=== PATIENT | female | born 1965 ===

== ENCOUNTER 2017-01-07 10:43 | Day surgery (SDC) | payer OTHER ==
[2017-01-04 08:28] VITALS: BMI 26.7
[2017-01-07 11:38] VITALS: RESP 20; TEMP 98.3; O2SAT 97
--- NOTE | 2017-01-07 12:25 | CP.SDSHP ---
Same Day Surgery H & P - History Proposed Procedure: US guided core biopsy of right neck node Pre-Op Diagnosis: Lymphadenopathy - Allergies Allergies: Allergies No Known Allergies Allergy (Verified 01/04/16 17:16) - Physical Exam Vital Signs: Vital Signs 01/07/17 11:02 Temperature 98.3 F Pulse Rate 68 Respiratory 20 Rate Blood Pressure 98/65 L O2 Sat by Pulse 97 Oximetry Mental Status: Alert & Oriented x3 Neuro: WNL Heart: WNL - Impression Impression: Multiple large submanidublar nodes. Plan US guided core biopsy. Pt. Evaluated Today:Candidate for Anesthesia & Procedure: No - Date & Time Date: 01/07/17 Time: 12:00 Short Stay Discharge - Short Stay Discharge Admitting Diagnosis/Reason for Visit: NECK MASS Disposition: HOME/ ROUTINE
--- NOTE | 2017-01-07 12:27 | PCM.SURG1 ---
Surgeon's Initial Post Op Note - Surgeon's Notes Surgeon: Ryan Ramos MD [employer] Developer: NONE Type of Anesthesia: Local Pre-Operative Diagnosis: Lymphadenopathy Operative Findings: Large submandibular nodes that are complex and measures up to 5 cm. Post-Operative Diagnosis: Lymphadenopathy Operation Performed: US guided core biopsy Specimen/Specimens Removed: 18 g core x 6 passes Estimated Blood Loss: EBL {In ML}: 2 Blood Products Given: N/A Drains Used: No Drains Post-Op Condition: Good Date of Surgery/Procedure: 01/07/17 Time of Surgery/Procedure: 12:20
--- NOTE | 2017-01-07 12:38 | US ---
PROCEDURE: Date of procedure: 01/07/2017 Procedure: Ultrasound-guided biopsy of RIGHT neck lymph node, CPT 67968 Ultrasound guidance for biopsy, [id number] HISTORY: Enlarged cervical lymph node. TECHNIQUE: Following informed consent and procedure time-out, limited ultrasound patient's Right neck demonstrates a large right lymph node in the submandibular region. The lymph node measures 5x 2.8 centimeter and is complex. After the patient neck was prepped and draped in the usual sterile fashion and the skin anesthetized with lidocaine, ultrasound guided core biopsy was performed. An 18 gauge core needle was advanced under ultrasound guidance into the mass. Upon confirmation of needle position, six 18 gauge specimens were obtained and sent for routine histology and flow cytometry. A post biopsy ultrasound showed no hematoma IMPRESSION: Ultrasound-guided core biopsy of enlarged right cervical lymph node.
[2017-01-07 13:02] VITALS: BP 105/63; PULSE 69
== END 2017-01-07 12:55 | disposition home or self-care (01) ==
LOC: C.SPRAD 10:43
PROVIDERS: ATTEND Radiology Vascular & Interventional Radiology
DX: C83.31 Diffuse large B-cell lymphoma, lymph nodes of head, face, and neck (principal)

== ENCOUNTER 2017-08-27 09:25 | Inpatient (IN) | payer OTHER ==
[2017-08-27 09:25] VITALS: BMI 25.3
[2017-08-27] MEDS ORDERED: Sodium Chloride 0.9% 1,000 ML IV ONE ×3 (10:32→14:14)
--- NOTE | 2017-08-27 11:04 | RAD ---
HISTORY: Sepsis Patient COMPARISON: 02/24/2017 TECHNIQUE: Chest PA and lateral FINDINGS: LUNGS: Ovoid opacity right lower lobe, possibly pneumonia. Rule out neoplasm. This represents interval change compared to CT examination of 07/16/2017. No other abnormal pulmonary opacity elsewhere. PLEURA: No significant pleural effusion identified. No pneumothorax apparent. CARDIOVASCULAR: Normal heart size. No congestive change. Right central venous Port-A-Cath. OSSEOUS STRUCTURES: No significant abnormalities. VISUALIZED UPPER ABDOMEN: Normal. OTHER FINDINGS: None. IMPRESSION: Right lower lobe opacity possible pneumonia. Followup to clearing to exclude underlying neoplasm. Right central venous infusion port. No additional abnormality.
--- NOTE | 2017-08-27 11:04 | C.PDOC ---
History Of Present Illness 52 year old female, with PMHx of lymphoma, presents to ED for evaluation of cold symptoms including body aches, fever, productive cough with yellow sputum for the past week. Pt reports being seen by PMD 5 days ago, was given Zithromax without improvement. As per family, pt had an episode of vomiting yesterday. Denies chest pain, SOB, high fever, drooling, neck pain, headache, dizziness, diarrhea, abdominal pain, or back pain. At present time, pt appears sick and pale. Time Seen by Provider: 08/27/17 10:02 Chief Complaint (Nursing): Flu-like Symptoms History Per: Patient History/Exam Limitations: no limitations Onset/Duration Of Symptoms: Days Current Symptoms Are (Timing): Still Present Location Of Pain: Diffuse Myalgias Sick Contacts (Context): None Associated Symptoms: Fever, Cough, Sputum, Myalgias Ear Symptoms: Bilateral: None Recent travel outside of the [place]: No Additional History Per: Patient Past Medical History Reviewed: Historical Data, Nursing Documentation, Vital Signs Vital Signs: Last Vital Signs Temp 97.9 F 08/27/17 14:25 Pulse 69 08/27/17 15:57 Resp 18 08/27/17 15:57 BP 83/50 L 08/27/17 17:29 Pulse Ox 100 08/27/17 15:57 - Medical History PMH: Anxiety, Arthritis, Malignancy Denies: Chronic Kidney Disease Surgical History: Tonsillectomy, - [facility] Procedures DRAINAGE OF SPINAL CANAL, PERCUTANEOUS APPROACH, DIAGNOSTIC (01/04/16) EXCISION OF R UP ARM SUBCU/FASCIA, OPEN APPROACH (01/04/16) EXCISION OF RIGHT AXILLARY LYMPHATIC, OPEN APPROACH, DIAGN (01/04/16) Family History: States: Unknown Family Hx - Social History Hx Alcohol Use: No Hx Substance Use: No - Immunization History Hx Tetanus Toxoid Vaccination: (unk) Hx Influenza Vaccination: No Hx Pneumococcal Vaccination: (unk) Review Of Systems Except As Marked, All Systems Reviewed And Found Negative. Constitutional: Positive for: Fever, Other (body aches) Cardiovascular: Negative for: Chest Pain, Palpitations Respiratory: Positive for: Cough, Sputum. Negative for: Shortness of Breath, Hemoptysis Gastrointestinal: Positive for: Vomiting. Negative for: Abdominal Pain, Diarrhea Genitourinary: Negative for: Dysuria, Frequency, Hematuria Musculoskeletal: Negative for: Neck Pain, Back Pain Neurological: Negative for: Headache, Dizziness Physical Exam - Physical Exam Appears: Non-toxic, Chronically Ill Skin: Warm, Dry, Pale Head: Normacephalic Eye(s): bilateral: PERRL Nose: No Flaring Oral Mucosa: Moist, No Drooling Tongue: Normal Appearing Throat: Normal, No Erythema, No Exudate Neck: Supple Chest: Symmetrical Cardiovascular: Rhythm Regular, No Murmur Respiratory: No Accessory Muscle Use, No Rales, No Rhonchi, No Wheezing Gastrointestinal/Abdominal: Soft, No Tenderness Extremity: Normal ROM, No Pedal Edema, No Deformity Neurological/Psych: Oriented x3, Normal Speech ED Course And Treatment - Laboratory Results Result Diagrams: 08/27/17 11:03 08/27/17 11:03 Lab Interpretation: Abnormal ECG: Interpreted By Me, Viewed By Me ECG Rhythm: Sinus Rhythm ECG Interpretation: Normal Interpretation Of ECG: SR@88/min,NAD, no acute T wave or ST-T changes. O2 Sat by Pulse Oximetry: 100 (RA) Pulse Ox Interpretation: Normal - Other Rad CXR X-Ray: Read By Radiologist Interpretation: IMPRESSION: Right lower lobe opacity possible pneumonia. Followup to clearing to exclude underlying neoplasm. Right central venous infusion port. No additional abnormality. Progress Note: Blood work, UA, influenza AB, CXR, EKG ordered and reviewed. Pt was given Toradol, Zofran, Tylenol, and IV fluids. On re-eval, pt remained unchanged. Blood work review, CXR review, pt has clinical findings c/w fever, PNA r/o sepsis. case discussed with hospitalist and admission arranged. Disposition - Disposition Disposition: HOSPITALIZED Disposition Time: 12:02 Condition: STABLE - Clinical Impression Clinical Impression: Pneumonia, Lymphoma of lymph nodes of neck - PA / KEYBOARD SPECIALIST / Resident Statement MD/DO has reviewed & agrees with the documentation as recorded. - Scribe Statement The provider has reviewed the documentation as recorded by the Nichole Diaz All medical record entries made by the Stephaniaibrandi were at my direction and personally dictated by me. I have reviewed the chart and agree that the record accurately reflects my personal performance of the history, physical exam, medical decision making, and the department course for this patient. I have also personally directed, reviewed, and agree with the discharge instructions and disposition.
[2017-08-27 11:09] LABS: BASO % 0.4 % (0.0-2.0); HEMOGLOBIN 11.6 g/dL (11.0-16.0); MEAN CORPUSCULAR HEMOGLOBIN 28.8 pg (27.0-31.0); MEAN CORPUSCULAR HGB CONC 35.1 g/dL (33.0-37.0); MEAN PLATELET VOLUME 8.6 fL (7.2-11.7); MONO # 0.8 K/uL (0.0-0.8); MONO % 6.4 % (0.0-10.0); NEUT # 10.7 K/uL (1.8-7.0); NEUT % 85.2 % (50.0-75.0); PLATELET COUNT 183 K/uL (130-400); RBC 4.03 Mil/uL (3.80-5.20); RED CELL DISTRIBUTION WIDTH 17.4 % (11.5-14.5)
[2017-08-27 11:14] LABS: SQUAMOUS EPITHIAL 1 /hpf (0-5); URINE BILIRUBIN NEGATIVE (NEGATIVE); URINE BLOOD NEGATIVE (NEGATIVE); URINE CLARITY Clear (Clear); URINE COLOR Yellow (YELLOW); URINE GLUCOSE (UA) NORMAL (Normal); URINE LEUKOCYTE ESTERASE NEG Leu/uL (Negative); URINE NITRATE NEGATIVE (NEGATIVE); URINE PROTEIN 1+ mg/dL (NEGATIVE)
[2017-08-27 11:15] LABS: ABG ALLEN TEST POS; ARTERIAL BLOOD GAS HCO3 24.2 mmol/L (21-28); ARTERIAL BLOOD GAS PCO2 28 mm/Hg (35-45); ARTERIAL BLOOD GAS PH 7.49 (7.35-7.45); ARTERIAL BLOOD GAS PO2 69 mm/Hg (80-100); ARTERIAL BLOOD GAS TCO2 22.2 mmol/L (22-28)
[2017-08-27 11:17] LABS: MEAN CELL VOLUME 82.2 fL (81.0-99.0); WHITE BLOOD COUNT 12.5 K/uL (4.8-10.8)
[2017-08-27 11:19] LABS: INR 1.4; PROTHROMBIN TIME 15.4 SECONDS (9.7-12.2)
[2017-08-27 11:26] LABS: ALB/GLOB RATIO 1.1 (1.0-2.1); ALBUMIN 3.7 g/dL (3.5-5.0); ALT/SGPT 21 U/L (9-52); AST/SGOT 16 U/L (14-36); BLOOD UREA NITROGEN 9 mg/dL (7-17); CALCIUM 8.7 mg/dl (8.6-10.4); GFR AFRICAN-AMERICAN > 60; GFR NON-AFRICAN AMERICAN > 60
[2017-08-27] MEDS ORDERED: Piperacillin/Tazobact 3.375 gm 100 ML IV STA (12:00)
[2017-08-27 12:24] LABS: BANDS 7 % (0-2); LYMPHOCYTE 7 % (20-40); MONOCYTE 7 % (0-10); NEUTROPHIL 78 % (50-75); PLATELET ESTIMATE NORMAL (NORMAL); REACTIVE LYMPHOCYTES 1 % (0-0); TOTAL CELLS COUNTED 100
[2017-08-27 12:25] LABS: ANISOCYTOSIS MODERATE; LARGE PLATELETS PRESENT; MICROCYTOSIS SLIGHT; OVALOCYTES SLIGHT; POIKILOCYTOSIS SLIGHT
[2017-08-27 12:26] LABS: GIANT PLATELETS PRESENT
[2017-08-27] MEDS ORDERED: Albuterol 0.083% Inhal Sol (2.5 mg/3 mL) UD IH STA (12:32)
[2017-08-27] MEDS ORDERED: Albuterol-Ipratrop 3 mg / 0.5 (3 ml) UD ONE (12:37)
[2017-08-27] MEDS ORDERED: Piperacill/Tazo 3.375gm in Dex 3.375 GM/50 ML BAG IVPB ONE (13:00)
[2017-08-27 14:27] LABS: VENOUS BLOOD GAS BASE EXCESS -2.7 mmol/L (0.0-2.0); VENOUS BLOOD GAS PCO2 40 mmHg (40-60); VENOUS BLOOD GAS PO2 44 mm/Hg (30-55); VENOUS BLOOD PH 7.36 (7.32-7.43)
[2017-08-27] MEDS: Sodium Chloride 0.9% 1,000 ML IV SCH ×3 (14:27→21:16)
[2017-08-27] MEDS: Vancomycin 1 GM in Sodium Chloride 0.9% 200 ML IVPB SCH (16:30)
--- NOTE | 2017-08-27 17:36 | CP.PCM.HP ---
<Maryann Booth - Last Filed: 08/27/17 17:23> History of Present Illness - History of Present Illness History of Present Illness: 52 year old female with past medical history stage IV diffuse large B-cell lymphoma diagnosed in 2009 s/p chemotherapy in [facility], with [employer] recurrence in 2011 with positive CSF and concominant herpes zoster infection, s/ p treatment, with repeat recurrence in 12/2016 currently on chemotherapy presented to hospital with 8 days of maylgias, fevers, chills. Patient states that she went to her PMD, Dr. Cifuentes 1 week ago and was prescribed Abx. Pt started taking Abx a few days later. Pt decided to come in today due to high fever at home of 103-104 degress. Patient is complaining of chills, fevers, headache, and nausea. Patient took tylenol before coming to hospital. Denies having any sick contacts. Last chemotherapy was 1 month ago. PMHx: stated above PSH: ; Biopsy from back; Chemotherapy Port (right supraclavicular) FH: Denies SH: Denies smoking, alcohol use, and illicit drug use. Previously worked in a [employer] and was laid off 6 months ago. Single and living with her son-in- law and daughter in an apartment. Allergies: NKDA Medications: Chemotherapy, Prednisone Onc: Rosie PMD: Esau Present on Admission - Present on Admission Any Indicators Present on Admission: No Review of Systems - Constitutional Constitutional: Chills, Fever - EENT Eyes: absent: Change in Vision Nose/Mouth/Throat: absent: Nasal Congestion, Sore Throat - Cardiovascular Cardiovascular: absent: Chest Pain, Dyspnea, Pedal Edema - Respiratory Respiratory: absent: Cough, Dyspnea, Wheezing - Gastrointestinal Gastrointestinal: Nausea. absent: Abdominal Pain, Constipation, Diarrhea, Vomiting - Genitourinary Genitourinary: absent: Change in Urinary Stream, Dysuria - Musculoskeletal Musculoskeletal: absent: Numbness, Tingling - Integumentary Integumentary: absent: Lesions, Rash, Skin Ulcer - Neurological Neurological: Headaches. absent: Confusion, Numbness, Weakness - Psychiatric Psychiatric: absent: Anxiety, Depression Past Patient History - Infectious Disease Hx of Infectious Diseases: None - Past Medical History & Family History Past Medical History?: Yes - Past Social History Smoking Status: Never Smoked Chewing Tobacco Use: No Cigar Use: No Alcohol: None Drugs: Denies - CARDIAC Hx Cardiac Disorders: Yes Hx Angina: Yes - PULMONARY Hx Respiratory Disorders: No - NEUROLOGICAL Hx Neurological Disorder: Yes Other/Comment: headaches - HEENT Hx HEENT Problems: Yes Other/Comment: HX: HYPERTROPIC TONSILS. HX: SORE THROATS "FOR MONTHS" - RENAL Hx Chronic Kidney Disease: No - ENDOCRINE/METABOLIC Hx Endocrine Disorders: No - HEMATOLOGICAL/ONCOLOGICAL Hx Blood Disorders: Yes - INTEGUMENTARY Hx Dermatological Problems: Yes Other/Comment: HX: RIGHT AXILLARY MASS - MUSCULOSKELETAL/RHEUMATOLOGICAL Hx Arthritis: Yes - GASTROINTESTINAL Hx Gastrointestinal Disorders: Yes HX Swallowing Problems: Yes - GENITOURINARY/GYNECOLOGICAL Hx Genitourinary Disorders: No - PSYCHIATRIC Hx Anxiety: Yes Hx Substance Use: No - SURGICAL HISTORY Hx Tonsillectomy: Yes - ANESTHESIA Hx Anesthesia: Yes Hx Anesthesia Reactions: Yes (02/15/17 dizziness) Hx Malignant Hyperthermia: No Meds Allergies/Adverse Reactions: Allergies Allergy/AdvReac Type Severity Reaction Status Date / Time No Known Allergies Allergy Verified 08/27/17 09:53 Physical Exam - Constitutional Appears: In Acute Distress - Head Exam Head Exam: ATRAUMATIC, NORMAL INSPECTION - ENT Exam ENT Exam: Mucous Membranes Moist - Respiratory Exam Respiratory Exam: Rhonchi (B/L R>L). absent: Accessory Muscle Use, Rales, Wheezes, Respiratory Distress - Cardiovascular Exam Cardiovascular Exam: REGULAR RHYTHM, +S1, +S2. absent: Diastolic murmur, Gallop , Rubs, Systolic Murmur - GI/Abdominal Exam GI & Abdominal Exam: Normal Bowel Sounds, Soft. absent: Distended, Firm, Guarding, Rigid, Tenderness - Extremities Exam Extremities exam: Negative for: pedal edema, tenderness - Neurological Exam Neurological exam: Alert, Oriented x3 - Psychiatric Exam Psychiatric exam: Normal Affect, Normal Mood - Skin Skin Exam: Dry, Intact, Pallor, Warm Results - Vital Signs Recent Vital Signs: Last Vital Signs Temp 97.9 F 08/27/17 14:25 Pulse 69 08/27/17 15:57 Resp 18 08/27/17 15:57 BP 77/35 L 08/27/17 15:57 Pulse Ox 100 08/27/17 15:57 - Labs Result Diagrams: 08/27/17 11:03 08/27/17 11:03 Labs: Laboratory Results - last 24 hr 08/27/17 08/27/17 08/27/17 10:32 11:03 11:03 WBC 12.5 H D RBC 4.03 Hgb 11.6 Hct 33.1 L MCV 82.2 D MCH 28.8 MCHC 35.1 RDW 17.4 H Plt Count 183 MPV 8.6 Neut % (Auto) 85.2 H Lymph % (Auto) 8.0 L Hayes % (Auto) 6.4 Eos % (Auto) 0.0 Baso % (Auto) 0.4 Neut # 10.7 H Lymph # 1.0 Hayes # 0.8 Eos # 0.0 Baso # 0.0 Neutrophils % (Manual) 78 H Band Neutrophils % 7 H Lymphocytes % (Manual) 7 L Reactive Lymphs % 1 H Monocytes % (Manual) 7 Platelet Estimate Normal Large Platelets Present Giant Platelets Present Poikilocytosis (manual Slight Anisocytosis (manual) Moderate Microcytosis (manual) Slight Ovalocytes Slight PT 15.4 H INR 1.4 APTT 30 Puncture Site pCO2 pO2 HCO3 ABG pH ABG Total CO2 ABG O2 Saturation ABG Base Excess Jose L Test ABG Potassium VBG pH VBG pCO2 VBG HCO3 VBG Total CO2 VBG O2 Sat (Calc) VBG Base Excess VBG Potassium A-a O2 Difference Respiratory Index Glucose Lactate FiO2 Sodium Potassium Chloride Carbon Dioxide Anion Gap BUN Creatinine Est GFR ( Amer) Est GFR (Non-Af Amer) POC Glucose (mg/dL) Random Glucose Calcium Total Bilirubin AST ALT Alkaline Phosphatase Total Protein Albumin Globulin Albumin/Globulin Ratio Arterial Blood Potassium Venous Blood Potassium Urine Color Urine Clarity Urine pH Ur Specific [place] Urine Protein Urine Glucose (UA) Urine Ketones Urine Blood Urine Nitrate Urine Bilirubin Urine Urobilinogen Ur Leukocyte Esterase Urine WBC (Auto) Urine RBC (Auto) Ur Squamous Epith Cells Urine HCG, Qual Influenza Typ A,B (EIA) Negative for flu a/b 08/27/17 08/27/17 08/27/17 11:03 11:03 11:12 WBC RBC Hgb Hct MCV MCH MCHC RDW Plt Count MPV Neut % (Auto) Lymph % (Auto) Hayes % (Auto) Eos % (Auto) Baso % (Auto) Neut # Lymph # Hayes # Eos # Baso # Neutrophils % (Manual) Band Neutrophils % Lymphocytes % (Manual) Reactive Lymphs % Monocytes % (Manual) Platelet Estimate Large Platelets Giant Platelets Poikilocytosis (manual Anisocytosis (manual) Microcytosis (manual) Ovalocytes PT INR APTT Puncture Site Rr pCO2 28 L pO2 69 L HCO3 24.2 ABG pH 7.49 H ABG Total CO2 22.2 ABG O2 Saturation 98.0 ABG Base Excess -0.9 Jose L Test Pos ABG Potassium 3.7 VBG pH VBG pCO2 VBG HCO3 VBG Total CO2 VBG O2 Sat (Calc) VBG Base Excess VBG Potassium A-a O2 Difference 46.0 Respiratory Index 0.7 Glucose 194 H Lactate 0.7 FiO2 21.0 Sodium 126 L 130.0 L Potassium 4.2 Chloride 92 L 102.0 Carbon Dioxide 26 Anion Gap 12 BUN 9 Creatinine 0.6 L Est GFR ( Amer) > 60 Est GFR (Non-Af Amer) > 60 POC Glucose (mg/dL) Random Glucose 217 H Calcium 8.7 Total Bilirubin 0.8 AST 16 ALT 21 Alkaline Phosphatase 89 Total Protein 7.1 Albumin 3.7 Globulin 3.4 Albumin/Globulin Ratio 1.1 Arterial Blood Potassium 3.7 Venous Blood Potassium Urine Color Yellow Urine Clarity Clear Urine pH 6.0 Ur Specific [place] 1.018 Urine Protein 1+ H Urine Glucose (UA) Normal Urine Ketones Trace Urine Blood Negative Urine Nitrate Negative Urine Bilirubin Negative Urine Urobilinogen 2.0 H Ur Leukocyte Esterase Neg Urine WBC (Auto) 1 Urine RBC (Auto) 4 H Ur Squamous Epith Cells 1 Urine HCG, Qual Influenza Typ A,B (EIA) 08/27/17 08/27/17 08/27/17 14:24 14:31 16:27 WBC RBC Hgb Hct MCV MCH MCHC RDW Plt Count MPV Neut % (Auto) Lymph % (Auto) Hayes % (Auto) Eos % (Auto) Baso % (Auto) Neut # Lymph # Hayes # Eos # Baso # Neutrophils % (Manual) Band Neutrophils % Lymphocytes % (Manual) Reactive Lymphs % Monocytes % (Manual) Platelet Estimate Large Platelets Giant Platelets Poikilocytosis (manual Anisocytosis (manual) Microcytosis (manual) Ovalocytes PT INR APTT Puncture Site pCO2 pO2 44 HCO3 ABG pH ABG Total CO2 ABG O2 Saturation ABG Base Excess Jose L Test ABG Potassium VBG pH 7.36 VBG pCO2 40 VBG HCO3 22.3 VBG Total CO2 23.8 VBG O2 Sat (Calc) 84.8 H VBG Base Excess -2.7 L VBG Potassium 3.5 L A-a O2 Difference Respiratory Index Glucose 263 H Lactate 1.1 FiO2 Sodium 131.0 L Potassium Chloride 100.0 Carbon Dioxide Anion Gap BUN Creatinine Est GFR ( Amer) Est GFR (Non-Af Amer) POC Glucose (mg/dL) 270 H Random Glucose Calcium Total Bilirubin AST ALT Alkaline Phosphatase Total Protein Albumin Globulin Albumin/Globulin Ratio Arterial Blood Potassium Venous Blood Potassium 3.5 L Urine Color Urine Clarity Urine pH Ur Specific [place] Urine Protein Urine Glucose (UA) Urine Ketones Urine Blood Urine Nitrate Urine Bilirubin Urine Urobilinogen Ur Leukocyte Esterase Urine WBC (Auto) Urine RBC (Auto) Ur Squamous Epith Cells Urine HCG, Qual Negative Influenza Typ A,B (EIA) Assessment & Plan - Assessment and Plan (Free Text) Assessment: 52 year old female with past medical history of B cell lymphoma currently receiving chemotherapy is admitted for influenza and possible pneumonia. Pt was febrile on admission with temp of 102.9. She also had leukocytosis at 12.5 with left shift. CXR on admission showed right lower lung opacity. Pt was also hypotensive in ED and was given 3L of NS in ED. Sepsis - Admitted to tele - Pt presented with leukocytosis and a temp of 102.9. She was also hypotensive in ED - Lactic acid on admission was 0.7. Repeat a few hours later was 1.1. will repeat VBG at 9 pm - Pt received 3 L bolus of NS in ED. Will continue NS at 100 cc - Pt received tylenol 975 mg po in ED. Continue tylenol prn for fever - Blood, urine cultures ordered - Pt received Zosyn in ED. Will start pt on Vanco and cefepime and tamiflu - Will check vitals q2h Influenza - Rapid flu test was negative - Patient will be started on Tamiflu 75 mg PO BID for 5 days Pneumonia - CXR on admission showed right lower lung opacity. - Will check CT of chest/abd/pelvis - Pt started on Abx: vancomycin and cefepime - Will check sputum culture, mycoplasma IgM, Strep pneumonia, legionella AG urine - Toradol prn for pain B cell pneumonia - Currently pt is not neutropenic. Neutrophil % 85, manual 78. - Will continue to monitor cell count Nausea - Zofran prn Prophylaxis - Pepcid - Lovenox - SCDs Case discussed with attending, Dr. Green. - Date & Time Date: 08/27/17 Time: 17:40 <Devin Green H - Last Filed: 08/27/17 18:02> Results - Vital Signs Recent Vital Signs: Last Vital Signs Temp 97.9 F 08/27/17 14:25 Pulse 69 08/27/17 15:57 Resp 18 08/27/17 15:57 BP 83/50 L 08/27/17 17:29 Pulse Ox 100 08/27/17 15:57 - Labs Result Diagrams: 08/27/17 11:03 08/27/17 11:03 Labs: Laboratory Results - last 24 hr 08/27/17 08/27/17 08/27/17 10:32 11:03 11:03 WBC 12.5 H D RBC 4.03 Hgb 11.6 Hct 33.1 L MCV 82.2 D MCH 28.8 MCHC 35.1 RDW 17.4 H Plt Count 183 MPV 8.6 Neut % (Auto) 85.2 H Lymph % (Auto) 8.0 L Hayes % (Auto) 6.4 Eos % (Auto) 0.0 Baso % (Auto) 0.4 Neut # 10.7 H Lymph # 1.0 Hayes # 0.8 Eos # 0.0 Baso # 0.0 Neutrophils % (Manual) 78 H Band Neutrophils % 7 H Lymphocytes % (Manual) 7 L Reactive Lymphs % 1 H Monocytes % (Manual) 7 Platelet Estimate Normal Large Platelets Present Giant Platelets Present Poikilocytosis (manual Slight Anisocytosis (manual) Moderate Microcytosis (manual) Slight Ovalocytes Slight PT 15.4 H INR 1.4 APTT 30 Puncture Site pCO2 pO2 HCO3 ABG pH ABG Total CO2 ABG O2 Saturation ABG Base Excess Jose L Test ABG Potassium VBG pH VBG pCO2 VBG HCO3 VBG Total CO2 VBG O2 Sat (Calc) VBG Base Excess VBG Potassium A-a O2 Difference Respiratory Index Glucose Lactate FiO2 Sodium Potassium Chloride Carbon Dioxide Anion Gap BUN Creatinine Est GFR ( Amer) Est GFR (Non-Af Amer) POC Glucose (mg/dL) Random Glucose Calcium Total Bilirubin AST ALT Alkaline Phosphatase Total Protein Albumin Globulin Albumin/Globulin Ratio Arterial Blood Potassium Venous Blood Potassium Urine Color Urine Clarity Urine pH Ur Specific [place] Urine Protein Urine Glucose (UA) Urine Ketones Urine Blood Urine Nitrate Urine Bilirubin Urine Urobilinogen Ur Leukocyte Esterase Urine WBC (Auto) Urine RBC (Auto) Ur Squamous Epith Cells Urine HCG, Qual Influenza Typ A,B (EIA) Negative for flu a/b 08/27/17 08/27/17 08/27/17 11:03 11:03 11:12 WBC RBC Hgb Hct MCV MCH MCHC RDW Plt Count MPV Neut % (Auto) Lymph % (Auto) Hayes % (Auto) Eos % (Auto) Baso % (Auto) Neut # Lymph # Hayes # Eos # Baso # Neutrophils % (Manual) Band Neutrophils % Lymphocytes % (Manual) Reactive Lymphs % Monocytes % (Manual) Platelet Estimate Large Platelets Giant Platelets Poikilocytosis (manual Anisocytosis (manual) Microcytosis (manual) Ovalocytes PT INR APTT Puncture Site Rr pCO2 28 L pO2 69 L HCO3 24.2 ABG pH 7.49 H ABG Total CO2 22.2 ABG O2 Saturation 98.0 ABG Base Excess -0.9 Jose L Test Pos ABG Potassium 3.7 VBG pH VBG pCO2 VBG HCO3 VBG Total CO2 VBG O2 Sat (Calc) VBG Base Excess VBG Potassium A-a O2 Difference 46.0 Respiratory Index 0.7 Glucose 194 H Lactate 0.7 FiO2 21.0 Sodium 126 L 130.0 L Potassium 4.2 Chloride 92 L 102.0 Carbon Dioxide 26 Anion Gap 12 BUN 9 Creatinine 0.6 L Est GFR ( Amer) > 60 Est GFR (Non-Af Amer) > 60 POC Glucose (mg/dL) Random Glucose 217 H Calcium 8.7 Total Bilirubin 0.8 AST 16 ALT 21 Alkaline Phosphatase 89 Total Protein 7.1 Albumin 3.7 Globulin 3.4 Albumin/Globulin Ratio 1.1 Arterial Blood Potassium 3.7 Venous Blood Potassium Urine Color Yellow Urine Clarity Clear Urine pH 6.0 Ur Specific [place] 1.018 Urine Protein 1+ H Urine Glucose (UA) Normal Urine Ketones Trace Urine Blood Negative Urine Nitrate Negative Urine Bilirubin Negative Urine Urobilinogen 2.0 H Ur Leukocyte Esterase Neg Urine WBC (Auto) 1 Urine RBC (Auto) 4 H Ur Squamous Epith Cells 1 Urine HCG, Qual Influenza Typ A,B (EIA) 08/27/17 08/27/17 08/27/17 14:24 14:31 16:27 WBC RBC Hgb Hct MCV MCH MCHC RDW Plt Count MPV Neut % (Auto) Lymph % (Auto) [place] % (Auto) Eos % (Auto) Baso % (Auto) Neut # Lymph # [place] # Eos # Baso # Neutrophils % (Manual) Band Neutrophils % Lymphocytes % (Manual) Reactive Lymphs % Monocytes % (Manual) Platelet Estimate Large Platelets Giant Platelets Poikilocytosis (manual Anisocytosis (manual) Microcytosis (manual) Ovalocytes PT INR APTT Puncture Site pCO2 pO2 44 HCO3 ABG pH ABG Total CO2 ABG O2 Saturation ABG Base Excess Jose L Test ABG Potassium VBG pH 7.36 VBG pCO2 40 VBG HCO3 22.3 VBG Total CO2 23.8 VBG O2 Sat (Calc) 84.8 H VBG Base Excess -2.7 L VBG Potassium 3.5 L A-a O2 Difference Respiratory Index Glucose 263 H Lactate 1.1 FiO2 Sodium 131.0 L Potassium Chloride 100.0 Carbon Dioxide Anion Gap BUN Creatinine Est GFR ( Amer) Est GFR (Non-Af Amer) POC Glucose (mg/dL) 270 H Random Glucose Calcium Total Bilirubin AST ALT Alkaline Phosphatase Total Protein Albumin Globulin Albumin/Globulin Ratio Arterial Blood Potassium Venous Blood Potassium 3.5 L Urine Color Urine Clarity Urine pH Ur Specific [place] Urine Protein Urine Glucose (UA) Urine Ketones Urine Blood Urine Nitrate Urine Bilirubin Urine Urobilinogen Ur Leukocyte Esterase Urine WBC (Auto) Urine RBC (Auto) Ur Squamous Epith Cells Urine HCG, Qual Negative Influenza Typ A,B (EIA) Attending/Attestation - Attestation I have personally seen and examined this patient.: Yes I have fully participated in the care of the patient.: Yes I have reviewed all pertinent clinical information: Yes Notes (Text): 08/27/17 17:58 Medical attending: Patient was seen and examined by me, seen with the medical illustrator. Reviewed above note by the resident and agree The patient appeared to be diaphroteic when we saw her. She has been having night sweats as well as coughing. A CXRAY done in the ER is suggesting apossible lower lobe infiltrate. The patient does have a fever, WBC 12. We will need to get blood cultures, procalcitonin. Blood pressure was a little low so she will need IVF, also we checked a VBG and the lactic acids have been ok. Repeat VBG for later tonight. Furthermore will need IV abx as well as tamiflu. The influenza tested in the ER was negative however given her story we are concerned for possible influenza + pneumonia. thank you Devin Green 08/27/17 18:02
--- NOTE | 2017-08-27 18:50 | CT ---
EXAM: CT Chest Without Intravenous Contrast CLINICAL HISTORY: 52 years old, female; Condition or disease; Cancer; Other: Lymphoma; Other: Right pleural opacity; Additional info: Right pleural opacity, HX of b cell lymphoma TECHNIQUE: Axial computed tomography images of the chest without intravenous contrast. All CT scans at this facility use one or more dose reduction techniques, viz.: automated exposure control; ma/kV adjustment per patient size (including targeted exams where dose is matched to indication; i.e. head); or iterative reconstruction technique. Coronal and sagittal reformatted images were created and reviewed. COMPARISON: Prior images are not available for review. FINDINGS: Lungs and pleural spaces: Trachea and main bronchi are patent. There is dependent atelectasis in upper lobes. There is airspace disease in both lower lobes right greater than left. There is atelectasis and scarring in the middle lobe and lingula. There is a very small right effusion. There is trace left effusion Heart and vasculature: Heart size is at the upper limits of normal.There is fluid in pericardial recesses.Aorta and main pulmonary artery are normal in caliber. Mediastinum: Esophagus is unremarkable. There is a small hiatal hernia. There are shotty mediastinal nodes.there are no pathologically enlarged mediastinal nodes. Dianelys are not optimally evaluated without contrast material. Thyroid: Thyroid is not optimally demonstrated. Bones/joints: There are no acute osseous abnormalities. Soft tissues: There is a port in the soft tissues of the right chest wall. Catheter tip is in the superior vena cava. Lymph nodes: There is bilateral axillary adenopathy. There is a 3.7 x 2.3 cm right axillary node, image 39 series 601. There is a 2.8 x 2.2 cm left axillary node, image 43 series 601 Upper abdomen: Refer to following report for abdominal findings. IMPRESSION: Axillary adenopathy; bibasilar airspace disease right greater than left with very small effusions; Port-A-Cath EXAM: CT Abdomen and Pelvis Without Intravenous Contrast EXAM DATE/TIME: 08/27/2017 3:28 PM CLINICAL HISTORY: 52 years old, female; Condition or disease; Cancer; Other: Lymphoma; Other: Right pleural opacity; Additional info: Right pleural opacity, HX of b cell lymphoma TECHNIQUE: Axial computed tomography images of the abdomen and pelvis without intravenous contrast. All CT scans at this facility use one or more dose reduction techniques, viz.: automated exposure control; ma/kV adjustment per patient size (including targeted exams where dose is matched to indication; i.e. head); or iterative reconstruction technique. Coronal and sagittal reformatted images were created and reviewed. COMPARISON: Prior images are not available for review. FINDINGS: Limitations: Lack of intravenous contrast limits evaluation of the abdomen. Lower thorax: Refer to prior report for chest findings. ABDOMEN: Liver: unremarkable Gallbladder and bile ducts: unremarkable Pancreas: unremarkable Spleen: unremarkable Adrenals: unremarkable Kidneys and ureters: unremarkable Stomach and bowel: There is a small hiatal hernia. Stomach is incompletely distended which accentuates the gastric wall. Rotation is normal. Small bowel is mildly distended with fluid and air. There is no obstruction. Ileocecal region is unremarkable. Appendix and terminal ileum are unremarkable.Streak limits evaluation of the colon. There is moderate stool and air throughout the colon. Appendix: See stomach and bowel PELVIS: Bladder: unremarkable Reproductive: Uterus and adnexal structures are unremarkable. ABDOMEN and PELVIS: Intraperitoneal space: There is no free air or free fluid. Bones/joints: There are no acute osseous abnormalities. Soft tissues: There is a very small umbilical hernia. Vasculature: Vascular structures are unremarkable. Lymph nodes: There is shotty para-aortic adenopathy. IMPRESSION: Slightly limited evaluation of the abdomen due to lack of intravenous contrast, no acute solid visceral abnormality; gastric wall thickening, underdistention versus true thickening; shotty para-aortic adenopathy
[2017-08-27 22:41] LABS: VENOUS BLOOD GAS BASE EXCESS -1.6 mmol/L (0.0-2.0); VENOUS BLOOD GAS PCO2 31 mmHg (40-60); VENOUS BLOOD GAS PO2 53 mm/Hg (30-55); VENOUS BLOOD PH 7.45 (7.32-7.43)
[2017-08-28] MEDS: Sodium Chloride 0.9% 1,000 ML IV SCH ×2 (00:19→03:07)
--- NOTE | 2017-08-28 09:41 | CP.PCM.PN ---
<Ben Sky - Last Filed: 08/28/17 13:30> Subjective - Date & Time of Evaluation Date of Evaluation: 08/28/17 Time of Evaluation: 09:33 - Subjective Subjective: PGY-[address] Green's service: Nursing reports no acute events overnight. Nursing reports mildly elevated temperature overnight but is refusing AM labs. Patient reports continued cough with productive clear phlegm. She denies body aches, nausea, or vomiting. Further Denies chest pain, palpitations, abdominal pain, or subjective fever. Objective - Vital Signs/Intake and Output Vital Signs (last 24 hours): Temp Pulse Resp BP Pulse Ox 97.8 F 80 20 93/56 L 96 08/28/17 08:07 08/28/17 08:07 08/28/17 08:07 08/28/17 08:07 08/28/17 08:07 - Medications Medications: Current Medications Acetaminophen (Tylenol 325mg Tab) 650 mg PO Q6 PRN PRN Reason: Fever >100.4 F Enoxaparin Sodium (Lovenox) 40 mg SC DAILY [facility] Famotidine (Pepcid) 20 mg PO DAILY [facility] Sodium Chloride (Sodium Chloride 0.9%) 1,000 mls @ 150 mls/hr IV .Q6H40M [facility] Last Admin: 08/28/17 00:19 Dose: 150 mls/hr Cefepime HCl 1 gm/ Dextrose 50 mls @ 100 mls/hr IVPB Q8H [facility] Last Admin: 08/28/17 06:34 Dose: 100 mls/hr Vancomycin HCl 1 gm/ Sodium (Chloride) 200 mls @ 133.333 mls/hr IVPB Q24H [facility] Last Admin: 08/27/17 16:30 Dose: 133.333 mls/hr Sodium Chloride (Sodium Chloride 0.9%) 1,000 mls @ 100 mls/hr IV .Q10H [facility] Last Admin: 08/28/17 03:07 Dose: 100 mls/hr Ketorolac Tromethamine (Toradol) 15 mg IVP Q6 PRN PRN Reason: Pain, moderate (4-7) Ondansetron HCl (Zofran Inj) 4 mg IVP Q6 PRN PRN Reason: Nausea/Vomiting Oseltamivir Phosphate (Tamiflu Cap) 75 mg PO BID [facility] Stop: 09/01/17 15:28 Last Admin: 08/27/17 20:41 Dose: 75 mg - Labs Labs: 08/27/17 11:03 08/27/17 11:03 PT 15.4 SECONDS (9.7-12.2) H 08/27/17 11:03 INR 1.4 08/27/17 11:03 APTT 30 SECONDS (21-34) 08/27/17 11:03 - Constitutional Appears: Non-toxic, No Acute Distress - Head Exam Head Exam: ATRAUMATIC, NORMAL INSPECTION - Eye Exam Eye Exam: EOMI, Normal appearance. absent: Scleral icterus Pupil Exam: PERRL - ENT Exam ENT Exam: Mucous Membranes Moist - Respiratory Exam Respiratory Exam: Rhonchi (worse on right middle lobe) - Cardiovascular Exam Cardiovascular Exam: REGULAR RHYTHM, +S1, +S2 - GI/Abdominal Exam GI & Abdominal Exam: Soft, Normal Bowel Sounds. absent: Tenderness - Extremities Exam Extremities Exam: Normal Inspection. absent: Pedal Edema, Tenderness - Back Exam Back Exam: absent: CVA tenderness (L), CVA tenderness (R) - Neurological Exam Neurological Exam: Alert, Awake, Oriented x3 - Psychiatric Exam Psychiatric exam: Normal Affect, Normal Mood - Skin Skin Exam: Normal Color, Warm Assessment and Plan - Assessment and Plan (Free Text) Plan: Sepsis - Admitted to tele - Pt presented with leukocytosis and a temp of 102.9. She was also hypotensive in ED - Lactic acid on admission was 0.7. Repeat a few hours later was 1.1 - Pt received 3 L bolus of NS in ED. Will continue NS at 100 cc - Pt received tylenol 975 mg po in ED. Continue tylenol prn for fever - F/u blood culture - Urine culture contaminated, will repeat - Pt received Zosyn in ED. Will start pt on Vanco and cefepime and tamiflu Influenza - Rapid flu test was negative - Patient will be started on Tamiflu 75 mg PO BID for 5 days Pneumonia - CXR on admission showed right lower lung opacity. - CT of chest/abd/pelvis (08/27/17): Chest: Axillary adenopathy; bibasilar airspace disease (right greater than left with very small effusions), Port-a-cath Abdomen/Pelvis: Gastric wall thickening, underdistention vs true thickening, shotty para-aortic adenopathy - Pt started on Abx: vancomycin and cefepime - Will check sputum culture, Strep pneumonia, legionella AG urine - negative mycoplasma IgM - Toradol prn for pain Hemoglobin Drop Hgb 9.6 from 11.1 No obvious source of bleeding; no symptomatic f/u fecal occult x 3 Will monitor B cell Lymphoma - Currently pt is not neutropenic. Neutrophil % 85, manual 78. - Will continue to monitor cell count Hyponatremia Improving, Na 131 on AM labs Monitor Nausea - Zofran prn Prophylaxis - Pepcid - Lovenox - SCDs Case discussed with attending, Dr. Green. <Devin Green - Last Filed: 08/28/17 14:49> Objective - Vital Signs/Intake and Output Vital Signs (last 24 hours): Temp Pulse Resp BP Pulse Ox 97.8 F 80 20 93/56 L 96 08/28/17 08:07 08/28/17 08:07 08/28/17 08:07 08/28/17 08:07 08/28/17 08:07 - Medications Medications: Current Medications Acetaminophen (Tylenol 325mg Tab) 650 mg PO Q6 PRN PRN Reason: Fever >100.4 F Enoxaparin Sodium (Lovenox) 40 mg SC DAILY [facility] Last Admin: 08/28/17 10:24 Dose: 40 mg Famotidine (Pepcid) 20 mg PO DAILY [facility] Last Admin: 08/28/17 10:24 Dose: 20 mg Sodium Chloride (Sodium Chloride 0.9%) 1,000 mls @ 150 mls/hr IV .Q6H40M [facility] Last Admin: 08/28/17 00:19 Dose: 150 mls/hr Cefepime HCl 1 gm/ Dextrose 50 mls @ 100 mls/hr IVPB Q8H [facility] Last Admin: 08/28/17 06:34 Dose: 100 mls/hr Vancomycin HCl 1 gm/ Sodium (Chloride) 200 mls @ 133.333 mls/hr IVPB Q24H [facility] Last Admin: 08/27/17 16:30 Dose: 133.333 mls/hr Sodium Chloride (Sodium Chloride 0.9%) 1,000 mls @ 100 mls/hr IV .Q10H [facility] Last Admin: 08/28/17 03:07 Dose: 100 mls/hr Insulin Human Regular (Novolin R) 0 unit SC ACHS [facility] PRN Reason: Protocol Ketorolac Tromethamine (Toradol) 15 mg IVP Q6 PRN PRN Reason: Pain, moderate (4-7) Ondansetron HCl (Zofran Inj) 4 mg IVP Q6 PRN PRN Reason: Nausea/Vomiting Oseltamivir Phosphate (Tamiflu Cap) 75 mg PO BID [facility] Stop: 09/01/17 15:28 Last Admin: 08/28/17 10:24 Dose: 75 mg - Labs Labs: 08/28/17 12:13 08/28/17 12:13 PT 15.4 SECONDS (9.7-12.2) H 08/27/17 11:03 INR 1.4 08/27/17 11:03 APTT 30 SECONDS (21-34) 08/27/17 11:03 Attending/Attestation - Attestation I have personally seen and examined this patient.: Yes I have fully participated in the care of the patient.: Yes I have reviewed all pertinent clinical information, including history, physical exam and plan: Yes Notes (Text): 08/28/17 14:49 Medical attending: Patient was seen and examined by the medical equipment technician and myself. Agree with the above note by the medical equipment technician. Medical attending: Patient was seen and examined by me, agrees the above note by medical equipment technician. The patient does seem to better today. She is not is diaphoretic. She has not had any large fevers. We are waiting on a procalcitonin, blood cultures at this time. The CXR is showing a RLL finding, possible pneumonia. Given her history of malignancy continue on IV abx, and also tamiflu PO BID thank you Devin Green
[2017-08-28] MEDS: Enoxaparin 40 mg Syringe SC SCH (10:24)
[2017-08-28 12:20] LABS: BASO % 0.5 % (0.0-2.0); EOS # 0.1 K/uL (0.0-0.7); EOS % 2.3 % (0.0-4.0); LYMPH # 0.7 K/uL (1.0-4.3); LYMPH % 15.3 % (20.0-40.0); MEAN CELL VOLUME 83.4 fL (81.0-99.0); MEAN CORPUSCULAR HEMOGLOBIN 28.3 pg (27.0-31.0); MEAN PLATELET VOLUME 8.8 fL (7.2-11.7); MONO # 0.6 K/uL (0.0-0.8); MONO % 11.4 % (0.0-10.0); NEUT # 3.4 K/uL (1.8-7.0); NEUT % 70.5 % (50.0-75.0); RBC 3.39 Mil/uL (3.80-5.20); RED CELL DISTRIBUTION WIDTH 17.2 % (11.5-14.5)
[2017-08-28 12:25] LABS: WHITE BLOOD COUNT 4.9 K/uL (4.8-10.8)
[2017-08-28 12:31] LABS: HEMOGLOBIN 9.6 g/dL (11.0-16.0)
[2017-08-28 12:44] LABS: ALB/GLOB RATIO 1.1 (1.0-2.1); ALBUMIN 3.1 g/dL (3.5-5.0); ALT/SGPT 25 U/L (9-52); AST/SGOT 20 U/L (14-36); BLOOD UREA NITROGEN 6 mg/dL (7-17); CALCIUM 8.3 mg/dl (8.6-10.4); GFR AFRICAN-AMERICAN > 60; GFR NON-AFRICAN AMERICAN > 60
[2017-08-28] MEDS: (Novolin R) Insulin Human Regular 100 units/ml vial SC SCH ×3 (16:48→22:11)
[2017-08-28] MEDS: Vancomycin 1 GM in Sodium Chloride 0.9% 200 ML IVPB SCH (17:56)
[2017-08-29 07:14] LABS: BASO % 0.5 % (0.0-2.0); EOS # 0.1 K/uL (0.0-0.7); EOS % 4.3 % (0.0-4.0); HEMOGLOBIN 9.3 g/dL (11.0-16.0); LYMPH # 0.6 K/uL (1.0-4.3); LYMPH % 21.4 % (20.0-40.0); MEAN CELL VOLUME 84.2 fL (81.0-99.0); MEAN CORPUSCULAR HEMOGLOBIN 28.1 pg (27.0-31.0); MEAN CORPUSCULAR HGB CONC 33.4 g/dL (33.0-37.0); MEAN PLATELET VOLUME 9.4 fL (7.2-11.7); MONO # 0.4 K/uL (0.0-0.8); MONO % 12.8 % (0.0-10.0); NEUT # 1.7 K/uL (1.8-7.0); RBC 3.3 Mil/uL (3.80-5.20); RED CELL DISTRIBUTION WIDTH 17.4 % (11.5-14.5); WHITE BLOOD COUNT 2.9 K/uL (4.8-10.8)
[2017-08-29 07:45] LABS: ALBUMIN 2.7 g/dL (3.5-5.0); ALT/SGPT 29 U/L (9-52); AST/SGOT 19 U/L (14-36); BLOOD UREA NITROGEN 4 mg/dL (7-17); CALCIUM 8.1 mg/dl (8.6-10.4); GFR AFRICAN-AMERICAN > 60; GFR NON-AFRICAN AMERICAN > 60
--- NOTE | 2017-08-29 07:55 | CP.PCM.PN ---
<Ben Sky - Last Filed: 08/29/17 11:02> Subjective - Date & Time of Evaluation Date of Evaluation: 08/29/17 Time of Evaluation: 07:54 - Subjective Subjective: PGY-[address] Green's service: Pt seen and examined at bedside. Nursing reports pt afebrile overnight. Patient found eating breakfast comfortably. She denies current complaints, saying she feels well. Had long discussion via telephone with patient's daughter. Daughter was concerned Dr. Velez, pt's hem/onc, was not seeing pt in hospital. She was reassured Dr. Velez was aware and will see her as outpatient. She denies subjective fever, chills, mylagias, abdominal pain, headache, N/V. Objective - Vital Signs/Intake and Output Vital Signs (last 24 hours): Temp Pulse Resp BP Pulse Ox 97.9 F 79 18 96/57 L 99 08/28/17 23:49 08/28/17 23:49 08/28/17 23:49 08/28/17 23:49 08/28/17 23:49 Intake and Output: 08/29/17 08/29/17 06:59 18:59 Intake Total 2300 Balance 2300 - Medications Medications: Current Medications Acetaminophen (Tylenol 325mg Tab) 650 mg PO Q6 PRN PRN Reason: Fever >100.4 F Enoxaparin Sodium (Lovenox) 40 mg SC DAILY [facility] Last Admin: 08/28/17 10:24 Dose: 40 mg Famotidine (Pepcid) 20 mg PO DAILY [facility] Last Admin: 08/28/17 10:24 Dose: 20 mg Sodium Chloride (Sodium Chloride 0.9%) 1,000 mls @ 150 mls/hr IV .Q6H40M [facility] Last Admin: 08/28/17 00:19 Dose: 150 mls/hr Cefepime HCl 1 gm/ Dextrose 50 mls @ 100 mls/hr IVPB Q8H [facility] Last Admin: 08/29/17 06:45 Dose: 100 mls/hr Vancomycin HCl 1 gm/ Sodium (Chloride) 200 mls @ 133.333 mls/hr IVPB Q24H [facility] Last Admin: 08/28/17 17:56 Dose: 133.333 mls/hr Insulin Human Regular (Novolin R) 0 unit SC ACHS [facility] PRN Reason: Protocol Last Admin: 08/28/17 22:11 Dose: Not Given Ketorolac Tromethamine (Toradol) 15 mg IVP Q6 PRN PRN Reason: Pain, moderate (4-7) Ondansetron HCl (Zofran Inj) 4 mg IVP Q6 PRN PRN Reason: Nausea/Vomiting Oseltamivir Phosphate (Tamiflu Cap) 75 mg PO BID [facility] Stop: 09/01/17 15:28 Last Admin: 08/28/17 18:20 Dose: 75 mg Pneumococcal Polyvalent Vaccine (Pneumovax 23 Vaccine) 0.5 ml IM .ONCE ONE Stop: 08/31/17 14:01 - Labs Labs: 08/29/17 07:02 08/29/17 07:02 PT 15.4 SECONDS (9.7-12.2) H 08/27/17 11:03 INR 1.4 08/27/17 11:03 APTT 30 SECONDS (21-34) 08/27/17 11:03 - Additional Findings Additional findings: - Constitutional Appears: Non-toxic, No Acute Distress - Head Exam Head Exam: ATRAUMATIC, NORMAL INSPECTION - Eye Exam Eye Exam: EOMI, Normal appearance. absent: Scleral icterus Pupil Exam: PERRL - ENT Exam ENT Exam: Mucous Membranes Moist, NO JVD - Respiratory Exam Respiratory Exam: Rhonchi (mild right middle lobe) No Rales appreciated - Cardiovascular Exam Cardiovascular Exam: REGULAR RHYTHM, +S1, +S2 - Port-a-cath Right upper chest, no signs of infection - GI/Abdominal Exam GI & Abdominal Exam: Soft, Normal Bowel Sounds. absent: Tenderness - Extremities Exam Extremities Exam: Normal Inspection. absent: Pedal Edema, Tenderness - Back Exam Back Exam: absent: CVA tenderness (L), CVA tenderness (R) - Neurological Exam Neurological Exam: Alert, Awake, Oriented x3 - Psychiatric Exam Psychiatric exam: Normal Affect, Normal Mood - Skin Skin Exam: Normal Color, Warm Assessment and Plan - Assessment and Plan (Free Text) Plan: Sepsis - Admitted to tele - Pt presented with leukocytosis and a temp of 102.9. She was also hypotensive in ED - Lactic acid on admission was 0.7. Repeat a few hours later was 1.1 - Pt received 3 L bolus of NS in ED. Will continue NS at 100 cc - Pt received tylenol 975 mg po in ED. Continue tylenol prn for fever - Blood culture (08/28/17): No growth x 24 hours - Urine culture contaminated - f/u repeat culture - Pt received Zosyn in ED. Vanco 1gm q24H (start 08/27, day 3) - f/u Vanc trough cefepime 1 gm Q8H (start 08/27/17, day 3) tamiflu 75mg PO BID (course ends 09/01/17) Influenza - Rapid flu test was negative - Patient will be started on Tamiflu 75 mg PO BID for 5 days (course ends ) Pneumonia - CXR on admission showed right lower lung opacity - f/u repeat CXR - CT of chest/abd/pelvis (08/27/17): Chest: Axillary adenopathy; bibasilar airspace disease (right greater than left with very small effusions), Port-a-cath Abdomen/Pelvis: Gastric wall thickening, underdistention vs true thickening, shotty para-aortic adenopathy - Pt started on Abx: vancomycin and cefepime - Will check sputum culture, Strep pneumonia, legionella AG urine - negative mycoplasma IgM - Toradol prn for pain Hemoglobin Drop Hgb 9.3 from 11.1 on admission No obvious source of bleeding; not symptomatic Etiology: most likely dilutional effect negative x 1; f/u fecal occult x 2 Will monitor Steroid induced Hyperglycemia Pt treated in clinic in past for elevated BG due to post-chemo prednisone She had previously been treated with Metformin 500mg PO BID but states she was told A1C had improved BG elevated over course Restart Metformin 500mg PO BID Hypoglycemia protocol ISS f/u A1C B cell Lymphoma Dr. Velez aware (pts hem/onc) will follow as outpatient - Currently pt is not neutropenic. - Will continue to monitor cell count Hyponatremia Resolved Monitor Nausea - Zofran prn Prophylaxis - Pepcid - Lovenox - SCDs Case discussed with attending, Dr. Green. <Devin Green - Last Filed: 08/29/17 13:15> Objective - Vital Signs/Intake and Output Vital Signs (last 24 hours): Temp Pulse Resp BP Pulse Ox 98.0 F 72 20 94/59 L 95 08/29/17 08:42 08/29/17 08:42 08/29/17 08:42 08/29/17 08:42 08/29/17 08:42 Intake and Output: 08/29/17 08/29/17 06:59 18:59 Intake Total 2300 Balance 2300 - Medications Medications: Current Medications Acetaminophen (Tylenol 325mg Tab) 650 mg PO Q6 PRN PRN Reason: Fever >100.4 F Dextrose (Dextrose 50% Inj) 0 ml IV STAT PRN; Protocol PRN Reason: Hypoglycemia Protocol Dextrose (Glutose 15) 0 gm PO ONCE PRN; Protocol PRN Reason: Hypoglycemia Protocol Enoxaparin Sodium (Lovenox) 40 mg SC DAILY [facility] Last Admin: 08/29/17 09:27 Dose: 40 mg Famotidine (Pepcid) 20 mg PO DAILY [facility] Last Admin: 08/29/17 09:27 Dose: 20 mg Glucagon (Glucagen Diagnostic Kit) 0 mg IM STAT PRN; Protocol PRN Reason: Hypoglycemia Protocol Sodium Chloride (Sodium Chloride 0.9%) 1,000 mls @ 150 mls/hr IV .Q6H40M [facility] Last Admin: 08/28/17 00:19 Dose: 150 mls/hr Cefepime HCl 1 gm/ Dextrose 50 mls @ 100 mls/hr IVPB Q8H [facility] Last Admin: 08/29/17 06:45 Dose: 100 mls/hr Vancomycin HCl 1 gm/ Sodium (Chloride) 200 mls @ 133.333 mls/hr IVPB Q24H [facility] Last Admin: 08/28/17 17:56 Dose: 133.333 mls/hr Dextrose (Dextrose 5% In Water 1000 Ml) 1,000 mls @ 0 mls/hr IV .Q0M PRN; Protocol; Per Protocol PRN Reason: Hypoglycemia Protocol Insulin Human Regular (Novolin R) 0 unit SC ACHS [facility] PRN Reason: Protocol Last Admin: 08/29/17 12:27 Dose: 1 unit Ketorolac Tromethamine (Toradol) 15 mg IVP Q6 PRN PRN Reason: Pain, moderate (4-7) Metformin HCl (Glucophage) 500 mg PO BID [facility] Last Admin: 08/29/17 12:27 Dose: 500 mg Ondansetron HCl (Zofran Inj) 4 mg IVP Q6 PRN PRN Reason: Nausea/Vomiting Oseltamivir Phosphate (Tamiflu Cap) 75 mg PO BID [facility] Stop: 09/01/17 15:28 Last Admin: 08/29/17 09:27 Dose: 75 mg - Labs Labs: 08/29/17 07:02 08/29/17 07:02 PT 15.4 SECONDS (9.7-12.2) H 08/27/17 11:03 INR 1.4 08/27/17 11:03 APTT 30 SECONDS (21-34) 08/27/17 11:03 Attending/Attestation - Attestation I have personally seen and examined this patient.: Yes I have fully participated in the care of the patient.: Yes I have reviewed all pertinent clinical information, including history, physical exam and plan: Yes Notes (Text): 08/29/17 13:13 Medical attending: Patient was seen and examined by me, agrees the above note by medical billing clerk. The patient reported that she is feeling well. She reported that her breathing was also stable as well Her blood pressure systolic is in the mid 90s. This is a much better improvment compared to admission She had a blood culture that was done, this was negative so far. Pro-calcitonin was negative as well. Because of the findings on the right chest we nevertheless have her on IV antibiotics. She did have a slightly elevated white blood cell count, and in this is come down since then. Furthermore we also continue to have her on the Tamiflu twice a day. So at this time will probably discharge the patient tomorrow depending on how the patient is doing clinically and if her lab work remains the same as previously before. Devin Green 08/29/17 13:14
[2017-08-29 08:43] VITALS: RESP 20
[2017-08-29] MEDS: (Novolin R) Insulin Human Regular 100 units/ml vial SC SCH ×4 (08:48→21:34)
[2017-08-29] MEDS: Enoxaparin 40 mg Syringe SC SCH (09:27)
[2017-08-29] MEDS ORDERED: Dextrose 50% SYRINGE Inj (50 ml) IV PRN (11:08)
[2017-08-29] MEDS ORDERED: Glucagon Recombinant 1 mg Inj IM PRN (11:08)
--- NOTE | 2017-08-29 12:47 | RAD ---
Chest x-ray single frontal view History: Fluid overload. Comparison: 08/27/2017 Findings: Mild venous congestion. Persistent confluent airspace opacity at the right lung base which may represent prominent focal infiltrate. Post treatment interval followup would be helpful to ensure resolution and exclude underlying lesion. Right hilar prominence. Right chest wall port with tip extending to the cavoatrial junction. Cardiomegaly. Impression: Mild venous congestion. Persistent confluent airspace opacity at the right lung base which may represent prominent focal infiltrate. Post treatment interval followup would be helpful to ensure resolution and exclude underlying lesion. Right hilar prominence. Right chest wall port with tip extending to the cavoatrial junction. Cardiomegaly.
[2017-08-29] MEDS: Vancomycin 1 GM in Sodium Chloride 0.9% 200 ML IVPB SCH (16:58)
[2017-08-29] MEDS: Sodium Chloride 0.9% 1,000 ML IV SCH (19:20)
[2017-08-30] MEDS: (Novolin R) Insulin Human Regular 100 units/ml vial SC SCH ×3 (07:33→16:50)
[2017-08-30 08:02] LABS: BASO % 0.5 % (0.0-2.0); EOS # 0.1 K/uL (0.0-0.7); EOS % 4.6 % (0.0-4.0); HEMOGLOBIN 9.1 g/dL (11.0-16.0); LYMPH # 0.6 K/uL (1.0-4.3); LYMPH % 26.1 % (20.0-40.0); MEAN CELL VOLUME 83.6 fL (81.0-99.0); MEAN CORPUSCULAR HEMOGLOBIN 27.6 pg (27.0-31.0); MEAN CORPUSCULAR HGB CONC 33.1 g/dL (33.0-37.0); MEAN PLATELET VOLUME 9.3 fL (7.2-11.7); MONO # 0.3 K/uL (0.0-0.8); MONO % 14.8 % (0.0-10.0); NEUT # 1.2 K/uL (1.8-7.0); NRBC % 0.4 % (0.0-2.0); RBC 3.3 Mil/uL (3.80-5.20); RED CELL DISTRIBUTION WIDTH 16.9 % (11.5-14.5); WHITE BLOOD COUNT 2.3 K/uL (4.8-10.8)
[2017-08-30 08:49] LABS: ALB/GLOB RATIO 1.2 (1.0-2.1); ALBUMIN 2.8 g/dL (3.5-5.0); ALT/SGPT 29 U/L (9-52); AST/SGOT 13 U/L (14-36); BLOOD UREA NITROGEN 6 mg/dL (7-17); CALCIUM 8.2 mg/dl (8.6-10.4); GFR AFRICAN-AMERICAN > 60; GFR NON-AFRICAN AMERICAN > 60; MAGNESIUM 1.7 mg/dL (1.6-2.3)
[2017-08-30] MEDS: Enoxaparin 40 mg Syringe SC SCH (09:22)
[2017-08-30] MEDS: Sodium Chloride 0.9% 1,000 ML IV SCH ×3 (09:23→16:48)
--- NOTE | 2017-08-30 15:05 | CP.PCM.DIS ---
Provider - Provider Date of Admission: 08/27/17 12:05 Attending physician: Devin Green DO Primary care physician: JANICE at - Dr. Cifuentes Time Spent in preparation of Discharge (in minutes): 45 Hospital Course - Lab Results Lab Results: Micro Results 08/27/17 19:56 Sputum Gram Stain - Final 08/27/17 19:56 Sputum Sputum Culture - Final NORMAL ORAL JUAN 08/27/17 10:30 Blood Blood Culture - Preliminary NO GROWTH AFTER 48 HOURS 08/27/17 11:00 Blood Blood Culture - Preliminary NO GROWTH AFTER 48 HOURS 08/28/17 15:29 Urine,Clean Catch Urine Culture - Final No Growth (<1,000 CFU/ML) 08/27/17 10:41 Urine,Clean Catch Urine Culture - Final 10-50,000 CFU/ML. MULTIPLE SPECIES. PROBABLE CONTAMINATION. Most Recent Lab Values WBC 2.3 K/uL (4.8-10.8) L 08/30/17 07:34 RBC 3.30 Mil/uL (3.80-5.20) L 08/30/17 07:34 Hgb 9.1 g/dL (11.0-16.0) L 08/30/17 07:34 Hct 27.6 % (34.0-47.0) L 08/30/17 07:34 MCV 83.6 fL (81.0-99.0) 08/30/17 07:34 MCH 27.6 pg (27.0-31.0) 08/30/17 07:34 MCHC 33.1 g/dL (33.0-37.0) 08/30/17 07:34 RDW 16.9 % (11.5-14.5) H 08/30/17 07:34 Plt Count 209 K/uL (130-400) 08/30/17 07:34 MPV 9.3 fL (7.2-11.7) 08/30/17 07:34 Neut % (Auto) 54.0 % (50.0-75.0) 08/30/17 07:34 Lymph % (Auto) 26.1 % (20.0-40.0) 08/30/17 07:34 Swift % (Auto) 14.8 % (0.0-10.0) H 08/30/17 07:34 Eos % (Auto) 4.6 % (0.0-4.0) H 08/30/17 07:34 Baso % (Auto) 0.5 % (0.0-2.0) 08/30/17 07:34 Neut # 1.2 K/uL (1.8-7.0) L 08/30/17 07:34 Lymph # 0.6 K/uL (1.0-4.3) L 08/30/17 07:34 Swift # 0.3 K/uL (0.0-0.8) 08/30/17 07:34 Eos # 0.1 K/uL (0.0-0.7) 08/30/17 07:34 Baso # 0.0 K/uL (0.0-0.2) 08/30/17 07:34 Neutrophils % (Manual) 78 % (50-75) H 08/27/17 11:03 Band Neutrophils % 7 % (0-2) H 08/27/17 11:03 Lymphocytes % (Manual) 7 % (20-40) L 08/27/17 11:03 Reactive Lymphs % 1 % (0-0) H 08/27/17 11:03 Monocytes % (Manual) 7 % (0-10) 08/27/17 11:03 Platelet Estimate Normal (NORMAL) 08/27/17 11:03 Large Platelets Present 08/27/17 11:03 Giant Platelets Present 08/27/17 11:03 Poikilocytosis (manual Slight 08/27/17 11:03 Anisocytosis (manual) Moderate 08/27/17 11:03 Microcytosis (manual) Slight 08/27/17 11:03 Ovalocytes Slight 08/27/17 11:03 PT 15.4 SECONDS (9.7-12.2) H 08/27/17 11:03 INR 1.4 08/27/17 11:03 APTT 30 SECONDS (21-34) 08/27/17 11:03 Puncture Site Venous 08/27/17 22:38 pCO2 28 mm/Hg (35-45) L 08/27/17 11:12 pO2 53 mm/Hg (30-55) 08/27/17 22:38 HCO3 24.2 mmol/L (21-28) 08/27/17 11:12 ABG pH 7.49 (7.35-7.45) H 08/27/17 11:12 ABG Total CO2 22.2 mmol/L (22-28) 08/27/17 11:12 ABG O2 Saturation 98.0 % (95-98) 08/27/17 11:12 ABG Base Excess -0.9 mmol/L (-2.0-3.0) 08/27/17 11:12 Jose L Test Na 08/27/17 22:38 ABG Potassium 3.7 mmol/L (3.6-5.2) 08/27/17 11:12 VBG pH 7.45 (7.32-7.43) H 08/27/17 22:38 VBG pCO2 31 mmHg (40-60) L 08/27/17 22:38 VBG HCO3 23.4 mmol/L 08/27/17 22:38 VBG Total CO2 23.8 mmol/L (22-28) 08/27/17 14:24 VBG O2 Sat (Calc) 94.4 % (40-65) H 08/27/17 22:38 VBG Base Excess -1.6 mmol/L (0.0-2.0) L 08/27/17 22:38 VBG Potassium 3.5 mmol/L (3.6-5.2) L 08/27/17 14:24 A-a O2 Difference 46.0 mm/Hg 08/27/17 11:12 Respiratory Index 0.7 08/27/17 11:12 Sodium 131.0 mmol/l (132-148) L 08/27/17 14:24 Chloride 100.0 mmol/L (98-107) 08/27/17 14:24 Glucose 263 mg/dl (65-105) H 08/27/17 14:24 Lactate 1.1 mmol/L (0.7-2.1) 08/27/17 14:24 FiO2 21.0 % 08/27/17 11:12 Sodium 136 mmol/L (132-148) 08/30/17 07:34 Potassium 3.6 mmol/L (3.6-5.2) 08/30/17 07:34 Chloride 105 mmol/L (98-107) 08/30/17 07:34 Carbon Dioxide 22 mmol/L (22-30) 08/30/17 07:34 Anion Gap 13 (10-20) 08/30/17 07:34 BUN 6 mg/dL (7-17) L 08/30/17 07:34 Creatinine 0.4 mg/dL (0.7-1.2) L 08/30/17 07:34 Est GFR ( Amer) > 60 08/30/17 07:34 Est GFR (Non-Af Amer) > 60 08/30/17 07:34 POC Glucose (mg/dL) 138 mg/dL (65-110) H 08/30/17 11:24 Random Glucose 138 mg/dL (65-105) H 08/30/17 07:34 Hemoglobin A1c 8.9 % (4.2-6.5) H D 08/30/17 07:34 Calcium 8.2 mg/dl (8.6-10.4) L 08/30/17 07:34 Phosphorus 4.4 mg/dL (2.5-4.5) 08/30/17 07:34 Magnesium 1.7 mg/dL (1.6-2.3) 08/30/17 07:34 Total Bilirubin 0.2 mg/dL (0.2-1.3) 08/30/17 07:34 AST 13 U/L (14-36) L D 08/30/17 07:34 ALT 29 U/L (9-52) 08/30/17 07:34 Alkaline Phosphatase 79 U/L (38-126) 08/30/17 07:34 Total Protein 5.1 g/dL (6.3-8.3) L 08/30/17 07:34 Albumin 2.8 g/dL (3.5-5.0) L 08/30/17 07:34 Globulin 2.4 gm/dL (2.2-3.9) 08/30/17 07:34 Albumin/Globulin Ratio 1.2 (1.0-2.1) 08/30/17 07:34 Procalcitonin 0.31 NG/ML (0.19-0.49) 08/27/17 22:43 Arterial Blood Potassium 3.7 mmol/L (3.6-5.2) 08/27/17 11:12 Venous Blood Potassium 3.5 mmol/L (3.6-5.2) L 08/27/17 14:24 Urine Color Yellow (YELLOW) 08/27/17 11:03 Urine Clarity Clear (Clear) 08/27/17 11:03 Urine pH 6.0 (5.0-8.0) 08/27/17 11:03 Ur Specific Caldwell 1.018 (1.003-1.030) 08/27/17 11:03 Urine Protein 1+ mg/dL (NEGATIVE) H 08/27/17 11:03 Urine Glucose (UA) Normal mg/dL (Normal) 08/27/17 11:03 Urine Ketones Trace mg/dL (NEGATIVE) 08/27/17 11:03 Urine Blood Negative (NEGATIVE) 08/27/17 11:03 Urine Nitrate Negative (NEGATIVE) 08/27/17 11:03 Urine Bilirubin Negative (NEGATIVE) 08/27/17 11:03 Urine Urobilinogen 2.0 mg/dL (0.2-1.0) H 08/27/17 11:03 Ur Leukocyte Esterase Neg Amari/uL (Negative) 08/27/17 11:03 Urine WBC (Auto) 1 /hpf (0-5) 08/27/17 11:03 Urine RBC (Auto) 4 /hpf (0-3) H 08/27/17 11:03 Ur Squamous Epith Cells 1 /hpf (0-5) 08/27/17 11:03 Urine HCG, Qual Negative (NEGATIVE) 08/27/17 16:27 Stool Occult Blood Negative (NEGATIVE) 08/29/17 15:54 Vancomycin Trough < 5.0 ug/mL (5.0-10.0) L 08/29/17 15:54 Influenza Typ A,B (EIA) Negative for flu a/b (NEGATIVE) 08/27/17 10:32 Mycoplasma pneumon IgM Negative (NEGATIVE) 08/27/17 15:28 - Hospital Course Hospital Course: HPI: 52 year old female with past medical history stage IV diffuse large B-cell lymphoma diagnosed in 2009 s/p chemotherapy in , with [employer] recurrence in 2011 with positive CSF and concominant herpes zoster infection, s/ p treatment, with repeat recurrence in 12/2016 currently on chemotherapy presented to hospital with 8 days of maylgias, fevers, chills. Patient states that she went to her PMD, Dr. Cifuentes 1 week ago and was prescribed Abx. Pt started taking Abx a few days later. Pt decided to come in today due to high fever at home of 103-104 degress. Patient is complaining of chills, fevers, headache, and nausea. Patient took tylenol before coming to hospital. Denies having any sick contacts. Last chemotherapy was 1 month ago. PMHx: stated above PSH: ; Biopsy from back; Chemotherapy Port (right supraclavicular) FH: Denies SH: Denies smoking, alcohol use, and illicit drug use. 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 Single and living with her son-in- law and daughter in an apartment. Allergies: NKDA Medications: Chemotherapy, Prednisone Onc: Rosie PMD: [facility] Course: This patient was admitted on 08/27/17 for suspected pneumonia, influenza. In the ED, labs were drawn, imaging done, and patient was started on IV fluids, toradol, tylenol, and zofran. Patient was febrile, labs showed leukocytosis with left shift, and patient was hypotensive. Lactate was drawn and wihtin normal range. Blood and urine cultures showed no growth. Urine culture showed growth, likely contamination. Repeat urine culture was negative for growth. Sputum culture was also negative. Chest X-ray showed a focal opacity in the right lower lung, indicating possible pneumonia. Patient was treated with vancomycin and cefepime. CT of chest/abd/pelvis (08/27/17) showed axillary adenopathy; bibasilar airspace disease (right greater than left with very small effusions), Port-a-cath; Gastric wall thickening, underdistention vs true thickening, shotty para-aortic adenopathy. Rapid flu was negative, however , patient was treated with Tamiflu empirically. Patient's hemoglobin decreased from 11.1 to 9.3, which was likely due to dilution post IV fluids. Patient has a history of steroid induced hyperglycemia. Patient was restarted on metformin 500mg PO BID, and A1c was ordered which was 8.9. Today, patient was comfortable in bed and had no complaints and said she felt well. Patient has a past medical history of B-cell Lymphoma and follows Dr. Velez as an outpatient. Dr. Velez was consulted and will see the patient as outpatient for continued care. Patient must continue taking metformin 500mg PO BID and follow up with their PMD for continued management. This is a summary of the hospital course. Please see the medical records for a more detailed summary. Discharge Exam - Head Exam Head Exam: ATRAUMATIC, NORMAL INSPECTION - Eye Exam Eye Exam: EOMI, Normal appearance - ENT Exam ENT Exam: Mucous Membranes Moist - Respiratory Exam Respiratory Exam: Clear to PA & Lateral, NORMAL BREATHING PATTERN, UNREMARKABLE. absent: Rales, Rhonchi, Wheezes, Respiratory Distress - Cardiovascular Exam Cardiovascular Exam: REGULAR RHYTHM, +S1, +S2 - GI/Abdominal Exam GI & Abdominal Exam: Normal Bowel Sounds, Soft, Unremarkable. absent: Distended , Tenderness - Extremities Exam Extremities exam: normal inspection - Neurological Exam Neurological exam: Alert, Oriented x3 - Psychiatric Exam Psychiatric exam: Normal Affect, Normal Mood - Skin Skin Exam: Dry, Intact, Normal Color, Warm Discharge Plan - Discharge Medications Prescriptions: Cefuroxime Axetil [Cefuroxime] 500 mg PO BID 14 Days #28 tablet metFORMIN [glucOPHAGE] 500 mg PO BID #60 tab Oseltamivir [Tamiflu Cap] 75 mg PO BID 2 Days #4 cap - Follow Up Plan Condition: STABLE Disposition: HOME/ ROUTINE Instructions: Cefuroxime (By mouth), Metformin (By mouth), Oseltamivir (By mouth), Pneumonia (DC) Additional Instructions: Patient is stable for discharge home. Patient must continue the following medications: 1. Cefuroxime 500mg PO BID for 14 days- take 1 tablet twice a day for 14 days. 2. Metformin 500mg PO BID- take 1 tablet twice a day 3. Tamiflu 75mg PO BID- take 1 tablet twice a day for two days (last dose on ) Patient must follow up with PMD in [facility] at within 1 week of discharge- try to schedule appointment for this Wednesday. Patient must follow up with oncologist, Dr. Velez, within 1-2 weeks of discharge. If symptoms reoccur or worsen, patient should return to the ED. Referrals: Odell Velez MD [Staff Provider] -
[2017-08-30 15:55] VITALS: BP 98/60; PULSE 76; TEMP 98; O2SAT 99
[2017-08-30] MEDS: Vancomycin 1 GM in Sodium Chloride 0.9% 200 ML IVPB SCH (16:48)
[2017-08-31] MEDS ORDERED: Pneumococcal 23-Valent Vaccine IM ONE (14:00)
[2017-08-31] MEDS ORDERED: Influenza Vaccine 60 mcg/0.5 mL SYR (4YR UP) IM ONE (14:00)
--- NOTE | 2017-09-01 15:58 | CARD ---
APPROVED REPORT EKG Measurement Heart [id number] <Conclusion> Normal sinus rhythm Normal ECG
== END 2017-08-30 18:52 | disposition home or self-care (01) | DRG 584 ==
LOC: C.ER 09:25 → C.9E 12:05 → C.5S 17:20
PROVIDERS: ADMIT Internal Medicine; ATTEND Internal Medicine
DX: A41.9 Sepsis, unspecified organism (principal); J18.9 Pneumonia, unspecified organism; C83.30 Diffuse large B-cell lymphoma, unspecified site; E87.1 Hypo-osmolality and hyponatremia; J00 Acute nasopharyngitis [common cold]; D64.9 Anemia, unspecified; M19.90 Unspecified osteoarthritis, unspecified site; Z92.21 Personal history of antineoplastic chemotherapy; Z79.84 Long term (current) use of oral hypoglycemic drugs

== ENCOUNTER 2018-01-05 10:09 | Emergency (ER) | payer OTHER ==
[2018-01-05 10:09] VITALS: BMI 21.0
[2018-01-05 10:17] VITALS: RESP 18
[2018-01-05] MEDS ORDERED: Sodium Chloride 0.9% 1,000 ML IV ONE (10:35)
[2018-01-05] MEDS ORDERED: Sodium Chloride 0.9% 1,000 ML ONE (10:53)
--- NOTE | 2018-01-05 11:02 | C.PDOC ---
History Of Present Illness 52 y/o female with PMHx of lymphoma presents to the ED for evaluation of fevers , chills, cough, and sore throat for 3 days. Of note, patient had labs done at the infusion center today and was referred to the ED for concern regarding fever. Patient is scheduled for chemotherapy tomorrow. Otherwise she denies any SOB, chest tightness, vomiting, or diarrhea. Time Seen by Provider: 01/05/18 10:22 Chief Complaint (Nursing): Flu-like Symptoms History Per: Patient History/Exam Limitations: no limitations Onset/Duration Of Symptoms: Days (x3) Current Symptoms Are (Timing): Still Present Location Of Pain: Throat Associated Symptoms: Fever Severity: Mild Additional History Per: Patient Past Medical History Reviewed: Historical Data, Nursing Documentation, Vital Signs Vital Signs: Last Vital Signs Temp 98.9 F 01/05/18 12:34 Pulse 81 01/05/18 12:34 Resp 18 01/05/18 12:34 BP 102/68 01/05/18 12:34 Pulse Ox 100 01/05/18 12:37 - Medical History PMH: Anxiety, Arthritis, Malignancy (Lymphoma) Denies: Chronic Kidney Disease Surgical History: Tonsillectomy, - [facility] Procedures DRAINAGE OF SPINAL CANAL, PERCUTANEOUS APPROACH, DIAGNOSTIC (01/04/16) EXCISION OF R UP ARM SUBCU/FASCIA, OPEN APPROACH (01/04/16) EXCISION OF RIGHT AXILLARY LYMPHATIC, OPEN APPROACH, DIAGN (01/04/16) Family History: States: Unknown Family Hx - Social History Hx Alcohol Use: No Hx Substance Use: No - Immunization History Hx Tetanus Toxoid Vaccination: (unk) Hx Influenza Vaccination: No Hx Pneumococcal Vaccination: (unk) Review Of Systems Except As Marked, All Systems Reviewed And Found Negative. Constitutional: Positive for: Fever ENT: Positive for: Throat Pain, Other (enlarged lymph noded right side neck) Cardiovascular: Negative for: Chest Pain Respiratory: Positive for: Cough. Negative for: Shortness of Breath Gastrointestinal: Negative for: Vomiting, Abdominal Pain, Diarrhea Neurological: Negative for: Weakness Physical Exam - Physical Exam Appears: Non-toxic, No Acute Distress Skin: Normal Color, Warm, Dry Head: Atraumatic, Normacephalic Eye(s): bilateral: Normal Inspection, PERRL, EOMI Nose: Normal Oral Mucosa: Moist Throat: Normal, No Erythema, No Exudate, No Other (tonsillar swelling) Lymphatic: Adenopathy (Enlarged lymph node to right cervical region and bilateral axilla), Axilla Node Tenderness (enlarged nodes bilaterally) Chest: Other (Port to right upper chest) Cardiovascular: Rhythm Regular, No Murmur Respiratory: Normal Breath Sounds, No Accessory Muscle Use, No Rales, No Rhonchi , No Wheezing Gastrointestinal/Abdominal: Soft, No Tenderness, No Distention Extremity: Bilateral: Atraumatic, Normal Color And Temperature, Normal ROM Neurological/Psych: Oriented x3, Normal Speech, Other (No focal deficits) Gait: Steady ED Course And Treatment O2 Sat by Pulse Oximetry: 100 (RA) Pulse Ox Interpretation: Normal - Other Rad CXR X-Ray: Read By Radiologist Interpretation: FINDINGS: LUNGS: No active pulmonary disease. PLEURA: No significant pleural effusion identified. No pneumothorax apparent. CARDIOVASCULAR: Normal. OSSEOUS STRUCTURES: Unchanged. VISUALIZED UPPER ABDOMEN: Normal. OTHER FINDINGS: Right subclavian access chest port, unchanged. IMPRESSION: No active disease. Progress Note: Treated with IVF NSS. strep test (-). Flu test (-). On re evaluation lungs clear in no distress Reassessment Condition: Improved - Physician Consult Information Physician Contacted: Odell Velez Outcome Of Conversation: follow up with clinic Medical Decision Making Medical Decision Making: Initial Plan: Septic work-up --Blood culture --Urine culture --UA --Rapid strep --Flu swab --Lactic acid --CXR --IV fluids Labs reviewed, blood work and urine is wnl. CXR shows no acute disease. 12:[address] Velez, who agrees with plan to discharge patient home. Disposition Discussed With : Odell Velez Doctor Will See Patient In The: Office Counseled Patient/Family Regarding: Studies Performed, Diagnosis, Need For Followup - Disposition Referrals: [facility] [Outside] Odell Velez MD [Staff Provider] - Disposition: HOME/ ROUTINE Disposition Time: 12:45 Condition: STABLE Additional Instructions: Follow up with clinic for further evaluation Follow up next week for chemo Instructions: Adenovirus Infections Forms: [facility] (Somali) Print Language: THAI - POA Present On Arrival: None - Clinical Impression Clinical Impression: Influenza-like illness, H/O lymphoma - PA / POLITICAL GEOGRAPHER / Resident Statement MD/DO has reviewed & agrees with the documentation as recorded. - Scribe Statement The provider has reviewed the documentation as recorded by the Scribe (Valeria Sagastume) All medical record entries made by the Scribe were at my direction and personally dictated by me. I have reviewed the chart and agree that the record accurately reflects my personal performance of the history, physical exam, medical decision making, and the department course for this patient. I have also personally directed, reviewed, and agree with the discharge instructions and disposition.
[2018-01-05 11:30] LABS: SQUAMOUS EPITHIAL < 1 /hpf (0-5); URINE BILIRUBIN NEGATIVE (NEGATIVE); URINE BLOOD NEGATIVE (NEGATIVE); URINE CLARITY Clear (Clear); URINE COLOR Yellow (YELLOW); URINE GLUCOSE (UA) 1+ mg/dL (Normal); URINE LEUKOCYTE ESTERASE NEG Leu/uL (Negative); URINE PROTEIN 1+ mg/dL (NEGATIVE); URINE UROBILINOGEN NORMAL mg/dL (0.2-1.0)
--- NOTE | 2018-01-05 11:31 | RAD ---
HISTORY: SOB COMPARISON: Chest radiograph dated 08/29/2017 TECHNIQUE: Chest PA and lateral FINDINGS: LUNGS: No active pulmonary disease. PLEURA: No significant pleural effusion identified. No pneumothorax apparent. CARDIOVASCULAR: Normal. OSSEOUS STRUCTURES: Unchanged. VISUALIZED UPPER ABDOMEN: Normal. OTHER FINDINGS: Right subclavian access chest port, unchanged. IMPRESSION: No active disease.
[2018-01-05 12:35] VITALS: BP 102/68; PULSE 81; TEMP 98.9
[2018-01-05 12:37] VITALS: O2SAT 100
== END 2018-01-05 13:16 | disposition home or self-care (01) ==
LOC: C.ER 10:09
DX: J11.1 Influenza due to unidentified influenza virus with other respiratory manifestations (principal); Z85.72 Personal history of non-Hodgkin lymphomas
CPT/HCPCS: 71046; 81001; 83605; 87040; 87070; 87086; 87430; 87804; 96360; 99284; J7030

== ENCOUNTER 2018-02-24 09:16 | Emergency (ER) | payer OTHER ==
[2018-02-24 09:17] VITALS: BMI 21.5
[2018-02-24 10:16] LABS: BASO % 0.3 % (0.0-2.0); EOS # 0.1 K/uL (0.0-0.7); EOS % 5.6 % (0.0-4.0); HEMOGLOBIN 7.9 g/dL (11.0-16.0); LYMPH # 0.2 K/uL (1.0-4.3); LYMPH % 10.7 % (20.0-40.0); MEAN CELL VOLUME 79.6 fL (81.0-99.0); MEAN CORPUSCULAR HEMOGLOBIN 26.8 pg (27.0-31.0); MEAN CORPUSCULAR HGB CONC 33.7 g/dL (33.0-37.0); MEAN PLATELET VOLUME 8.5 fL (7.2-11.7); MONO # 0.3 K/uL (0.0-0.8); MONO % 18.2 % (0.0-10.0); NEUT % 65.2 % (50.0-75.0); NRBC % 0.2 % (0.0-2.0); RBC 2.93 Mil/uL (3.80-5.20)
[2018-02-24] MEDS ORDERED: Sodium Chloride 0.9% 1,000 ML IV ONE (10:18)
[2018-02-24 10:23] LABS: WHITE BLOOD COUNT 1.5 K/uL (4.8-10.8)
[2018-02-24 10:35] LABS: ALB/GLOB RATIO 1.2 (1.0-2.1); ALBUMIN 3.6 g/dL (3.5-5.0); ALT/SGPT 40 U/L (9-52); AST/SGOT 35 U/L (14-36); BLOOD UREA NITROGEN 10 mg/dL (7-17); CALCIUM 9.6 mg/dl (8.6-10.4); GFR AFRICAN-AMERICAN > 60; GFR NON-AFRICAN AMERICAN > 60; LIPASE 52 U/L (23-300)
[2018-02-24] MEDS ORDERED: Morphine 4 MG/ML VIAL ONE (10:48)
--- NOTE | 2018-02-24 12:08 | C.PDOC ---
History Of Present Illness 52 y/o female with history of B-cell lymphoma presents to ED with c/o diffuse burning and sharp abdoominal pain associated with nausea and vomiting. Patient states she is currently on chemotherapy with Dr. Kaykay Rocha; reports new chemotherapy regiment started on Wednesday (x 2 vitis so far). Patient denies chest pain, SOB, fever, cough, dysuria/hematuria, diarrhea, or any other complaints at this time. She states she has been taking Tylenol only for pain. Time Seen by Provider: 02/24/18 09:37 Chief Complaint (Nursing): Abdominal Pain History Per: Patient History/Exam Limitations: no limitations Onset/Duration Of Symptoms: Days Current Symptoms Are (Timing): Still Present Severity: Moderate Location Of Pain/Discomfort: Diffuse Quality Of Discomfort: Sharp, Burning, "Pain" Associated Symptoms: Nausea, Vomiting Abnormal Vaginal Bleeding: No Past Medical History Reviewed: Historical Data, Nursing Documentation, Vital Signs Vital Signs: Last Vital Signs Temp 98 F 02/24/18 12:32 Pulse 76 02/24/18 12:32 Resp 18 02/24/18 12:32 BP 100/63 02/24/18 12:32 Pulse Ox 98 02/24/18 12:32 - Medical History PMH: Anxiety, Arthritis, Malignancy (Lymphoma) Surgical History: Tonsillectomy, - [facility] Procedures DRAINAGE OF SPINAL CANAL, PERCUTANEOUS APPROACH, DIAGNOSTIC (01/04/16) EXCISION OF R UP ARM SUBCU/FASCIA, OPEN APPROACH (01/04/16) EXCISION OF RIGHT AXILLARY LYMPHATIC, OPEN APPROACH, DIAGN (01/04/16) Family History: States: No Known Family Hx - Social History Hx Alcohol Use: No Hx Substance Use: No - Immunization History Hx Tetanus Toxoid Vaccination: (unk) Hx Influenza Vaccination: No Hx Pneumococcal Vaccination: (unk) Review Of Systems Constitutional: Negative for: Fever, Chills Cardiovascular: Negative for: Chest Pain Respiratory: Negative for: Cough, Shortness of Breath Gastrointestinal: Positive for: Nausea, Vomiting, Abdominal Pain. Negative for : Diarrhea Genitourinary: Negative for: Dysuria, Hematuria Skin: Negative for: Rash Physical Exam - Physical Exam Appears: Well, Non-toxic, Chronically Ill, Other (In moderate pain, Tearful) Skin: Warm, Dry, No Rash Head: Normacephalic Eye(s): bilateral: Normal Inspection Oral Mucosa: Moist Neck: Supple Lymphatic: Adenopathy (B/L axillary lymphadenopathy) Cardiovascular: Rhythm Regular Respiratory: Normal Breath Sounds, No Rales, No Rhonchi, No Wheezing Gastrointestinal/Abdominal: Bowel Sounds, Soft, Tenderness (diffuse TTP greatest at eepigastric area), No Guarding, No Rebound, Other ((-) Mcburney's, ( -) Sapp's ) Back: Normal Inspection, No CVA Tenderness Neurological/Psych: Oriented x3 ED Course And Treatment - Laboratory Results Result Diagrams: 02/24/18 10:13 02/24/18 10:13 O2 Sat by Pulse Oximetry: 99 (RA) Pulse Ox Interpretation: Normal Progress Note: Blood work ordered and reviewed. Patient given IV NS bolus, IV zofran, IV morphine. Anemia/leukopenia noted on blood test, likely due to chemotherapy. Reevaluation Time: 12:25 Reassessment Condition: Improved (On reassessment, patient is resting comfortably and states she feels much better. On exam, abdomen is soft and nontender. Symptoms possibly side effect of new chemo regimen. Patient given Rx for Percocet, and instructed to follow up with Dr. Teodoro Rocha wednesday. She understands she should return to ED if symptoms worsen/return in the interim.) - Physician Consult Information Physician Contacted: Odell Rocha Outcome Of Conversation: Discussed patient with her oncologist Dr. Rocha, he is ok with patient being dscharged home today. She was due for chemotherapy today, but since she missed it, she can be seen by them Wednesday, have repeat blood work done then and if needed transfused by them. Disposition Counseled Patient/Family Regarding: Studies Performed, Diagnosis, Need For Followup, Rx Given - Disposition Referrals: Odell Rcoha MD [Staff Provider] - Disposition: HOME/ ROUTINE Disposition Time: 12:25 Condition: STABLE Additional Instructions: FOLLOW UP WITH DR ROCHA ON WEDNESDAY USE PAIN MEDICATION NEEDED RETURN TO ER IF SYMPTOMS WORSEN SEGUIMIENTO CON DR ROCHA EL USE MEDICAMENTO PARA DOLOR SEGN SEA NECESARIO VOLVER A ER SI LOS SNTOMAS EMPEORAN Prescriptions: oxyCODONE/Acetaminophen [Percocet 5/325 mg Tab] 1 tab PO QID PRN #15 tab PRN Reason: Pain Instructions: Acute Abdomen (Belly Pain), Adult (DC) Forms: [facility] (Kiswahili) - Clinical Impression Clinical Impression: B-cell lymphoma, Leukopenia, Anemia, Abdominal pain, Nausea, Vomiting - Scribe Statement The provider has reviewed the documentation as recorded by the Stephaniaibrandi Moran All medical record entries made by the Stephaniaibrandi were at my direction and personally dictated by me. I have reviewed the chart and agree that the record accurately reflects my personal performance of the history, physical exam, medical decision making, and the department course for this patient. I have also personally directed, reviewed, and agree with the discharge instructions and disposition.
[2018-02-24 12:33] VITALS: BP 100/63; PULSE 76; RESP 18; TEMP 98
[2018-02-28 12:48] VITALS: O2SAT 99
== END 2018-02-24 12:33 | disposition home or self-care (01) ==
LOC: C.ER 09:16
DX: R10.13 Epigastric pain (principal); R11.2 Nausea with vomiting, unspecified; D72.819 Decreased white blood cell count, unspecified; D64.9 Anemia, unspecified; C85.10 Unspecified B-cell lymphoma, unspecified site
CPT/HCPCS: 80053; 83690; 85025; 96374; 96375; 99284; C9113; J2405; J7030

== ENCOUNTER 2018-02-28 15:13 | Observation (INO) | payer MEDICAID, OTHER ==
[2018-02-28 15:14] VITALS: BMI 21.5
[2018-02-28 15:54] LABS: BASO % 0.6 % (0.0-2.0); EOS # 0.1 K/uL (0.0-0.7); EOS % 2.7 % (0.0-4.0); LYMPH # 0.5 K/uL (1.0-4.3); LYMPH % 16.7 % (20.0-40.0); MEAN CORPUSCULAR HGB CONC 33.5 g/dL (33.0-37.0); MEAN PLATELET VOLUME 9.3 fL (7.2-11.7); MONO # 0.3 K/uL (0.0-0.8); MONO % 8.8 % (0.0-10.0); NEUT # 2.1 K/uL (1.8-7.0); NEUT % 71.2 % (50.0-75.0); NRBC % 0.1 % (0.0-2.0); RBC 4.08 Mil/uL (3.80-5.20); RED CELL DISTRIBUTION WIDTH 16.6 % (11.5-14.5)
[2018-02-28 15:58] LABS: HEMOGLOBIN 11.4 g/dL (11.0-16.0); WHITE BLOOD COUNT 2.9 K/uL (4.8-10.8)
[2018-02-28 16:00] LABS: MEAN CELL VOLUME 83.7 fL (81.0-99.0)
[2018-02-28 16:01] LABS: SQUAMOUS EPITHIAL < 1 /hpf (0-5); URINE BILIRUBIN NEGATIVE (NEGATIVE); URINE BLOOD NEGATIVE (NEGATIVE); URINE CLARITY Clear (Clear); URINE COLOR Yellow (YELLOW); URINE GLUCOSE (UA) 1+ mg/dL (Normal); URINE LEUKOCYTE ESTERASE NEG Leu/uL (Negative); URINE PROTEIN NEGATIVE (NEGATIVE); URINE UROBILINOGEN NORMAL mg/dL (0.2-1.0)
[2018-02-28 16:03] LABS: INR 1.1; PROTHROMBIN TIME 12.1 SECONDS (9.7-12.2)
[2018-02-28 16:12] LABS: ALB/GLOB RATIO 1.2 (1.0-2.1); ALBUMIN 3.9 g/dL (3.5-5.0)
[2018-02-28 16:19] LABS: B-TYPE NATRIURETIC PEPTIDE 205 pg/mL (0-900)
[2018-02-28 16:27] LABS: ALT/SGPT 31 U/L (9-52); AST/SGOT 62 U/L (14-36); BLOOD UREA NITROGEN 7 mg/dL (7-17); CALCIUM 9.3 mg/dl (8.6-10.4); GFR AFRICAN-AMERICAN > 60; GFR NON-AFRICAN AMERICAN > 60
--- NOTE | 2018-02-28 16:30 | RAD ---
Date of service: 02/28/2018 PROCEDURE: CHEST RADIOGRAPH, 1 VIEW HISTORY: fever COMPARISON: Chest radiograph dated 01/05/2018. FINDINGS: LUNGS: Clear. PLEURA: No pneumothorax or pleural fluid seen. CARDIOVASCULAR: Normal. OSSEOUS STRUCTURES: Unchanged. VISUALIZED UPPER ABDOMEN: Normal. OTHER FINDINGS: Right subclavian access chest port, unchanged. IMPRESSION: No active disease.
[2018-02-28] MEDS ORDERED: Piperacillin/Tazobact 3.375 gm 100 ML IV STA (17:43)
--- NOTE | 2018-02-28 17:44 | C.PDOC ---
History Of Present Illness 52 y/o female brought in from transfusion center for evaluation of fever after receiving 2 units of packed red cells. Patient has IV access in the right upper chest. She is receiving treatments for B cell lymphoma with Dr. Odell Velez. Pre -transfusion hemoglobin was 7.6. Otherwise patient offers no other complaints. Time Seen by Provider: 02/28/18 15:30 Chief Complaint (Nursing): Fever History Per: Patient History/Exam Limitations: no limitations Onset/Duration Of Symptoms: Hrs Current Symptoms Are (Timing): Still Present Past Medical History Reviewed: Historical Data, Nursing Documentation, Vital Signs Vital Signs: Last Vital Signs Temp 103.2 F H 02/28/18 17:00 Pulse 102 H 02/28/18 15:19 Resp 18 02/28/18 15:19 BP 133/78 02/28/18 15:19 Pulse Ox 99 02/28/18 18:40 - Medical History PMH: Anxiety, Arthritis, Malignancy (Lymphoma) Denies: Chronic Kidney Disease Surgical History: Tonsillectomy, - [facility] Procedures DRAINAGE OF SPINAL CANAL, PERCUTANEOUS APPROACH, DIAGNOSTIC (01/04/16) EXCISION OF R UP ARM SUBCU/FASCIA, OPEN APPROACH (01/04/16) EXCISION OF RIGHT AXILLARY LYMPHATIC, OPEN APPROACH, DIAGN (01/04/16) Family History: States: Unknown Family Hx - Social History Hx Alcohol Use: No Hx Substance Use: No - Immunization History Hx Tetanus Toxoid Vaccination: (unk) Hx Influenza Vaccination: No Hx Pneumococcal Vaccination: (unk) Review Of Systems Except As Marked, All Systems Reviewed And Found Negative. Constitutional: Positive for: Fever Cardiovascular: Negative for: Chest Pain Respiratory: Negative for: Shortness of Breath Gastrointestinal: Negative for: Vomiting, Abdominal Pain, Diarrhea Neurological: Negative for: Weakness, Dizziness Physical Exam - Physical Exam Appears: Non-toxic, No Acute Distress Skin: Warm, Dry, No Rash Head: Atraumatic, Normacephalic Eye(s): bilateral: Normal Inspection Oral Mucosa: Moist Neck: Normal ROM Chest: Symmetrical, Other (Port-a-cath right upper chest) Cardiovascular: Rhythm Regular, No Murmur Respiratory: Normal Breath Sounds, No Rales, No Rhonchi, No Wheezing Gastrointestinal/Abdominal: Soft, No Tenderness, No Distention Extremity: Bilateral: Atraumatic, Normal Color And Temperature, Normal ROM Neurological/Psych: Oriented x3, Normal Speech ED Course And Treatment - Laboratory Results Result Diagrams: 02/28/18 15:49 02/28/18 15:48 Lab Interpretation: Normal (HGB improved after 2 U PRBC's from 7.6 prior to transfusion, UA neg.) ECG: Interpreted By Me ECG Rhythm: Sinus Rhythm O2 Sat by Pulse Oximetry: 99 Pulse Ox Interpretation: Normal - Radiology CXR: Interpreted by Me CXR Interpretation: Yes: No Acute Disease Progress Note: tylenol PO, vanco, zosyn Reevaluation Time: 17:55 Reassessment Condition: Improved - Physician Consult Information Outcome Of Conversation: 1600: d/w Blood Bank, Transfusion Reaction workup ( after adverse rxn with blood tx) is NEGATIVE. [id number]: pending call-back from Dr. Odell Velez- pt's Heme Onc. 1800: dw Dr. Forbes- Hospitalist covering [facility] pt's- ok to admit. 1830: Received call back from Rosie, informed about case Medical Decision Making Medical Decision Making: adverse transfusion reaction with fever but no other s/s. transfusion reaction eval is NEG no leukopenia to suspect neutropenic fevers Cover broadly with abx and Obs. Disposition Doctor Will See Patient In The: Hospital Counseled Patient/Family Regarding: Studies Performed, Diagnosis - Disposition Disposition: HOSPITALIZED Disposition Time: 17:58 Condition: GOOD Forms: [facility] (Spanish) - Clinical Impression Clinical Impression: Transfusion reaction - Scribe Statement The provider has reviewed the documentation as recorded by the Scribe (Valeria Sagastume) Provider Attestation: All medical record entries made by the Scribe were at my direction and personally dictated by me. I have reviewed the chart and agree that the record accurately reflects my personal performance of the history, physical exam, medical decision making, and the department course for this patient. I have also personally directed, reviewed, and agree with the discharge instructions and disposition.
[2018-02-28] MEDS ORDERED: Vancomycin 1 GM 1 GM/250 ML BAG IV SCH (17:45)
[2018-02-28] MEDS ORDERED: Piperacillin/Tazobact 3.375 gm 100 ML IVPB ONE (18:16)
[2018-02-28] MEDS ORDERED: Sodium Chloride 0.9% 500 ML IV ONE ×3 (19:08→21:20)
[2018-02-28] MEDS ORDERED: Vancomycin 1 gm/NS 200 ml 1 GM/200 ML BAG IVPB ONE (19:15)
--- NOTE | 2018-02-28 19:52 | CP.PCM.HP ---
<Kati Chapman - Last Filed: 02/28/18 19:44> History of Present Illness - History of Present Illness History of Present Illness: CC: "Fever/chills during transfusion" HPI: 52 year old female with past medical history stage IV diffuse large B-cell lymphoma diagnosed in 2009 s/p chemotherapy in [facility] was brought in from transfusion center for evaluation of fever after receiving 2 units of packed red cells. Patient has IV access in the right upper chest. She states that she developed fever/chills 30 minutes before the second unit of PRBCS she received today. She stated that earlier today she was feeling "her normal self" and did not have fever/chills earlier. She is receiving treatments for B cell lymphoma with Dr. Odell Velez and has been on a new chemo regime for the last month. Last chemo dose was on Wednesday. She admits to a crampy abdominal pain which she states she has had since starting this new chemo. She came to the ED a few days ago for this pain which has not resolved. She denies dizziness, headaches, changes in vision, N/V, chest pain, shortness or breath, urinary complaints, diarrhea. No other complaints at this time. PMHx: stage IV diffuse large B-cell lymphoma PSH: ; Biopsy from back; Chemotherapy Port (right supraclavicular) Allergies: NKDA Medications: Chemotherapy, Tylenol prn pain FH: Denies SH: Denies smoking, alcohol use, and illicit drug use. Previously worked in a [employer] and was laid off 6 months ago. Single and living with her son-in- law and daughter in an apartment. Onc: Rosie PMD: Distant Present on Admission - Present on Admission Any Indicators Present on Admission: No Review of Systems - Constitutional Constitutional: Chills, Fever - EENT Eyes: absent: Blurred Vision, Change in Vision - Cardiovascular Cardiovascular: absent: Chest Pain, Chest Pain at Rest, Edema, Pedal Edema, Syncope - Respiratory Respiratory: absent: Cough, Dyspnea, Dyspnea on Exertion - Gastrointestinal Gastrointestinal: Abdominal Pain, Bloating. absent: Constipation, Diarrhea, Nausea, Vomiting - Genitourinary Genitourinary: absent: Change in Urinary Stream, Difficulty Urinating - Neurological Neurological: absent: Abnormal Gait, Tingling, Weakness Past Patient History - Infectious Disease Hx of Infectious Diseases: None - Past Medical History & Family History Past Medical History?: Yes - Past Social History Smoking Status: Never Smoked - CARDIAC Hx Cardiac Disorders: Yes Hx Angina: Yes - PULMONARY Hx Respiratory Disorders: No - NEUROLOGICAL Hx Neurological Disorder: Yes Other/Comment: headaches - HEENT Hx HEENT Problems: Yes Other/Comment: HX: HYPERTROPIC TONSILS. HX: SORE THROATS "FOR MONTHS" - RENAL Hx Chronic Kidney Disease: No - ENDOCRINE/METABOLIC Hx Endocrine Disorders: No - HEMATOLOGICAL/ONCOLOGICAL Hx Blood Disorders: Yes Hx Cancer: Yes (LYMPHOMA) Hx Chemotherapy: Yes - INTEGUMENTARY Hx Dermatological Problems: Yes Other/Comment: HX: RIGHT AXILLARY MASS - MUSCULOSKELETAL/RHEUMATOLOGICAL Hx Arthritis: Yes - GASTROINTESTINAL Hx Gastrointestinal Disorders: Yes HX Swallowing Problems: Yes - GENITOURINARY/GYNECOLOGICAL Hx Genitourinary Disorders: No - PSYCHIATRIC Hx Anxiety: Yes Hx Substance Use: No - SURGICAL HISTORY Hx Tonsillectomy: Yes - ANESTHESIA Hx Anesthesia: Yes Hx Anesthesia Reactions: Yes (02/15/17 dizziness) Hx Malignant Hyperthermia: No Meds Allergies/Adverse Reactions: Allergies Allergy/AdvReac Type Severity Reaction Status Date / Time No Known Allergies Allergy Verified 02/28/18 15:22 Physical Exam - Constitutional Appears: Non-toxic, No Acute Distress - Head Exam Head Exam: ATRAUMATIC, NORMAL INSPECTION - Eye Exam Eye Exam: EOMI - ENT Exam ENT Exam: Mucous Membranes Moist - Respiratory Exam Respiratory Exam: Clear to Auscultation Bilateral, NORMAL BREATHING PATTERN. absent: Respiratory Distress - Cardiovascular Exam Cardiovascular Exam: Tachycardia, +S1, +S2 - GI/Abdominal Exam GI & Abdominal Exam: Normal Bowel Sounds, Soft, Tenderness. absent: Distended, Firm, Guarding Additional comments: mild tenderness, epigastric region - Extremities Exam Extremities exam: Positive for: normal inspection. Negative for: calf tenderness, pedal edema - Back Exam Back exam: NORMAL INSPECTION. absent: CVA tenderness (L), CVA tenderness (R), paraspinal tenderness - Neurological Exam Neurological exam: Alert, CN II-XII Intact, Oriented x3 - Psychiatric Exam Psychiatric exam: Normal Affect, Normal Mood - Skin Skin Exam: Diaphoretic, Intact, Normal Color Results - Vital Signs Recent Vital Signs: Last Vital Signs Temp 103.2 F H 02/28/18 17:00 Pulse 81 02/28/18 19:10 Resp 18 02/28/18 19:10 BP 87/44 L 02/28/18 19:10 Pulse Ox 98 02/28/18 19:10 - Labs Result Diagrams: 02/28/18 15:49 02/28/18 15:48 Labs: Laboratory Results - last 24 hr 02/28/18 02/28/18 02/28/18 15:34 15:48 15:49 WBC 2.9 L D RBC 4.08 Hgb 11.4 D Hct 34.1 MCV 83.7 D MCH 28.0 MCHC 33.5 RDW 16.6 H Plt Count 117 L MPV 9.3 Neut % (Auto) 71.2 Lymph % (Auto) 16.7 L [place] % (Auto) 8.8 Eos % (Auto) 2.7 Baso % (Auto) 0.6 Neut # (Auto) 2.1 Lymph # (Auto) 0.5 L [place] # (Auto) 0.3 Eos # (Auto) 0.1 Baso # (Auto) 0.0 PT INR APTT Sodium 145 Potassium 3.8 Chloride 103 Carbon Dioxide 29 Anion Gap 17 BUN 7 Creatinine 0.5 L Est GFR ( Amer) > 60 Est GFR (Non-Af Amer) > 60 Random Glucose 145 H Calcium 9.3 Total Bilirubin 2.4 H AST 62 H D ALT 31 Alkaline Phosphatase 111 Troponin I < 0.0120 NT-Pro-B Natriuret Pep 205 Total Protein 7.0 Albumin 3.9 Globulin 3.1 Albumin/Globulin Ratio 1.2 Urine Color Yellow Urine Clarity Clear Urine pH 6.0 Ur Specific [place] 1.017 Urine Protein Negative Urine Glucose (UA) 1+ Urine Ketones Negative Urine Blood Negative Urine Nitrate Negative Urine Bilirubin Negative Urine Urobilinogen Normal Ur Leukocyte Esterase Neg Urine WBC (Auto) 2 Urine RBC (Auto) 1 Ur Squamous Epith Cells < 1 02/28/18 15:53 WBC RBC Hgb Hct MCV MCH MCHC RDW Plt Count MPV Neut % (Auto) Lymph % (Auto) [place] % (Auto) Eos % (Auto) Baso % (Auto) Neut # (Auto) Lymph # (Auto) [place] # (Auto) Eos # (Auto) Baso # (Auto) PT 12.1 INR 1.1 APTT 29 Sodium Potassium Chloride Carbon Dioxide Anion Gap BUN Creatinine Est GFR ( Amer) Est GFR (Non-Af Amer) Random Glucose Calcium Total Bilirubin AST ALT Alkaline Phosphatase Troponin I NT-Pro-B Natriuret Pep Total Protein Albumin Globulin Albumin/Globulin Ratio Urine Color Urine Clarity Urine pH Ur Specific [place] Urine Protein Urine Glucose (UA) Urine Ketones Urine Blood Urine Nitrate Urine Bilirubin Urine Urobilinogen Ur Leukocyte Esterase Urine WBC (Auto) Urine RBC (Auto) Ur Squamous Epith Cells Assessment & Plan - Assessment and Plan (Free Text) Assessment: Fever Tmax 103.2 post transfusion WBC 2.9 f/u lactic acid f/u blood and urine cultures UA negative Vanc 1 gram IVPB daily (started 02/28 PM) Zodyn 3.377 gram IVPB Q 6 hours (started 02/28) Hypotension BP 87/44 NS Bolus 500 cc then NS 100cc/hour Stage [address] Velez consulted help appreciated -> need for CT? Percocet prn pain Abdominal pain Pepcid f/u ABD US Tbili 2.4 f/u direct and indirect T krystin Hyperglycemia f/u HBA1c in the am Prophylactic Measures Pepcid 20mg PO BID Lovenox 40mg SC daily Regular diet, NPO after midnight for abd US <Ileana Rodríguez - Last Filed: 03/01/18 20:03> Results - Vital Signs Recent Vital Signs: Last Vital Signs Temp 98.0 F 03/01/18 06:01 Pulse 63 03/01/18 06:01 Resp 20 03/01/18 06:01 BP 87/47 L 03/01/18 06:01 Pulse Ox 99 03/01/18 06:01 - Labs Result Diagrams: 03/01/18 11:00 03/01/18 11:00 Labs: Laboratory Results - last 24 hr 02/28/18 02/28/18 02/28/18 15:34 15:48 15:49 WBC 2.9 L D RBC 4.08 Hgb 11.4 D Hct 34.1 MCV 83.7 D MCH 28.0 MCHC 33.5 RDW 16.6 H Plt Count 117 L MPV 9.3 Neut % (Auto) 71.2 Lymph % (Auto) 16.7 L [place] % (Auto) 8.8 Eos % (Auto) 2.7 Baso % (Auto) 0.6 Neut # (Auto) 2.1 Lymph # (Auto) 0.5 L [place] # (Auto) 0.3 Eos # (Auto) 0.1 Baso # (Auto) 0.0 Neutrophils % (Manual) Band Neutrophils % Lymphocytes % (Manual) Monocytes % (Manual) Eosinophils % (Manual) Platelet Estimate Hypochromasia (manual) Poikilocytosis (manual Anisocytosis (manual) Target Cells Ovalocytes Abby Cells PT INR APTT Sodium 145 Potassium 3.8 Chloride 103 Carbon Dioxide 29 Anion Gap 17 BUN 7 Creatinine 0.5 L Est GFR ( Amer) > 60 Est GFR (Non-Af Amer) > 60 Random Glucose 145 H Lactic Acid Calcium 9.3 Magnesium Total Bilirubin 2.4 H AST 62 H D ALT 31 Alkaline Phosphatase 111 Troponin I < 0.0120 NT-Pro-B Natriuret Pep 205 Total Protein 7.0 Albumin 3.9 Globulin 3.1 Albumin/Globulin Ratio 1.2 Urine Color Yellow Urine Clarity Clear Urine pH 6.0 Ur Specific [place] 1.017 Urine Protein Negative Urine Glucose (UA) 1+ Urine Ketones Negative Urine Blood Negative Urine Nitrate Negative Urine Bilirubin Negative Urine Urobilinogen Normal Ur Leukocyte Esterase Neg Urine WBC (Auto) 2 Urine RBC (Auto) 1 Ur Squamous Epith Cells < 1 02/28/18 02/28/18 03/01/18 15:53 20:16 11:00 WBC RBC Hgb Hct MCV MCH MCHC RDW Plt Count MPV Neut % (Auto) Lymph % (Auto) [place] % (Auto) Eos % (Auto) Baso % (Auto) Neut # (Auto) Lymph # (Auto) [place] # (Auto) Eos # (Auto) Baso # (Auto) Neutrophils % (Manual) Band Neutrophils % Lymphocytes % (Manual) Monocytes % (Manual) Eosinophils % (Manual) Platelet Estimate Hypochromasia (manual) Poikilocytosis (manual Anisocytosis (manual) Target Cells Ovalocytes [employer] Cells PT 12.1 INR 1.1 APTT 29 Sodium 142 Potassium 2.9 L Chloride 110 H Carbon Dioxide 24 Anion Gap 11 BUN 4 L Creatinine 0.4 L Est GFR ( Amer) > 60 Est GFR (Non-Af Amer) > 60 Random Glucose 99 Lactic Acid 1.3 Calcium 8.3 L Magnesium 1.8 Total Bilirubin 0.7 AST 42 H D ALT 36 Alkaline Phosphatase 70 Troponin I NT-Pro-B Natriuret Pep Total Protein 5.0 L Albumin 2.6 L D Globulin 2.4 Albumin/Globulin Ratio 1.0 Urine Color Urine Clarity Urine pH Ur Specific [place] Urine Protein Urine Glucose (UA) Urine Ketones Urine Blood Urine Nitrate Urine Bilirubin Urine Urobilinogen Ur Leukocyte Esterase Urine WBC (Auto) Urine RBC (Auto) Ur Squamous Epith Cells 03/01/18 11:00 WBC 2.3 L RBC 3.18 L Hgb 8.8 L D Hct 26.1 L MCV 82.2 MCH 27.6 MCHC 33.6 RDW 16.9 H Plt Count 90 L D MPV 9.3 Neut % (Auto) 59.4 Lymph % (Auto) 12.5 L [place] % (Auto) 21.3 H Eos % (Auto) 6.0 H Baso % (Auto) 0.8 Neut # (Auto) 1.3 L Lymph # (Auto) 0.3 L [place] # (Auto) 0.5 Eos # (Auto) 0.1 Baso # (Auto) 0.0 Neutrophils % (Manual) 63 Band Neutrophils % 1 Lymphocytes % (Manual) 12 L Monocytes % (Manual) 18 H Eosinophils % (Manual) 6 H Platelet Estimate Decreased L Hypochromasia (manual) Slight Poikilocytosis (manual Slight Anisocytosis (manual) Slight Target Cells Slight Ovalocytes Slight [employer] Cells Slight PT INR APTT Sodium Potassium Chloride Carbon Dioxide Anion Gap BUN Creatinine Est GFR ( Amer) Est GFR (Non-Af Amer) Random Glucose Lactic Acid Calcium Magnesium Total Bilirubin AST ALT Alkaline Phosphatase Troponin I NT-Pro-B Natriuret Pep Total Protein Albumin Globulin Albumin/Globulin Ratio Urine Color Urine Clarity Urine pH Ur Specific [place] Urine Protein Urine Glucose (UA) Urine Ketones Urine Blood Urine Nitrate Urine Bilirubin Urine Urobilinogen Ur Leukocyte Esterase Urine WBC (Auto) Urine RBC (Auto) Ur Squamous Epith Cells Attending/Attestation - Attestation I have personally seen and examined this patient.: Yes I have fully participated in the care of the patient.: Yes I have reviewed all pertinent clinical information: Yes Notes (Text): Seen and examined by me.History taken from the patient . Discussed with DR Velez She is a patient is with history of stage4 large B cell lymphoma on chemotherapy came for fever when she was finishing her second unit of blood transfusion. At ER her chest x ray with out infiltrate,UA looks og. Has a port in place 1.Fever rule out sepsis on a immune compromised patient 2.Lymphoma on chemo 3.Anemia Continue Zosyn and vancomycin follow cultures Consider CT c/a/p tomorrow d/w resident in detail I agree with the documentation of the resident's assessment and the plan
[2018-02-28] MEDS ORDERED: Vancomycin 1 gm/NS 200 ml 1 GM/200 ML BAG IVPB SCH (20:00)
[2018-02-28] MEDS ORDERED: Sodium Chloride 0.9% 1,000 ML ONE ×3 (20:01→23:44)
[2018-02-28] MEDS: Sodium Chloride 0.9% 1,000 ML IV SCH ×2 (20:04→22:49)
[2018-02-28] MEDS ORDERED: Sodium Chloride 0.9% 1,000 ML IV ONE (23:51)
[2018-03-01] MEDS ORDERED: Piperacillin/Tazobact 3.375 gm 100 ML IVPB ONE ×2 (00:03)
[2018-03-01] MEDS: Piperacill/Tazo 3.375gm in Dex 3.375 GM/50 ML BAG IVPB SCH ×5 (00:14→23:01)
[2018-03-01] MEDS: Sodium Chloride 0.9% 1,000 ML IV SCH ×3 (09:21→16:03)
[2018-03-01] MEDS: Enoxaparin 40 mg Syringe SC SCH (09:22)
[2018-03-01 11:09] LABS: BASO % 0.8 % (0.0-2.0); EOS # 0.1 K/uL (0.0-0.7); LYMPH # 0.3 K/uL (1.0-4.3); LYMPH % 12.5 % (20.0-40.0); MEAN CELL VOLUME 82.2 fL (81.0-99.0); MEAN CORPUSCULAR HEMOGLOBIN 27.6 pg (27.0-31.0); MEAN CORPUSCULAR HGB CONC 33.6 g/dL (33.0-37.0); MEAN PLATELET VOLUME 9.3 fL (7.2-11.7); MONO # 0.5 K/uL (0.0-0.8); MONO % 21.3 % (0.0-10.0); NEUT # 1.3 K/uL (1.8-7.0); NEUT % 59.4 % (50.0-75.0); NRBC % 0.2 % (0.0-2.0); RBC 3.18 Mil/uL (3.80-5.20); RED CELL DISTRIBUTION WIDTH 16.9 % (11.5-14.5); WHITE BLOOD COUNT 2.3 K/uL (4.8-10.8)
[2018-03-01 11:22] LABS: PLATELET COUNT 90 K/uL (130-400)
[2018-03-01 11:23] LABS: HEMOGLOBIN 8.8 g/dL (11.0-16.0)
[2018-03-01 11:27] LABS: ALBUMIN 2.6 g/dL (3.5-5.0); ALT/SGPT 36 U/L (9-52); AST/SGOT 42 U/L (14-36); BLOOD UREA NITROGEN 4 mg/dL (7-17); CALCIUM 8.3 mg/dl (8.6-10.4); GFR AFRICAN-AMERICAN > 60; GFR NON-AFRICAN AMERICAN > 60
--- NOTE | 2018-03-01 11:47 | US ---
Date of service: 03/01/2018 HISTORY: abd pain, lymphoma COMPARISON: None. TECHNIQUE: Sonographic evaluation of the abdomen. FINDINGS: LIVER: Measures 15.7 cm. Normal echogenicity of the liver parenchyma. No mass. No intrahepatic bile duct dilatation. GALLBLADDER: Unremarkable. No gallstones. COMMON BILE DUCT: Measures 2 mm. No stones. No dilatation. PANCREAS: Unremarkable as visualized. No mass. No ductal dilatation. RIGHT KIDNEY: Measures 11.3cm. Normal echogenicity. No calculus, mass, or hydronephrosis. LEFT KIDNEY: Measures 10.3cm. Normal echogenicity. No calculus, mass, or hydronephrosis. SPLEEN: Normal in size and contour. No mass. AORTA: No aneurysmal dilatation. IVC: Unremarkable. OTHER FINDINGS: None. IMPRESSION: Unremarkable examination.
[2018-03-01 12:35] LABS: BANDS 1 % (0-2); EOSINOPHIL 6 % (0-4); LYMPHOCYTE 12 % (20-40); MONOCYTE 18 % (0-10); NEUTROPHIL 63 % (50-75); PLATELET ESTIMATE DECREASED (NORMAL); TOTAL CELLS COUNTED 100
[2018-03-01 12:36] LABS: ANISOCYTOSIS SLIGHT; BURR CELLS SLIGHT; HYPOCHROMIC SLIGHT; POIKILOCYTOSIS SLIGHT; TARGET CELLS SLIGHT
[2018-03-01 12:37] LABS: OVALOCYTES SLIGHT
[2018-03-01] MEDS: Potassium Chloride 20 mEq/15 ml LIQ UD PO SCH ×2 (13:45→17:31)
--- NOTE | 2018-03-01 14:16 | CARD ---
APPROVED REPORT Date of service: 02/28/2018 EKG Measurement Heart [id number] <Conclusion> Normal sinus rhythm Normal ECG
--- NOTE | 2018-03-01 17:21 | CP.PCM.PN ---
<Marli Martínez - Last Filed: 03/01/18 18:19> Subjective - Date & Time of Evaluation Date of Evaluation: 03/01/18 Time of Evaluation: 11:50 - Subjective Subjective: 52 yo F w/ PMHx of B-cell lymphoma(stage 4), admitted for suspected post transfusion reaction s/p 2U for symptomatic anemia 2/2 chemo Objective - Vital Signs/Intake and Output Vital Signs (last 24 hours): Temp Pulse Resp BP Pulse Ox 98.2 F 65 20 102/67 99 03/01/18 15:30 03/01/18 15:30 03/01/18 15:30 03/01/18 15:30 03/01/18 15:30 - Medications Medications: Current Medications Enoxaparin Sodium (Lovenox) 40 mg SC DAILY [facility] Last Admin: 03/01/18 09:22 Dose: 40 mg Famotidine (Pepcid) 20 mg PO BID [facility] Last Admin: 03/01/18 09:22 Dose: 20 mg Piperacillin Sod/Tazobactam Sod (Zosyn 3.375 Gm Iv Premix) 3.375 gm in 50 mls @ 100 mls/hr IVPB Q6H [facility] PRN Reason: Protocol Last Admin: 03/01/18 12:14 Dose: 100 mls/hr Vancomycin/Sodium Chloride (Vancomycin 1 Gm/Ns 200 Ml) 1 gm in 200 mls @ 133 mls/hr IVPB Q24H [facility] PRN Reason: Protocol Stop: 03/06/18 19:31 Sodium Chloride (Sodium Chloride 0.9%) 1,000 mls @ 60 mls/hr IV .[id number] [facility] Last Admin: 03/01/18 16:03 Dose: 60 mls/hr Oxycodone/Acetaminophen (Percocet 5/325 Mg Tab) 1 tab PO Q4 PRN PRN Reason: Pain, severe (8-10) Stop: 03/03/18 19:21 Potassium Chloride (Potassium Chloride Oral Soln) 20 meq PO BID [facility] Stop: 03/02/18 12:38 Last Admin: 03/01/18 13:45 Dose: 20 meq - Labs Labs: 03/01/18 11:00 03/01/18 11:00 PT 12.1 SECONDS (9.7-12.2) 02/28/18 15:53 INR 1.1 02/28/18 15:53 APTT 29 SECONDS (21-34) 02/28/18 15:53 - Constitutional Appears: Non-toxic, No Acute Distress - Head Exam Head Exam: ATRAUMATIC, NORMAL INSPECTION, NORMOCEPHALIC Additional comments: face-edematous, cheilitis - Eye Exam Eye Exam: EOMI - ENT Exam ENT Exam: Mucous Membranes Moist - Neck Exam Additional comments: cath right chest - Respiratory Exam Respiratory Exam: Clear to Ausculation Bilateral, NORMAL BREATHING PATTERN. absent: Rhonchi, Wheezes - Cardiovascular Exam Cardiovascular Exam: REGULAR RHYTHM. absent: Murmur - GI/Abdominal Exam GI & Abdominal Exam: Soft, Normal Bowel Sounds - Extremities Exam Extremities Exam: Normal Capillary Refill, Normal Inspection - Psychiatric Exam Psychiatric exam: Flat Affect - Skin Skin Exam: Dry Assessment and Plan - Assessment and Plan (Free Text) Assessment: 52 yo F w/ transfusion reaction s/p 2U for symptomatic anemia 2/2 chemo 1. sepsis vs transfusion reaction -afebrile overnight -vanco 1g -zosyn 3.375 q6 -NS @60 -f/u blood/urine cx -ID consult Dr. Bender 2. B-Cell Lymphoma -percocet 5/325 pain -f/u CT chest/abd/pelvis r/o lymphadenopathy -heme/onc consult Dr. Velez 3. Anemia -Hgb 8.8 -am CBC -transfuse as needed 4. Neutropenia -WBC 2.3 -am labs 5. Hypokalemia -K 2.9 -40mEq IV -morning labs -replete as needed Ppx -pepcid 20mg BID -lovenox 40mg Marli Martínez PGY1 <Ileana Rodríguez - Last Filed: 03/01/18 20:06> Objective - Vital Signs/Intake and Output Vital Signs (last 24 hours): Temp Pulse Resp BP Pulse Ox 98.2 F 65 20 102/67 99 03/01/18 15:30 03/01/18 15:30 03/01/18 15:30 03/01/18 15:30 03/01/18 15:30 - Medications Medications: Current Medications Enoxaparin Sodium (Lovenox) 40 mg SC DAILY [facility] Last Admin: 03/01/18 09:22 Dose: 40 mg Famotidine (Pepcid) 20 mg PO BID [facility] Last Admin: 03/01/18 17:31 Dose: 20 mg Piperacillin Sod/Tazobactam Sod (Zosyn 3.375 Gm Iv Premix) 3.375 gm in 50 mls @ 100 mls/hr IVPB Q6H [facility] PRN Reason: Protocol Last Admin: 03/01/18 19:02 Dose: 100 mls/hr Vancomycin/Sodium Chloride (Vancomycin 1 Gm/Ns 200 Ml) 1 gm in 200 mls @ 133 mls/hr IVPB Q24H [facility] PRN Reason: Protocol Stop: 03/06/18 19:31 Last Admin: 03/01/18 19:03 Dose: 133 mls/hr Sodium Chloride (Sodium Chloride 0.9%) 1,000 mls @ 60 mls/hr IV .[id number] [facility] Last Admin: 03/01/18 16:03 Dose: 60 mls/hr Oxycodone/Acetaminophen (Percocet 5/325 Mg Tab) 1 tab PO Q4 PRN PRN Reason: Pain, severe (8-10) Stop: 03/03/18 19:21 Potassium Chloride (Potassium Chloride Oral Soln) 20 meq PO BID [facility] Stop: 03/02/18 12:38 Last Admin: 03/01/18 17:31 Dose: 20 meq - Labs Labs: 03/01/18 11:00 03/01/18 11:00 PT 12.1 SECONDS (9.7-12.2) 02/28/18 15:53 INR 1.1 02/28/18 15:53 APTT 29 SECONDS (21-34) 02/28/18 15:53 Attending/Attestation - Attestation I have personally seen and examined this patient.: Yes I have fully participated in the care of the patient.: Yes I have reviewed all pertinent clinical information, including history, physical exam and plan: Yes Notes (Text): Patient is feeling weak. No fever this morning. 1.Fever rule out sepsis on a immune compromised patient 2.Lymphoma on chemo 3.Anemia Continue Zosyn and vancomycin.Dr Bender on board follow cultures CT c/a/p with IV contrast ordered d/w DR velez I agree with the documentation of the resident's assessment and the plan
[2018-03-01] MEDS ORDERED: Iodixanol 320 MG/ML 100 ML BOTTLE IV ONE (17:28)
--- NOTE | 2018-03-01 18:59 | CP.PCM.CON ---
History of Present Illness - History of Present Illness History of Present Illness: 52 year old female with a history of stage IV diffuse large B-cell lymphoma diagnosed in 2009 s/p chemotherapy in [facility], with LUM[facility] [employer] recurrence in 2011 with positive CSF and concominant herpes zoster infection, s/ p treatment, with repeat recurrence in 12/2016 on salvage chemotherapy admitted with fevers and chills post blood transfusion. She reports to increasing chills and fever of 103 at the infusion center after 2U PRBC transfusion. She denies back pain and dark urine. She is recent radiation and chemotherapy treatment. Past medical history: NHL Past surgical history: None Family history: None Social history: Denies tobacco, alcohol, and illicit drug use. Allergies: NKA Review of systems: All remaining review of systems including HEENT, cardiovascular, respiratory, gastrointestinal, genitourinary, musculoskeletal, dermatologic, neurologic, and psychiatric are negative unless mentioned in the HPI. Past Patient History - Infectious Disease Hx of Infectious Diseases: None - Past Medical History & Family History Past Medical History?: Yes - Past Social History Smoking Status: Never Smoked - CARDIAC Hx Cardiac Disorders: Yes Hx Angina: Yes - PULMONARY Hx Respiratory Disorders: No - NEUROLOGICAL Hx Neurological Disorder: Yes Other/Comment: headaches - HEENT Hx HEENT Problems: Yes Other/Comment: HX: HYPERTROPIC TONSILS. HX: SORE THROATS "FOR MONTHS" - RENAL Hx Chronic Kidney Disease: No - ENDOCRINE/METABOLIC Hx Endocrine Disorders: No - HEMATOLOGICAL/ONCOLOGICAL Hx Blood Disorders: Yes Hx Cancer: Yes ([place]) Hx Chemotherapy: Yes - INTEGUMENTARY Hx Dermatological Problems: Yes Other/Comment: HX: RIGHT AXILLARY MASS - MUSCULOSKELETAL/RHEUMATOLOGICAL Hx Arthritis: Yes - GASTROINTESTINAL Hx Gastrointestinal Disorders: Yes HX Swallowing Problems: Yes - GENITOURINARY/GYNECOLOGICAL Hx Genitourinary Disorders: No - PSYCHIATRIC Hx Anxiety: Yes Hx Substance Use: No - SURGICAL HISTORY Hx Tonsillectomy: Yes - ANESTHESIA Hx Anesthesia: Yes Hx Anesthesia Reactions: Yes (02/15/17 dizziness) Hx Malignant Hyperthermia: No Meds Allergies/Adverse Reactions: Allergies Allergy/AdvReac Type Severity Reaction Status Date / Time No Known Allergies Allergy Verified 02/28/18 15:22 - Medications Medications: Current Medications Enoxaparin Sodium (Lovenox) 40 mg SC DAILY [facility] Last Admin: 03/01/18 09:22 Dose: 40 mg Famotidine (Pepcid) 20 mg PO BID [facility] Last Admin: 03/01/18 17:31 Dose: 20 mg Piperacillin Sod/Tazobactam Sod (Zosyn 3.375 Gm Iv Premix) 3.375 gm in 50 mls @ 100 mls/hr IVPB Q6H [facility] PRN Reason: Protocol Last Admin: 03/01/18 12:14 Dose: 100 mls/hr Vancomycin/Sodium Chloride (Vancomycin 1 Gm/Ns 200 Ml) 1 gm in 200 mls @ 133 mls/hr IVPB Q24H [facility] PRN Reason: Protocol Stop: 03/06/18 19:31 Sodium Chloride (Sodium Chloride 0.9%) 1,000 mls @ 60 mls/hr IV .[id number] [facility] Last Admin: 03/01/18 16:03 Dose: 60 mls/hr Oxycodone/Acetaminophen (Percocet 5/325 Mg Tab) 1 tab PO Q4 PRN PRN Reason: Pain, severe (8-10) Stop: 03/03/18 19:21 Potassium Chloride (Potassium Chloride Oral Soln) 20 meq PO BID [facility] Stop: 03/02/18 12:38 Last Admin: 03/01/18 17:31 Dose: 20 meq Physical Exam - Head Exam Head Exam: ATRAUMATIC - Eye Exam Eye Exam: Normal appearance - ENT Exam ENT Exam: Mucous Membranes Dry - Respiratory Exam Respiratory Exam: NORMAL BREATHING PATTERN - Cardiovascular Exam Cardiovascular Exam: +S1, +S2 - GI/Abdominal Exam GI & Abdominal Exam: Normal Bowel Sounds - Extremities Exam Extremities exam: Positive for: normal inspection - Neurological Exam Neurological exam: Oriented x3 - Psychiatric Exam Psychiatric exam: Normal Affect, Normal Mood - Skin Skin Exam: Warm Results - Vital Signs Recent Vital Signs: Last Vital Signs Temp 98.2 F 03/01/18 15:30 Pulse 65 03/01/18 15:30 Resp 20 03/01/18 15:30 BP 102/67 03/01/18 15:30 Pulse Ox 99 03/01/18 15:30 - Labs Result Diagrams: 03/01/18 11:00 03/01/18 11:00 Labs: Laboratory Results - last 24 hr 02/28/18 03/01/18 03/01/18 20:16 11:00 11:00 WBC 2.3 L RBC 3.18 L Hgb 8.8 L D Hct 26.1 L MCV 82.2 MCH 27.6 MCHC 33.6 RDW 16.9 H Plt Count 90 L D MPV 9.3 Neut % (Auto) 59.4 Lymph % (Auto) 12.5 L [place] % (Auto) 21.3 H Eos % (Auto) 6.0 H Baso % (Auto) 0.8 Neut # (Auto) 1.3 L Lymph # (Auto) 0.3 L [place] # (Auto) 0.5 Eos # (Auto) 0.1 Baso # (Auto) 0.0 Neutrophils % (Manual) 63 Band Neutrophils % 1 Lymphocytes % (Manual) 12 L Monocytes % (Manual) 18 H Eosinophils % (Manual) 6 H Platelet Estimate Decreased L Hypochromasia (manual) Slight Poikilocytosis (manual Slight Anisocytosis (manual) Slight Target Cells Slight Ovalocytes Slight [place] Cells Slight Sodium 142 Potassium 2.9 L Chloride 110 H Carbon Dioxide 24 Anion Gap 11 BUN 4 L Creatinine 0.4 L Est GFR ( Amer) > 60 Est GFR (Non-Af Amer) > 60 Random Glucose 99 Lactic Acid 1.3 Calcium 8.3 L Magnesium 1.8 Total Bilirubin 0.7 AST 42 H D ALT 36 Alkaline Phosphatase 70 Total Protein 5.0 L Albumin 2.6 L D Globulin 2.4 Albumin/Globulin Ratio 1.0 Urine HCG, Qual 03/01/18 16:52 WBC RBC Hgb Hct MCV MCH MCHC RDW Plt Count MPV Neut % (Auto) Lymph % (Auto) [place] % (Auto) Eos % (Auto) Baso % (Auto) Neut # (Auto) Lymph # (Auto) [place] # (Auto) Eos # (Auto) Baso # (Auto) Neutrophils % (Manual) Band Neutrophils % Lymphocytes % (Manual) Monocytes % (Manual) Eosinophils % (Manual) Platelet Estimate Hypochromasia (manual) Poikilocytosis (manual Anisocytosis (manual) Target Cells Ovalocytes [place] Cells Sodium Potassium Chloride Carbon Dioxide Anion Gap BUN Creatinine Est GFR ( Amer) Est GFR (Non-Af Amer) Random Glucose Lactic Acid Calcium Magnesium Total Bilirubin AST ALT Alkaline Phosphatase Total Protein Albumin Globulin Albumin/Globulin Ratio Urine HCG, Qual Negative Assessment & Plan (1) Fever and chills Assessment and Plan: no evidence of transfusion reaction by blood work and blood bank evaluation infection w/u and empiric antibiotics Status: Acute (2) Pancytopenia Assessment and Plan: secondary to recent radiation and chemotherapy s/p PRBC transfusion Status: Acute (3) Diffuse large B cell lymphoma Assessment and Plan: stage IV on salvage outpatient therapy Thank you for this interesting consult. Status: Acute
[2018-03-01] MEDS: Vancomycin 1 gm/NS 200 ml 1 GM/200 ML BAG IVPB SCH (19:03)
--- NOTE | 2018-03-01 19:13 | CT ---
Date of service: 03/01/2018 PROCEDURE: CT Chest, Abdomen and Pelvis with intravenous contrast HISTORY: monitor lymphadenopathy, hx lymphoma COMPARISON: Comparison is made with 01/04/2018 TECHNIQUE: IV dose administered: 100 mL Omnipaque 350. Axial and reformatted coronal and sagittal CT images of the chest abdomen and pelvis were obtained after IV contrast administration. Radiation dose: Total exam DLP = 306.12 mGy-cm. This CT exam was performed using one or more of the following dose reduction techniques: Automated exposure control, adjustment of the mA and/or kV according to patient size, and/or use of iterative reconstruction technique. FINDINGS: CT CHEST WITH CONTRAST: LUNGS: Small linear opacity seen at the lung bases likely represent atelectasis. MEDIASTINUM: Unremarkable. Normal caliber aorta and pulmonary arterial trunk. No aortic dissection. Normal size heart. LYMPH NODES: Interval increase in the size of the conglomerate lymphadenopathy at the axillary region and anterior upper chest since the previous exam. There is 7.8 x 5.5 on a meter conglomerate lymphadenopathy at the left axillary region. There is 5 x 3.7 centimeter soft tissue mass lesion at the right axillary region consistent with large conglomerate lymphadenopathy. PLEURA: There are small bilateral pleural effusions BONES: Unremarkable. OTHER FINDINGS: None. CT ABDOMEN AND PELVIS: LIVER: Mild hepatomegaly. No gross lesion or ductal dilatation. GALLBLADDER AND BILE DUCTS: Mild gallbladder wall thickening is noted. PANCREAS: Unremarkable. No gross lesion or ductal dilatation. SPLEEN: Prominent size spleen. Again seen is low-attenuation lesion at the peripheral portion of the spleen measures 1 x 1.3 centimeter. ADRENALS: Unremarkable. No mass. KIDNEYS AND URETERS: Unremarkable. No hydronephrosis. No solid mass. VASCULATURE: Unremarkable. No aortic aneurysm. BOWEL: Unremarkable. No obstruction. No gross mural thickening. APPENDIX: No evidence of appendicitis. PERITONEUM: Unremarkable. No free fluid. No free air. LYMPH NODES: Interval increase in the size of the conglomerate lymphadenopathy at the upper abdomen since the previous exam. Interval increase in the size of the paralytic lymphadenopathy in the upper abdomen since the previous study. There is also interval increase in the size of the retroperitoneal and periaortic lymphadenopathy at the mid abdomen since the previous study. BLADDER: Unremarkable. REPRODUCTIVE: Unremarkable. BONES: No acute fracture. OTHER FINDINGS: None. IMPRESSION: Interval increase in the size of the bilateral axillary lymphadenopathy. Interval increase in the size of the upper abdomen, periaortic and retroperitoneal lymphadenopathy since the previous exam. Interval appearance of trace/small bilateral pleural effusions.
--- NOTE | 2018-03-01 22:47 | CP.PCM.CON ---
History of Present Illness - History of Present Illness History of Present Illness: dictated Past Patient History - Infectious Disease Hx of Infectious Diseases: None - Past Medical History & Family History Past Medical History?: Yes - Past Social History Smoking Status: Never Smoked - CARDIAC Hx Cardiac Disorders: Yes Hx Angina: Yes - PULMONARY Hx Respiratory Disorders: No - NEUROLOGICAL Hx Neurological Disorder: Yes Other/Comment: headaches - HEENT Hx HEENT Problems: Yes Other/Comment: HX: HYPERTROPIC TONSILS. HX: SORE THROATS "FOR MONTHS" - RENAL Hx Chronic Kidney Disease: No - ENDOCRINE/METABOLIC Hx Endocrine Disorders: No - HEMATOLOGICAL/ONCOLOGICAL Hx Blood Disorders: Yes Hx Cancer: Yes ([place]) Hx Chemotherapy: Yes - INTEGUMENTARY Hx Dermatological Problems: Yes Other/Comment: HX: RIGHT AXILLARY MASS - MUSCULOSKELETAL/RHEUMATOLOGICAL Hx Arthritis: Yes - GASTROINTESTINAL Hx Gastrointestinal Disorders: Yes HX Swallowing Problems: Yes - GENITOURINARY/GYNECOLOGICAL Hx Genitourinary Disorders: No - PSYCHIATRIC Hx Anxiety: Yes Hx Substance Use: No - SURGICAL HISTORY Hx Tonsillectomy: Yes - ANESTHESIA Hx Anesthesia: Yes Hx Anesthesia Reactions: Yes (02/15/17 dizziness) Hx Malignant Hyperthermia: No Meds Allergies/Adverse Reactions: Allergies Allergy/AdvReac Type Severity Reaction Status Date / Time No Known Allergies Allergy Verified 02/28/18 15:22 - Medications Medications: Current Medications Enoxaparin Sodium (Lovenox) 40 mg SC DAILY [facility] Last Admin: 03/01/18 09:22 Dose: 40 mg Famotidine (Pepcid) 20 mg PO BID [facility] Last Admin: 03/01/18 17:31 Dose: 20 mg Piperacillin Sod/Tazobactam Sod (Zosyn 3.375 Gm Iv Premix) 3.375 gm in 50 mls @ 100 mls/hr IVPB Q6H [facility] PRN Reason: Protocol Last Admin: 03/01/18 19:02 Dose: 100 mls/hr Vancomycin/Sodium Chloride (Vancomycin 1 Gm/Ns 200 Ml) 1 gm in 200 mls @ 133 mls/hr IVPB Q24H [facility] PRN Reason: Protocol Stop: 03/06/18 19:31 Last Admin: 03/01/18 19:03 Dose: 133 mls/hr Sodium Chloride (Sodium Chloride 0.9%) 1,000 mls @ 60 mls/hr IV .[id number] [facility] Last Admin: 03/01/18 16:03 Dose: 60 mls/hr Oxycodone/Acetaminophen (Percocet 5/325 Mg Tab) 1 tab PO Q4 PRN PRN Reason: Pain, severe (8-10) Stop: 03/03/18 19:21 Potassium Chloride (Potassium Chloride Oral Soln) 20 meq PO BID [facility] Stop: 03/02/18 12:38 Last Admin: 03/01/18 17:31 Dose: 20 meq Results - Vital Signs Recent Vital Signs: Last Vital Signs Temp 98.2 F 03/01/18 15:30 Pulse 65 03/01/18 15:30 Resp 20 03/01/18 15:30 BP 102/67 03/01/18 15:30 Pulse Ox 99 03/01/18 15:30 - Labs Result Diagrams: 03/01/18 11:00 03/01/18 11:00 Labs: Laboratory Results - last 24 hr 03/01/18 03/01/18 03/01/18 11:00 11:00 16:52 WBC 2.3 L RBC 3.18 L Hgb 8.8 L D Hct 26.1 L MCV 82.2 MCH 27.6 MCHC 33.6 RDW 16.9 H Plt Count 90 L D MPV 9.3 Neut % (Auto) 59.4 Lymph % (Auto) 12.5 L [place] % (Auto) 21.3 H Eos % (Auto) 6.0 H Baso % (Auto) 0.8 Neut # (Auto) 1.3 L Lymph # (Auto) 0.3 L [place] # (Auto) 0.5 Eos # (Auto) 0.1 Baso # (Auto) 0.0 Neutrophils % (Manual) 63 Band Neutrophils % 1 Lymphocytes % (Manual) 12 L Monocytes % (Manual) 18 H Eosinophils % (Manual) 6 H Platelet Estimate Decreased L Hypochromasia (manual) Slight Poikilocytosis (manual Slight Anisocytosis (manual) Slight Target Cells Slight Ovalocytes Slight [place] Cells Slight Sodium 142 Potassium 2.9 L Chloride 110 H Carbon Dioxide 24 Anion Gap 11 BUN 4 L Creatinine 0.4 L Est GFR ( Amer) > 60 Est GFR (Non-Af Amer) > 60 Random Glucose 99 Calcium 8.3 L Magnesium 1.8 Total Bilirubin 0.7 AST 42 H D ALT 36 Alkaline Phosphatase 70 Total Protein 5.0 L Albumin 2.6 L D Globulin 2.4 Albumin/Globulin Ratio 1.0 Urine HCG, Qual Negative Assessment & Plan (1) Pancytopenia Status: Acute (2) Transfusion reaction Status: Acute (3) Anemia Status: Acute (4) Diffuse large B cell lymphoma Status: Acute
[2018-03-02] MEDS: Piperacill/Tazo 3.375gm in Dex 3.375 GM/50 ML BAG IVPB SCH ×4 (04:32→22:57)
--- NOTE | 2018-03-02 07:16 | CP.PCM.PN ---
Subjective - Date & Time of Evaluation Date of Evaluation: 03/02/18 Time of Evaluation: 09:40 - Subjective Subjective: Pt seen and examined at bedside this morning. Pt states she feels much better today, has more energy, and is walking much better. Pt denies chest pain, SOB, nausea, vomiting. Objective - Vital Signs/Intake and Output Vital Signs (last 24 hours): Temp Pulse Resp BP Pulse Ox 98.3 F 76 20 105/65 98 03/02/18 04:10 03/02/18 04:10 03/02/18 04:10 03/02/18 04:10 03/02/18 04:10 Intake and Output: 03/02/18 03/02/18 06:59 18:59 Intake Total 880 Balance 880 - Medications Medications: Current Medications Enoxaparin Sodium (Lovenox) 40 mg SC DAILY [facility] Last Admin: 03/01/18 09:22 Dose: 40 mg Famotidine (Pepcid) 20 mg PO BID [facility] Last Admin: 03/01/18 17:31 Dose: 20 mg Piperacillin Sod/Tazobactam Sod (Zosyn 3.375 Gm Iv Premix) 3.375 gm in 50 mls @ 100 mls/hr IVPB Q6H [facility] PRN Reason: Protocol Last Admin: 03/02/18 04:32 Dose: 100 mls/hr Vancomycin/Sodium Chloride (Vancomycin 1 Gm/Ns 200 Ml) 1 gm in 200 mls @ 133 mls/hr IVPB Q24H [facility] PRN Reason: Protocol Stop: 03/06/18 19:31 Last Admin: 03/01/18 19:03 Dose: 133 mls/hr Sodium Chloride (Sodium Chloride 0.9%) 1,000 mls @ 60 mls/hr IV .[id number] [facility] Last Admin: 03/01/18 16:03 Dose: 60 mls/hr Oxycodone/Acetaminophen (Percocet 5/325 Mg Tab) 1 tab PO Q4 PRN PRN Reason: Pain, severe (8-10) Stop: 03/03/18 19:21 Potassium Chloride (Potassium Chloride Oral Soln) 20 meq PO BID [facility] Stop: 03/02/18 12:38 Last Admin: 03/01/18 17:31 Dose: 20 meq - Labs Labs: 03/01/18 11:00 03/01/18 11:00 PT 12.1 SECONDS (9.7-12.2) 02/28/18 15:53 INR 1.1 02/28/18 15:53 APTT 29 SECONDS (21-34) 02/28/18 15:53 - Constitutional Appears: Non-toxic, No Acute Distress - Eye Exam Eye Exam: EOMI - ENT Exam ENT Exam: Mucous Membranes Moist - Neck Exam Neck Exam: Lymphadenopathy (axillary LA B/L) - Respiratory Exam Respiratory Exam: Clear to Ausculation Bilateral, NORMAL BREATHING PATTERN - Cardiovascular Exam Cardiovascular Exam: REGULAR RHYTHM - GI/Abdominal Exam GI & Abdominal Exam: Soft, Normal Bowel Sounds - Extremities Exam Extremities Exam: Normal Capillary Refill, Normal Inspection. absent: Calf Tenderness, Pedal Edema - Neurological Exam Neurological Exam: Alert, Awake, Oriented x3 Assessment and Plan - Assessment and Plan (Free Text) Assessment: 52 yo F w/ transfusion reaction s/p 2U for symptomatic anemia 2/2 chemo for B- cell lymphoma 1. sepsis vs transfusion reaction -afebrile overnight -vanco 1g(02/28) -f/u vanco trough -zosyn 3.375 q6(02/28) -NS @60 -f/u blood cx(02/28) -f/u LDH, haptoglobin -ID consult Dr. Bender 2. B-Cell Lymphoma -percocet 5/325 pain -CT chest/abd/pelvis showed lymphadenopathy, B/L axillary, periaortic, abdominal and retroperitoneal, increased in size. -heme/onc consult Dr. Velez 3. Anemia -Hgb 8.8(03/01) -am CBC -transfuse as needed 4. Neutropenia -afebrile -WBC 2.3 -neutrophil count 54 -am labs 5. Hypokalemia -K 3.2 -40mEq IV -morning labs -replete as needed Ppx -pepcid 20mg BID -lovenox 40mg Dispo: -awaiting blood cultures. Expected d/c pending negative cultures Marli Martínez PGY1
[2018-03-02 07:27] LABS: ALB/GLOB RATIO 1.2 (1.0-2.1); ALBUMIN 2.8 g/dL (3.5-5.0); ALT/SGPT 34 U/L (9-52); AST/SGOT 34 U/L (14-36); BILIRUBIN,DIRECT 0.2 mg/dL (0.0-0.4); BLOOD UREA NITROGEN 2 mg/dL (7-17); CALCIUM 8.2 mg/dl (8.6-10.4); GFR AFRICAN-AMERICAN > 60; GFR NON-AFRICAN AMERICAN > 60
--- NOTE | 2018-03-02 10:16 | CON ---
Copied To: Rylie Bender MD Attending MD: Rylie Bender MD DATE: 03/01/2018 INFECTIOUS DISEASE CONSULT REQUESTING PHYSICIAN: Cliff Rodríguez MD HISTORY OF PRESENT ILLNESS: This patient is a 52-year-old female. She has a history of stage 4 large B-cell lymphoma and she has been getting chemotherapy. The daughter said that every three weeks she gets three days of therapy, that is what I understood, as they were speaking [place], and she had chemotherapy in 2009, and recurrence in 2011. She had CSF in concomitant. I am trying to get history from Dr. Velez's note, but this patient is on pelvic therapy came in and was admitted with fever and chills. She is anemic. She came for transfusion and after transfusion she started to have fevers and chills of 103 in the infusion center. After 2 units of packed RBC, she denied any dark urine. She denied any back pain. She had a recent radiation and chemotherapy recently. PAST MEDICAL HISTORY: Noncontributory, otherwise. FAMILY HISTORY: Noncontributory. SOCIAL HISTORY: She does not smoke, drink, or any drug abuse. ALLERGIES: SHE IS NOT ALLERGIC TO ANY MEDICINE. REVIEW OF SYSTEMS: She denied any headaches today. Denied any ear, nose, or throat problems. Denied any chest pain. No shortness of breath at this time. No skin rashes. No nausea. No vomiting. No diarrhea. No urinary complaints. No psych issues. The daughter says that she was fine except being anemic and she needed blood and that is why she came for, and that is all the doctors are saying that this was a blood transfusion reaction and all her past history is noted. MEDICATIONS: Include Lovenox, famotidine, piperacillin/tazobactam. She is also on vancomycin 1 g every 24 and on 3.3 every 6 and she is on IV fluids and on Percocet and potassium she is getting. PHYSICAL EXAMINATION: VITAL SIGNS: I find her temperature now is 98.2, pulse 65. She initially was hypotensive at 6 o'clock in the morning, 87/47. She was hypotensive before and her temperature 103.2. T-max is 98, pulse 58, blood pressure 85/49, respirations are 16, and blood pressure has since improved. HEENT: Head is atraumatic and normocephalic. Eyes: PERRLA present. No icterus present. Eye movements are unremarkable. NECK: Supple. JVP is flat. LUNGS: Clear. No crackles or rales present. HEART: S1 and S2 are regular. ABDOMEN: Soft and nontender. No guarding. No rigidity present. EXTREMITIES: Mild edema, but they have like a woody edema and she has some trouble ambulating, that is what the daughter says. LABORATORY DATA: Labs are noted. White count is 2.3, hemoglobin 8.8, hematocrit 26.1, platelet count is 90. I guess this was taken prior to giving her blood. Lymphocytes are 12, monocytes are 15, eosinophils are 6. Sodium is 142, potassium was 2.9, chloride is 110, CO2 is 24, potassium was low. AST is 42, albumin is 2.6, and I hope she is getting potassium supplements. She is on 20 p.o. b.i.d. She is also on IV fluids and she is on vancomycin. Her chest x-ray, abdominal, and CT pelvis was done, which shows there is interval increase in the area of conglomerate lymphadenopathy at the upper abdomen since the previous exam. Interval increase in the size of the paralytic lymphadenopathy of the upper abdomen since the previous study. There is also interval increase in the size of retroperitoneal and periaortic lymphadenopathy of the mid abdomen since the previous exam. Final report, which shows interval increase in the size of the bilateral axillary lymphadenopathy. Interval increase in the size of the upper abdomen, periaortic and retroperitoneal lymphadenopathy since the previous exam. Interval appearance of trace bilateral pleural effusions, which seems that her disease is worsening and fevers could be related to that. However, since that came after blood transfusion, we have to think of blood transfusion related reaction and thus we will follow advice of Dr. Velez, but at this time, I will leave her on antibiotics to make sure the cultures are negative and we will follow. Rylie Bender MD
[2018-03-02] MEDS: Enoxaparin 40 mg Syringe SC SCH (10:25)
[2018-03-02] MEDS: Potassium Chloride 20 mEq/15 ml LIQ UD PO SCH (10:26)
[2018-03-02] MEDS ORDERED: Potassium Chloride 20 mEq ER Tab PO ONE (10:30)
[2018-03-02] MEDS: Sodium Chloride 0.9% 1,000 ML IV SCH (10:45)
[2018-03-02] MEDS: Cefepime IV 2 gm in Dextrose 2 GM/100 ML BAG IVPB SCH ×2 (13:59→21:22)
[2018-03-02] MEDS: Potassium Chloride 20 mEq ER Tab PO SCH (14:01)
--- NOTE | 2018-03-02 18:39 | PN ---
DATE: 03/02/2018 SUBJECTIVE: The patient was seen today. She still remains weak and frail. She was trying to eat. She denied any pain today. She had no blood in the urine. No shortness of breath. No abdominal pain. PHYSICAL EXAMINATION: VITAL SIGNS: T-max is 98.6, pulse 71, blood pressure is 98/60, respirations are 20. HEENT: Head is atraumatic. NECK: Supple. She has a Port-A-Cath, I did not see yesterday was clinically ok . LUNGS: Clear. HEART: S1 and S2 are regular. ABDOMEN: Soft and nontender. EXTREMITIES: Have edema present. LABORATORY DATA: Labs are noted. Labs show white count is 2.3, hemoglobin is 8.8, hematocrit 26.1, platelet count is 90. She was on Zosyn and platelets are decreasing. I am not sure because of the chemo or Zosyn. for the patient's leukopenia and her hemoglobin dropped from 11.4 to 8.8. We will wait to see what Dr. Velez does as there were some problem with the blood transfusion, possible reaction yesterday. A septic workup was ordered. Blood cultures x2 are negative at this time and awaiting for the other culture reports. She had a chest x-ray, abdomen and pelvic CT, which showed diffuse lymphadenopathy and that needs to be seen what is the planning by the hematology/oncologist. We will continue antibiotics for now and we will follow. Rylie Bender MD MTDD
[2018-03-02] MEDS: Vancomycin 1 gm/NS 200 ml 1 GM/200 ML BAG IVPB SCH (19:21)
--- NOTE | 2018-03-02 20:01 | CP.PCM.PN ---
Subjective - Date & Time of Evaluation Date of Evaluation: 03/02/18 Time of Evaluation: 10:00 - Subjective Subjective: Feeling better Objective - Vital Signs/Intake and Output Vital Signs (last 24 hours): Temp Pulse Resp BP Pulse Ox 98.6 F 77 20 95/60 L 99 03/02/18 15:00 03/02/18 16:05 03/02/18 15:00 03/02/18 15:00 03/02/18 15:00 Intake and Output: 03/02/18 03/03/18 18:59 06:59 Intake Total 920 Balance 920 - Medications Medications: Current Medications Enoxaparin Sodium (Lovenox) 40 mg SC DAILY [facility] Last Admin: 03/02/18 10:25 Dose: 40 mg Famotidine (Pepcid) 20 mg PO BID [facility] Last Admin: 03/02/18 17:21 Dose: 20 mg Piperacillin Sod/Tazobactam Sod (Zosyn 3.375 Gm Iv Premix) 3.375 gm in 50 mls @ 100 mls/hr IVPB Q6H [facility] PRN Reason: Protocol Last Admin: 03/02/18 17:21 Dose: 100 mls/hr Vancomycin/Sodium Chloride (Vancomycin 1 Gm/Ns 200 Ml) 1 gm in 200 mls @ 133 mls/hr IVPB Q24H [facility] PRN Reason: Protocol Stop: 03/06/18 19:31 Last Admin: 03/02/18 19:21 Dose: 133 mls/hr Sodium Chloride (Sodium Chloride 0.9%) 1,000 mls @ 60 mls/hr IV .[id number] [facility] Last Admin: 03/02/18 10:45 Dose: Not Given Cefepime HCl (Maxipime Iv 2 Gm Premix) 2 gm in 100 mls @ 200 mls/hr IVPB Q8H [facility] PRN Reason: Protocol Stop: 03/07/18 13:01 Last Admin: 03/02/18 13:59 Dose: 200 mls/hr Oxycodone/Acetaminophen (Percocet 5/325 Mg Tab) 1 tab PO Q4 PRN PRN Reason: Pain, severe (8-10) Stop: 03/03/18 19:21 Potassium Chloride (K-Dur 20 Meq Er Tab) 40 meq PO DAILY [facility] Last Admin: 03/02/18 14:01 Dose: Not Given - Labs Labs: 03/01/18 11:00 03/02/18 06:47 PT 12.1 SECONDS (9.7-12.2) 02/28/18 15:53 INR 1.1 02/28/18 15:53 APTT 29 SECONDS (21-34) 02/28/18 15:53 - Head Exam Head Exam: ATRAUMATIC - Eye Exam Eye Exam: Normal appearance - ENT Exam ENT Exam: Mucous Membranes Dry - Respiratory Exam Respiratory Exam: NORMAL BREATHING PATTERN - Cardiovascular Exam Cardiovascular Exam: +S1, +S2 - GI/Abdominal Exam GI & Abdominal Exam: Normal Bowel Sounds Assessment and Plan (1) Fever and chills Assessment & Plan: resolved Status: Acute (2) Pancytopenia Assessment & Plan: improving secondary to chemotherapy and radiation Status: Acute (3) Diffuse large B cell lymphoma Assessment & Plan: stage IV outpatient treatment Status: Acute
[2018-03-02] MEDS: Oxycodone/Acetaminophen 5/325 mg Tab PO PRN (22:55)
[2018-03-03] MEDS: Sodium Chloride 0.9% 1,000 ML IV SCH ×2 (04:01→18:08)
[2018-03-03] MEDS: Cefepime IV 2 gm in Dextrose 2 GM/100 ML BAG IVPB SCH ×2 (04:02→12:23)
[2018-03-03] MEDS: Piperacill/Tazo 3.375gm in Dex 3.375 GM/50 ML BAG IVPB SCH ×2 (05:17→11:20)
[2018-03-03] MEDS: Oxycodone/Acetaminophen 5/325 mg Tab PO PRN ×2 (05:24→16:10)
--- NOTE | 2018-03-03 06:17 | CP.PCM.PN ---
Subjective - Date & Time of Evaluation Date of Evaluation: 03/03/18 Time of Evaluation: 07:00 - Subjective Subjective: Pt seen and examined at bedside this morning. Pt states she continues to feel better each day however complains of burning/stretching of skin in LUQ and left chest, axillary to sternum. Pt denies chest pain, SOB, nausea, vomiting. Objective - Vital Signs/Intake and Output Vital Signs (last 24 hours): Temp Pulse Resp BP Pulse Ox 98.7 F 76 20 109/73 99 03/03/18 04:10 03/03/18 05:28 03/03/18 04:10 03/03/18 05:28 03/03/18 04:10 Intake and Output: 03/02/18 03/03/18 18:59 06:59 Intake Total 920 Balance 920 - Medications Medications: Current Medications Enoxaparin Sodium (Lovenox) 40 mg SC DAILY [facility] Last Admin: 03/02/18 10:25 Dose: 40 mg Famotidine (Pepcid) 20 mg PO BID [facility] Last Admin: 03/02/18 17:21 Dose: 20 mg Piperacillin Sod/Tazobactam Sod (Zosyn 3.375 Gm Iv Premix) 3.375 gm in 50 mls @ 100 mls/hr IVPB Q6H [facility] PRN Reason: Protocol Last Admin: 03/03/18 05:17 Dose: 100 mls/hr Vancomycin/Sodium Chloride (Vancomycin 1 Gm/Ns 200 Ml) 1 gm in 200 mls @ 133 mls/hr IVPB Q24H [facility] PRN Reason: Protocol Stop: 03/06/18 19:31 Last Admin: 03/02/18 19:21 Dose: 133 mls/hr Sodium Chloride (Sodium Chloride 0.9%) 1,000 mls @ 60 mls/hr IV .[id number] [facility] Last Admin: 03/03/18 04:01 Dose: 60 mls/hr Cefepime HCl (Maxipime Iv 2 Gm Premix) 2 gm in 100 mls @ 200 mls/hr IVPB Q8H [facility] PRN Reason: Protocol Stop: 03/07/18 13:01 Last Admin: 03/03/18 04:02 Dose: 200 mls/hr Oxycodone/Acetaminophen (Percocet 5/325 Mg Tab) 1 tab PO Q4 PRN PRN Reason: Pain, severe (8-10) Stop: 03/03/18 19:21 Last Admin: 03/03/18 05:24 Dose: 1 tab Potassium Chloride (K-Dur 20 Meq Er Tab) 40 meq PO DAILY [facility] Last Admin: 03/02/18 14:01 Dose: Not Given - Labs Labs: 03/01/18 11:00 03/02/18 06:47 PT 12.1 SECONDS (9.7-12.2) 02/28/18 15:53 INR 1.1 02/28/18 15:53 APTT 29 SECONDS (21-34) 02/28/18 15:53 - Constitutional Appears: Well, No Acute Distress - Head Exam Head Exam: ATRAUMATIC, NORMAL INSPECTION, NORMOCEPHALIC - Eye Exam Eye Exam: EOMI - ENT Exam ENT Exam: Mucous Membranes Moist - Respiratory Exam Respiratory Exam: Clear to Ausculation Bilateral, NORMAL BREATHING PATTERN - Cardiovascular Exam Cardiovascular Exam: REGULAR RHYTHM. absent: Murmur - GI/Abdominal Exam GI & Abdominal Exam: Soft, Normal Bowel Sounds. absent: Distended - Extremities Exam Extremities Exam: Normal Capillary Refill, Normal Inspection. absent: Calf Tenderness, Pedal Edema - Neurological Exam Neurological Exam: Alert, Awake, Oriented x3 - Skin Skin Exam: absent: Rash (no rashes noted in dermatomes of "burning") Assessment and Plan - Assessment and Plan (Free Text) Assessment: 52 yo F w/ transfusion reaction s/p 2U for symptomatic anemia 2/2 chemo for B- cell lymphoma 1. sepsis vs transfusion reaction -afebrile overnight -Napoleon d/c Abx as cx so far were negative -NS @60 -f/u blood cx(02/28), negative to date -f/u LDH, haptoglobin -ID consult Dr. Bender 2. B-Cell Lymphoma -percocet 5/325 pain -CT chest/abd/pelvis showed lymphadenopathy, B/L axillary, periaortic, abdominal and retroperitoneal, increased in size. -heme/onc consult Dr. Velez 3. Anemia -Hgb 9.0(03/01) -am CBC -transfuse as needed 4. Neutropenia -afebrile -WBC 2.1 -neutrophil count 1500 -am labs 5. Hypokalemia -K 3.8 -morning labs -replete as needed Ppx -pepcid 20mg BID -lovenox 40mg Dispo: -All abx d/c per Napoleon. Rosie to manage care as outpatient. Plan to discharge pt home tomorrow pending negative cxs. Marli Martínez PGY1
[2018-03-03 07:23] LABS: MEAN CELL VOLUME 81.8 fL (81.0-99.0); MEAN CORPUSCULAR HEMOGLOBIN 27.4 pg (27.0-31.0); MEAN CORPUSCULAR HGB CONC 33.5 g/dL (33.0-37.0); RBC 3.3 Mil/uL (3.80-5.20); RED CELL DISTRIBUTION WIDTH 17.6 % (11.5-14.5); WHITE BLOOD COUNT 2.1 K/uL (4.8-10.8)
[2018-03-03 07:38] LABS: ALB/GLOB RATIO 1.1 (1.0-2.1); ALBUMIN 2.9 g/dL (3.5-5.0); ALT/SGPT 29 U/L (9-52); AST/SGOT 31 U/L (14-36); BLOOD UREA NITROGEN 5 mg/dL (7-17); CALCIUM 8.9 mg/dl (8.6-10.4); GFR AFRICAN-AMERICAN > 60; GFR NON-AFRICAN AMERICAN > 60
[2018-03-03] MEDS: Enoxaparin 40 mg Syringe SC SCH (09:04)
[2018-03-03] MEDS: Potassium Chloride 20 mEq ER Tab PO SCH (09:04)
[2018-03-03 09:41] LABS: EOS # 0.1 K/uL (0.0-0.7); LYMPH # 0.2 K/uL (1.0-4.3); MONO # 0.3 K/uL (0.0-0.8); NEUT # 1.5 K/uL (1.8-7.0)
--- NOTE | 2018-03-03 17:07 | CP.PCM.PN ---
Subjective - Date & Time of Evaluation Date of Evaluation: 03/03/18 Time of Evaluation: 03:00 - Subjective Subjective: dictated Objective - Vital Signs/Intake and Output Vital Signs (last 24 hours): Temp Pulse Resp BP Pulse Ox 100.2 F H 84 20 126/81 98 03/03/18 15:00 03/03/18 15:00 03/03/18 15:00 03/03/18 15:00 03/03/18 15:00 Intake and Output: 03/03/18 03/03/18 06:59 18:59 Intake Total 710 830 Balance 710 830 - Medications Medications: Current Medications Enoxaparin Sodium (Lovenox) 40 mg SC DAILY [facility] Last Admin: 03/03/18 09:04 Dose: 40 mg Famotidine (Pepcid) 20 mg PO BID [facility] Last Admin: 03/03/18 09:04 Dose: 20 mg Sodium Chloride (Sodium Chloride 0.9%) 1,000 mls @ 60 mls/hr IV .[id number] [facility] Last Admin: 03/03/18 04:01 Dose: 60 mls/hr Oxycodone/Acetaminophen (Percocet 5/325 Mg Tab) 1 tab PO Q4 PRN PRN Reason: Pain, severe (8-10) Stop: 03/03/18 19:21 Last Admin: 03/03/18 05:24 Dose: 1 tab Potassium Chloride (K-Dur 20 Meq Er Tab) 40 meq PO DAILY [facility] Last Admin: 03/03/18 09:04 Dose: 40 meq - Labs Labs: 03/03/18 06:56 03/03/18 06:56 PT 12.1 SECONDS (9.7-12.2) 02/28/18 15:53 INR 1.1 02/28/18 15:53 APTT 29 SECONDS (21-34) 02/28/18 15:53 Assessment and Plan (1) Pancytopenia Status: Acute (2) Transfusion reaction Status: Acute (3) Anemia Status: Acute (4) Diffuse large B cell lymphoma Status: Acute
[2018-03-03] MEDS ORDERED: Oxycodone/Acetaminophen 5/325 mg Tab PO PRN (21:14)
[2018-03-04 07:46] LABS: BASO % 1.1 % (0.0-2.0); EOS # 0.1 K/uL (0.0-0.7); EOS % 5.2 % (0.0-4.0); HEMOGLOBIN 10.7 g/dL (11.0-16.0); LYMPH # 0.4 K/uL (1.0-4.3); LYMPH % 18.1 % (20.0-40.0); MEAN CELL VOLUME 81.9 fL (81.0-99.0); MEAN CORPUSCULAR HEMOGLOBIN 27.3 pg (27.0-31.0); MEAN CORPUSCULAR HGB CONC 33.3 g/dL (33.0-37.0); MEAN PLATELET VOLUME 9.6 fL (7.2-11.7); MONO # 0.5 K/uL (0.0-0.8); MONO % 22.2 % (0.0-10.0); NEUT # 1.2 K/uL (1.8-7.0); NEUT % 53.4 % (50.0-75.0); NRBC % 0.2 % (0.0-2.0); PLATELET COUNT 234 K/uL (130-400); RBC 3.94 Mil/uL (3.80-5.20); RED CELL DISTRIBUTION WIDTH 17.9 % (11.5-14.5); WHITE BLOOD COUNT 2.2 K/uL (4.8-10.8)
[2018-03-04 07:58] LABS: ALB/GLOB RATIO 1.3 (1.0-2.1); ALBUMIN 3.7 g/dL (3.5-5.0); ALT/SGPT 30 U/L (9-52); AST/SGOT 38 U/L (14-36); BLOOD UREA NITROGEN 3 mg/dL (7-17); CALCIUM 9.6 mg/dl (8.6-10.4); GFR AFRICAN-AMERICAN > 60; GFR NON-AFRICAN AMERICAN > 60
[2018-03-04 08:06] VITALS: RESP 20; O2SAT 99
--- NOTE | 2018-03-04 08:29 | PN ---
Copied To: Rylie Bender MD Attending MD: Rylie Bender MD DATE: 03/03/2018 SUBJECTIVE: Patient was asked, she says she last night had lot of back pain and she asked for Percocet. She is having a low grade temp right now, 100.2. However, her blood cultures and urine culture were negative and I was planning to cut off the antibiotics, but since I saw, she is still febrile, 100.2, pulse 84, blood pressure is 126/81, and respirations are 20. She denied any nausea, vomiting, diarrhea, or abdominal pain. Extremities had mild edema. PHYSICAL EXAMINATION: HEENT: Head is atraumatic, normocephalic. Pallor present. NECK: Supple. LUNGS: Clear. HEART: S1, S2 are regular. ABDOMEN: Soft, nontender. No guarding. no rigidity present. I had also discussed with the resident that I would be discontinuing antibiotics. LABORATORY DATA: White count is 2.1, hemoglobin 9, hematocrit 27, and platelet count is 147, is better than before; lymphs are 10, monos are 15. Chemistry shows BUN is 13 and creatinine is 0.5. Blood cultures x2 are negative. Urine culture is negative. We did chest, abdomen, and pelvic CT on 03/01/2018 which showed increasing lymph nodes and interval increase in lymphadenopathy. So, the fever could be related to her disease itself. We will need to see what Dr. Velez says, and we will follow those recommendations. She also had a reaction to the transfusion, but she is asymptomatic from it at the present time. She is on Lovenox, I would hold off on the Lovenox. I would suggest them to hold off on the Lovenox as she remains anemic. Antibiotics have been discontinued. We will follow. Most likely the fever is related to her stage IV lymphoma. Rylie Bender MD
[2018-03-04 10:20] LABS: ANISOCYTOSIS SLIGHT; BANDS 8 % (0-2); EOSINOPHIL 7 % (0-4); HYPOCHROMIC SLIGHT; LYMPHOCYTE 22 % (20-40); MONOCYTE 19 % (0-10); MYELOCYTE 1 % (0-0); NEUTROPHIL 43 % (50-75); PLATELET ESTIMATE NORMAL (NORMAL); POIKILOCYTOSIS SLIGHT; TOTAL CELLS COUNTED 100
[2018-03-04] MEDS: Potassium Chloride 20 mEq ER Tab PO SCH (10:39)
[2018-03-04] MEDS ORDERED: Potassium Ch 20mEq in D5-1/2NS 1,000 ML IV SCH (11:00)
[2018-03-04] MEDS: Sodium Chloride 0.9% 1,000 ML IV SCH (14:49)
[2018-03-04 15:40] LABS: BLOOD UREA NITROGEN 4 mg/dL (7-17); GFR AFRICAN-AMERICAN > 60; GFR NON-AFRICAN AMERICAN > 60
[2018-03-04 15:59] VITALS: BP 100/65; TEMP 99.4
[2018-03-04] MEDS ORDERED: Benzocaine 7.5% 5.1 GM TUBE MM PRN (16:00)
[2018-03-04] MEDS ORDERED: Vitamins A & D Oint UD Foilpak EXT PRN (16:06)
[2018-03-04 16:12] VITALS: PULSE 82
--- NOTE | 2018-03-04 17:46 | CP.PCM.DIS ---
Provider - Provider Date of Admission: 02/28/18 18:37 Attending physician: Raymundo Carrillo MD Primary care physician: resident clinic at [facility] Consults: hem/onc, ID Time Spent in preparation of Discharge (in minutes): 45 Diagnosis - Discharge Diagnosis (1) Sepsis Status: Resolved Priority: High (2) Transfusion reaction Status: Resolved Priority: High (3) Diffuse large B cell lymphoma Status: Chronic Priority: Medium (4) Anemia Status: Chronic Priority: Medium (5) Neutropenia Status: Chronic Priority: Medium (6) Hypokalemia Status: Resolved Priority: Low Hospital Course - Lab Results Lab Results: Micro Results 02/28/18 15:15 Blood Blood Culture - Preliminary NO GROWTH AFTER 3 DAYS 02/28/18 15:45 Blood Blood Culture - Preliminary NO GROWTH AFTER 3 DAYS 02/28/18 22:34 Urine Urine Culture - Final No Growth (<1,000 CFU/ML) Most Recent Lab Values WBC 2.2 K/uL (4.8-10.8) L 03/04/18 07:35 RBC 3.94 Mil/uL (3.80-5.20) 03/04/18 07:35 Hgb 10.7 g/dL (11.0-16.0) L 03/04/18 07:35 Hct 32.2 % (34.0-47.0) L 03/04/18 07:35 MCV 81.9 fL (81.0-99.0) 03/04/18 07:35 MCH 27.3 pg (27.0-31.0) 03/04/18 07:35 MCHC 33.3 g/dL (33.0-37.0) 03/04/18 07:35 RDW 17.9 % (11.5-14.5) H 03/04/18 07:35 Plt Count 234 K/uL (130-400) 03/04/18 07:35 MPV 9.6 fL (7.2-11.7) 03/04/18 07:35 Neut % (Auto) 53.4 % (50.0-75.0) 03/04/18 07:35 Lymph % (Auto) 18.1 % (20.0-40.0) L 03/04/18 07:35 Isabella % (Auto) 22.2 % (0.0-10.0) H 03/04/18 07:35 Eos % (Auto) 5.2 % (0.0-4.0) H 03/04/18 07:35 Baso % (Auto) 1.1 % (0.0-2.0) 03/04/18 07:35 Neut # (Auto) 1.2 K/uL (1.8-7.0) L 03/04/18 07:35 Lymph # (Auto) 0.4 K/uL (1.0-4.3) L 03/04/18 07:35 Isabella # (Auto) 0.5 K/uL (0.0-0.8) 03/04/18 07:35 Eos # (Auto) 0.1 K/uL (0.0-0.7) 03/04/18 07:35 Baso # (Auto) 0.0 K/uL (0.0-0.2) 03/04/18 07:35 Neutrophils % (Manual) 43 % (50-75) L 03/04/18 07:35 Band Neutrophils % 8 % (0-2) H 03/04/18 07:35 Lymphocytes % (Manual) 22 % (20-40) 03/04/18 07:35 Monocytes % (Manual) 19 % (0-10) H 03/04/18 07:35 Eosinophils % (Manual) 7 % (0-4) H 03/04/18 07:35 Myelocytes % 1 % (0-0) H 03/04/18 07:35 Platelet Estimate Normal (NORMAL) 03/04/18 07:35 Hypochromasia (manual) Slight 03/04/18 07:35 Poikilocytosis (manual Slight 03/04/18 07:35 Anisocytosis (manual) Slight 03/04/18 07:35 Target Cells Slight 03/01/18 11:00 Ovalocytes Slight 03/01/18 11:00 Bob White Cells Slight 03/01/18 11:00 Haptoglobin 171.8 mg/dL (30.0-200.0) 03/02/18 19:54 PT 12.1 SECONDS (9.7-12.2) 02/28/18 15:53 INR 1.1 02/28/18 15:53 APTT 29 SECONDS (21-34) 02/28/18 15:53 Sodium 138 mmol/L (132-148) 03/04/18 14:16 Potassium 4.0 mmol/L (3.6-5.2) 03/04/18 14:16 Chloride 102 mmol/L (98-107) 03/04/18 14:16 Carbon Dioxide 26 mmol/L (22-30) 03/04/18 14:16 Anion Gap 14 (10-20) 03/04/18 14:16 BUN 4 mg/dL (7-17) L 03/04/18 14:16 Creatinine 0.4 mg/dL (0.7-1.2) L 03/04/18 14:16 Est GFR ( Amer) > 60 03/04/18 14:16 Est GFR (Non-Af Amer) > 60 03/04/18 14:16 Random Glucose 165 mg/dL (65-105) H 03/04/18 14:16 Hemoglobin A1c 8.2 % (4.2-6.5) H 03/02/18 06:47 Lactic Acid 1.3 mmol/L (0.7-2.1) 02/28/18 20:16 Calcium 9.0 mg/dl (8.6-10.4) 03/04/18 14:16 Phosphorus 4.1 mg/dL (2.5-4.5) 03/04/18 07:35 Magnesium 2.0 mg/dL (1.6-2.3) 03/04/18 07:35 Total Bilirubin 1.0 mg/dL (0.2-1.3) 03/04/18 07:35 Direct Bilirubin 0.2 mg/dL (0.0-0.4) 03/02/18 06:47 AST 38 U/L (14-36) H D 03/04/18 07:35 ALT 30 U/L (9-52) 03/04/18 07:35 Alkaline Phosphatase 95 U/L (38-126) 03/04/18 07:35 Lactate Dehydrogenase 979 U/L (313-618) H 03/02/18 19:54 Troponin I < 0.0120 ng/mL (0.00-0.120) 02/28/18 15:48 NT-Pro-B Natriuret Pep 205 pg/mL (0-900) 02/28/18 15:48 Total Protein 6.7 g/dL (6.3-8.3) 03/04/18 07:35 Albumin 3.7 g/dL (3.5-5.0) 03/04/18 07:35 Globulin 3.0 gm/dL (2.2-3.9) 03/04/18 07:35 Albumin/Globulin Ratio 1.3 (1.0-2.1) 03/04/18 07:35 Urine Color Yellow (YELLOW) 02/28/18 15:34 Urine Clarity Clear (Clear) 02/28/18 15:34 Urine pH 6.0 (5.0-8.0) 02/28/18 15:34 Ur Specific Higginson 1.017 (1.003-1.030) 02/28/18 15:34 Urine Protein Negative mg/dL (NEGATIVE) 02/28/18 15:34 Urine Glucose (UA) 1+ mg/dL (Normal) 02/28/18 15:34 Urine Ketones Negative mg/dL (NEGATIVE) 02/28/18 15:34 Urine Blood Negative (NEGATIVE) 02/28/18 15:34 Urine Nitrate Negative (NEGATIVE) 02/28/18 15:34 Urine Bilirubin Negative (NEGATIVE) 02/28/18 15:34 Urine Urobilinogen Normal mg/dL (0.2-1.0) 02/28/18 15:34 Ur Leukocyte Esterase Neg Amari/uL (Negative) 02/28/18 15:34 Urine WBC (Auto) 2 /hpf (0-5) 02/28/18 15:34 Urine RBC (Auto) 1 /hpf (0-3) 02/28/18 15:34 Ur Squamous Epith Cells < 1 /hpf (0-5) 02/28/18 15:34 Urine HCG, Qual Negative (NEGATIVE) 03/01/18 16:52 - Hospital Course Hospital Course: 52 year old female with past medical history stage IV diffuse large B-cell lymphoma diagnosed in 2009 s/p chemotherapy in [facility] was brought in from transfusion center for evaluation of fever after receiving 2 units of packed red cells. Patient has IV access in the right upper chest. She states that she developed fever/chills 30 minutes before the second unit of PRBCS she received today. She stated that earlier today she was feeling "her normal self" and did not have fever/chills earlier. She is receiving treatments for B cell lymphoma with Dr. Odell Velez and has been on a new chemo regimen for the last month. Last chemo dose was on Wednesday. She admits to a crampy abdominal pain which she states she has had since starting this new chemo. She came to the ED a few days ago for this pain which has not resolved. She denies dizziness, headaches, changes in vision, N/V, chest pain, shortness or breath, urinary complaints, diarrhea. No other complaints at this time. Upon admission, the patient's fever was 103.2 and BP was 87/44. The patient was initially started on Cefepime, Vancimysin, and Zosyn. The patient had a CT chest /abd/pelvis that showed lymphadenopathy, B/L axillary, periaortic, abdominal and retroperitoneal, increased in size. Blood cultures remained negative after 4 days. It was determined this was likely a transfusion reaction and/or the patient's malignancy worsening, and ID, Dr. Bender, recommended discontinuing antibiotics. At the time of discharge, patient was afebrile >3 days. Overall, her vitals were stable, and her anemia was improving. She will follow-up with her oncologist, Dr. Velez, on Wednesday for labs. On the day prior to discharge, the patient complained of "stretching, burning" skin on her left arm/axilla. It was suspected to be herpes zoster, but the patient did not have a rash. She will follow-up with the resident clinic within [facility] where this will be further evaluated. She did have some ulcer in and around her mouth for which she was given topical antibiotics. Discharge Exam - Head Exam Head Exam: ATRAUMATIC, NORMAL INSPECTION, NORMOCEPHALIC - Eye Exam Eye Exam: EOMI, Normal appearance - ENT Exam ENT Exam: Mucous Membranes Moist Additional comments: aphthous ulcers in mouth, some ulcerated lesions surrounding lips - Neck Exam Neck exam: Normal Inspection - Respiratory Exam Respiratory Exam: Clear to PA & Lateral, NORMAL BREATHING PATTERN - Cardiovascular Exam Cardiovascular Exam: REGULAR RHYTHM - GI/Abdominal Exam GI & Abdominal Exam: Normal Bowel Sounds, Soft - Rectal Exam Rectal Exam: Deferred - Extremities Exam Extremities exam: full ROM, normal inspection - Back Exam Back exam: NORMAL INSPECTION - Neurological Exam Neurological exam: Alert, Normal Gait, Oriented x3 - Psychiatric Exam Psychiatric exam: Normal Affect, Normal Mood - Skin Skin Exam: Dry, Intact, Normal Color, Warm - Additional Findings Additional findings: large non-tender palpable LNs in bilateral axillas Discharge Plan - Discharge Medications Prescriptions: Benzocaine 7.5% [Orajel 7.5%] 1 unit MM Q6H PRN #1 tube PRN Reason: Mouth pain, Mild (1-3) Vitamin A/D [Vitamin A&D] 1 applic TP Q8 PRN #1 tube PRN Reason: cold sores - Follow Up Plan Condition: STABLE Disposition: HOME/ ROUTINE Patient education suggested?: Yes Instructions: Fever, Adult (DC), Normocytic Normochromic Anemia (DC) Additional Instructions: Patient is stable for discharge home as per Dr. Carrillo. Patient is to follow- up with oncologist Dr. Velez on Wednesday, March 07 for follow-up and labs. She is also to follow-up at the [facility] ([phone]) within 1 week of discharge. Patient is being discharged with Orajel (apply to affected area inside the mouth as needed for cold sores) and A&D ointment (apply to sores outside of the mouth as needed). Patient is to return to the ED if symptoms recur or are worsening. This was explained to the patient who understands and agrees. El paciente est estable para el juan j domiciliaria segn el Dr. Carrillo. El paciente debe realizar un seguimiento con el onclogo Dr. Velez el de ryanne para el seguimiento y los laboratorios. Tambin debe realizar un seguimiento en la clnica de chris del vecindario ([phone]) dentro de 1 semana del juan j. El paciente est siendo dado de juan j con Orajel (se aplica al leticia afectada dentro de la boca segn sea necesario para el herpes labial) y eliza ento A & D (se aplica a las llagas fuera de la boca, segn sea necesario). El paciente debe regresar al servicio de urgencias si los sntomas reaparecen o empeoran. Tillar se le explic al paciente que entiende y acepta. Referrals: Odell Velez MD [Staff Provider] - Praveena Cifuentes MD [Staff Provider] -
[2018-03-04] MEDS ORDERED: Benzocaine 10% Oral Anesthetic (12 ml) MM PRN (18:00)
== END 2018-03-04 17:40 | disposition home or self-care (01) ==
LOC: C.ER 15:13 → C.9E 18:37 → C.6T 23:40
PROVIDERS: ADMIT Internal Medicine; ATTEND Internal Medicine
DX: A41.9 Sepsis, unspecified organism (principal); C83.30 Diffuse large B-cell lymphoma, unspecified site; T80.92XA Unspecified transfusion reaction, initial encounter; Y84.8 Other medical procedures as the cause of abnormal reaction of the patient, or of later complication, without mention of misadventure at the time of the procedure; D70.9 Neutropenia, unspecified; E87.6 Hypokalemia; D61.818 Other pancytopenia; Z92.21 Personal history of antineoplastic chemotherapy
CPT/HCPCS: 36415; 71045; 71260; 74177; 76700; 80048; 80053; 81001; 82248; 83010; 83036; 83605; 83615; 83735; 83880; 84100; 84484; 84703; 85025; 85610; 85730; 87040; 87086; 93005; 96365; 99285; G0378; J0692; J1642; J1650; J2543; J3370; J3480; J7030; J7040; Q9967

== ENCOUNTER 2018-04-17 05:35 | Inpatient (IN) | payer MEDICAID, OTHER ==
[2018-04-17 05:35] VITALS: BMI 19.8
--- NOTE | 2018-04-17 05:55 | C.PDOC ---
History Of Present Illness 52 year old female with PMHx of lymphoma presents to the ED complaining of fever and chills for a couple of days. Last radiation treatment was on . Patient denies n/v/d or any other symptoms. Time Seen by Provider: 04/17/18 05:55 Chief Complaint (Nursing): Fever History Per: Patient History/Exam Limitations: no limitations Onset/Duration Of Symptoms: Days Current Symptoms Are (Timing): Still Present Severity: Moderate Pain Scale Rating Of: 4 Past Medical History Reviewed: Historical Data, Nursing Documentation, Vital Signs Vital Signs: Last Vital Signs Temp 99.6 F 04/17/18 05:46 Pulse 95 H 04/17/18 06:24 Resp 12 04/17/18 06:24 BP 84/47 L 04/17/18 06:24 Pulse Ox 97 04/17/18 06:25 - Medical History PMH: Anxiety, Arthritis, Malignancy (Lymphoma) Denies: Chronic Kidney Disease Surgical History: Tonsillectomy, - [facility] Procedures DRAINAGE OF SPINAL CANAL, PERCUTANEOUS APPROACH, DIAGNOSTIC (01/04/16) EXCISION OF R UP ARM SUBCU/FASCIA, OPEN APPROACH (01/04/16) EXCISION OF RIGHT AXILLARY LYMPHATIC, OPEN APPROACH, DIAGN (01/04/16) Family History: States: No Known Family Hx - Social History Hx Alcohol Use: No Hx Substance Use: No - Immunization History Hx Tetanus Toxoid Vaccination: (unk) Hx Influenza Vaccination: No Hx Pneumococcal Vaccination: (unk) Review Of Systems Constitutional: Positive for: Fever, Chills Gastrointestinal: Negative for: Nausea, Vomiting, Diarrhea Physical Exam - Physical Exam Appears: Non-toxic, Other (cachetic and lethargic ) Skin: Warm, Dry Head: Normacephalic Eye(s): bilateral: Normal Inspection Nose: Normal Oral Mucosa: Dry Neck: Normal ROM Chest: Symmetrical, Other (port r chest) Cardiovascular: Rhythm Regular Respiratory: No Rales, No Rhonchi, No Wheezing Gastrointestinal/Abdominal: Soft, No Tenderness Neurological/Psych: Oriented x3, Normal Speech Gait: Steady ED Course And Treatment - Laboratory Results Result Diagrams: 04/17/18 06:10 O2 Sat by Pulse Oximetry: 97 (RA) Pulse Ox Interpretation: Normal - Radiology CXR: Interpreted by Me, Viewed By Me CXR Interpretation: Yes: Other (port r chest). No: Infiltrates, Fracture, Pnemothorax Medical Decision Making Medical Decision Making: Orders: - Bloodwork -EKG -Labwork -CXR -Zofran 4mg IVP -UA Disposition Counseled Patient/Family Regarding: Studies Performed, Diagnosis - Disposition Disposition Time: 05:55 Condition: FAIR Forms: [facility] ([place]) - Clinical Impression Clinical Impression: Fever, Leukopenia - Scribe Statement The provider has reviewed the documentation as recorded by the Scribrandi Hernandez All medical record entries made by the Stephaniaibe were at my direction and personally dictated by me. I have reviewed the chart and agree that the record accurately reflects my personal performance of the history, physical exam, medical decision making, and the department course for this patient. I have also personally directed, reviewed, and agree with the discharge instructions and disposition. Physician Patient Turnover Patient Signed Over To: Truman Acosta Handoff Comments: pending labs and re-eval
[2018-04-17 06:15] LABS: BASO % 0.7 % (0.0-2.0); EOS % 1.5 % (0.0-4.0); LYMPH # 0.1 K/uL (1.0-4.3); LYMPH % 9.7 % (20.0-40.0); MEAN CELL VOLUME 82.6 fL (81.0-99.0); MEAN CORPUSCULAR HEMOGLOBIN 27.1 pg (27.0-31.0); MEAN CORPUSCULAR HGB CONC 32.7 g/dL (33.0-37.0); MEAN PLATELET VOLUME 8.3 fL (7.2-11.7); MONO # 0.3 K/uL (0.0-0.8); MONO % 24.3 % (0.0-10.0); NEUT # 0.7 K/uL (1.8-7.0); NEUT % 63.8 % (50.0-75.0); NRBC % 0.2 % (0.0-2.0); RBC 2.32 Mil/uL (3.80-5.20); RED CELL DISTRIBUTION WIDTH 20.2 % (11.5-14.5)
[2018-04-17 06:26] LABS: VENOUS BLOOD GAS BASE EXCESS 6.2 mmol/L (0.0-2.0); VENOUS BLOOD GAS PCO2 37 mmHg (40-60); VENOUS BLOOD GAS PO2 23 mm/Hg (30-55); VENOUS BLOOD PH 7.51 (7.32-7.43)
[2018-04-17 06:28] LABS: INR 1.2; PROTHROMBIN TIME 13.3 SECONDS (9.7-12.2)
[2018-04-17 06:37] LABS: ALB/GLOB RATIO 1.1 (1.0-2.1); ALBUMIN 3.5 g/dL (3.5-5.0); ALT/SGPT 20 U/L (9-52); AST/SGOT 23 U/L (14-36); BLOOD UREA NITROGEN 4 mg/dL (7-17); CALCIUM 9.2 mg/dl (8.6-10.4); GFR NON-AFRICAN AMERICAN > 60
[2018-04-17] MEDS ORDERED: Sodium Chloride 0.9% 1,000 ML IV ONE ×2 (06:44→12:06)
[2018-04-17 07:30] LABS: HEMOGLOBIN 6.3 g/dL (11.0-16.0); PLATELET COUNT 65 K/uL (130-400); WHITE BLOOD COUNT 1.1 K/uL (4.8-10.8)
[2018-04-17] MEDS ORDERED: Piperacill/Tazo 4.5gm in Dex 4.5 GM/100 ML BAG IVPB STA (07:42)
[2018-04-17] MEDS ORDERED: Vancomycin 1 gm/NS 200 ml 1 GM/200 ML BAG IVPB STA (07:42)
[2018-04-17 08:15] LABS: SQUAMOUS EPITHIAL < 1 /hpf (0-5); URINE BILIRUBIN NEGATIVE (NEGATIVE); URINE BLOOD NEGATIVE (NEGATIVE); URINE CLARITY Clear (Clear); URINE COLOR Straw (YELLOW); URINE GLUCOSE (UA) NORMAL (Normal); URINE LEUKOCYTE ESTERASE NEG Leu/uL (Negative); URINE PROTEIN NEGATIVE (NEGATIVE); URINE UROBILINOGEN NORMAL mg/dL (0.2-1.0)
--- NOTE | 2018-04-17 08:17 | CP.PCM.HP ---
<Devin Montez - Last Filed: 04/17/18 18:13> History of Present Illness - History of Present Illness History of Present Illness: Medicine H&P CC: Fevers, lethargy, and diarrhea since radiation therapy 04/11/18 HPI: This 52 year old female with PMHx of stage IV diffuse large B-cell lymphoma diagnosed in 2009 - presents c/o fevers, lethargy, and diarrhea since radiation therapy on 04/11/18. She had radiation therapy to the abdomen and b/l axilla. She reports a home Tmax of 103F not responsive to Tylenol 2tabs Q2-4H. [facility] She c/o associated nausea, with vomiting once daily. She believes because of the vomiting, she developed sore throat. She also c/o loose stools for the past 12 days, but denies melena or hematoschezia. She denies cough or sputum production. Patient does report a new R cervical lymph node which is non-tender to touch. Her last chemo was roughly 1.5months ago with Dr. Velez, and was recently transitioned to radiation therapy with final dose given 04/11/18 (see above). She was seen in our ED with similar complaints on 02/28, and was ultimately diagnosed with a transfusion reaction. She denies dizziness, changes in vision, chest pain, shortness or breath, urinary complaints, or LE edema. No other complaints at this time. PMHx: stage IV diffuse large B-cell lymphoma PSH: ; Biopsy from back; Chemotherapy Port (right supraclavicular) Allergies: NKDA Medications: Chemotherapy, Tylenol prn pain FH: Denies SH: Denies smoking, alcohol use, and illicit drug use. Previously worked in a [employer] and was laid off 6 months ago. Single and living with her son-in-law and daughter in an apartment. Onc: Rosie PMD: Esau Review of Systems: -Gen: +fever, No chills, +headache, +lethargy, No weakness. -HEENT: No dizziness, No change in vision, No change in hearing, +sore throat, No dysphagia, No nasal congestion, No mucous. -Cardio: No chest pain, No palpitations, No lower extremity edema, No orthopnea. -Resp: No cough, No dyspnea, No hemoptysis, No wheezing, No pain on inspira tion. -GI: No abdominal pain, +nausea/vomiting, +diarrhea, no constipation, No hematochezia, No hematemesis. -: No dysuria, No urinary freq, No incontinence, No hematuria, No change in urinary stream. -MSK: No back pain, No muscle weakness, No radiating pain. -Skin: No itching, No rash, No lesions. -Neuro: No confusion, No numbness, No tingling, No focal weakness, No radicular pain, No syncope. -Psych: No anxiety, No depression, No H/I, No S/I, No hallucinations. Present on Admission - Present on Admission Any Indicators Present on Admission: No History of DVT/PE: No History of Uncontrolled Diabetes: No Past Patient History - Infectious Disease Hx of Infectious Diseases: None - Past Medical History & Family History Past Medical History?: Yes - Past Social History Smoking Status: Never Smoked - CARDIAC Hx Cardiac Disorders: Yes Hx Angina: Yes - PULMONARY Hx Respiratory Disorders: No - NEUROLOGICAL Hx Neurological Disorder: Yes Other/Comment: headaches - HEENT Hx HEENT Problems: Yes Other/Comment: HX: HYPERTROPIC TONSILS. HX: SORE THROATS "FOR MONTHS" - RENAL Hx Chronic Kidney Disease: No - ENDOCRINE/METABOLIC Hx Endocrine Disorders: No - HEMATOLOGICAL/ONCOLOGICAL Hx Blood Disorders: Yes Hx Cancer: Yes (LYMPHOMA) Hx Chemotherapy: Yes - INTEGUMENTARY Hx Dermatological Problems: Yes Other/Comment: HX: RIGHT AXILLARY MASS - MUSCULOSKELETAL/RHEUMATOLOGICAL Hx Arthritis: Yes - GASTROINTESTINAL Hx Gastrointestinal Disorders: Yes HX Swallowing Problems: Yes - GENITOURINARY/GYNECOLOGICAL Hx Genitourinary Disorders: No - PSYCHIATRIC Hx Anxiety: Yes Hx Substance Use: No - SURGICAL HISTORY Hx Tonsillectomy: Yes - ANESTHESIA Hx Anesthesia: Yes Hx Anesthesia Reactions: Yes (02/15/17 dizziness) Hx Malignant Hyperthermia: No Meds Allergies/Adverse Reactions: Allergies Allergy/AdvReac Type Severity Reaction Status Date / Time No Known Allergies Allergy Verified 04/17/18 05:52 Physical Exam - Additional Findings Additional findings: - Constitutional Appears: Non-toxic, No Acute Distress - Head Exam Head Exam: ATRAUMATIC, NORMAL INSPECTION - Eye Exam Eye Exam: EOMI - ENT Exam ENT Exam: Mucous Membranes Moist -R inferior cevical node measuring 1x1cm - Respiratory Exam Respiratory Exam: Clear to Auscultation Bilateral, NORMAL BREATHING PATTERN. absent: Respiratory Distress - Cardiovascular Exam Cardiovascular Exam: Regular Rate, +S1, +S2 - GI/Abdominal Exam GI & Abdominal Exam: Normal Bowel Sounds, Soft, Tenderness. absent: Distended, Firm, Guarding Additional comments: mild epigastric TTP - Extremities Exam Extremities exam: Positive for: normal inspection. Negative for: calf tenderness, pedal edema - Back Exam Back exam: NORMAL INSPECTION. absent: CVA tenderness (L), CVA tenderness (R), paraspinal tenderness - Neurological Exam Neurological exam: Alert, CN II-XII Intact, Oriented x3 - Psychiatric Exam Psychiatric exam: Normal Affect, Normal Mood - Skin Skin Exam: Diaphoretic, Intact, Normal Color Note: R chest wall port noted, no erythema, no skin break Results - Vital Signs Recent Vital Signs: Last Vital Signs Temp 98.3 F 04/17/18 07:34 Pulse 89 04/17/18 07:34 Resp 16 04/17/18 07:34 BP 82/46 L 04/17/18 07:34 Pulse Ox 100 04/17/18 07:34 - Labs Result Diagrams: 04/17/18 06:10 04/17/18 06:10 Labs: Laboratory Results - last 24 hr 04/17/18 04/17/18 04/17/18 06:10 06:10 06:10 WBC 1.1 L* D RBC 2.32 L Hgb 6.3 L* D Hct 19.2 L MCV 82.6 MCH 27.1 MCHC 32.7 L RDW 20.2 H Plt Count 65 L D MPV 8.3 Neut % (Auto) 63.8 Lymph % (Auto) 9.7 L Brantley % (Auto) 24.3 H Eos % (Auto) 1.5 Baso % (Auto) 0.7 Neut # (Auto) 0.7 L Lymph # (Auto) 0.1 L Br[place]ley # (Auto) 0.3 Eos # (Auto) 0.0 Baso # (Auto) 0.0 PT 13.3 H INR 1.2 APTT 32 pO2 VBG pH VBG pCO2 VBG HCO3 VBG Total CO2 VBG O2 Sat (Calc) VBG Base Excess VBG Potassium Glucose Lactate Sodium 133 Potassium 3.8 Chloride 96 L Carbon Dioxide 28 Anion Gap 13 BUN 4 L Creatinine 0.3 L Est GFR ( Amer) > 60 Est GFR (Non-Af Amer) > 60 Random Glucose 143 H Calcium 9.2 Phosphorus 2.4 L Magnesium 2.1 Total Bilirubin 1.2 AST 23 ALT 20 Alkaline Phosphatase 102 Total Protein 6.5 Albumin 3.5 Globulin 3.1 Albumin/Globulin Ratio 1.1 Venous Blood Potassium Blood Type Antibody Screen 04/17/18 04/17/18 06:19 07:05 WBC RBC Hgb Hct MCV MCH MCHC RDW Plt Count MPV Neut % (Auto) Lymph % (Auto) Brantley % (Auto) Eos % (Auto) Baso % (Auto) Neut # (Auto) Lymph # (Auto) Br[place]ley # (Auto) Eos # (Auto) Baso # (Auto) PT INR APTT pO2 23 L VBG pH 7.51 H VBG pCO2 37 L VBG HCO3 28.4 VBG Total CO2 30.6 H VBG O2 Sat (Calc) 65.7 H VBG Base Excess 6.2 H VBG Potassium 3.4 L Glucose 140 H Lactate 0.9 Sodium 134.0 Potassium Chloride 103.0 Carbon Dioxide Anion Gap BUN Creatinine Est GFR ( Amer) Est GFR (Non-Af Amer) Random Glucose Calcium Phosphorus Magnesium Total Bilirubin AST ALT Alkaline Phosphatase Total Protein Albumin Globulin Albumin/Globulin Ratio Venous Blood Potassium 3.4 L Blood Type O POSITIVE Antibody Screen Negative Assessment & Plan - Assessment and Plan (Free Text) Assessment: 1. Fever r/o sepsis -afebrile on admission. Reported home Tmax of 103F -VBG lactate 0.9; procalcitonin 0.17L -NS @100cc/hr -f/u blood cx -f/u Urine cx -ID consult Dr. Mejia, f/u recs -In ED patient received: Zosyn 4.5Gm IVPB and Vanco 1Gm IVPB -Start Cephepime 2gm IVPB q8H -Start Flagyl 500mg IVPB Q8H -Start Vanco 750mg Q12H IVPB; f/u vanco trough prior to 4th dose 2. B-Cell Lymphoma -new R inferior cervical lymph node palpated measuring 1x1cm -Toradol 15mg IVP Q6H PRN pain -prior admission CT chest/abd/pelvis showed lymphadenopathy, B/L axillary, periaortic, abdominal and retroperitoneal, increased in size. -heme/onc consult Dr. Velez, f/u recs 3. Anemia -Hgb 6.3 -transfuse 2u PRBC -goal to maintain Hct above 28 -f/u repeat CBC at 7pm; transfuse 1-2u PRBC if Hgb<7 -f/u stool occult 4. Pancytopenia -afebrile -WBC 1.1 -neutrophil count 700 -am labs 5. Hypotension -Patient with BP of 82/46. Received NS0.9 1L bolus in ED. -BP continued to be in the 80's/50's. Patient received another 1.5L bolus over several hours. -BP improved to 98/64. She historically runs in 90's/60's. 6. Diarrhea -f/u stool culture, ova parasite, c. diff -NS @100cc/hr Ppx -pepcid 20mg IVP BID -VTE prophylaxis C/I 2/2 pancytopenia -SCDs -regular diet Case discussed with Dr. Rodríguez - Date & Time Date: 04/17/18 Time: 08:17 <Ileana Rodríguez - Last Filed: 04/29/18 16:18> Results - Vital Signs Recent Vital Signs: Last Vital Signs Temp 99.5 F 04/27/18 15:00 Pulse 99 H 04/27/18 15:00 Resp 20 04/27/18 15:00 BP 92/53 L 04/27/18 15:00 Pulse Ox 98 04/27/18 15:00 - Labs Result Diagrams: 04/27/18 07:23 04/27/18 07:23 Attending/Attestation - Attestation I have personally seen and examined this patient.: Yes I have fully participated in the care of the patient.: Yes I have reviewed all pertinent clinical information: Yes Notes (Text): Seen and examined with theresident. patient with stage 4 lymphoma has fever spikes. clear lungs,Urine without infection continue antibiotics and follow cultures. Tranfuse PRBC. We will get Id consult Spoke to her daughter at bedside Assessment and the plan discussed with the resident and I agree with the documentation
[2018-04-17 09:02] LABS: ANISOCYTOSIS MODERATE; BANDS 2 % (0-2); LYMPHOCYTE 11 % (20-40); MONOCYTE 20 % (0-10); NEUTROPHIL 67 % (50-75); PLATELET ESTIMATE DECREASED (NORMAL); POIKILOCYTOSIS SLIGHT; TOTAL CELLS COUNTED 100
[2018-04-17 09:03] LABS: HYPOCHROMIC SLIGHT; LARGE PLATELETS PRESENT; MICROCYTOSIS SLIGHT; POLYCHROMIC SLIGHT
[2018-04-17] MEDS ORDERED: Sodium Chloride 0.9% 500 ML IV ONE (09:18)
[2018-04-17] MEDS: Sodium Chloride 0.9% 1,000 ML IV SCH (10:35)
--- NOTE | 2018-04-17 11:36 | RAD ---
Date of service: 04/17/2018 HISTORY: fever COMPARISON: Chest radiograph dated 02/28/2018. FINDINGS: LUNGS: No active pulmonary disease. PLEURA: No significant pleural effusion identified, no pneumothorax apparent. CARDIOVASCULAR: Normal. OSSEOUS STRUCTURES: Unchanged. VISUALIZED UPPER ABDOMEN: Normal. OTHER FINDINGS: Right subclavian access chest port, unchanged. IMPRESSION: No active disease.
[2018-04-17] MEDS ORDERED: Piperacillin/Tazobact 3.375 GM in Sodium Chloride 100 ML IVPB SCH (15:00)
--- NOTE | 2018-04-17 15:17 | CP.PCM.CON ---
History of Present Illness - History of Present Illness History of Present Illness: 52 year old female with PMHx of stage IV diffuse large B-cell lymphoma diagnosed in 2009 - presents c/o fevers, lethargy, and diarrhea since radiation therapy on 04/11/18. She had radiation therapy to the abdomen and b/l axilla. Her last chemo was 1.5months ago with Dr. Velez PMHx: stage IV diffuse large B-cell lymphoma PSH: ; Biopsy from back; Chemotherapy Port (right supraclavicular) Allergies: NKDA FH: N/C SH: Denies smoking, alcohol use, and illicit drug use Surgical History: Tonsillectomy, , port right chest - [facility] Procedures DRAINAGE OF SPINAL CANAL, PERCUTANEOUS APPROACH, DIAGNOSTIC (01/04/16) EXCISION OF R UP ARM SUBCU/FASCIA, OPEN APPROACH (01/04/16) EXCISION OF RIGHT AXILLARY LYMPHATIC, OPEN APPROACH, DIAGN (01/04/16) Review of Systems: -Gen: +fever, No chills, +headache, +lethargy, No weakness. -HEENT: No dizziness, No change in vision, No change in hearing, +sore throat, No dysphagia, No nasal congestion, No mucous. -Cardio: No chest pain, No palpitations, No lower extremity edema, No orthopnea. -Resp: No cough, No dyspnea, No hemoptysis, No wheezing, No pain on inspiration. -GI: No abdominal pain, +nausea/vomiting, +diarrhea, no constipation, No hematochezia, No hematemesis. -: No dysuria, No urinary freq, No incontinence, No hematuria, No change in urinary stream. -MSK: No back pain, No muscle weakness, No radiating pain. -Skin: No itching, No rash, No lesions. -Neuro: No confusion, No numbness, No tingling, No focal weakness, No radicular pain, No syncope. -Psych: No anxiety, No depression, No H/I, No S/I, No hallucinations. Past Patient History - Infectious Disease Hx of Infectious Diseases: None - Past Medical History & Family History Past Medical History?: Yes - Past Social History Smoking Status: Never Smoked - CARDIAC Hx Cardiac Disorders: Yes Hx Angina: Yes - PULMONARY Hx Respiratory Disorders: No - NEUROLOGICAL Hx Neurological Disorder: Yes Other/Comment: headaches - HEENT Hx HEENT Problems: Yes Other/Comment: HX: HYPERTROPIC TONSILS. HX: SORE THROATS "FOR MONTHS" - RENAL Hx Chronic Kidney Disease: No - ENDOCRINE/METABOLIC Hx Endocrine Disorders: No - HEMATOLOGICAL/ONCOLOGICAL Hx Blood Disorders: Yes Hx Cancer: Yes (LYMPHOMA) Hx Chemotherapy: Yes - INTEGUMENTARY Hx Dermatological Problems: Yes Other/Comment: HX: RIGHT AXILLARY MASS - MUSCULOSKELETAL/RHEUMATOLOGICAL Hx Arthritis: Yes - GASTROINTESTINAL Hx Gastrointestinal Disorders: Yes HX Swallowing Problems: Yes - GENITOURINARY/GYNECOLOGICAL Hx Genitourinary Disorders: No - PSYCHIATRIC Hx Anxiety: Yes Hx Substance Use: No - SURGICAL HISTORY Hx Tonsillectomy: Yes - ANESTHESIA Hx Anesthesia: Yes Hx Anesthesia Reactions: Yes (02/15/17 dizziness) Hx Malignant Hyperthermia: No Meds Allergies/Adverse Reactions: Allergies Allergy/AdvReac Type Severity Reaction Status Date / Time No Known Allergies Allergy Verified 04/17/18 05:52 - Medications Medications: Current Medications Acetaminophen (Tylenol 325mg Tab) 650 mg PO Q6 PRN PRN Reason: Fever >100.4 F Last Admin: 04/17/18 14:49 Dose: 650 mg Famotidine (Pepcid) 20 mg IVP BID ZAN Sodium Chloride (Sodium Chloride 0.9%) 1,000 mls @ 100 mls/hr IV .Q10H [facility] Last Admin: 04/17/18 10:35 Dose: 100 mls/hr Piperacillin Sod/Tazobactam (Sod 3.375 gm/ Sodium Chloride) 100 mls @ 200 mls/ hr IVPB Q6H ZAN PRN Reason: Protocol Vancomycin HCl (Vancocin 750mg/Ns 150 Ml) 150 mls @ 166.6 mls/hr IVPB Q12H ZAN PRN Reason: Protocol Ketorolac Tromethamine (Toradol) 15 mg IVP Q6 PRN PRN Reason: Pain, severe (8-10) Physical Exam - Constitutional Appears: Toxic, No Acute Distress, Chronically Ill - Head Exam Head Exam: ATRAUMATIC, NORMOCEPHALIC - Eye Exam Eye Exam: PERRL. absent: Scleral icterus - ENT Exam ENT Exam: Mucous Membranes Dry, Normal External Ear Exam, Normal Oropharynx - Neck Exam Neck exam: Negative for: Lymphadenopathy, Thyromegaly - Respiratory Exam Respiratory Exam: Decreased Breath Sounds, Clear to Auscultation Bilateral - Cardiovascular Exam Cardiovascular Exam: REGULAR RHYTHM, +S1, +S2 - GI/Abdominal Exam GI & Abdominal Exam: Diminished Bowel Sounds - Rectal Exam Rectal Exam: Deferred - Exam Exam: NORMAL INSPECTION - Extremities Exam Extremities exam: Positive for: pedal pulses present. Negative for: calf tenderness, pedal edema, tenderness - Back Exam Back exam: absent: CVA tenderness (L), CVA tenderness (R), paraspinal tenderness - Neurological Exam Neurological exam: Alert, CN II-XII Intact, Oriented x3, Reflexes Normal - Psychiatric Exam Psychiatric exam: Depressed - Skin Skin Exam: Dry, Intact Results - Vital Signs Recent Vital Signs: Last Vital Signs Temp 98.2 F 04/17/18 14:07 Pulse 81 04/17/18 14:07 Resp 20 04/17/18 14:07 BP 98/64 L 04/17/18 14:07 Pulse Ox 100 04/17/18 14:07 - Labs Result Diagrams: 04/17/18 06:10 04/17/18 06:10 Labs: Laboratory Results - last 24 hr 04/17/18 04/17/18 04/17/18 06:10 06:10 06:10 WBC 1.1 L* D RBC 2.32 L Hgb 6.3 L* D Hct 19.2 L MCV 82.6 MCH 27.1 MCHC 32.7 L RDW 20.2 H Plt Count 65 L D MPV 8.3 Neut % (Auto) 63.8 Lymph % (Auto) 9.7 L [place] % (Auto) 24.3 H Eos % (Auto) 1.5 Baso % (Auto) 0.7 Neut # (Auto) 0.7 L Lymph # (Auto) 0.1 L [place] # (Auto) 0.3 Eos # (Auto) 0.0 Baso # (Auto) 0.0 Neutrophils % (Manual) 67 Band Neutrophils % 2 Lymphocytes % (Manual) 11 L Monocytes % (Manual) 20 H Platelet Estimate Decreased L Large Platelets Present Polychromasia Slight Hypochromasia (manual) Slight Poikilocytosis (manual Slight Anisocytosis (manual) Moderate Microcytosis (manual) Slight Macrocytosis (manual) Slight PT 13.3 H INR 1.2 APTT 32 pO2 VBG pH VBG pCO2 VBG HCO3 VBG Total CO2 VBG O2 Sat (Calc) VBG Base Excess VBG Potassium Glucose Lactate Sodium 133 Potassium 3.8 Chloride 96 L Carbon Dioxide 28 Anion Gap 13 BUN 4 L Creatinine 0.3 L Est GFR ( Amer) > 60 Est GFR (Non-Af Amer) > 60 Random Glucose 143 H Calcium 9.2 Phosphorus 2.4 L Magnesium 2.1 Total Bilirubin 1.2 AST 23 ALT 20 Alkaline Phosphatase 102 Total Protein 6.5 Albumin 3.5 Globulin 3.1 Albumin/Globulin Ratio 1.1 Procalcitonin Venous Blood Potassium Urine Color Urine Clarity Urine pH Ur Specific Gibson Urine Protein Urine Glucose (UA) Urine Ketones Urine Blood Urine Nitrate Urine Bilirubin Urine Urobilinogen Ur Leukocyte Esterase Ur Squamous Epith Cells Blood Type Antibody Screen 04/17/18 04/17/18 04/17/18 06:19 06:26 07:05 WBC RBC Hgb Hct MCV MCH MCHC RDW Plt Count MPV Neut % (Auto) Lymph % (Auto) [place] % (Auto) Eos % (Auto) Baso % (Auto) Neut # (Auto) Lymph # (Auto) [place] # (Auto) Eos # (Auto) Baso # (Auto) Neutrophils % (Manual) Band Neutrophils % Lymphocytes % (Manual) Monocytes % (Manual) Platelet Estimate Large Platelets Polychromasia Hypochromasia (manual) Poikilocytosis (manual Anisocytosis (manual) Microcytosis (manual) Macrocytosis (manual) PT INR APTT pO2 23 L VBG pH 7.51 H VBG pCO2 37 L VBG HCO3 28.4 VBG Total CO2 30.6 H VBG O2 Sat (Calc) 65.7 H VBG Base Excess 6.2 H VBG Potassium 3.4 L Glucose 140 H Lactate 0.9 Sodium 134.0 Potassium Chloride 103.0 Carbon Dioxide Anion Gap BUN Creatinine Est GFR ( Amer) Est GFR (Non-Af Amer) Random Glucose Calcium Phosphorus Magnesium Total Bilirubin AST ALT Alkaline Phosphatase Total Protein Albumin Globulin Albumin/Globulin Ratio Procalcitonin 0.17 L Venous Blood Potassium 3.4 L Urine Color Urine Clarity Urine pH Ur Specific Gibson Urine Protein Urine Glucose (UA) Urine Ketones Urine Blood Urine Nitrate Urine Bilirubin Urine Urobilinogen Ur Leukocyte Esterase Ur Squamous Epith Cells Blood Type O POSITIVE Antibody Screen Negative 04/17/18 08:02 WBC RBC Hgb Hct MCV MCH MCHC RDW Plt Count MPV Neut % (Auto) Lymph % (Auto) [place] % (Auto) Eos % (Auto) Baso % (Auto) Neut # (Auto) Lymph # (Auto) [place] # (Auto) Eos # (Auto) Baso # (Auto) Neutrophils % (Manual) Band Neutrophils % Lymphocytes % (Manual) Monocytes % (Manual) Platelet Estimate Large Platelets Polychromasia Hypochromasia (manual) Poikilocytosis (manual Anisocytosis (manual) Microcytosis (manual) Macrocytosis (manual) PT INR APTT pO2 VBG pH VBG pCO2 VBG HCO3 VBG Total CO2 VBG O2 Sat (Calc) VBG Base Excess VBG Potassium Glucose Lactate Sodium Potassium Chloride Carbon Dioxide Anion Gap BUN Creatinine Est GFR ( Amer) Est GFR (Non-Af Amer) Random Glucose Calcium Phosphorus Magnesium Total Bilirubin AST ALT Alkaline Phosphatase Total Protein Albumin Globulin Albumin/Globulin Ratio Procalcitonin Venous Blood Potassium Urine Color Straw Urine Clarity Clear Urine pH 7.0 Ur Specific Gibson 1.001 L Urine Protein Negative Urine Glucose (UA) Normal Urine Ketones Negative Urine Blood Negative Urine Nitrate Negative Urine Bilirubin Negative Urine Urobilinogen Normal Ur Leukocyte Esterase Neg Ur Squamous Epith Cells < 1 Blood Type Antibody Screen Assessment & Plan (1) Fever Status: Acute (2) Neutropenic fever Status: Acute (3) B-cell lymphoma Status: Acute - Assessment and Plan (Free Text) Assessment: febrile neutropenia r/o radiation enterocolitis r/o c diff r/o line sepsis check cultures and IV antbiotics to cont
[2018-04-17] MEDS: Cefepime IV 2 gm in Dextrose 2 GM/100 ML BAG IVPB SCH (17:40)
[2018-04-17] MEDS: metroNIDAZOLE IV 500 mg/100 ml 500 MG/100 ML BAG IVPB SCH (17:41)
[2018-04-17 19:40] LABS: HEMOGLOBIN 7.3 g/dL (11.0-16.0); MEAN CELL VOLUME 83.5 fL (81.0-99.0); MEAN CORPUSCULAR HEMOGLOBIN 26.9 pg (27.0-31.0); MEAN CORPUSCULAR HGB CONC 32.2 g/dL (33.0-37.0); MEAN PLATELET VOLUME 8.3 fL (7.2-11.7); RBC 2.71 Mil/uL (3.80-5.20); RED CELL DISTRIBUTION WIDTH 19.1 % (11.5-14.5)
[2018-04-17 19:49] LABS: WHITE BLOOD COUNT 1.6 K/uL (4.8-10.8)
[2018-04-17] MEDS: Vancomycin 750mg/NS 150 ml 150 ML IVPB SCH (21:12)
[2018-04-18] MEDS: metroNIDAZOLE IV 500 mg/100 ml 500 MG/100 ML BAG IVPB SCH ×4 (06:33→23:33)
[2018-04-18] MEDS: Cefepime IV 2 gm in Dextrose 2 GM/100 ML BAG IVPB SCH ×3 (07:39→16:27)
[2018-04-18 07:40] LABS: BASO % 0.6 % (0.0-2.0); EOS % 0.8 % (0.0-4.0); HEMOGLOBIN 7.7 g/dL (11.0-16.0); LYMPH # 0.1 K/uL (1.0-4.3); LYMPH % 9.3 % (20.0-40.0); MEAN CELL VOLUME 83.6 fL (81.0-99.0); MEAN CORPUSCULAR HEMOGLOBIN 28.5 pg (27.0-31.0); MEAN CORPUSCULAR HGB CONC 34.1 g/dL (33.0-37.0); MEAN PLATELET VOLUME 8.2 fL (7.2-11.7); MONO # 0.3 K/uL (0.0-0.8); MONO % 17.2 % (0.0-10.0); NEUT # 1.1 K/uL (1.8-7.0); NEUT % 72.1 % (50.0-75.0); NRBC % 0.5 % (0.0-2.0); PLATELET COUNT 52 K/uL (130-400); RED CELL DISTRIBUTION WIDTH 18.1 % (11.5-14.5)
[2018-04-18 07:47] LABS: WHITE BLOOD COUNT 1.5 K/uL (4.8-10.8)
[2018-04-18 08:02] LABS: ALB/GLOB RATIO 0.9 (1.0-2.1); ALBUMIN 2.6 g/dL (3.5-5.0); ALT/SGPT 24 U/L (9-52); AST/SGOT 33 U/L (14-36); BLOOD UREA NITROGEN 6 mg/dL (7-17); CALCIUM 8.4 mg/dl (8.6-10.4); GFR NON-AFRICAN AMERICAN > 60
--- NOTE | 2018-04-18 09:27 | CP.PCM.PN ---
<Sohail Alicea - Last Filed: 04/18/18 18:16> Subjective - Date & Time of Evaluation Date of Evaluation: 04/18/18 Time of Evaluation: 09:24 - Subjective Subjective: PGY-1 Medicine Progress Note for Dr. Green Patient seen and examined at bedside. Feeling better today, still c/o of generalized aches and abdominal discomfort. Endorses nausea, 1 episode of NBNB vomiting overnight, fatigue, malaise, productive cough, fevers/chills. No other acute complaints. Objective - Vital Signs/Intake and Output Vital Signs (last 24 hours): Temp Pulse Resp BP Pulse Ox 98.5 F 91 H 20 92/53 L 97 04/18/18 07:08 04/18/18 07:08 04/18/18 07:08 04/18/18 07:08 04/18/18 07:08 Intake and Output: 04/18/18 04/18/18 06:59 18:59 Intake Total 1545 Balance 1545 - Medications Medications: Current Medications Acetaminophen (Tylenol 325mg Tab) 650 mg PO Q6 PRN PRN Reason: Fever >100.4 F Last Admin: 04/18/18 05:19 Dose: 650 mg Famotidine (Pepcid) 20 mg IVP BID [facility] Last Admin: 04/17/18 17:40 Dose: 20 mg Sodium Chloride (Sodium Chloride 0.9%) 1,000 mls @ 100 mls/hr IV .Q10H [facility] Last Admin: 04/17/18 10:35 Dose: 100 mls/hr Vancomycin HCl (Vancocin 750mg/Ns 150 Ml) 150 mls @ 166.6 mls/hr IVPB Q12H [facility] PRN Reason: Protocol Last Admin: 04/17/18 21:12 Dose: 166.6 mls/hr Metronidazole (Flagyl) 500 mg in 100 mls @ 100 mls/hr IVPB Q8H [facility] PRN Reason: Protocol Last Admin: 04/18/18 06:33 Dose: 100 mls/hr Cefepime HCl (Maxipime Iv 2 Gm Premix) 2 gm in 100 mls @ 100 mls/hr IVPB Q8H [facility] PRN Reason: Protocol Stop: 04/22/18 15:31 Last Admin: 04/18/18 07:39 Dose: 100 mls/hr Ketorolac Tromethamine (Toradol) 15 mg IVP Q6 PRN PRN Reason: Pain, severe (8-10) Ondansetron HCl (Zofran Inj) 4 mg IVP Q6H PRN PRN Reason: Nausea/Vomiting Last Admin: 04/18/18 05:19 Dose: 4 mg Potassium Chloride (K-Dur 20 Meq Er Tab) 20 meq PO DAILY [facility] - Labs Labs: 04/18/18 07:20 04/18/18 07:20 PT 13.3 SECONDS (9.7-12.2) H 04/17/18 06:10 INR 1.2 04/17/18 06:10 APTT 32 SECONDS (21-34) 04/17/18 06:10 - Constitutional Appears: No Acute Distress, Chronically Ill - Head Exam Head Exam: ATRAUMATIC, NORMAL INSPECTION, NORMOCEPHALIC - Eye Exam Eye Exam: EOMI, Normal appearance Pupil Exam: NORMAL ACCOMODATION - ENT Exam ENT Exam: Mucous Membranes Moist, Normal Exam - Neck Exam Neck Exam: Lymphadenopathy (R submandibular). absent: Tenderness - Respiratory Exam Respiratory Exam: Clear to Ausculation Bilateral, NORMAL BREATHING PATTERN. absent: Rales, Rhonchi, Wheezes, Respiratory Distress - Cardiovascular Exam Cardiovascular Exam: REGULAR RHYTHM, +S1, +S2 - GI/Abdominal Exam GI & Abdominal Exam: Soft, Tenderness (mild epigastric TTP), Normal Bowel Sounds. absent: Distended, Firm, Guarding, Rigid, Mass, Rebound - Extremities Exam Extremities Exam: Normal Capillary Refill, Normal Inspection. 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 Has not had chemotherapy for 1.5 months. Plan: Fever r/o sepsis -currently afebrile, spiked fever 101.1 early AM 04/18 -VBG lactate 0.9; procalcitonin 0.17L -NS @100cc/hr -BCx: no growth after 24 hrs -Urine Cx: multiple spp, likely contamination -ID recs (Dr. Mejia) appreciated -continue empiric abx tx Medications: -Vancomcyin 750mg Q12H IVPB -Cephepime 2gm IVPB q8H -Flagyl 500mg IVPB Q8H B-Cell Lymphoma -new R inferior cervical lymph node palpated measuring 1x1cm -Toradol 15mg IVP Q6H PRN pain -prior admission CT chest/abd/pelvis showed lymphadenopathy, B/L axillary, periaortic, abdominal and retroperitoneal, increased in size. -f/u Heme/Onc recs (Dr. Velez) Epigastric abdominal pain -f/u amylase/lipase Anemia -s/p 2 units pRBCs; Hb 7.7 -goal to maintain Hct above 28 -f/u stool occult Pancytopenia -afebrile -WBC 1.5 (04/18) -neutrophil 72.1 -continue to monitor labs Hypotension -BP 90/60 ;She historically runs in 90's/60's -continue to monitor Diarrhea -f/u stool culture, ova parasite, c. diff -NS @100cc/hr Ppx, Diet, Disposition -pepcid 20mg IVP BID -VTE prophylaxis C/I 2/2 pancytopenia -SCDs -regular diet Case discussed with Dr. Norma Alicea DO, PGY-1 <Devin Green - Last Filed: 04/18/18 18:31> Objective - Vital Signs/Intake and Output Vital Signs (last 24 hours): Temp Pulse Resp BP Pulse Ox 98.7 F 87 20 90/60 L 100 04/18/18 15:00 04/18/18 17:06 04/18/18 15:00 04/18/18 15:00 04/18/18 15:00 Intake and Output: 04/18/18 04/18/18 06:59 18:59 Intake Total 1545 Balance 1545 - Medications Medications: Current Medications Acetaminophen (Tylenol 325mg Tab) 650 mg PO Q6 PRN PRN Reason: Fever >100.4 F Last Admin: 04/18/18 05:19 Dose: 650 mg Famotidine (Pepcid) 20 mg IVP BID [facility] Last Admin: 04/18/18 17:30 Dose: 20 mg Sodium Chloride (Sodium Chloride 0.9%) 1,000 mls @ 100 mls/hr IV .Q10H [facility] Last Admin: 04/18/18 16:33 Dose: Not Given Vancomycin HCl (Vancocin 750mg/Ns 150 Ml) 150 mls @ 166.6 mls/hr IVPB Q12H [facility] PRN Reason: Protocol Last Admin: 04/18/18 09:33 Dose: 166.6 mls/hr Metronidazole (Flagyl) 500 mg in 100 mls @ 100 mls/hr IVPB Q8H [facility] PRN Reason: Protocol Last Admin: 04/18/18 14:30 Dose: 100 mls/hr Cefepime HCl (Maxipime Iv 2 Gm Premix) 2 gm in 100 mls @ 100 mls/hr IVPB Q8H [facility] PRN Reason: Protocol Stop: 04/22/18 15:31 Last Admin: 04/18/18 16:27 Dose: 100 mls/hr Ketorolac Tromethamine (Toradol) 15 mg IVP Q6 PRN PRN Reason: Pain, severe (8-10) Last Admin: 04/18/18 16:27 Dose: 15 mg Ondansetron HCl (Zofran Inj) 4 mg IVP Q6H PRN PRN Reason: Nausea/Vomiting Last Admin: 04/18/18 05:19 Dose: 4 mg Potassium Chloride (K-Dur 20 Meq Er Tab) 20 meq PO DAILY [facility] Last Admin: 04/18/18 09:54 Dose: 20 meq - Labs Labs: 04/18/18 07:20 04/18/18 14:51 PT 13.3 SECONDS (9.7-12.2) H 04/17/18 06:10 INR 1.2 04/17/18 06:10 APTT 32 SECONDS (21-34) 04/17/18 06:10 Attending/Attestation - Attestation I have personally seen and examined this patient.: Yes I have fully participated in the care of the patient.: Yes I have reviewed all pertinent clinical information, including history, physical exam and plan: Yes Notes (Text): 04/18/18 18:31 Medical attending: Patient was seen and examined by me, reviewed the above note by the medical chief technician and agree with the above note. At this time the patient remains on IV vancomycin, cefepime, and Flagyl. She remains on contact isolation precaution at this time. She continues to have elevated temperatures with a MAXIMUM TEMPERATURE of 101.1 earlier this morning. Because of the neutropenia, she may or may not be subcutaneous filgrastim. Will have to clarify with hematology oncology Will have to continue monitoring the patient's blood cultures, urine cultures as well. So far these are negative Devin Green
[2018-04-18] MEDS: Vancomycin 750mg/NS 150 ml 150 ML IVPB SCH ×2 (09:33→20:19)
[2018-04-18 09:44] LABS: BASOPHIL 1 % (0-2); TOTAL CELLS COUNTED 100
[2018-04-18 09:48] LABS: BANDS 3 % (0-2); EOSINOPHIL 2 % (0-4); LYMPHOCYTE 9 % (20-40); MONOCYTE 18 % (0-10); NEUTROPHIL 67 % (50-75); PLATELET ESTIMATE DECREASED (NORMAL)
[2018-04-18 09:49] LABS: ANISOCYTOSIS SLIGHT; HYPOCHROMIC SLIGHT; OVALOCYTES SLIGHT
[2018-04-18] MEDS: Potassium Chloride 20 mEq ER Tab PO SCH (09:54)
[2018-04-18 10:22] LABS: NUCLEATED RED BLOOD CELL 1 % (0-0)
--- NOTE | 2018-04-18 11:54 | CP.PCM.PN ---
Subjective - Date & Time of Evaluation Date of Evaluation: 04/18/18 Time of Evaluation: 08:00 - Subjective Subjective: still spiking cultures so far neg Objective - Vital Signs/Intake and Output Vital Signs (last 24 hours): Temp Pulse Resp BP Pulse Ox 98.5 F 91 H 20 92/53 L 97 04/18/18 07:08 04/18/18 07:08 04/18/18 07:08 04/18/18 07:08 04/18/18 07:08 Intake and Output: 04/18/18 04/18/18 06:59 18:59 Intake Total 1545 Balance 1545 - Medications Medications: Current Medications Acetaminophen (Tylenol 325mg Tab) 650 mg PO Q6 PRN PRN Reason: Fever >100.4 F Last Admin: 04/18/18 05:19 Dose: 650 mg Famotidine (Pepcid) 20 mg IVP BID [facility] Last Admin: 04/18/18 09:53 Dose: 20 mg Sodium Chloride (Sodium Chloride 0.9%) 1,000 mls @ 100 mls/hr IV .Q10H [facility] Last Admin: 04/17/18 10:35 Dose: 100 mls/hr Vancomycin HCl (Vancocin 750mg/Ns 150 Ml) 150 mls @ 166.6 mls/hr IVPB Q12H [facility] PRN Reason: Protocol Last Admin: 04/18/18 09:33 Dose: 166.6 mls/hr Metronidazole (Flagyl) 500 mg in 100 mls @ 100 mls/hr IVPB Q8H [facility] PRN Reason: Protocol Last Admin: 04/18/18 06:33 Dose: 100 mls/hr Cefepime HCl (Maxipime Iv 2 Gm Premix) 2 gm in 100 mls @ 100 mls/hr IVPB Q8H [facility] PRN Reason: Protocol Stop: 04/22/18 15:31 Last Admin: 04/18/18 07:39 Dose: 100 mls/hr Ketorolac Tromethamine (Toradol) 15 mg IVP Q6 PRN PRN Reason: Pain, severe (8-10) Ondansetron HCl (Zofran Inj) 4 mg IVP Q6H PRN PRN Reason: Nausea/Vomiting Last Admin: 04/18/18 05:19 Dose: 4 mg Potassium Chloride (K-Dur 20 Meq Er Tab) 20 meq PO DAILY [facility] Last Admin: 04/18/18 09:54 Dose: 20 meq - Labs Labs: 04/18/18 07:20 04/18/18 07:20 PT 13.3 SECONDS (9.7-12.2) H 04/17/18 06:10 INR 1.2 04/17/18 06:10 APTT 32 SECONDS (21-34) 04/17/18 06:10 - Constitutional Appears: Non-toxic, Chronically Ill - Head Exam Head Exam: NORMOCEPHALIC - Eye Exam Eye Exam: absent: Scleral icterus - ENT Exam ENT Exam: Mucous Membranes Dry - Neck Exam Neck Exam: absent: Lymphadenopathy - Respiratory Exam Respiratory Exam: Decreased Breath Sounds - Cardiovascular Exam Cardiovascular Exam: REGULAR RHYTHM - GI/Abdominal Exam GI & Abdominal Exam: Distended - Rectal Exam Rectal Exam: Deferred - Exam Exam: NORMAL INSPECTION - Extremities Exam Extremities Exam: absent: Pedal Edema - Back Exam Back Exam: absent: CVA tenderness (L), CVA tenderness (R) Assessment and Plan (1) Fever Status: Acute (2) Neutropenic fever Status: Acute (3) B-cell lymphoma Status: Acute - Assessment and Plan (Free Text) Assessment: cont empiric rx
[2018-04-18 15:30] LABS: ALBUMIN 2.6 g/dL (3.5-5.0); ALT/SGPT 23 U/L (9-52); AMYLASE < 30 U/L (30-110); AST/SGOT 28 U/L (14-36); BLOOD UREA NITROGEN 7 mg/dL (7-17); CALCIUM 8.6 mg/dl (8.6-10.4); GFR NON-AFRICAN AMERICAN > 60; LIPASE < 10 U/L (23-300)
[2018-04-18] MEDS: Sodium Chloride 0.9% 1,000 ML IV SCH (16:33)
--- NOTE | 2018-04-18 19:05 | CARD ---
APPROVED REPORT Date of service: 04/17/2018 EKG Measurement Heart [id number] <Conclusion> Normal sinus rhythm Normal ECG
[2018-04-18] MEDS ORDERED: Potassium Chloride 20 mEq ER Tab PO ONE (20:37)
[2018-04-19] MEDS: Cefepime IV 2 gm in Dextrose 2 GM/100 ML BAG IVPB SCH ×3 (00:04→17:00)
[2018-04-19] MEDS: Sodium Chloride 0.9% 1,000 ML IV SCH ×3 (04:34→22:39)
[2018-04-19] MEDS: metroNIDAZOLE IV 500 mg/100 ml 500 MG/100 ML BAG IVPB SCH ×3 (06:52→22:38)
[2018-04-19 07:17] LABS: BASO % 0.6 % (0.0-2.0); EOS % 1.5 % (0.0-4.0); HEMOGLOBIN 7.1 g/dL (11.0-16.0); LYMPH # 0.1 K/uL (1.0-4.3); LYMPH % 12.4 % (20.0-40.0); MEAN CELL VOLUME 84.2 fL (81.0-99.0); MEAN CORPUSCULAR HEMOGLOBIN 27.9 pg (27.0-31.0); MEAN CORPUSCULAR HGB CONC 33.1 g/dL (33.0-37.0); MEAN PLATELET VOLUME 8.2 fL (7.2-11.7); MONO # 0.2 K/uL (0.0-0.8); MONO % 20.9 % (0.0-10.0); NEUT # 0.7 K/uL (1.8-7.0); NEUT % 64.6 % (50.0-75.0); NRBC % 0.7 % (0.0-2.0); PLATELET COUNT 48 K/uL (130-400); RBC 2.56 Mil/uL (3.80-5.20); RED CELL DISTRIBUTION WIDTH 18.8 % (11.5-14.5)
[2018-04-19 07:29] LABS: WHITE BLOOD COUNT 1.1 K/uL (4.8-10.8)
[2018-04-19 07:38] LABS: ALBUMIN 2.5 g/dL (3.5-5.0); ALT/SGPT 23 U/L (9-52); AST/SGOT 22 U/L (14-36); BLOOD UREA NITROGEN 5 mg/dL (7-17); CALCIUM 8.5 mg/dl (8.6-10.4); GFR NON-AFRICAN AMERICAN > 60
[2018-04-19] MEDS: Vancomycin 750mg/NS 150 ml 150 ML IVPB SCH (08:51)
[2018-04-19 09:03] LABS: BANDS 1 % (0-2); LYMPHOCYTE 14 % (20-40); MONOCYTE 16 % (0-10); NEUTROPHIL 69 % (50-75); TOTAL CELLS COUNTED 100
[2018-04-19 09:04] LABS: ANISOCYTOSIS SLIGHT; HYPOCHROMIC SLIGHT; PLATELET ESTIMATE DECREASED (NORMAL); POLYCHROMIC SLIGHT
--- NOTE | 2018-04-19 09:27 | CP.PCM.PN ---
<Sohail Alicea - Last Filed: 04/19/18 13:38> Subjective - Date & Time of Evaluation Date of Evaluation: 04/19/18 Time of Evaluation: 09:26 - Subjective Subjective: PGY-1 Medicine Progress Note for Dr. Green Patient seen and examined at bedside this AM. She continues to c/o of generalized weakness/fatigue and abdominal pain, as well as increased nausea and cough with phlegm production. She endorses decreased appetite 2/2 her nausea. Denies any new episodes of vomiting, passed a BM yesterday. Hb dropped to 7.1 this am, 1 unit pRBCs was ordered. Her condition and symptoms were discussed in detail with the patient and her daughter via phone, who provided translation. No other acute complaints noted. Objective - Vital Signs/Intake and Output Vital Signs (last 24 hours): Temp Pulse Resp BP Pulse Ox 98.6 F 92 H 20 91/59 L 99 04/19/18 07:10 04/19/18 08:00 04/19/18 07:10 04/19/18 07:10 04/19/18 07:10 Intake and Output: 04/19/18 04/19/18 06:59 18:59 Intake Total 1300 Balance 1300 - Medications Medications: Current Medications Acetaminophen (Tylenol 325mg Tab) 650 mg PO Q6 PRN PRN Reason: Fever >100.4 F Last Admin: 04/18/18 05:19 Dose: 650 mg Famotidine (Pepcid) 20 mg IVP BID [facility] Last Admin: 04/18/18 17:30 Dose: 20 mg Sodium Chloride (Sodium Chloride 0.9%) 1,000 mls @ 100 mls/hr IV .Q10H [facility] Last Admin: 04/19/18 04:34 Dose: 100 mls/hr Vancomycin HCl (Vancocin 750mg/Ns 150 Ml) 150 mls @ 166.6 mls/hr IVPB Q12H [facility] PRN Reason: Protocol Last Admin: 04/19/18 08:51 Dose: 166.6 mls/hr Metronidazole (Flagyl) 500 mg in 100 mls @ 100 mls/hr IVPB Q8H [facility] PRN Reason: Protocol Last Admin: 04/19/18 06:52 Dose: 100 mls/hr Cefepime HCl (Maxipime Iv 2 Gm Premix) 2 gm in 100 mls @ 100 mls/hr IVPB Q8H [facility] PRN Reason: Protocol Stop: 04/22/18 15:31 Last Admin: 04/19/18 07:37 Dose: 100 mls/hr Ketorolac Tromethamine (Toradol) 15 mg IVP Q6 PRN PRN Reason: Pain, severe (8-10) Last Admin: 04/18/18 16:27 Dose: 15 mg Ondansetron HCl (Zofran Inj) 4 mg IVP Q6H PRN PRN Reason: Nausea/Vomiting Last Admin: 04/18/18 05:19 Dose: 4 mg Potassium Chloride (K-Dur 20 Meq Er Tab) 20 meq PO DAILY [facility] Last Admin: 04/18/18 09:54 Dose: 20 meq - Labs Labs: 04/19/18 07:11 04/19/18 07:11 PT 13.3 SECONDS (9.7-12.2) H 04/17/18 06:10 INR 1.2 04/17/18 06:10 APTT 32 SECONDS (21-34) 04/17/18 06:10 - Constitutional Appears: No Acute Distress, Chronically Ill - Head Exam Head Exam: ATRAUMATIC, NORMAL INSPECTION, NORMOCEPHALIC - Eye Exam Eye Exam: EOMI, Normal appearance Pupil Exam: NORMAL ACCOMODATION - ENT Exam ENT Exam: Mucous Membranes Moist, Normal Exam - Neck Exam Neck Exam: Lymphadenopathy, Normal Inspection. absent: Tenderness - Respiratory Exam Respiratory Exam: Clear to Ausculation Bilateral, NORMAL BREATHING PATTERN. absent: Rales, Rhonchi, Wheezes, Stridor - Cardiovascular Exam Cardiovascular Exam: REGULAR RHYTHM, +S1, +S2 - GI/Abdominal Exam GI & Abdominal Exam: Soft, Tenderness (mild TTP upper abdomen), Normal Bowel Sounds. absent: Distended, Firm, Guarding, Rigid, Rebound - Extremities Exam Extremities Exam: Normal Capillary Refill, Normal Inspection. 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 Has not had chemotherapy for 1.5 months. Plan: Fever r/o sepsis -currently afebrile, last spiked fever: 101.1, early AM 04/18 -VBG lactate 0.9; procalcitonin 0.17L -NS @100cc/hr -BCx: no growth after 24 hrs -Urine Cx: multiple spp, likely contamination -f/u repeat UCx -f/u sputum cx -ID recs (Dr. Mejia) appreciated -continue empiric abx tx Medications: -Vancomcyin 750mg Q12H IVPB-->Vancomycin 1000 mg q12H IVPB (04/19) -Cephepime 2gm IVPB q8H -Flagyl 500mg IVPB Q8H -Reglan 10 mg IVP ACHS PRN -Thiamine 100 mg PO daily -Folic acid 1 mg PO daily -Multivitamin 1 tab PO daily B-Cell Lymphoma -new R inferior cervical lymph node palpated measuring 1x1cm -Toradol 15mg IVP Q6H PRN pain -prior admission CT chest/abd/pelvis showed lymphadenopathy, B/L axillary, periaortic, abdominal and retroperitoneal, increased in size. -f/u Heme/Onc recs (Dr. Velez) spoke with Dr. Velez on the phone--Can give Granix if ANC < 500 Epigastric abdominal pain -amylase/lipase: <30/<10 -abdominal CT (03/01/2018): pancreas unremarkable; interval increase in the size of b/l axillary lymphadenopathy, interval increase in the size of the upper abdomen, periaortic, retroperitoneal lymphadenopathy Anemia -Hb 7.7-->7.1 (04/19) -1 unit pRBC transfused (04/19) -goal to maintain Hct above 28 -f/u stool occult Pancytopenia -afebrile -WBC 1.1 (04/19) -ANC 770 -can give granix if ANC < 500, per Dr. Velez -continue to monitor labs Hypotension -BP 94/61 ;She historically runs in 90's/60's -continue to monitor Diarrhea -f/u stool culture, ova parasite, c. diff -NS @100cc/hr Ppx, Diet, Disposition -pepcid 20mg IVP BID -VTE prophylaxis C/I 2/2 pancytopenia -SCDs -regular diet Case discussed with Dr. Norma Alicea DO, PGY-1 <Devin Green H - Last Filed: 04/19/18 17:14> Objective - Vital Signs/Intake and Output Vital Signs (last 24 hours): Temp Pulse Resp BP Pulse Ox 99.7 F H 92 H 20 103/70 100 04/19/18 16:00 04/19/18 16:41 04/19/18 16:00 04/19/18 16:00 04/19/18 16:00 Intake and Output: 04/19/18 04/19/18 06:59 18:59 Intake Total 1300 1425 Balance 1300 1425 - Medications Medications: Current Medications Acetaminophen (Tylenol 325mg Tab) 650 mg PO Q6 PRN PRN Reason: Fever >100.4 F Last Admin: 04/18/18 05:19 Dose: 650 mg Famotidine (Pepcid) 20 mg IVP BID [facility] Last Admin: 04/19/18 17:01 Dose: 20 mg Folic Acid (Folic Acid) 1 mg PO DAILY [facility] Last Admin: 04/19/18 09:43 Dose: 1 mg Sodium Chloride (Sodium Chloride 0.9%) 1,000 mls @ 100 mls/hr IV .Q10H [facility] Last Admin: 04/19/18 13:00 Dose: Not Given Metronidazole (Flagyl) 500 mg in 100 mls @ 100 mls/hr IVPB Q8H [facility] PRN Reason: Protocol Last Admin: 04/19/18 15:50 Dose: 100 mls/hr Cefepime HCl (Maxipime Iv 2 Gm Premix) 2 gm in 100 mls @ 100 mls/hr IVPB Q8H [facility] PRN Reason: Protocol Stop: 04/22/18 15:31 Last Admin: 04/19/18 17:00 Dose: 100 mls/hr Vancomycin/Sodium Chloride (Vancomycin 1 Gm/Ns 200 Ml) 1 gm in 200 mls @ 133.333 mls/hr IVPB Q12H [facility] PRN Reason: Protocol Stop: 04/24/18 18:01 Ketorolac Tromethamine (Toradol) 15 mg IVP Q6 PRN PRN Reason: Pain, severe (8-10) Last Admin: 04/18/18 16:27 Dose: 15 mg Metoclopramide HCl (Reglan) 10 mg IVP ACHS PRN PRN Reason: Nausea/Vomiting Last Admin: 04/19/18 14:46 Dose: 10 mg Multivitamins (Hexavitamin) 1 tab PO DAILY [facility] Last Admin: 04/19/18 09:43 Dose: 1 tab Thiamine HCl (Vitamin B1 Tab) 100 mg PO DAILY [facility] Last Admin: 04/19/18 09:43 Dose: 100 mg - Labs Labs: 04/19/18 07:11 04/19/18 07:11 PT 13.3 SECONDS (9.7-12.2) H 04/17/18 06:10 INR 1.2 04/17/18 06:10 APTT 32 SECONDS (21-34) 04/17/18 06:10 Attending/Attestation - Attestation I have personally seen and examined this patient.: Yes I have fully participated in the care of the patient.: Yes I have reviewed all pertinent clinical information, including history, physical exam and plan: Yes Notes (Text): 04/19/18 17:14 Medical consult: Patient was seen and examined by me during rounds with the medical superintendent, agree with the the above note by the medical superintendent. We thought about getting another CAT scan of the abdomen and pelvis however per review she is ready had one not too long ago and this CAT scan of the abdomen and pelvis was stable. As alluded to above and the residents note the hemoglobin did decrease today. We will give another unit of PRBCs. Per hematology \ oncology, will hold off on the subcutaneous great except for the time being She tells us that she's not vomiting however she continues to have nausea. Were try adding on Reglan to see if this helps with the nausea. She is ready on Zofran. For the time being the cultures remain negative, she's been afebrile for about 24 hours now. She remains on the IV vancomycin, IV Flagyl, and IV cefepime. Today I also had a conversation with the patient's family member, her daughter over the phone who then translated to the patient Thank you very much Devin Green
[2018-04-19] MEDS: Potassium Chloride 20 mEq ER Tab PO SCH (09:43)
[2018-04-19] MEDS: Multiple Vitamins Tab PO SCH (09:43)
--- NOTE | 2018-04-19 11:54 | CP.PCM.PN ---
Subjective - Date & Time of Evaluation Date of Evaluation: 04/19/18 Time of Evaluation: 07:00 - Subjective Subjective: t max lower sitting up in bed awake alert c/o abd pain Objective - Vital Signs/Intake and Output Vital Signs (last 24 hours): Temp Pulse Resp BP Pulse Ox 98.6 F 92 H 20 91/59 L 99 04/19/18 07:10 04/19/18 08:00 04/19/18 07:10 04/19/18 07:10 04/19/18 07:10 Intake and Output: 04/19/18 04/19/18 06:59 18:59 Intake Total 1300 Balance 1300 - Medications Medications: Current Medications Acetaminophen (Tylenol 325mg Tab) 650 mg PO Q6 PRN PRN Reason: Fever >100.4 F Last Admin: 04/18/18 05:19 Dose: 650 mg Famotidine (Pepcid) 20 mg IVP BID [facility] Last Admin: 04/19/18 09:43 Dose: 20 mg Folic Acid (Folic Acid) 1 mg PO DAILY [facility] Last Admin: 04/19/18 09:43 Dose: 1 mg Sodium Chloride (Sodium Chloride 0.9%) 1,000 mls @ 100 mls/hr IV .Q10H [facility] Last Admin: 04/19/18 04:34 Dose: 100 mls/hr Metronidazole (Flagyl) 500 mg in 100 mls @ 100 mls/hr IVPB Q8H [facility] PRN Reason: Protocol Last Admin: 04/19/18 06:52 Dose: 100 mls/hr Cefepime HCl (Maxipime Iv 2 Gm Premix) 2 gm in 100 mls @ 100 mls/hr IVPB Q8H [facility] PRN Reason: Protocol Stop: 04/22/18 15:31 Last Admin: 04/19/18 07:37 Dose: 100 mls/hr Vancomycin/Sodium Chloride (Vancomycin 1 Gm/Ns 200 Ml) 1 gm in 200 mls @ 133.333 mls/hr IVPB Q12H [facility] PRN Reason: Protocol Stop: 04/24/18 18:01 Ketorolac Tromethamine (Toradol) 15 mg IVP Q6 PRN PRN Reason: Pain, severe (8-10) Last Admin: 04/18/18 16:27 Dose: 15 mg Metoclopramide HCl (Reglan) 10 mg IVP ACHS PRN PRN Reason: Nausea/Vomiting Multivitamins (Hexavitamin) 1 tab PO DAILY [facility] Last Admin: 04/19/18 09:43 Dose: 1 tab Potassium Chloride (K-Dur 20 Meq Er Tab) 20 meq PO DAILY [facility] Last Admin: 04/19/18 09:43 Dose: 20 meq Thiamine HCl (Vitamin B1 Tab) 100 mg PO DAILY [facility] Last Admin: 04/19/18 09:43 Dose: 100 mg - Labs Labs: 04/19/18 07:11 04/19/18 07:11 PT 13.3 SECONDS (9.7-12.2) H 04/17/18 06:10 INR 1.2 04/17/18 06:10 APTT 32 SECONDS (21-34) 04/17/18 06:10 - Constitutional Appears: Non-toxic, Chronically Ill - Head Exam Head Exam: NORMOCEPHALIC - Eye Exam Eye Exam: PERRL - ENT Exam ENT Exam: Mucous Membranes Dry - Neck Exam Neck Exam: absent: Lymphadenopathy - Respiratory Exam Respiratory Exam: Decreased Breath Sounds - Cardiovascular Exam Cardiovascular Exam: REGULAR RHYTHM - GI/Abdominal Exam GI & Abdominal Exam: Distended, Soft Assessment and Plan (1) Fever Status: Acute (2) Neutropenic fever Status: Acute (3) B-cell lymphoma Status: Acute - Assessment and Plan (Free Text) Assessment: cont iv rx for min 7 days
[2018-04-19] MEDS ORDERED: Vancomycin 1 gm/NS 200 ml 1 GM/200 ML BAG IVPB SCH (12:00)
[2018-04-19] MEDS: Vancomycin 1 gm/NS 200 ml 1 GM/200 ML BAG IVPB SCH (18:23)
[2018-04-19] MEDS ORDERED: Potassium Chloride 20 mEq ER Tab PO ONE (20:25)
[2018-04-20] MEDS: Cefepime IV 2 gm in Dextrose 2 GM/100 ML BAG IVPB SCH ×4 (00:10→23:44)
[2018-04-20] MEDS: Vancomycin 1 gm/NS 200 ml 1 GM/200 ML BAG IVPB SCH ×2 (05:39→17:25)
[2018-04-20] MEDS: metroNIDAZOLE IV 500 mg/100 ml 500 MG/100 ML BAG IVPB SCH ×3 (06:50→22:42)
[2018-04-20] MEDS: Sodium Chloride 0.9% 1,000 ML IV SCH ×2 (08:00→17:31)
--- NOTE | 2018-04-20 09:07 | CP.PCM.PN ---
<Sohail Alicea - Last Filed: 04/20/18 12:53> Subjective - Date & Time of Evaluation Date of Evaluation: 04/20/18 Time of Evaluation: 09:07 - Subjective Subjective: PGY-1 Medicine Progress Note for Dr. Green Patient seen and examined at bedside this AM, s/p transfusion 1 unit pRBCs with appropriate response (Hb 7/1->8.3). Continues to endorse generalized weakness/ fatigue, abdominal pain particularly after eating. She states that her nausea is mildly improved but has decreased appetite. No new episodes of vomiting. No other acute complaints. No fevers/chills, no diarrhea or constipation, no headaches, dizziness, chest pain, palpitations, sob, cough, dysuria or change in stool. Objective - Vital Signs/Intake and Output Vital Signs (last 24 hours): Temp Pulse Resp BP Pulse Ox 97.9 F 85 20 93/57 L 99 04/20/18 07:00 04/20/18 08:24 04/20/18 07:00 04/20/18 07:00 04/20/18 07:00 Intake and Output: 04/20/18 04/20/18 06:59 18:59 Intake Total 1000 Balance 1000 - Medications Medications: Current Medications Acetaminophen (Tylenol 325mg Tab) 650 mg PO Q6 PRN PRN Reason: Fever >100.4 F Last Admin: 04/18/18 05:19 Dose: 650 mg Famotidine (Pepcid) 20 mg PO BID [facility] Folic Acid (Folic Acid) 1 mg PO DAILY [facility] Last Admin: 04/19/18 09:43 Dose: 1 mg Sodium Chloride (Sodium Chloride 0.9%) 1,000 mls @ 100 mls/hr IV .Q10H [facility] Last Admin: 04/19/18 22:39 Dose: 100 mls/hr Metronidazole (Flagyl) 500 mg in 100 mls @ 100 mls/hr IVPB Q8H [facility] PRN Reason: Protocol Last Admin: 04/20/18 06:50 Dose: 100 mls/hr Cefepime HCl (Maxipime Iv 2 Gm Premix) 2 gm in 100 mls @ 100 mls/hr IVPB Q8H [facility] PRN Reason: Protocol Stop: 04/22/18 15:31 Last Admin: 04/20/18 00:10 Dose: 100 mls/hr Vancomycin/Sodium Chloride (Vancomycin 1 Gm/Ns 200 Ml) 1 gm in 200 mls @ 133.333 mls/hr IVPB Q12H [facility] PRN Reason: Protocol Stop: 04/24/18 18:01 Last Admin: 04/20/18 05:39 Dose: 133.333 mls/hr Ketorolac Tromethamine (Toradol) 15 mg IVP Q6 PRN PRN Reason: Pain, severe (8-10) Last Admin: 04/20/18 05:39 Dose: 15 mg Metoclopramide HCl (Reglan) 10 mg IVP ACHS PRN PRN Reason: Nausea/Vomiting Last Admin: 04/19/18 14:46 Dose: 10 mg Multivitamins (Hexavitamin) 1 tab PO DAILY [facility] Last Admin: 04/19/18 09:43 Dose: 1 tab Thiamine HCl (Vitamin B1 Tab) 100 mg PO DAILY [facility] Last Admin: 04/19/18 09:43 Dose: 100 mg - Labs Labs: 04/19/18 07:11 04/19/18 07:11 PT 13.3 SECONDS (9.7-12.2) H 04/17/18 06:10 INR 1.2 04/17/18 06:10 APTT 32 SECONDS (21-34) 04/17/18 06:10 - Constitutional Appears: No Acute Distress, Chronically Ill - Head Exam Head Exam: ATRAUMATIC, NORMAL INSPECTION, NORMOCEPHALIC - Eye Exam Eye Exam: EOMI, Normal appearance Pupil Exam: NORMAL ACCOMODATION - ENT Exam ENT Exam: Mucous Membranes Moist, Normal Exam - Neck Exam Neck Exam: Lymphadenopathy, Normal Inspection - Respiratory Exam Respiratory Exam: Clear to Ausculation Bilateral, NORMAL BREATHING PATTERN. absent: Rales, Rhonchi, Wheezes, Respiratory Distress - Cardiovascular Exam Cardiovascular Exam: REGULAR RHYTHM, +S1, +S2 - GI/Abdominal Exam GI & Abdominal Exam: Soft, Tenderness (Mild TTP upper abdomen), Normal Bowel Sounds. absent: Distended, Firm, Guarding, Rigid, Organomegaly, Rebound - Extremities Exam Extremities Exam: Normal Capillary Refill, Normal Inspection. 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 Has not had chemotherapy for 1.5 months. Plan: Fever r/o sepsis -currently afebrile, last spiked fever: 101.1, early AM 04/18 -VBG lactate 0.9; procalcitonin 0.17L -NS @100cc/hr -BCx: no growth after 24 hrs -Urine Cx: multiple spp, likely contamination -f/u repeat UCx -f/u sputum cx -ID recs (Dr. Mejia) appreciated -continue IV rx for minimum 7 days Medications: -Vancomcyin 750mg Q12H IVPB-->Vancomycin 1000 mg q12H IVPB (04/19) -Cephepime 2gm IVPB q8H -Flagyl 500mg IVPB Q8H -Reglan 10 mg IVP ACHS PRN -Zofran 4 mg PO q6H PRN -Thiamine 100 mg PO daily -Folic acid 1 mg PO daily -Multivitamin 1 tab PO daily -0.9 NS @ 100cc/hr B-Cell Lymphoma -new R inferior cervical lymph node palpated measuring 1x1cm -Toradol 15mg IVP Q6H PRN pain -prior admission CT chest/abd/pelvis showed lymphadenopathy, B/L axillary, periaortic, abdominal and retroperitoneal, increased in size. -f/u Heme/Onc recs (Dr. Velez) spoke with Dr. Velez on the phone--Can give Granix if ANC < 500 Epigastric abdominal pain -amylase/lipase: <30/<10 -abdominal CT (03/01/2018): pancreas unremarkable; interval increase in the size of b/l axillary lymphadenopathy, interval increase in the size of the upper abdomen, periaortic, retroperitoneal lymphadenopathy Anemia -Hb 8.3 (04/20) -s/p 1 unit pRBC transfused (04/19) -goal to maintain Hct above 28 -occult stool negative Pancytopenia -afebrile -WBC 1.0 (04/20) -ANC 770 -can give granix if ANC < 500, per Dr. Velez -continue to monitor labs Hypotension -BP 93/57 ;She historically runs in 90's/60's -continue to monitor Diarrhea -c diff negative -NS @100cc/hr Ppx, Diet, Disposition -pepcid 20mg IVP BID -VTE prophylaxis C/I 2/2 pancytopenia -SCDs -regular diet Case discussed with Dr. Norma Alicea DO, PGY-1 <Devin Green H - Last Filed: 04/20/18 17:21> Objective - Vital Signs/Intake and Output Vital Signs (last 24 hours): Temp Pulse Resp BP Pulse Ox 97.9 F 94 H 18 96/58 L 99 04/20/18 15:41 04/20/18 16:07 04/20/18 15:41 04/20/18 15:41 04/20/18 15:41 Intake and Output: 04/20/18 04/20/18 06:59 18:59 Intake Total 1000 Balance 1000 - Medications Medications: Current Medications Acetaminophen (Tylenol 325mg Tab) 650 mg PO Q6 PRN PRN Reason: Fever >100.4 F Last Admin: 04/18/18 05:19 Dose: 650 mg Famotidine (Pepcid) 20 mg PO BID [facility] Last Admin: 04/20/18 10:38 Dose: 20 mg Folic Acid (Folic Acid) 1 mg PO DAILY [facility] Last Admin: 04/20/18 10:38 Dose: 1 mg Sodium Chloride (Sodium Chloride 0.9%) 1,000 mls @ 100 mls/hr IV .Q10H [facility] Last Admin: 04/20/18 08:00 Dose: Not Given Cefepime HCl (Maxipime Iv 2 Gm Premix) 2 gm in 100 mls @ 100 mls/hr IVPB Q8H [facility] PRN Reason: Protocol Stop: 04/22/18 15:31 Last Admin: 04/20/18 15:35 Dose: 100 mls/hr Vancomycin/Sodium Chloride (Vancomycin 1 Gm/Ns 200 Ml) 1 gm in 200 mls @ 133.333 mls/hr IVPB Q12H [facility] PRN Reason: Protocol Stop: 04/24/18 18:01 Last Admin: 04/20/18 05:39 Dose: 133.333 mls/hr Metronidazole (Flagyl) 500 mg in 100 mls @ 100 mls/hr IVPB Q8H [facility] PRN Reason: Protocol Stop: 04/27/18 15:31 Last Admin: 04/20/18 14:31 Dose: 100 mls/hr Ketorolac Tromethamine (Toradol) 15 mg IVP Q6 PRN PRN Reason: Pain, severe (8-10) Last Admin: 04/20/18 13:38 Dose: 15 mg Megestrol Acetate (Megace) 400 mg PO DAILY [facility] Last Admin: 04/20/18 10:38 Dose: 400 mg Metoclopramide HCl (Reglan) 10 mg IVP ACHS PRN PRN Reason: Nausea/Vomiting Last Admin: 04/19/18 14:46 Dose: 10 mg Multivitamins (Hexavitamin) 1 tab PO DAILY [facility] Last Admin: 04/20/18 10:37 Dose: 1 tab Ondansetron HCl (Zofran Tab) 4 mg PO Q6 PRN PRN Reason: Nausea/Vomiting Thiamine HCl (Vitamin B1 Tab) 100 mg PO DAILY [facility] Last Admin: 04/20/18 10:37 Dose: 100 mg - Labs Labs: 04/20/18 11:21 04/20/18 11:21 PT 13.3 SECONDS (9.7-12.2) H 04/17/18 06:10 INR 1.2 04/17/18 06:10 APTT 32 SECONDS (21-34) 04/17/18 06:10 Attending/Attestation - Attestation I have personally seen and examined this patient.: Yes I have fully participated in the care of the patient.: Yes I have reviewed all pertinent clinical information, including history, physical exam and plan: Yes Notes (Text): 04/20/18 17:21 Medical attending: Patient was seen and examined by me, agrees the above note by the electromedical equipment repairer. The patient hemoglobin did come up to 8.3 after 1 unit of blood. Her nausea is somewhat better today however she still continues to have minimal appetite. Megace was started to see if it can help stimulate her appetite She remains afebrile at this time, she is still contact/isolation/respiratory precautions due to the ongoing neutropenia Thank you very much, Devin Green
[2018-04-20] MEDS: Multiple Vitamins Tab PO SCH (10:37)
[2018-04-20] MEDS: Megestrol Acetate 40 mg/ml Cup PO SCH (10:38)
[2018-04-20 11:39] LABS: HEMOGLOBIN 8.3 g/dL (11.0-16.0); MEAN CELL VOLUME 85.2 fL (81.0-99.0); MEAN CORPUSCULAR HEMOGLOBIN 27.8 pg (27.0-31.0); MEAN CORPUSCULAR HGB CONC 32.6 g/dL (33.0-37.0); RBC 2.99 Mil/uL (3.80-5.20)
[2018-04-20 11:40] LABS: ALB/GLOB RATIO 0.9 (1.0-2.1); ALBUMIN 2.5 g/dL (3.5-5.0); ALT/SGPT 25 U/L (9-52); AST/SGOT 23 U/L (14-36); BASO % 0.6 % (0.0-2.0); BLOOD UREA NITROGEN 6 mg/dL (7-17); CALCIUM 8.2 mg/dl (8.6-10.4); EOS % 2.4 % (0.0-4.0); GFR NON-AFRICAN AMERICAN > 60; LYMPH # 0.1 K/uL (1.0-4.3); LYMPH % 12.1 % (20.0-40.0); MEAN PLATELET VOLUME 8.4 fL (7.2-11.7); MONO # 0.2 K/uL (0.0-0.8); MONO % 19.7 % (0.0-10.0); NEUT # 0.6 K/uL (1.8-7.0); NEUT % 65.2 % (50.0-75.0); NRBC % 0.5 % (0.0-2.0)
--- NOTE | 2018-04-20 18:01 | CP.PCM.PN ---
Subjective - Date & Time of Evaluation Date of Evaluation: 04/20/18 Time of Evaluation: 09:00 - Subjective Subjective: slow progress no fever less abd pain Objective - Vital Signs/Intake and Output Vital Signs (last 24 hours): Temp Pulse Resp BP Pulse Ox 97.9 F 94 H 18 96/58 L 99 04/20/18 15:41 04/20/18 16:07 04/20/18 15:41 04/20/18 15:41 04/20/18 15:41 Intake and Output: 04/20/18 04/20/18 06:59 18:59 Intake Total 1000 Balance 1000 - Medications Medications: Current Medications Acetaminophen (Tylenol 325mg Tab) 650 mg PO Q6 PRN PRN Reason: Fever >100.4 F Last Admin: 04/18/18 05:19 Dose: 650 mg Famotidine (Pepcid) 20 mg PO BID [facility] Last Admin: 04/20/18 17:26 Dose: 20 mg Folic Acid (Folic Acid) 1 mg PO DAILY [facility] Last Admin: 04/20/18 10:38 Dose: 1 mg Sodium Chloride (Sodium Chloride 0.9%) 1,000 mls @ 100 mls/hr IV .Q10H [facility] Last Admin: 04/20/18 17:31 Dose: Not Given Cefepime HCl (Maxipime Iv 2 Gm Premix) 2 gm in 100 mls @ 100 mls/hr IVPB Q8H [facility] PRN Reason: Protocol Stop: 04/22/18 15:31 Last Admin: 04/20/18 15:35 Dose: 100 mls/hr Vancomycin/Sodium Chloride (Vancomycin 1 Gm/Ns 200 Ml) 1 gm in 200 mls @ 133.333 mls/hr IVPB Q12H [facility] PRN Reason: Protocol Stop: 04/24/18 18:01 Last Admin: 04/20/18 17:25 Dose: 133.333 mls/hr Metronidazole (Flagyl) 500 mg in 100 mls @ 100 mls/hr IVPB Q8H [facility] PRN Reason: Protocol Stop: 04/27/18 15:31 Last Admin: 04/20/18 14:31 Dose: 100 mls/hr Ketorolac Tromethamine (Toradol) 15 mg IVP Q6 PRN PRN Reason: Pain, severe (8-10) Last Admin: 04/20/18 13:38 Dose: 15 mg Megestrol Acetate (Megace) 400 mg PO DAILY [facility] Last Admin: 04/20/18 10:38 Dose: 400 mg Metoclopramide HCl (Reglan) 10 mg IVP ACHS PRN PRN Reason: Nausea/Vomiting Last Admin: 04/19/18 14:46 Dose: 10 mg Multivitamins (Hexavitamin) 1 tab PO DAILY [facility] Last Admin: 04/20/18 10:37 Dose: 1 tab Ondansetron HCl (Zofran Tab) 4 mg PO Q6 PRN PRN Reason: Nausea/Vomiting Thiamine HCl (Vitamin B1 Tab) 100 mg PO DAILY [facility] Last Admin: 04/20/18 10:37 Dose: 100 mg - Labs Labs: 04/20/18 11:21 04/20/18 11:21 PT 13.3 SECONDS (9.7-12.2) H 04/17/18 06:10 INR 1.2 04/17/18 06:10 APTT 32 SECONDS (21-34) 04/17/18 06:10 - Constitutional Appears: Non-toxic, Chronically Ill - Head Exam Head Exam: NORMOCEPHALIC - Eye Exam Eye Exam: absent: Scleral icterus - ENT Exam ENT Exam: Mucous Membranes Dry - Neck Exam Neck Exam: absent: Lymphadenopathy - Respiratory Exam Respiratory Exam: Decreased Breath Sounds - Cardiovascular Exam Cardiovascular Exam: REGULAR RHYTHM - GI/Abdominal Exam GI & Abdominal Exam: Distended, Soft - Rectal Exam Rectal Exam: Deferred - Exam Exam: NORMAL INSPECTION Assessment and Plan (1) Fever Status: Acute (2) Neutropenic fever Status: Acute (3) B-cell lymphoma Status: Acute - Assessment and Plan (Free Text) Plan: cont empiric rx for 7 days
--- NOTE | 2018-04-20 23:29 | CP.PCM.CON ---
History of Present Illness - History of Present Illness History of Present Illness: 52 year old female with a history of stage IV diffuse large B-cell lymphoma diagnosed in 2009 s/p chemotherapy, with SILK TRIMMER recurrence in 2011 with positive CSF and concominant herpes zoster infection, s/p treatment, with repeat recurrence in 12/2016 s/p salvage chemotherapy and radiation, admitted with symptomatic anemia and neutropenia. The patient has stopped chemotherapy and has received palliative radiotherapy to the neck, axilla, and abdomen. She notes to progressive fatigue. She denies bleeding and bruising. She is s/p PRBC transfusion and reports to feeling better. Past medical history: NHL Past surgical history: None Family history: None Social history: Denies tobacco, alcohol, and illicit drug use. Allergies: NKA Review of systems: All remaining review of systems including HEENT, cardiovascular, respiratory, gastrointestinal, genitourinary, musculoskeletal, dermatologic, neurologic, and psychiatric are negative unless mentioned in the HPI. Past Patient History - Infectious Disease Hx of Infectious Diseases: None - Past Medical History & Family History Past Medical History?: Yes - Past Social History Smoking Status: Never Smoked - CARDIAC Hx Cardiac Disorders: Yes Hx Angina: Yes - PULMONARY Hx Respiratory Disorders: No - NEUROLOGICAL Hx Neurological Disorder: Yes Other/Comment: headaches - HEENT Hx HEENT Problems: Yes Other/Comment: HX: HYPERTROPIC TONSILS. HX: SORE THROATS "FOR MONTHS" - RENAL Hx Chronic Kidney Disease: No - ENDOCRINE/METABOLIC Hx Endocrine Disorders: No - HEMATOLOGICAL/ONCOLOGICAL Hx Blood Disorders: Yes Hx Cancer: Yes ([place]) Hx Chemotherapy: Yes - INTEGUMENTARY Hx Dermatological Problems: Yes Other/Comment: HX: RIGHT AXILLARY MASS - MUSCULOSKELETAL/RHEUMATOLOGICAL Hx Arthritis: Yes - GASTROINTESTINAL Hx Gastrointestinal Disorders: Yes HX Swallowing Problems: Yes - GENITOURINARY/GYNECOLOGICAL Hx Genitourinary Disorders: No - PSYCHIATRIC Hx Anxiety: Yes Hx Substance Use: No - SURGICAL HISTORY Hx Tonsillectomy: Yes - ANESTHESIA Hx Anesthesia: Yes Hx Anesthesia Reactions: Yes (02/15/17 dizziness) Hx Malignant Hyperthermia: No Meds Allergies/Adverse Reactions: Allergies Allergy/AdvReac Type Severity Reaction Status Date / Time No Known Allergies Allergy Verified 04/17/18 05:52 - Medications Medications: Current Medications Acetaminophen (Tylenol 325mg Tab) 650 mg PO Q6 PRN PRN Reason: Fever >100.4 F Last Admin: 04/18/18 05:19 Dose: 650 mg Famotidine (Pepcid) 20 mg PO BID [facility] Last Admin: 04/20/18 17:26 Dose: 20 mg Folic Acid (Folic Acid) 1 mg PO DAILY [facility] Last Admin: 04/20/18 10:38 Dose: 1 mg Sodium Chloride (Sodium Chloride 0.9%) 1,000 mls @ 100 mls/hr IV .Q10H [facility] Last Admin: 04/20/18 17:31 Dose: Not Given Cefepime HCl (Maxipime Iv 2 Gm Premix) 2 gm in 100 mls @ 100 mls/hr IVPB Q8H [facility] PRN Reason: Protocol Stop: 04/22/18 15:31 Last Admin: 04/20/18 15:35 Dose: 100 mls/hr Vancomycin/Sodium Chloride (Vancomycin 1 Gm/Ns 200 Ml) 1 gm in 200 mls @ 133.333 mls/hr IVPB Q12H [facility] PRN Reason: Protocol Stop: 04/24/18 18:01 Last Admin: 04/20/18 17:25 Dose: 133.333 mls/hr Metronidazole (Flagyl) 500 mg in 100 mls @ 100 mls/hr IVPB Q8H [facility] PRN Reason: Protocol Stop: 04/27/18 15:31 Last Admin: 04/20/18 22:42 Dose: 100 mls/hr Ketorolac Tromethamine (Toradol) 15 mg IVP Q6 PRN PRN Reason: Pain, severe (8-10) Last Admin: 04/20/18 13:38 Dose: 15 mg Megestrol Acetate (Megace) 400 mg PO DAILY [facility] Last Admin: 04/20/18 10:38 Dose: 400 mg Metoclopramide HCl (Reglan) 10 mg IVP ACHS PRN PRN Reason: Nausea/Vomiting Last Admin: 04/19/18 14:46 Dose: 10 mg Multivitamins (Hexavitamin) 1 tab PO DAILY [facility] Last Admin: 04/20/18 10:37 Dose: 1 tab Ondansetron HCl (Zofran Tab) 4 mg PO Q6 PRN PRN Reason: Nausea/Vomiting Thiamine HCl (Vitamin B1 Tab) 100 mg PO DAILY [facility] Last Admin: 04/20/18 10:37 Dose: 100 mg Physical Exam - Head Exam Head Exam: ATRAUMATIC - Eye Exam Eye Exam: Normal appearance - ENT Exam ENT Exam: Mucous Membranes Dry - Respiratory Exam Respiratory Exam: NORMAL BREATHING PATTERN - Cardiovascular Exam Cardiovascular Exam: +S1, +S2 - GI/Abdominal Exam GI & Abdominal Exam: Normal Bowel Sounds - Extremities Exam Extremities exam: Positive for: normal inspection - Neurological Exam Neurological exam: Oriented x3 - Psychiatric Exam Psychiatric exam: Normal Affect, Normal Mood - Skin Skin Exam: Warm Results - Vital Signs Recent Vital Signs: Last Vital Signs Temp 97.9 F 04/20/18 15:41 Pulse 96 H 04/20/18 20:43 Resp 18 04/20/18 15:41 BP 96/58 L 04/20/18 15:41 Pulse Ox 99 04/20/18 15:41 - Labs Result Diagrams: 04/20/18 11:21 04/20/18 11:21 Labs: Laboratory Results - last 24 hr 04/20/18 04/20/18 11:21 11:21 WBC 1.0 L* RBC 2.99 L Hgb 8.3 L Hct 25.5 L MCV 85.2 MCH 27.8 MCHC 32.6 L RDW 19.0 H Plt Count 47 L MPV 8.4 Neut % (Auto) 65.2 Lymph % (Auto) 12.1 L [place] % (Auto) 19.7 H Eos % (Auto) 2.4 Baso % (Auto) 0.6 Neut # (Auto) 0.6 L Lymph # (Auto) 0.1 L [place] # (Auto) 0.2 Eos # (Auto) 0.0 Baso # (Auto) 0.0 Sodium 135 Potassium 3.6 Chloride 103 Carbon Dioxide 22 Anion Gap 13 BUN 6 L Creatinine 0.3 L Est GFR ( Amer) > 60 Est GFR (Non-Af Amer) > 60 Random Glucose 158 H Calcium 8.2 L Phosphorus 2.1 L Magnesium 1.9 Total Bilirubin 1.5 H AST 23 ALT 25 Alkaline Phosphatase 79 Total Protein 5.2 L Albumin 2.5 L Globulin 2.7 Albumin/Globulin Ratio 0.9 L Assessment & Plan (1) Pancytopenia Assessment and Plan: secondary to radiation granix 480mcg subq if ANC < 500 transfusion support PRN neutropenic precautions Status: Acute (2) Diffuse large B cell lymphoma Assessment and Plan: s/p several lines of chemotherapy s/p palliative radiation supportive care palliative care evaluation Thank you for this interesting consult. Status: Chronic Priority: Medium
[2018-04-21] MEDS: Sodium Chloride 0.9% 1,000 ML IV SCH ×3 (03:50→22:36)
[2018-04-21] MEDS: Vancomycin 1 gm/NS 200 ml 1 GM/200 ML BAG IVPB SCH ×2 (05:01→17:20)
[2018-04-21] MEDS: Cefepime IV 2 gm in Dextrose 2 GM/100 ML BAG IVPB SCH ×2 (06:39→15:31)
--- NOTE | 2018-04-21 07:18 | CP.PCM.PN ---
<Sohail Alicea - Last Filed: 04/21/18 14:58> Subjective - Date & Time of Evaluation Date of Evaluation: 04/21/18 Time of Evaluation: 07:14 - Subjective Subjective: PGY-1 Medicine Progress Note for Dr. Green Patient seen and examined at bedside this AM, remains on contact/isolation/ respiratory precautions due to her ongoing neutropenia. No acute events reported overnight. Patient states she is not eating much due to continued nausea, zofran and reglan not working. No new episodes of vomiting. No fevers/ chills, no diarrhea or constipation, no headaches, dizziness, chest pain, palpitations, sob, cough, dysuria or change in stool. Objective - Vital Signs/Intake and Output Vital Signs (last 24 hours): Temp Pulse Resp BP Pulse Ox 98.9 F 91 H 20 95/60 L 100 04/21/18 00:00 04/21/18 01:44 04/21/18 00:00 04/21/18 00:00 04/21/18 00:00 Intake and Output: 04/21/18 04/21/18 06:59 18:59 Intake Total 2020 Balance 2020 - Medications Medications: Current Medications Acetaminophen (Tylenol 325mg Tab) 650 mg PO Q6 PRN PRN Reason: Fever >100.4 F Last Admin: 04/18/18 05:19 Dose: 650 mg Famotidine (Pepcid) 20 mg PO BID [facility] Last Admin: 04/20/18 17:26 Dose: 20 mg Folic Acid (Folic Acid) 1 mg PO DAILY [facility] Last Admin: 04/20/18 10:38 Dose: 1 mg Sodium Chloride (Sodium Chloride 0.9%) 1,000 mls @ 100 mls/hr IV .Q10H [facility] Last Admin: 04/21/18 06:41 Dose: 100 mls/hr Cefepime HCl (Maxipime Iv 2 Gm Premix) 2 gm in 100 mls @ 100 mls/hr IVPB Q8H [facility] PRN Reason: Protocol Stop: 04/22/18 15:31 Last Admin: 04/21/18 06:39 Dose: 100 mls/hr Vancomycin/Sodium Chloride (Vancomycin 1 Gm/Ns 200 Ml) 1 gm in 200 mls @ 133.333 mls/hr IVPB Q12H [facility] PRN Reason: Protocol Stop: 04/24/18 18:01 Last Admin: 04/21/18 05:01 Dose: 133.333 mls/hr Metronidazole (Flagyl) 500 mg in 100 mls @ 100 mls/hr IVPB Q8H [facility] PRN Reason: Protocol Stop: 04/27/18 15:31 Last Admin: 04/20/18 22:42 Dose: 100 mls/hr Ketorolac Tromethamine (Toradol) 15 mg IVP Q6 PRN PRN Reason: Pain, severe (8-10) Last Admin: 04/21/18 03:32 Dose: 15 mg Megestrol Acetate (Megace) 400 mg PO DAILY [facility] Last Admin: 04/20/18 10:38 Dose: 400 mg Metoclopramide HCl (Reglan) 10 mg IVP ACHS PRN PRN Reason: Nausea/Vomiting Last Admin: 04/19/18 14:46 Dose: 10 mg Multivitamins (Hexavitamin) 1 tab PO DAILY [facility] Last Admin: 04/20/18 10:37 Dose: 1 tab Ondansetron HCl (Zofran Tab) 4 mg PO Q6 PRN PRN Reason: Nausea/Vomiting Thiamine HCl (Vitamin B1 Tab) 100 mg PO DAILY [facility] Last Admin: 04/20/18 10:37 Dose: 100 mg - Labs Labs: 04/20/18 11:21 04/20/18 11:21 PT 13.3 SECONDS (9.7-12.2) H 04/17/18 06:10 INR 1.2 04/17/18 06:10 APTT 32 SECONDS (21-34) 04/17/18 06:10 - Constitutional Appears: No Acute Distress, Chronically Ill - Head Exam Head Exam: ATRAUMATIC, NORMAL INSPECTION, NORMOCEPHALIC - Eye Exam Eye Exam: EOMI, Normal appearance Pupil Exam: NORMAL ACCOMODATION - ENT Exam ENT Exam: Mucous Membranes Moist, Normal Exam - Neck Exam Neck Exam: Lymphadenopathy, Normal Inspection. absent: Tenderness - Respiratory Exam Respiratory Exam: Clear to Ausculation Bilateral, NORMAL BREATHING PATTERN. absent: Rales, Rhonchi, Wheezes, Respiratory Distress, Stridor - Cardiovascular Exam Cardiovascular Exam: REGULAR RHYTHM, +S1, +S2 - GI/Abdominal Exam GI & Abdominal Exam: Soft, Normal Bowel Sounds. absent: Distended, Firm, Guarding, Rigid, Tenderness, Organomegaly, Rebound - Extremities Exam Extremities Exam: Normal Capillary Refill, Normal Inspection. 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 Has not had chemotherapy for 1.5 months. Plan: Fever r/o sepsis -currently afebrile, last spiked fever: 101.1, early AM 04/18 -VBG lactate 0.9; procalcitonin 0.17L -NS @100cc/hr -BCx: no growth -Urine Cx: multiple spp, likely contamination -repeat Ucx: no growth -stool cx: no growth -f/u sputum cx -ID recs (Dr. Mejia) appreciated -continue IV rx for minimum 7 days Medications: -Vancomcyin 750mg Q12H IVPB-->Vancomycin 1000 mg q12H IVPB (04/19) -Cephepime 2gm IVPB q8H -Flagyl 500mg IVPB Q8H -Reglan 10 mg IVP ACHS PRN -Zofran 4 mg PO q6H PRN -Thiamine 100 mg PO daily -Folic acid 1 mg PO daily -Multivitamin 1 tab PO daily -0.9 NS @ 100cc/hr B-Cell Lymphoma -new R inferior cervical lymph node palpated measuring 1x1cm -Toradol 15mg IVP Q6H PRN pain -prior admission CT chest/abd/pelvis showed lymphadenopathy, B/L axillary, periaortic, abdominal and retroperitoneal, increased in size. -f/u Heme/Onc recs (Dr. Velez) spoke with Dr. Velez on the phone--Can give Granix if ANC < 500 -Granix 480 mcg SC x1 given per Dr. Velez Epigastric abdominal pain -amylase/lipase: <30/<10 -abdominal CT (03/01/2018): pancreas unremarkable; interval increase in the size of b/l axillary lymphadenopathy, interval increase in the size of the upper abdomen, periaortic, retroperitoneal lymphadenopathy Anemia -Hb 7.4 (04/21) -Hct: 22.5 -goal to maintain Hct above 28 -occult stool negative Pancytopenia -afebrile -WBC 0.8 (04/21) -ANC not calculated due to insufficient bands -Granix 480 mcg SC x1 per Dr Velez -can give granix if ANC < 500, per Dr. Velez -continue to monitor labs Hypotension -BP 93/55;She historically runs in 90's/60's -continue to monitor Diarrhea -c diff negative -NS @100cc/hr Ppx, Diet, Disposition -pepcid 20mg IVP BID -VTE prophylaxis C/I 2/2 pancytopenia -SCDs -regular diet Case discussed with Dr. Norma Alicea DO, PGY-1 <Devin Green - Last Filed: 04/21/18 15:22> Objective - Vital Signs/Intake and Output Vital Signs (last 24 hours): Temp Pulse Resp BP Pulse Ox 98.4 F 90 20 93/55 L 97 04/21/18 08:13 04/21/18 08:13 04/21/18 08:13 04/21/18 08:13 04/21/18 08:13 Intake and Output: 04/21/18 04/21/18 06:59 18:59 Intake Total 2020 Balance 2020 - Medications Medications: Current Medications Acetaminophen (Tylenol 325mg Tab) 650 mg PO Q6 PRN PRN Reason: Fever >100.4 F Last Admin: 04/18/18 05:19 Dose: 650 mg Famotidine (Pepcid) 20 mg PO BID [facility] Last Admin: 04/21/18 09:12 Dose: 20 mg Folic Acid (Folic Acid) 1 mg PO DAILY [facility] Last Admin: 04/21/18 09:12 Dose: 1 mg Sodium Chloride (Sodium Chloride 0.9%) 1,000 mls @ 100 mls/hr IV .Q10H [facility] Last Admin: 04/21/18 06:41 Dose: 100 mls/hr Cefepime HCl (Maxipime Iv 2 Gm Premix) 2 gm in 100 mls @ 100 mls/hr IVPB Q8H [facility] PRN Reason: Protocol Stop: 04/22/18 15:31 Last Admin: 04/21/18 06:39 Dose: 100 mls/hr Vancomycin/Sodium Chloride (Vancomycin 1 Gm/Ns 200 Ml) 1 gm in 200 mls @ 133.333 mls/hr IVPB Q12H [facility] PRN Reason: Protocol Stop: 04/24/18 18:01 Last Admin: 04/21/18 05:01 Dose: 133.333 mls/hr Metronidazole (Flagyl) 500 mg in 100 mls @ 100 mls/hr IVPB Q8H [facility] PRN Reason: Protocol Stop: 04/27/18 15:31 Last Admin: 04/21/18 14:33 Dose: 100 mls/hr Ketorolac Tromethamine (Toradol) 15 mg IVP Q6 PRN PRN Reason: Pain, severe (8-10) Last Admin: 04/21/18 09:55 Dose: 15 mg Megestrol Acetate (Megace) 400 mg PO DAILY [facility] Last Admin: 04/21/18 09:11 Dose: 400 mg Metoclopramide HCl (Reglan) 10 mg IVP ACHS PRN PRN Reason: Nausea/Vomiting Last Admin: 04/19/18 14:46 Dose: 10 mg Multivitamins (Hexavitamin) 1 tab PO DAILY [facility] Last Admin: 04/21/18 09:12 Dose: 1 tab Ondansetron HCl (Zofran Tab) 4 mg PO Q6 PRN PRN Reason: Nausea/Vomiting Thiamine HCl (Vitamin B1 Tab) 100 mg PO DAILY [facility] Last Admin: 04/21/18 09:12 Dose: 100 mg - Labs Labs: 04/21/18 07:33 04/21/18 07:33 PT 13.3 SECONDS (9.7-12.2) H 04/17/18 06:10 INR 1.2 04/17/18 06:10 APTT 32 SECONDS (21-34) 04/17/18 06:10 Attending/Attestation - Attestation I have personally seen and examined this patient.: Yes I have fully participated in the care of the patient.: Yes I have reviewed all pertinent clinical information, including history, physical exam and plan: Yes Notes (Text): 04/21/18 15:21 Medical attending: Patient was seen and examined by me, reviewed the above note by the medical billing assistant. We saw the patient together. This morning we looked at her blood work and unfortunately her white blood cell count continues to decrease, and so has her platelet count. She was given subcutaneous Granix, and we'll see how the CBC looks like tomorrow. Patient currently remains on the IV Cefepime, IV Vancomycin, IV Flagly. Patient reports appettie remains very poor, IVF being continued Devin Green 04/21/18 15:22
[2018-04-21 07:58] LABS: ALB/GLOB RATIO 0.9 (1.0-2.1); ALBUMIN 2.3 g/dL (3.5-5.0); ALT/SGPT 25 U/L (9-52); AST/SGOT 32 U/L (14-36); BLOOD UREA NITROGEN 6 mg/dL (7-17); CALCIUM 8.3 mg/dl (8.6-10.4); GFR NON-AFRICAN AMERICAN > 60
[2018-04-21 08:05] LABS: BASO % 0.9 % (0.0-2.0); EOS % 3.7 % (0.0-4.0); HEMOGLOBIN 7.4 g/dL (11.0-16.0); LYMPH # 0.1 K/uL (1.0-4.3); LYMPH % 13.8 % (20.0-40.0); MEAN CELL VOLUME 84.8 fL (81.0-99.0); MEAN CORPUSCULAR HEMOGLOBIN 27.9 pg (27.0-31.0); MEAN CORPUSCULAR HGB CONC 32.8 g/dL (33.0-37.0); MEAN PLATELET VOLUME 8.1 fL (7.2-11.7); MONO # 0.2 K/uL (0.0-0.8); MONO % 24.1 % (0.0-10.0); NEUT # 0.4 K/uL (1.8-7.0); NEUT % 57.5 % (50.0-75.0); NRBC % 0.3 % (0.0-2.0); RBC 2.65 Mil/uL (3.80-5.20); RED CELL DISTRIBUTION WIDTH 18.8 % (11.5-14.5)
[2018-04-21 08:24] LABS: WHITE BLOOD COUNT 0.8 K/uL (4.8-10.8)
[2018-04-21] MEDS: metroNIDAZOLE IV 500 mg/100 ml 500 MG/100 ML BAG IVPB SCH ×3 (08:34→22:36)
[2018-04-21] MEDS: Megestrol Acetate 40 mg/ml Cup PO SCH (09:11)
[2018-04-21] MEDS: Multiple Vitamins Tab PO SCH (09:12)
[2018-04-21] MEDS ORDERED: Potassium Chloride 20 mEq ER Tab PO ONE (09:28)
--- NOTE | 2018-04-21 19:27 | CP.PCM.PN ---
Subjective - Date & Time of Evaluation Date of Evaluation: 04/21/18 Time of Evaluation: 09:00 - Subjective Subjective: no fever remains neutropenic cultures negative Objective - Vital Signs/Intake and Output Vital Signs (last 24 hours): Temp Pulse Resp BP Pulse Ox 98.7 F 90 20 100/61 99 04/21/18 15:40 04/21/18 16:00 04/21/18 15:40 04/21/18 15:40 04/21/18 15:40 - Medications Medications: Current Medications Acetaminophen (Tylenol 325mg Tab) 650 mg PO Q6 PRN PRN Reason: Fever >100.4 F Last Admin: 04/18/18 05:19 Dose: 650 mg Famotidine (Pepcid) 20 mg PO BID [facility] Last Admin: 04/21/18 17:20 Dose: 20 mg Folic Acid (Folic Acid) 1 mg PO DAILY [facility] Last Admin: 04/21/18 09:12 Dose: 1 mg Sodium Chloride (Sodium Chloride 0.9%) 1,000 mls @ 100 mls/hr IV .Q10H [facility] Last Admin: 04/21/18 06:41 Dose: 100 mls/hr Cefepime HCl (Maxipime Iv 2 Gm Premix) 2 gm in 100 mls @ 100 mls/hr IVPB Q8H [facility] PRN Reason: Protocol Stop: 04/22/18 15:31 Last Admin: 04/21/18 15:31 Dose: 100 mls/hr Vancomycin/Sodium Chloride (Vancomycin 1 Gm/Ns 200 Ml) 1 gm in 200 mls @ 133.333 mls/hr IVPB Q12H [facility] PRN Reason: Protocol Stop: 04/24/18 18:01 Last Admin: 04/21/18 17:20 Dose: 133.333 mls/hr Metronidazole (Flagyl) 500 mg in 100 mls @ 100 mls/hr IVPB Q8H [facility] PRN Reason: Protocol Stop: 04/27/18 15:31 Last Admin: 04/21/18 14:33 Dose: 100 mls/hr Ketorolac Tromethamine (Toradol) 15 mg IVP Q6 PRN PRN Reason: Pain, severe (8-10) Last Admin: 04/21/18 09:55 Dose: 15 mg Megestrol Acetate (Megace) 400 mg PO DAILY [facility] Last Admin: 04/21/18 09:11 Dose: 400 mg Metoclopramide HCl (Reglan) 10 mg IVP ACHS PRN PRN Reason: Nausea/Vomiting Last Admin: 04/19/18 14:46 Dose: 10 mg Multivitamins (Hexavitamin) 1 tab PO DAILY [facility] Last Admin: 04/21/18 09:12 Dose: 1 tab Ondansetron HCl (Zofran Tab) 4 mg PO Q6 PRN PRN Reason: Nausea/Vomiting Thiamine HCl (Vitamin B1 Tab) 100 mg PO DAILY [facility] Last Admin: 04/21/18 09:12 Dose: 100 mg - Labs Labs: 04/21/18 07:33 04/21/18 07:33 PT 13.3 SECONDS (9.7-12.2) H 04/17/18 06:10 INR 1.2 04/17/18 06:10 APTT 32 SECONDS (21-34) 04/17/18 06:10 Assessment and Plan (1) Fever Status: Acute (2) Neutropenic fever Status: Acute (3) B-cell lymphoma Status: Acute
[2018-04-22] MEDS: Cefepime IV 2 gm in Dextrose 2 GM/100 ML BAG IVPB SCH ×3 (00:25→16:00)
[2018-04-22] MEDS: Sodium Chloride 0.9% 1,000 ML IV SCH ×3 (00:29→20:12)
[2018-04-22 05:12] LABS: BASO % 0.3 % (0.0-2.0); EOS % 1.1 % (0.0-4.0); HEMOGLOBIN 7.2 g/dL (11.0-16.0); LYMPH # 0.2 K/uL (1.0-4.3); LYMPH % 7.9 % (20.0-40.0); MEAN CELL VOLUME 83.8 fL (81.0-99.0); MEAN CORPUSCULAR HEMOGLOBIN 27.5 pg (27.0-31.0); MEAN CORPUSCULAR HGB CONC 32.8 g/dL (33.0-37.0); MEAN PLATELET VOLUME 8.7 fL (7.2-11.7); MONO # 0.3 K/uL (0.0-0.8); NEUT # 1.9 K/uL (1.8-7.0); NEUT % 77.7 % (50.0-75.0); PLATELET COUNT 38 K/uL (130-400); RBC 2.63 Mil/uL (3.80-5.20); RED CELL DISTRIBUTION WIDTH 19.8 % (11.5-14.5); WHITE BLOOD COUNT 2.4 K/uL (4.8-10.8)
[2018-04-22 05:36] LABS: ALB/GLOB RATIO 0.9 (1.0-2.1); ALBUMIN 2.5 g/dL (3.5-5.0); ALT/SGPT 28 U/L (9-52); AST/SGOT 28 U/L (14-36); BLOOD UREA NITROGEN 6 mg/dL (7-17); CALCIUM 8.6 mg/dl (8.6-10.4); GFR NON-AFRICAN AMERICAN > 60
[2018-04-22] MEDS: Vancomycin 1 gm/NS 200 ml 1 GM/200 ML BAG IVPB SCH ×2 (05:39→17:17)
[2018-04-22 05:52] LABS: BANDS 13 % (0-2); BLASTS 1 % (0-0); EOSINOPHIL 3 % (0-4); LYMPHOCYTE 9 % (20-40); MONOCYTE 9 % (0-10); NEUTROPHIL 65 % (50-75); PLATELET ESTIMATE MARKEDLY DECREASED (NORMAL); TOTAL CELLS COUNTED 100
--- NOTE | 2018-04-22 06:58 | CP.PCM.PN ---
<Som Benson M - Last Filed: 04/22/18 16:56> Subjective - Date & Time of Evaluation Date of Evaluation: 04/22/18 Time of Evaluation: 07:20 - Subjective Subjective: PGY 1 Medicine [place] Note for Dr. Green Patient seen and examined at bedside. Patient lying in bed comfortably. Pt remains on contact/isolation/respiratory precautions due to her ongoing neutropenia. No overnight events reported. Patient states she still has abdominal pain greater on L than R lower quad. Patient states she has excess phlegm production as well with the abdominal pain. Patient states these symptoms have been constant for a long time. Patient denies chest pain, SOB, constipation, diarrhea, headaches, vision changes. Objective - Vital Signs/Intake and Output Vital Signs (last 24 hours): Temp Pulse Resp BP Pulse Ox 98.5 F 96 H 20 92/54 L 100 04/21/18 23:30 04/22/18 02:51 04/21/18 23:30 04/21/18 23:30 04/21/18 23:30 Intake and Output: 04/21/18 04/22/18 18:59 06:59 Intake Total 850 Balance 850 - Medications Medications: Current Medications Acetaminophen (Tylenol 325mg Tab) 650 mg PO Q6 PRN PRN Reason: Fever >100.4 F Last Admin: 04/18/18 05:19 Dose: 650 mg Famotidine (Pepcid) 20 mg PO BID [facility] Last Admin: 04/21/18 17:20 Dose: 20 mg Folic Acid (Folic Acid) 1 mg PO DAILY [facility] Last Admin: 04/21/18 09:12 Dose: 1 mg Sodium Chloride (Sodium Chloride 0.9%) 1,000 mls @ 100 mls/hr IV .Q10H [facility] Last Admin: 04/22/18 00:29 Dose: Not Given Cefepime HCl (Maxipime Iv 2 Gm Premix) 2 gm in 100 mls @ 100 mls/hr IVPB Q8H [facility] PRN Reason: Protocol Stop: 04/22/18 15:31 Last Admin: 04/22/18 00:25 Dose: 100 mls/hr Vancomycin/Sodium Chloride (Vancomycin 1 Gm/Ns 200 Ml) 1 gm in 200 mls @ 133.333 mls/hr IVPB Q12H [facility] PRN Reason: Protocol Stop: 04/24/18 18:01 Last Admin: 04/22/18 05:39 Dose: 133.333 mls/hr Metronidazole (Flagyl) 500 mg in 100 mls @ 100 mls/hr IVPB Q8H [facility] PRN Reason: Protocol Stop: 04/27/18 15:31 Last Admin: 04/21/18 22:36 Dose: 100 mls/hr Ketorolac Tromethamine (Toradol) 15 mg IVP Q6 PRN PRN Reason: Pain, severe (8-10) Last Admin: 04/21/18 22:13 Dose: 15 mg Megestrol Acetate (Megace) 400 mg PO DAILY [facility] Last Admin: 04/21/18 09:11 Dose: 400 mg Metoclopramide HCl (Reglan) 10 mg IVP ACHS PRN PRN Reason: Nausea/Vomiting Last Admin: 04/19/18 14:46 Dose: 10 mg Multivitamins (Hexavitamin) 1 tab PO DAILY [facility] Last Admin: 04/21/18 09:12 Dose: 1 tab Ondansetron HCl (Zofran Tab) 4 mg PO Q6 PRN PRN Reason: Nausea/Vomiting Thiamine HCl (Vitamin B1 Tab) 100 mg PO DAILY [facility] Last Admin: 04/21/18 09:12 Dose: 100 mg - Labs Labs: 04/22/18 05:08 04/22/18 05:08 PT 13.3 SECONDS (9.7-12.2) H 04/17/18 06:10 INR 1.2 04/17/18 06:10 APTT 32 SECONDS (21-34) 04/17/18 06:10 - Constitutional Appears: No Acute Distress - Head Exam Head Exam: ATRAUMATIC, NORMAL INSPECTION, NORMOCEPHALIC - Eye Exam Eye Exam: EOMI, Normal appearance - ENT Exam ENT Exam: Mucous Membranes Moist - Respiratory Exam Respiratory Exam: Clear to Ausculation Bilateral, NORMAL BREATHING PATTERN. absent: Rales, Rhonchi, Wheezes - Cardiovascular Exam Cardiovascular Exam: +S1, +S2 - GI/Abdominal Exam GI & Abdominal Exam: Guarding, Soft, Tenderness, Normal Bowel Sounds. absent: Firm, Rigid Additional comments: guarding lower abdominal region on palpation - Extremities Exam Extremities Exam: Full ROM, Normal Inspection. 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 Has not had chemotherapy for 1.5 months. Plan: Fever r/o sepsis -currently afebrile, last spiked fever: 101.1, early AM 04/17 -VBG lactate 0.9; procalcitonin 0.17L -NS @100cc/hr -BCx (04/17): no growth -Ucx: multiple spp, likely contamination -Ucx 04/17: contamination; Ucx 04/18: no growth -stool cx (04/17): no ova; stool cx (04/19): no growth -f/u sputum cx -ID recs (Dr. Mejia) appreciated -continue IV rx for minimum 7 days Medications: -NS @100cc/hr -Vancomcyin 750mg Q12H IVPB-->Vancomycin 1000 mg q12H IVPB (04/19) -Cephepime 2gm IVPB q8H -Flagyl 500mg IVPB Q8H -Reglan 10 mg IVP ACHS PRN -Zofran 4 mg PO q6H PRN -Thiamine 100 mg PO daily -Folic acid 1 mg PO daily -Multivitamin 1 tab PO daily -0.9 NS @ 100cc/hr B-Cell Lymphoma - new R inferior cervical lymph node palpated measuring 1x1cm - Toradol 15mg IVP Q6H PRN pain - prior admission CT chest/abd/pelvis showed lymphadenopathy, B/L axillary, periaortic, abdominal and retroperitoneal, increased in size. - F/u 04/22 CT for continued abdominal pain -f/u Heme/Onc recs (Dr. Velez) -spoke with Dr. Velez on the phone--Can give Granix if ANC < 500 -Granix 480 mcg SC x1 given 04/21 & 04/22 Epigastric abdominal pain -amylase/lipase: <30/<10 -abdominal CT (03/01/2018): pancreas unremarkable; interval increase in the size of b/l axillary lymphadenopathy, interval increase in the size of the upper abdomen, periaortic, retroperitoneal lymphadenopathy - F/u CT ab/pelvis (04/22) Anemia -Hb 7.2 (04/22) -Hct: 22.0 (04/22) -goal to maintain Hct above 28 -occult stool negative (04/19) -F/u repeat occult stool (04/22) -transfuse PRBC X 2 on (04/22) Pancytopenia -afebrile -WBC 2.4 (04/22); on admission WBC 1.1 (04/17) -ANC 2167 04/22 -Granix 480 mcg SC x1 per Dr Velez -can give granix if ANC < 500, per Dr. Velez -continue to monitor labs Hypotension -BP 93/55; She historically runs in 90's/60's -continue to monitor Diarrhea -c diff negative -NS @100cc/hr Ppx, Diet, Disposition -pepcid 20mg IVP BID -VTE prophylaxis C/I 2/2 pancytopenia -SCDs -regular diet d/w Dr. Norma Benson PGY1 <Devin Green H - Last Filed: 04/22/18 18:37> Objective - Vital Signs/Intake and Output Vital Signs (last 24 hours): Temp Pulse Resp BP Pulse Ox 100.8 F H 102 H 20 103/70 98 04/22/18 18:23 04/22/18 17:34 04/22/18 17:34 04/22/18 17:34 04/22/18 15:00 Intake and Output: 04/22/18 04/22/18 06:59 18:59 Intake Total 850 325 Balance 850 325 - Medications Medications: Current Medications Acetaminophen (Tylenol 325mg Tab) 650 mg PO Q6 PRN PRN Reason: Fever >100.4 F Last Admin: 04/22/18 18:23 Dose: 650 mg Famotidine (Pepcid) 20 mg PO BID [facility] Last Admin: 04/22/18 17:17 Dose: 20 mg Folic Acid (Folic Acid) 1 mg PO DAILY [facility] Last Admin: 04/22/18 09:36 Dose: 1 mg Sodium Chloride (Sodium Chloride 0.9%) 1,000 mls @ 100 mls/hr IV .Q10H [facility] Last Admin: 04/22/18 10:00 Dose: Not Given Metronidazole (Flagyl) 500 mg in 100 mls @ 100 mls/hr IVPB Q8H [facility] PRN Reason: Protocol Stop: 04/27/18 15:31 Last Admin: 04/22/18 14:37 Dose: 100 mls/hr Vancomycin/Sodium Chloride (Vancomycin 1 Gm/Ns 200 Ml) 1 gm in 200 mls @ 133 mls/hr IVPB Q12H [facility] PRN Reason: Protocol Stop: 04/27/18 18:01 Last Admin: 04/22/18 17:17 Dose: 133 mls/hr Ketorolac Tromethamine (Toradol) 15 mg IVP Q6 PRN PRN Reason: Pain, severe (8-10) Last Admin: 04/21/18 22:13 Dose: 15 mg Megestrol Acetate (Megace) 400 mg PO DAILY [facility] Last Admin: 04/22/18 09:36 Dose: 400 mg Metoclopramide HCl (Reglan) 10 mg IVP ACHS PRN PRN Reason: Nausea/Vomiting Last Admin: 04/19/18 14:46 Dose: 10 mg Multivitamins (Hexavitamin) 1 tab PO DAILY [facility] Last Admin: 04/22/18 09:36 Dose: 1 tab Ondansetron HCl (Zofran Tab) 4 mg PO Q6 PRN PRN Reason: Nausea/Vomiting Thiamine HCl (Vitamin B1 Tab) 100 mg PO DAILY [facility] Last Admin: 04/22/18 09:36 Dose: 100 mg - Labs Labs: 04/22/18 05:08 04/22/18 05:08 PT 13.3 SECONDS (9.7-12.2) H 04/17/18 06:10 INR 1.2 04/17/18 06:10 APTT 32 SECONDS (21-34) 04/17/18 06:10 Attending/Attestation - Attestation I have personally seen and examined this patient.: Yes I have fully participated in the care of the patient.: Yes I have reviewed all pertinent clinical information, including history, physical exam and plan: Yes Notes (Text): 04/22/18 18:36 Medical attending: Patient was seen and examined by me and the biomedical photographer , I reviewed the above note by the biomedical photographer and agree with the above note. Unfortunately the patient continues to have lower quadrant abdominal discomfort. She reports both nausea as well as lower abdominal tenderness. I realized that she had a CAT scan just 2 months ago, and a repeat CAT scan of the abdomen and pelvis with contrast just to see if there is any large changes from before. Hgb also continues to be low and decreased again this morning. Will transfuse two units of PRBC. Recheck also stool for occult blood. thank you Devin Green
[2018-04-22] MEDS: metroNIDAZOLE IV 500 mg/100 ml 500 MG/100 ML BAG IVPB SCH ×3 (07:05→22:41)
--- NOTE | 2018-04-22 09:19 | CP.PCM.PN ---
Subjective - Date & Time of Evaluation Date of Evaluation: 04/21/18 Time of Evaluation: 17:00 - Subjective Subjective: Feeling better but still weak s/p Granix today. Objective - Vital Signs/Intake and Output Vital Signs (last 24 hours): Temp Pulse Resp BP Pulse Ox 97.8 F 96 H 20 96/60 L 99 04/22/18 08:18 04/22/18 08:46 04/22/18 08:18 04/22/18 08:18 04/22/18 08:18 Intake and Output: 04/22/18 04/22/18 06:59 18:59 Intake Total 850 Balance 850 - Medications Medications: Current Medications Acetaminophen (Tylenol 325mg Tab) 650 mg PO Q6 PRN PRN Reason: Fever >100.4 F Last Admin: 04/18/18 05:19 Dose: 650 mg Famotidine (Pepcid) 20 mg PO BID [facility] Last Admin: 04/21/18 17:20 Dose: 20 mg Folic Acid (Folic Acid) 1 mg PO DAILY [facility] Last Admin: 04/21/18 09:12 Dose: 1 mg Sodium Chloride (Sodium Chloride 0.9%) 1,000 mls @ 100 mls/hr IV .Q10H [facility] Last Admin: 04/22/18 00:29 Dose: Not Given Cefepime HCl (Maxipime Iv 2 Gm Premix) 2 gm in 100 mls @ 100 mls/hr IVPB Q8H [facility] PRN Reason: Protocol Stop: 04/22/18 15:31 Last Admin: 04/22/18 00:25 Dose: 100 mls/hr Metronidazole (Flagyl) 500 mg in 100 mls @ 100 mls/hr IVPB Q8H [facility] PRN Reason: Protocol Stop: 04/27/18 15:31 Last Admin: 04/22/18 07:05 Dose: 100 mls/hr Ketorolac Tromethamine (Toradol) 15 mg IVP Q6 PRN PRN Reason: Pain, severe (8-10) Last Admin: 04/21/18 22:13 Dose: 15 mg Megestrol Acetate (Megace) 400 mg PO DAILY [facility] Last Admin: 04/21/18 09:11 Dose: 400 mg Metoclopramide HCl (Reglan) 10 mg IVP ACHS PRN PRN Reason: Nausea/Vomiting Last Admin: 04/19/18 14:46 Dose: 10 mg Multivitamins (Hexavitamin) 1 tab PO DAILY [facility] Last Admin: 04/21/18 09:12 Dose: 1 tab Ondansetron HCl (Zofran Tab) 4 mg PO Q6 PRN PRN Reason: Nausea/Vomiting Thiamine HCl (Vitamin B1 Tab) 100 mg PO DAILY [facility] Last Admin: 04/21/18 09:12 Dose: 100 mg - Labs Labs: 04/22/18 05:08 04/22/18 05:08 PT 13.3 SECONDS (9.7-12.2) H 04/17/18 06:10 INR 1.2 04/17/18 06:10 APTT 32 SECONDS (21-34) 04/17/18 06:10 - Head Exam Head Exam: ATRAUMATIC - Eye Exam Eye Exam: Normal appearance - ENT Exam ENT Exam: Mucous Membranes Dry - Respiratory Exam Respiratory Exam: NORMAL BREATHING PATTERN - Cardiovascular Exam Cardiovascular Exam: +S1, +S2 - GI/Abdominal Exam GI & Abdominal Exam: Normal Bowel Sounds Assessment and Plan (1) Pancytopenia Assessment & Plan: secondary to radiation Granix given today for worsening neutropenia recommend 2U PRBC for anemia transfuse plt if < 20,000 Status: Acute (2) Diffuse large B cell lymphoma Assessment & Plan: stage IV and recurrent s/p several lines of chemotherapy and recent palliative radiation supportive care pt thinking about if she wants further therapy Status: Chronic
[2018-04-22] MEDS: Megestrol Acetate 40 mg/ml Cup PO SCH (09:36)
[2018-04-22] MEDS: Multiple Vitamins Tab PO SCH (09:36)
--- NOTE | 2018-04-22 19:02 | CP.PCM.PN ---
Subjective - Date & Time of Evaluation Date of Evaluation: 04/22/18 Time of Evaluation: 08:00 - Subjective Subjective: cefepime reordered Objective - Vital Signs/Intake and Output Vital Signs (last 24 hours): Temp Pulse Resp BP Pulse Ox 100.8 F H 102 H 20 103/70 98 04/22/18 18:23 04/22/18 17:34 04/22/18 17:34 04/22/18 17:34 04/22/18 15:00 Intake and Output: 04/22/18 04/23/18 18:59 06:59 Intake Total 325 Balance 325 - Medications Medications: Current Medications Acetaminophen (Tylenol 325mg Tab) 650 mg PO Q6 PRN PRN Reason: Fever >100.4 F Last Admin: 04/22/18 18:23 Dose: 650 mg Famotidine (Pepcid) 20 mg PO BID [facility] Last Admin: 04/22/18 17:17 Dose: 20 mg Folic Acid (Folic Acid) 1 mg PO DAILY [facility] Last Admin: 04/22/18 09:36 Dose: 1 mg Sodium Chloride (Sodium Chloride 0.9%) 1,000 mls @ 100 mls/hr IV .Q10H [facility] Last Admin: 04/22/18 10:00 Dose: Not Given Metronidazole (Flagyl) 500 mg in 100 mls @ 100 mls/hr IVPB Q8H ZAN PRN Reason: Protocol Stop: 04/27/18 15:31 Last Admin: 04/22/18 14:37 Dose: 100 mls/hr Vancomycin/Sodium Chloride (Vancomycin 1 Gm/Ns 200 Ml) 1 gm in 200 mls @ 133 mls/hr IVPB Q12H ZAN PRN Reason: Protocol Stop: 04/27/18 18:01 Last Admin: 04/22/18 17:17 Dose: 133 mls/hr Cefepime HCl (Maxipime Iv 2 Gm Premix) 2 gm in 100 mls @ 200 mls/hr IVPB Q8H ZAN PRN Reason: Protocol Stop: 04/27/18 19:16 Ketorolac Tromethamine (Toradol) 15 mg IVP Q6 PRN PRN Reason: Pain, severe (8-10) Last Admin: 04/21/18 22:13 Dose: 15 mg Megestrol Acetate (Megace) 400 mg PO DAILY [facility] Last Admin: 04/22/18 09:36 Dose: 400 mg Metoclopramide HCl (Reglan) 10 mg IVP ACHS PRN PRN Reason: Nausea/Vomiting Last Admin: 04/19/18 14:46 Dose: 10 mg Multivitamins (Hexavitamin) 1 tab PO DAILY [facility] Last Admin: 04/22/18 09:36 Dose: 1 tab Ondansetron HCl (Zofran Tab) 4 mg PO Q6 PRN PRN Reason: Nausea/Vomiting Thiamine HCl (Vitamin B1 Tab) 100 mg PO DAILY [facility] Last Admin: 04/22/18 09:36 Dose: 100 mg - Labs Labs: 04/22/18 05:08 04/22/18 05:08 PT 13.3 SECONDS (9.7-12.2) H 04/17/18 06:10 INR 1.2 04/17/18 06:10 APTT 32 SECONDS (21-34) 04/17/18 06:10 Assessment and Plan (1) Fever Status: Acute (2) Neutropenic fever Status: Acute (3) B-cell lymphoma Status: Acute
[2018-04-23] MEDS: Cefepime IV 2 gm in Dextrose 2 GM/100 ML BAG IVPB SCH ×3 (00:47→16:51)
[2018-04-23] MEDS: Vancomycin 1 gm/NS 200 ml 1 GM/200 ML BAG IVPB SCH ×2 (06:32→18:03)
[2018-04-23 07:55] LABS: BASO % 0.8 % (0.0-2.0); EOS # 0.1 K/uL (0.0-0.7); EOS % 2.6 % (0.0-4.0); LYMPH # 0.3 K/uL (1.0-4.3); LYMPH % 8.4 % (20.0-40.0); MEAN CORPUSCULAR HEMOGLOBIN 28.4 pg (27.0-31.0); MEAN CORPUSCULAR HGB CONC 33.8 g/dL (33.0-37.0); MEAN PLATELET VOLUME 10.1 fL (7.2-11.7); MONO # 0.5 K/uL (0.0-0.8); NEUT # 3.1 K/uL (1.8-7.0); NEUT % 77.2 % (50.0-75.0); NRBC % 0.1 % (0.0-2.0); PLATELET COUNT 44 K/uL (130-400); RBC 3.39 Mil/uL (3.80-5.20); RED CELL DISTRIBUTION WIDTH 18.1 % (11.5-14.5)
[2018-04-23 08:03] LABS: HEMOGLOBIN 9.6 g/dL (11.0-16.0); WHITE BLOOD COUNT 4.1 K/uL (4.8-10.8)
[2018-04-23 08:16] LABS: ALBUMIN 2.5 g/dL (3.5-5.0); ALT/SGPT 27 U/L (9-52); AST/SGOT 45 U/L (14-36); BLOOD UREA NITROGEN 10 mg/dL (7-17); CALCIUM 8.5 mg/dl (8.6-10.4); GFR NON-AFRICAN AMERICAN > 60
[2018-04-23] MEDS: metroNIDAZOLE IV 500 mg/100 ml 500 MG/100 ML BAG IVPB SCH ×3 (08:34→22:52)
--- NOTE | 2018-04-23 09:45 | CP.PCM.PN ---
Subjective - Date & Time of Evaluation Date of Evaluation: 04/23/18 Time of Evaluation: 09:00 - Subjective Subjective: Patient continues to report lower abdominal area discomfort The patient reported relief with the IV toradol, suggested adding on oxycontin extended release however patient explains she does not want that. Denied shortness of breath, denied palpitations Appetite remains very very poor. Nausea from time to time. Last night had two units of PRBCs. Continues to be on IV abx Pending new CT of the abdomen and pelivis. Pending stool to check for blood Objective - Vital Signs/Intake and Output Vital Signs (last 24 hours): Temp Pulse Resp BP Pulse Ox 99.8 F H 103 H 20 93/61 L 99 04/23/18 07:00 04/23/18 07:00 04/23/18 07:00 04/23/18 07:00 04/23/18 07:00 Intake and Output: 04/23/18 04/23/18 06:59 18:59 Intake Total 325 Balance 325 - Medications Medications: Current Medications Acetaminophen (Tylenol 325mg Tab) 650 mg PO Q6 PRN PRN Reason: Fever >100.4 F Last Admin: 04/22/18 18:23 Dose: 650 mg Famotidine (Pepcid) 20 mg PO BID [facility] Last Admin: 04/22/18 17:17 Dose: 20 mg Folic Acid (Folic Acid) 1 mg PO DAILY [facility] Last Admin: 04/22/18 09:36 Dose: 1 mg Sodium Chloride (Sodium Chloride 0.9%) 1,000 mls @ 100 mls/hr IV .Q10H [facility] Last Admin: 04/22/18 20:12 Dose: 100 mls/hr Metronidazole (Flagyl) 500 mg in 100 mls @ 100 mls/hr IVPB Q8H ZAN PRN Reason: Protocol Stop: 04/27/18 15:31 Last Admin: 04/23/18 08:34 Dose: 100 mls/hr Vancomycin/Sodium Chloride (Vancomycin 1 Gm/Ns 200 Ml) 1 gm in 200 mls @ 133 mls/hr IVPB Q12H [facility]AN PRN Reason: Protocol Stop: 04/27/18 18:01 Last Admin: 04/23/18 06:32 Dose: 133 mls/hr Cefepime HCl (Maxipime Iv 2 Gm Premix) 2 gm in 100 mls @ 200 mls/hr IVPB Q8H ZAN PRN Reason: Protocol Stop: 04/28/18 00:01 Last Admin: 04/23/18 08:34 Dose: 200 mls/hr Ketorolac Tromethamine (Toradol) 15 mg IVP Q6 PRN PRN Reason: Pain, severe (8-10) Last Admin: 04/21/18 22:13 Dose: 15 mg Megestrol Acetate (Megace) 400 mg PO DAILY [facility] Last Admin: 04/22/18 09:36 Dose: 400 mg Metoclopramide HCl (Reglan) 10 mg IVP ACHS PRN PRN Reason: Nausea/Vomiting Last Admin: 04/22/18 19:52 Dose: 10 mg Multivitamins (Hexavitamin) 1 tab PO DAILY [facility] Last Admin: 04/22/18 09:36 Dose: 1 tab Ondansetron HCl (Zofran Tab) 4 mg PO Q6 PRN PRN Reason: Nausea/Vomiting Oxycodone HCl (Oxycontin Extended Release Tab) 10 mg PO Q12 [facility] Stop: 04/26/18 10:01 Thiamine HCl (Vitamin B1 Tab) 100 mg PO DAILY [facility] Last Admin: 04/22/18 09:36 Dose: 100 mg - Labs Labs: 04/23/18 07:40 04/23/18 07:40 PT 13.3 SECONDS (9.7-12.2) H 04/17/18 06:10 INR 1.2 04/17/18 06:10 APTT 32 SECONDS (21-34) 04/17/18 06:10 - Constitutional Appears: Unkempt, Cachectic, Chronically Ill - Head Exam Head Exam: NORMAL INSPECTION - Eye Exam Eye Exam: EOMI, Normal appearance - ENT Exam ENT Exam: Mucous Membranes Moist - Respiratory Exam Respiratory Exam: Clear to Ausculation Bilateral, NORMAL BREATHING PATTERN - Cardiovascular Exam Cardiovascular Exam: REGULAR RHYTHM - GI/Abdominal Exam GI & Abdominal Exam: Soft, Tenderness Additional comments: tenderness is mostly in the lower quadrants - Neurological Exam Neurological Exam: Alert, Awake, Oriented x3 Neuro motor strength exam: Left Upper Extremity: 4, Right Upper Extremity: 4 - Psychiatric Exam Psychiatric exam: Depressed, Flat Affect - Skin Skin Exam: Normal Color, Pallor Assessment and Plan - Assessment and Plan (Free Text) Assessment: 52 yo F with PMHx of 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 Has not had chemotherapy for 1.5 months. Plan: Fever with neutroenia 04/23: TMAX was 102 last night, maybe from the blood transfusion. She remains on IV Cefepime, IV Vancomycin, IV Flagyl. Blood pressure remains in the systolic 90s and on IVF -VBG lactate 0.9; procalcitonin 0.17L -NS @100cc/hr -BCx (04/17): no growth -Ucx: multiple spp, likely contamination -Ucx 04/17: contamination; Ucx 04/18: no growth -stool cx (04/17): no ova; stool cx (04/19): no growth -f/u sputum cx -ID recs (Dr. Mejia) appreciated -continue IV rx for minimum 7 days Medications: -NS @100cc/hr -Vancomcyin 750mg Q12H IVPB-->Vancomycin 1000 mg q12H IVPB (04/19) -Cephepime 2gm IVPB q8H -Flagyl 500mg IVPB Q8H -Reglan 10 mg IVP ACHS PRN -Zofran 4 mg PO q6H PRN -Thiamine 100 mg PO daily -Folic acid 1 mg PO daily -Multivitamin 1 tab PO daily -0.9 NS @ 100cc/hr Pancytopenia 04/23: WBC now 4, she recived SC granix. Continue to monitor. -WBC 2.4 (04/22); on admission WBC 1.1 (04/17) -ANC 2167 04/22 -Granix 480 mcg SC x1 per Dr Velez -can give granix if ANC < 500, per Dr. Velez -continue to monitor labs B-Cell Lymphoma 04/23: Pending a new CT scan of the abdomen and pelvis. - new R inferior cervical lymph node palpated measuring 1x1cm - Toradol 15mg IVP Q6H PRN pain - prior admission CT chest/abd/pelvis showed lymphadenopathy, B/L axillary, periaortic, abdominal and retroperitoneal, increased in size. - F/u 04/22 CT for continued abdominal pain -f/u Heme/Onc recs (Dr. Velez) -spoke with Dr. Velez on the phone--Can give Granix if ANC < 500 -Granix 480 mcg SC x1 given 04/21 & 04/22 Epigastric abdominal pain -amylase/lipase: <30/<10 -abdominal CT (03/01/2018): pancreas unremarkable; interval increase in the size of b/l axillary lymphadenopathy, interval increase in the size of the upper abdomen, periaortic, retroperitoneal lymphadenopathy - F/u CT ab/pelvis (04/22) Anemia 04/23: Hgb now 9.6 after blood transfusion overnight. Rechecking for occult blood , also LDH, haptoglobin. -occult stool negative (04/19) -F/u repeat occult stool (04/22) -transfuse PRBC X 2 on (04/22) Hypotension 04/23: Per previous notes her blood pressure is usually in the mid systolic 90s. At this time continue with IVF since her PO intake is so poor. Diarrhea -c diff negative -NS @100cc/hr Ppx, Diet, Disposition -pepcid 20mg IVP BID -VTE prophylaxis C/I 2/2 pancytopenia -SCDs -regular diet
[2018-04-23] MEDS: Multiple Vitamins Tab PO SCH (10:18)
[2018-04-23] MEDS: Megestrol Acetate 40 mg/ml Cup PO SCH (10:18)
[2018-04-23] MEDS: oxyCODONE 10 mg ER Tab (oxyCONTIN) PO SCH ×2 (10:19→22:50)
[2018-04-23 11:12] LABS: HCG,QUALITATIVE URINE NEGATIVE (NEGATIVE)
[2018-04-23 11:15] LABS: BANDS 13 % (0-2); LYMPHOCYTE 8 % (20-40); MONOCYTE 13 % (0-10); NEUTROPHIL 66 % (50-75); PLATELET ESTIMATE DECREASED (NORMAL); TOTAL CELLS COUNTED 100
[2018-04-23 11:35] LABS: ANISOCYTOSIS MODERATE
[2018-04-23 11:36] LABS: HYPOCHROMIC SLIGHT; LARGE PLATELETS PRESENT; OVALOCYTES SLIGHT; POIKILOCYTOSIS SLIGHT; POLYCHROMIC SLIGHT; SCHISTOCYTES SLIGHT; TOXIC GRANULATION PRESENT
[2018-04-23] MEDS ORDERED: Iodixanol 320 MG/ML 100 ML BOTTLE IV ONE (11:42)
[2018-04-23] MEDS ORDERED: Magnesium Sulfate 1 gm in D5W 1 GM/100 ML BAG IVPB ONE (12:00)
[2018-04-23] MEDS: Potassium & Sodium Phosphate PO SCH ×3 (12:06→18:03)
[2018-04-23] MEDS: Potassium Chloride 20 mEq/15 ml LIQ UD PO SCH ×4 (12:18→19:45)
[2018-04-23] MEDS: Sodium Chloride 0.9% 1,000 ML IV SCH (15:47)
--- NOTE | 2018-04-23 15:59 | CT ---
Date of service: 04/23/2018 PROCEDURE: CT Abdomen and Pelvis with contrast HISTORY: Abdominal pain COMPARISON: 03/01/2018. TECHNIQUE: CT scan of the abdomen and pelvis was performed after administration of intravenous contrast. Oral contrast was not administered. Coronal and sagittal reformatted images were obtained. Contrast dose: 100 mL Visipaque Radiation dose: Total exam DLP = 206.64 mGy-cm. This CT exam was performed using one or more of the following dose reduction techniques: Automated exposure control, adjustment of the mA and/or kV according to patient size, and/or use of iterative reconstruction technique. FINDINGS: LOWER THORAX: There is subsegmental atelectasis in the lower lobes. LIVER: Mild hepatomegaly. Homogeneous enhancement in the liver. No gross lesion or ductal dilatation. GALLBLADDER AND BILE DUCTS: No calcified gallstones. PANCREAS: Normal in size with homogeneous enhancement. No gross lesion or ductal dilatation. SPLEEN: Mild splenomegaly. Stable 1.3 cm low-density lesion in the peripheral lower pole of the spleen. ADRENALS: No discrete nodule mass. KIDNEYS AND URETERS: Normal in size with homogeneous enhancement. No hydronephrosis. No solid mass. VASCULATURE: No aortic aneurysm. BOWEL: The small bowel loops are normal in caliber. There is moderate amount of stool in the colon. APPENDIX: Normal appendix. PERITONEUM: There is interval development of a 8.0 x 5.8 x 8.3 cm cystic mass with peripheral enhancement in the midline lower abdomen and pelvis. No free fluid. No free air. LYMPH NODES: There is interval decrease in size of complimentary it upper abdominal and retroperitoneal lymph nodes, the largest in the upper abdomen anterior to the celiac axis measures 4.0 x 2.6 cm. BLADDER: Unremarkable. REPRODUCTIVE: The uterus is surgically absent. BONES: No acute fracture. Within normal limits for the patient's age with OTHER FINDINGS: None. IMPRESSION: 1. Findings are concerning for development of 8.0 x 5.8 x 8.3 cm midline abdominal and pelvic complex fluid collection/abscess. 2. Interval decrease in size of upper abdominal and retroperitoneal lymph nodes, the largest upper abdominal lymph node mass now measures 4.0 x 2.6 cm. Important findings were discussed with Dr. Devin Green on 04/23/2018 after the scan was performed.
--- NOTE | 2018-04-23 20:28 | CP.PCM.CON ---
<Simba Bender - Last Filed: 04/23/18 20:44> History of Present Illness - History of Present Illness History of Present Illness: General Surgery Consult: Dr Trinidad Pt is a 52F with history of Stage IV diffuse large B-cell lymphoma s/p radiation. Pt brought to ED by family because she has been having fevers, chills, nausea and vomiting. Family reports this has been going on for several days and pt has been unable to eat. Pt has been febrile Tmax 102.3 since admission. Work-up demonstrated neutropenia, anemia, and an [id number] abscess in the low pelvis. Surgery was consulted for evaluation. PMHx: stage IV diffuse large B-cell lymphoma PSH: ; Biopsy from back; Chemotherapy Port (right supraclavicular) Allergies: NKDA Medications: Chemotherapy, Tylenol prn pain FH: Denies SH: Denies smoking, alcohol use, and illicit drug use. Previously worked in a [employer] and was laid off 6 months ago. Single and living with her son-in-law and daughter in an apartment. Review of Systems - Review of Systems All systems: reviewed and no additional remarkable complaints except (as per hpi) Past Patient History - Infectious Disease Hx of Infectious Diseases: None - Past Medical History & Family History Past Medical History?: Yes - Past Social History Smoking Status: Never Smoked - CARDIAC Hx Cardiac Disorders: Yes - PULMONARY Hx Respiratory Disorders: No - NEUROLOGICAL Hx Neurological Disorder: Yes Other/Comment: headaches - HEENT Hx HEENT Problems: Yes Other/Comment: HX: HYPERTROPIC TONSILS. HX: SORE THROATS "FOR MONTHS" - RENAL Hx Chronic Kidney Disease: No - ENDOCRINE/METABOLIC Hx Endocrine Disorders: No - HEMATOLOGICAL/ONCOLOGICAL Hx Blood Disorders: Yes Hx Cancer: Yes (LYMPHOMA) Hx Chemotherapy: Yes - INTEGUMENTARY Hx Dermatological Problems: Yes Other/Comment: HX: RIGHT AXILLARY MASS - MUSCULOSKELETAL/RHEUMATOLOGICAL Hx Arthritis: Yes - GASTROINTESTINAL Hx Gastrointestinal Disorders: Yes HX Swallowing Problems: Yes - GENITOURINARY/GYNECOLOGICAL Hx Genitourinary Disorders: No - PSYCHIATRIC Hx Anxiety: Yes Hx Substance Use: No - SURGICAL HISTORY Hx Tonsillectomy: Yes - ANESTHESIA Hx Anesthesia: Yes Hx Anesthesia Reactions: Yes (02/15/17 dizziness) Hx Malignant Hyperthermia: No Meds Allergies/Adverse Reactions: Allergies Allergy/AdvReac Type Severity Reaction Status Date / Time No Known Allergies Allergy Verified 04/17/18 05:52 - Medications Medications: Current Medications Acetaminophen (Tylenol 325mg Tab) 650 mg PO Q6 PRN PRN Reason: Fever >100.4 F Last Admin: 04/22/18 18:23 Dose: 650 mg Famotidine (Pepcid) 20 mg PO BID [facility] Last Admin: 04/23/18 18:03 Dose: 20 mg Folic Acid (Folic Acid) 1 mg PO DAILY [facility] Last Admin: 04/23/18 10:18 Dose: 1 mg Sodium Chloride (Sodium Chloride 0.9%) 1,000 mls @ 100 mls/hr IV .Q10H [facility] Last Admin: 04/23/18 15:47 Dose: 100 mls/hr Metronidazole (Flagyl) 500 mg in 100 mls @ 100 mls/hr IVPB Q8H ZAN PRN Reason: Protocol Stop: 04/27/18 15:31 Last Admin: 04/23/18 15:46 Dose: 100 mls/hr Vancomycin/Sodium Chloride (Vancomycin 1 Gm/Ns 200 Ml) 1 gm in 200 mls @ 133 mls/hr IVPB Q12H ZAN PRN Reason: Protocol Stop: 04/27/18 18:01 Last Admin: 04/23/18 18:03 Dose: 133 mls/hr Cefepime HCl (Maxipime Iv 2 Gm Premix) 2 gm in 100 mls @ 200 mls/hr IVPB Q8H ZAN PRN Reason: Protocol Stop: 04/28/18 00:01 Last Admin: 04/23/18 16:51 Dose: 200 mls/hr Ketorolac Tromethamine (Toradol) 15 mg IVP Q6 PRN PRN Reason: Pain, severe (8-10) Last Admin: 04/21/18 22:13 Dose: 15 mg Megestrol Acetate (Megace) 400 mg PO DAILY [facility] Last Admin: 04/23/18 10:18 Dose: 400 mg Metoclopramide HCl (Reglan) 10 mg IVP ACHS PRN PRN Reason: Nausea/Vomiting Last Admin: 04/22/18 19:52 Dose: 10 mg Multivitamins (Hexavitamin) 1 tab PO DAILY [facility] Last Admin: 04/23/18 10:18 Dose: 1 tab Ondansetron HCl (Zofran Tab) 4 mg PO Q6 PRN PRN Reason: Nausea/Vomiting Oxycodone HCl (Oxycontin Extended Release Tab) 10 mg PO Q12 [facility] Stop: 04/26/18 10:01 Last Admin: 04/23/18 10:19 Dose: Not Given Potassium Phos/Sodium Phos (Neutra-Phos) 1 pkt PO TID [facility] Stop: 04/24/18 12:01 Last Admin: 04/23/18 18:03 Dose: 1 pkt Thiamine HCl (Vitamin B1 Tab) 100 mg PO DAILY [facility] Last Admin: 04/23/18 10:18 Dose: 100 mg Physical Exam - Constitutional Appears: Non-toxic - ENT Exam ENT Exam: Mucous Membranes Moist - Respiratory Exam Respiratory Exam: absent: Respiratory Distress - Cardiovascular Exam Cardiovascular Exam: REGULAR RHYTHM. absent: Tachycardia - GI/Abdominal Exam GI & Abdominal Exam: Soft, Tenderness (supra-pubic). absent: Distended, Firm, Guarding - Rectal Exam Rectal Exam: Deferred - Extremities Exam Extremities exam: Negative for: pedal edema Results - Vital Signs Recent Vital Signs: Last Vital Signs Temp 98.9 F 04/23/18 15:00 Pulse 92 H 04/23/18 17:13 Resp 20 04/23/18 15:00 BP 92/57 L 04/23/18 15:00 Pulse Ox 99 04/23/18 15:00 - Labs Result Diagrams: 04/23/18 07:40 04/23/18 07:40 Labs: Laboratory Results - last 24 hr 04/23/18 04/23/18 04/23/18 07:40 07:40 11:02 WBC 4.1 L D RBC 3.39 L Hgb 9.6 L D Hct 28.5 L MCV 84.0 MCH 28.4 MCHC 33.8 RDW 18.1 H Plt Count 44 L MPV 10.1 Neut % (Auto) 77.2 H Lymph % (Auto) 8.4 L [place] % (Auto) 11.0 H Eos % (Auto) 2.6 Baso % (Auto) 0.8 Neut # (Auto) 3.1 Lymph # (Auto) 0.3 L [place] # (Auto) 0.5 Eos # (Auto) 0.1 Baso # (Auto) 0.0 Neutrophils % (Manual) 66 Band Neutrophils % 13 H* Lymphocytes % (Manual) 8 L Monocytes % (Manual) 13 H Toxic Granulation Present Platelet Estimate Decreased L Large Platelets Present Polychromasia Slight Hypochromasia (manual) Slight Poikilocytosis (manual Slight Anisocytosis (manual) Moderate Ovalocytes Slight Schistocytes Slight Haptoglobin Sodium 137 Potassium 3.3 L Chloride 108 H Carbon Dioxide 19 L Anion Gap 13 BUN 10 Creatinine 0.3 L Est GFR ( Amer) > 60 Est GFR (Non-Af Amer) > 60 Random Glucose 99 Calcium 8.5 L Phosphorus 2.1 L Magnesium 2.0 Total Bilirubin 2.6 H AST 45 H D ALT 27 Alkaline Phosphatase 97 Lactate Dehydrogenase Total Protein 5.0 L Albumin 2.5 L Globulin 2.6 Albumin/Globulin Ratio 1.0 Urine HCG, Qual Negative Stool Occult Blood Clerical Work Check Pre-Trans Vis Hemolysis Post-Tx Visible Hemolys 04/23/18 04/23/18 04/23/18 14:22 14:22 15:57 WBC RBC Hgb Hct MCV MCH MCHC RDW Plt Count MPV Neut % (Auto) Lymph % (Auto) [place] % (Auto) Eos % (Auto) Baso % (Auto) Neut # (Auto) Lymph # (Auto) [place] # (Auto) Eos # (Auto) Baso # (Auto) Neutrophils % (Manual) Band Neutrophils % Lymphocytes % (Manual) Monocytes % (Manual) Toxic Granulation Platelet Estimate Large Platelets Polychromasia Hypochromasia (manual) Poikilocytosis (manual Anisocytosis (manual) Ovalocytes Schistocytes Haptoglobin < 20.0 L Sodium Potassium Chloride Carbon Dioxide Anion Gap BUN Creatinine Est GFR ( Amer) Est GFR (Non-Af Amer) Random Glucose Calcium Phosphorus Magnesium Total Bilirubin AST ALT Alkaline Phosphatase Lactate Dehydrogenase 955 H Total Protein Albumin Globulin Albumin/Globulin Ratio Urine HCG, Qual Stool Occult Blood Negative Clerical Work Check Pre-Trans Vis Hemolysis Post-Tx Visible Hemolys 04/23/18 19:25 WBC RBC Hgb Hct MCV MCH MCHC RDW Plt Count MPV Neut % (Auto) Lymph % (Auto) [place] % (Auto) Eos % (Auto) Baso % (Auto) Neut # (Auto) Lymph # (Auto) [place] # (Auto) Eos # (Auto) Baso # (Auto) Neutrophils % (Manual) Band Neutrophils % Lymphocytes % (Manual) Monocytes % (Manual) Toxic Granulation Platelet Estimate Large Platelets Polychromasia Hypochromasia (manual) Poikilocytosis (manual Anisocytosis (manual) Ovalocytes Schistocytes Haptoglobin Sodium Potassium Chloride Carbon Dioxide Anion Gap BUN Creatinine Est GFR ( Amer) Est GFR (Non-Af Amer) Random Glucose Calcium Phosphorus Magnesium Total Bilirubin AST ALT Alkaline Phosphatase Lactate Dehydrogenase Total Protein Albumin Globulin Albumin/Globulin Ratio Urine HCG, Qual Stool Occult Blood Clerical Work Check No discrepancy Pre-Trans Vis Hemolysis No hemolysis Post-Tx Visible Hemolys No hemolysis Assessment & Plan - Assessment and Plan (Free Text) Assessment: 52F w/ diffuse B-cell lymphoma now with intra-abdominal pelvic abscess Plan: neutropenic precautions IV abx as per ID recommend IR drainage will d/w Dr Amos Bender, PGY4 <Nils Trinidad - Last Filed: 05/01/18 19:11> Results - Vital Signs Recent Vital Signs: Last Vital Signs Temp 99.5 F 04/27/18 15:00 Pulse 99 H 04/27/18 15:00 Resp 20 04/27/18 15:00 BP 92/53 L 04/27/18 15:00 Pulse Ox 98 04/27/18 15:00 - Labs Result Diagrams: 04/27/18 07:23 04/27/18 07:23 Attending/Attestation - Attestation I have personally seen and examined this patient.: Yes I have fully participated in the care of the patient.: Yes I have reviewed all pertinent clinical information: Yes Notes (Text): Pt was seen and examine at bedside Agree with above note and assessment Pt with diffuse B cell lymphoma and Neutropenia CT scan findings of possible pelvic abscess Abdomen: Soft, NT , ND Labs and Radiology reviewed Ass: Possible pelvic abscess Plan: ID consult IR consult for drainage IV antibiotics NPO, IVF c.w current mx Plan d.w pt in detail Risk and benefit explained in detail
[2018-04-23 21:07] LABS: SQUAMOUS EPITHIAL < 1 /hpf (0-5); URINE BACTERIA RARE (<OCC); URINE BILIRUBIN NEGATIVE (NEGATIVE); URINE BLOOD NEGATIVE (NEGATIVE); URINE CLARITY Clear (Clear); URINE COLOR Yellow (YELLOW); URINE GLUCOSE (UA) NORMAL (Normal); URINE LEUKOCYTE ESTERASE NEG Leu/uL (Negative); URINE PROTEIN NEGATIVE (NEGATIVE); URINE UROBILINOGEN NORMAL mg/dL (0.2-1.0)
[2018-04-24] MEDS: Cefepime IV 2 gm in Dextrose 2 GM/100 ML BAG IVPB SCH ×4 (00:04→23:51)
[2018-04-24] MEDS: Sodium Chloride 0.9% 1,000 ML IV SCH ×4 (02:00→22:35)
[2018-04-24] MEDS: Vancomycin 1 gm/NS 200 ml 1 GM/200 ML BAG IVPB SCH ×2 (05:02→18:33)
[2018-04-24] MEDS: metroNIDAZOLE IV 500 mg/100 ml 500 MG/100 ML BAG IVPB SCH ×3 (06:48→22:35)
--- NOTE | 2018-04-24 07:29 | CP.PCM.PN ---
<Simba Bender - Last Filed: 04/24/18 07:23> Subjective - Date & Time of Evaluation Date of Evaluation: 04/24/18 Time of Evaluation: 07:23 - Subjective Subjective: Gen Sx: Dr Trinidad Pt S&E. RAMON. Tolerating diet. Denies any fevers or chills since last night. Minimal abdominal pain but bearable. No N/V Objective - Vital Signs/Intake and Output Vital Signs (last 24 hours): Temp Pulse Resp BP Pulse Ox 99 F 90 20 94/56 L 99 04/23/18 23:50 04/24/18 00:05 04/23/18 23:50 04/23/18 23:50 04/23/18 23:50 Intake and Output: 04/24/18 04/24/18 06:59 18:59 Intake Total 2340 Balance 2340 - Medications Medications: Current Medications Acetaminophen (Tylenol 325mg Tab) 650 mg PO Q6 PRN PRN Reason: Fever >100.4 F Last Admin: 04/22/18 18:23 Dose: 650 mg Famotidine (Pepcid) 20 mg PO BID [facility] Last Admin: 04/23/18 18:03 Dose: 20 mg Folic Acid (Folic Acid) 1 mg PO DAILY [facility] Last Admin: 04/23/18 10:18 Dose: 1 mg Sodium Chloride (Sodium Chloride 0.9%) 1,000 mls @ 100 mls/hr IV .Q10H [facility] Last Admin: 04/24/18 02:00 Dose: Not Given Metronidazole (Flagyl) 500 mg in 100 mls @ 100 mls/hr IVPB Q8H [facility] PRN Reason: Protocol Stop: 04/27/18 15:31 Last Admin: 04/24/18 06:48 Dose: 100 mls/hr Vancomycin/Sodium Chloride (Vancomycin 1 Gm/Ns 200 Ml) 1 gm in 200 mls @ 133 mls/hr IVPB Q12H [facility] PRN Reason: Protocol Stop: 04/27/18 18:01 Last Admin: 04/24/18 05:02 Dose: 133 mls/hr Cefepime HCl (Maxipime Iv 2 Gm Premix) 2 gm in 100 mls @ 200 mls/hr IVPB Q8H [facility] PRN Reason: Protocol Stop: 04/28/18 00:01 Last Admin: 04/24/18 00:04 Dose: 200 mls/hr Ketorolac Tromethamine (Toradol) 15 mg IVP Q6 PRN PRN Reason: Pain, severe (8-10) Last Admin: 04/21/18 22:13 Dose: 15 mg Megestrol Acetate (Megace) 400 mg PO DAILY [facility] Last Admin: 04/23/18 10:18 Dose: 400 mg Metoclopramide HCl (Reglan) 10 mg IVP ACHS PRN PRN Reason: Nausea/Vomiting Last Admin: 04/22/18 19:52 Dose: 10 mg Multivitamins (Hexavitamin) 1 tab PO DAILY [facility] Last Admin: 04/23/18 10:18 Dose: 1 tab Ondansetron HCl (Zofran Tab) 4 mg PO Q6 PRN PRN Reason: Nausea/Vomiting Oxycodone HCl (Oxycontin Extended Release Tab) 10 mg PO Q12 [facility] Stop: 04/26/18 10:01 Last Admin: 04/23/18 22:50 Dose: Not Given Potassium Phos/Sodium Phos (Neutra-Phos) 1 pkt PO TID [facility] Stop: 04/24/18 12:01 Last Admin: 04/23/18 18:03 Dose: 1 pkt Thiamine HCl (Vitamin B1 Tab) 100 mg PO DAILY [facility] Last Admin: 04/23/18 10:18 Dose: 100 mg - Labs Labs: 04/23/18 07:40 04/23/18 07:40 PT 13.3 SECONDS (9.7-12.2) H 04/17/18 06:10 INR 1.2 04/17/18 06:10 APTT 32 SECONDS (21-34) 04/17/18 06:10 - Constitutional Appears: Non-toxic - Head Exam Head Exam: NORMAL INSPECTION - ENT Exam ENT Exam: Mucous Membranes Moist - Respiratory Exam Respiratory Exam: absent: Respiratory Distress - Cardiovascular Exam Cardiovascular Exam: REGULAR RHYTHM. absent: Tachycardia - GI/Abdominal Exam GI & Abdominal Exam: Soft, Mass (infra-umbilical). absent: Distended, Firm - Neurological Exam Neurological Exam: Alert, Awake Assessment and Plan - Assessment and Plan (Free Text) Assessment: 52F with stage IV lymphoma complicated by pelvic abscess Plan: for IR drainage tomorrow no plans for surgical intervention cont abx will d/w Dr Amos Bender, PGY4 <Nils Trinidad - Last Filed: 05/01/18 19:38> Objective - Vital Signs/Intake and Output Vital Signs (last 24 hours): Temp Pulse Resp BP Pulse Ox 99.5 F 99 H 20 92/53 L 98 04/27/18 15:00 04/27/18 15:00 04/27/18 15:00 04/27/18 15:00 04/27/18 15:00 - Labs Labs: 04/27/18 07:23 04/27/18 07:23 PT 15.0 SECONDS (9.7-12.2) H 04/25/18 04:13 INR 1.4 04/25/18 04:13 APTT 31 SECONDS (21-34) 04/25/18 04:13 Attending/Attestation - Attestation I have fully participated in the care of the patient.: Yes I have reviewed all pertinent clinical information, including history, physical exam and plan: Yes Notes (Text): Pt is improving clinically IR Drainage tomorrow IV antibiotics repeat Labs in am Plan d.w pt in detail
[2018-04-24 08:08] LABS: BASO % 0.6 % (0.0-2.0); EOS # 0.1 K/uL (0.0-0.7); EOS % 1.9 % (0.0-4.0); HEMOGLOBIN 9.2 g/dL (11.0-16.0); LYMPH # 0.3 K/uL (1.0-4.3); LYMPH % 9.3 % (20.0-40.0); MEAN CELL VOLUME 85.4 fL (81.0-99.0); MEAN CORPUSCULAR HEMOGLOBIN 28.5 pg (27.0-31.0); MEAN CORPUSCULAR HGB CONC 33.4 g/dL (33.0-37.0); MEAN PLATELET VOLUME 9.9 fL (7.2-11.7); MONO # 0.4 K/uL (0.0-0.8); MONO % 12.6 % (0.0-10.0); NEUT # 2.5 K/uL (1.8-7.0); NEUT % 75.6 % (50.0-75.0); NRBC % 0.3 % (0.0-2.0); PLATELET COUNT 43 K/uL (130-400); RBC 3.22 Mil/uL (3.80-5.20); RED CELL DISTRIBUTION WIDTH 19.1 % (11.5-14.5); WHITE BLOOD COUNT 3.3 K/uL (4.8-10.8)
[2018-04-24 08:24] LABS: ALBUMIN 2.7 g/dL (3.5-5.0); ALT/SGPT 26 U/L (9-52); AST/SGOT 34 U/L (14-36); BLOOD UREA NITROGEN 8 mg/dL (7-17); CALCIUM 8.9 mg/dl (8.6-10.4); GFR NON-AFRICAN AMERICAN > 60
[2018-04-24] MEDS: Multiple Vitamins Tab PO SCH (09:28)
[2018-04-24] MEDS: Potassium & Sodium Phosphate PO SCH ×4 (09:28→16:49)
[2018-04-24] MEDS: Megestrol Acetate 40 mg/ml Cup PO SCH (09:29)
[2018-04-24] MEDS: oxyCODONE 10 mg ER Tab (oxyCONTIN) PO SCH ×2 (09:29→22:35)
[2018-04-24 09:35] LABS: BANDS 9 % (0-2); LYMPHOCYTE 12 % (20-40); MONOCYTE 13 % (0-10); NEUTROPHIL 66 % (50-75); PLATELET ESTIMATE DECREASED (NORMAL); TOTAL CELLS COUNTED 100
[2018-04-24 09:36] LABS: ANISOCYTOSIS MODERATE; HYPOCHROMIC SLIGHT; POLYCHROMIC SLIGHT
[2018-04-24 09:37] LABS: OVALOCYTES SLIGHT; POIKILOCYTOSIS SLIGHT; TOXIC GRANULATION PRESENT
--- NOTE | 2018-04-24 11:14 | CP.PCM.PN ---
Subjective - Date & Time of Evaluation Date of Evaluation: 04/24/18 Time of Evaluation: 11:00 - Subjective Subjective: Patient was seen and examined by me with the biomedical electronics technician. Family member present at bedside as well. Despite her overall situation, today is the first day I have seen patient with a cheerful affect. She took the PO oxycontin XR for pain. The lower quadrant abdominal pain is less today. As mentioned previously this is a 52 year old female with stage IV lymphoma who has had chemo last month and radiation and came with pancytopenia as well as weakness, fatigue, and fever. She has had numerous blood transfusion as well as SC granix administration. She remains on IV abx at this time. Yesterday had found on CT a large midline abdominal mass 8cm x 5 cm found. This is a new mass that was not present from previous CT a month ago. Objective - Vital Signs/Intake and Output Vital Signs (last 24 hours): Temp Pulse Resp BP Pulse Ox 98.9 F 92 H 20 92/56 L 99 04/24/18 07:00 04/24/18 08:00 04/24/18 08:00 04/24/18 08:00 04/24/18 07:00 Intake and Output: 04/24/18 04/24/18 06:59 18:59 Intake Total 2340 Balance 2340 - Medications Medications: Current Medications Acetaminophen (Tylenol 325mg Tab) 650 mg PO Q6 PRN PRN Reason: Fever >100.4 F Last Admin: 04/22/18 18:23 Dose: 650 mg Famotidine (Pepcid) 20 mg PO BID [facility] Last Admin: 04/24/18 09:28 Dose: 20 mg Folic Acid (Folic Acid) 1 mg PO DAILY [facility] Last Admin: 04/24/18 09:28 Dose: 1 mg Sodium Chloride (Sodium Chloride 0.9%) 1,000 mls @ 100 mls/hr IV .Q10H [facility] Last Admin: 04/24/18 02:00 Dose: Not Given Metronidazole (Flagyl) 500 mg in 100 mls @ 100 mls/hr IVPB Q8H [facility] PRN Reason: Protocol Stop: 04/27/18 15:31 Last Admin: 04/24/18 06:48 Dose: 100 mls/hr Vancomycin/Sodium Chloride (Vancomycin 1 Gm/Ns 200 Ml) 1 gm in 200 mls @ 133 mls/hr IVPB Q12H [facility] PRN Reason: Protocol Stop: 04/27/18 18:01 Last Admin: 04/24/18 05:02 Dose: 133 mls/hr Cefepime HCl (Maxipime Iv 2 Gm Premix) 2 gm in 100 mls @ 200 mls/hr IVPB Q8H [facility] PRN Reason: Protocol Stop: 04/28/18 00:01 Last Admin: 04/24/18 09:29 Dose: 200 mls/hr Ketorolac Tromethamine (Toradol) 15 mg IVP Q6 PRN PRN Reason: Pain, severe (8-10) Last Admin: 04/21/18 22:13 Dose: 15 mg Megestrol Acetate (Megace) 400 mg PO DAILY [facility] Last Admin: 04/24/18 09:29 Dose: 400 mg Metoclopramide HCl (Reglan) 10 mg IVP ACHS PRN PRN Reason: Nausea/Vomiting Last Admin: 04/22/18 19:52 Dose: 10 mg Multivitamins (Hexavitamin) 1 tab PO DAILY [facility] Last Admin: 04/24/18 09:28 Dose: 1 tab Ondansetron HCl (Zofran Tab) 4 mg PO Q6 PRN PRN Reason: Nausea/Vomiting Oxycodone HCl (Oxycontin Extended Release Tab) 10 mg PO Q12 [facility] Stop: 04/26/18 10:01 Last Admin: 04/24/18 09:29 Dose: Not Given Potassium Phos/Sodium Phos (Neutra-Phos) 1 pkt PO TID [facility] Stop: 04/24/18 12:01 Last Admin: 04/24/18 09:28 Dose: 1 pkt Potassium Phos/Sodium Phos (Neutra-Phos) 1 pkt PO TIDCC [facility] Thiamine HCl (Vitamin B1 Tab) 100 mg PO DAILY [facility] Last Admin: 04/24/18 09:28 Dose: 100 mg - Labs Labs: 04/24/18 07:47 04/24/18 07:47 PT 13.3 SECONDS (9.7-12.2) H 04/17/18 06:10 INR 1.2 04/17/18 06:10 APTT 32 SECONDS (21-34) 04/17/18 06:10 - Constitutional Appears: No Acute Distress, Chronically Ill - Head Exam Additional comments: Emaciated, cahectic appearance - Eye Exam Eye Exam: EOMI, Normal appearance - ENT Exam ENT Exam: Mucous Membranes Moist - Respiratory Exam Respiratory Exam: Clear to Ausculation Bilateral, NORMAL BREATHING PATTERN - Cardiovascular Exam Cardiovascular Exam: REGULAR RHYTHM - GI/Abdominal Exam GI & Abdominal Exam: Soft, Tenderness. absent: Distended, Firm, Guarding Additional comments: Lower abdominal quadrant tenderness. 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 Has not had chemotherapy for 1.5 months. Plan: Fever with neutroenia 04/24: WBC 3.3, overnight was afebrile. Remains on IV abx. Patient has a large 8cm midline abdominal mass, possible source of infection/ fever. Pending possible IR intervention. 04/23: TMAX was 102 last night, maybe from the blood transfusion. She remains on IV Cefepime, IV Vancomycin, IV Flagyl. Blood pressure remains in the systolic 90s and on IVF -VBG lactate 0.9; procalcitonin 0.17L -NS @100cc/hr -BCx (04/17): no growth -Ucx: multiple spp, likely contamination -Ucx 04/17: contamination; Ucx 04/18: no growth -stool cx (04/17): no ova; stool cx (04/19): no growth -f/u sputum cx -ID recs (Dr. Mejia) appreciated -continue IV rx for minimum 7 days Medications: -NS @100cc/hr -Vancomcyin 750mg Q12H IVPB-->Vancomycin 1000 mg q12H IVPB (04/19) -Cephepime 2gm IVPB q8H -Flagyl 500mg IVPB Q8H -Reglan 10 mg IVP ACHS PRN -Zofran 4 mg PO q6H PRN -Thiamine 100 mg PO daily -Folic acid 1 mg PO daily -Multivitamin 1 tab PO daily -0.9 NS @ 100cc/hr Pancytopenia 04/23: WBC now 4, she recived SC granix. Continue to monitor. -WBC 2.4 (04/22); on admission WBC 1.1 (04/17) -ANC 2167 04/22 -Granix 480 mcg SC x1 per Dr Velez -can give granix if ANC < 500, per Dr. Velez -continue to monitor labs B-Cell Lymphoma 04/23: Pending a new CT scan of the abdomen and pelvis. - new R inferior cervical lymph node palpated measuring 1x1cm - Toradol 15mg IVP Q6H PRN pain - prior admission CT chest/abd/pelvis showed lymphadenopathy, B/L axillary, periaortic, abdominal and retroperitoneal, increased in size. - F/u 04/22 CT for continued abdominal pain -f/u Heme/Onc recs (Dr. Velez) -spoke with Dr. Velez on the phone--Can give Granix if ANC < 500 -Granix 480 mcg SC x1 given 04/21 & 04/22 Epigastric abdominal pain 04/24: As mentioned above, the new CT of the abdomen and pelvis showing large 8cm midline mass. Abdominal CT (03/01/2018): pancreas unremarkable; interval increase in the size of b/l axillary lymphadenopathy, interval increase in the size of the upper abdomen, periaortic, retroperitoneal lymphadenopathy Anemia 04/24: Today stable, however the midline abdominal mass may have blood in it leading to the low Hgbs we are seeing. 04/23: Hgb now 9.6 after blood transfusion overnight. Rechecking for occult blood , also LDH, haptoglobin. -occult stool negative (04/19) -F/u repeat occult stool (04/22) -transfuse PRBC X 2 on (04/22) Hypotension 04/24: Remains in systolic 90 range. Continue to monitor 04/23: Per previous notes her blood pressure is usually in the mid systolic 90s. At this time continue with IVF since her PO intake is so poor. Diarrhea -c diff negative -NS @100cc/hr Ppx, Diet, Disposition -pepcid 20mg IVP BID -VTE prophylaxis C/I 2/2 pancytopenia -SCDs
--- NOTE | 2018-04-24 16:53 | CP.PCM.PN ---
Subjective - Date & Time of Evaluation Date of Evaluation: 04/24/18 Time of Evaluation: 05:00 - Subjective Subjective: afeb on iv rx Objective - Vital Signs/Intake and Output Vital Signs (last 24 hours): Temp Pulse Resp BP Pulse Ox 98.7 F 91 H 20 96/63 L 99 04/24/18 15:11 04/24/18 16:29 04/24/18 15:11 04/24/18 15:11 04/24/18 15:11 Intake and Output: 04/24/18 04/24/18 06:59 18:59 Intake Total 2340 Balance 2340 - Medications Medications: Current Medications Acetaminophen (Tylenol 325mg Tab) 650 mg PO Q6 PRN PRN Reason: Fever >100.4 F Last Admin: 04/22/18 18:23 Dose: 650 mg Famotidine (Pepcid) 20 mg PO BID [facility] Last Admin: 04/24/18 09:28 Dose: 20 mg Folic Acid (Folic Acid) 1 mg PO DAILY [facility] Last Admin: 04/24/18 09:28 Dose: 1 mg Sodium Chloride (Sodium Chloride 0.9%) 1,000 mls @ 100 mls/hr IV .Q10H [facility] Last Admin: 04/24/18 14:03 Dose: 100 mls/hr Metronidazole (Flagyl) 500 mg in 100 mls @ 100 mls/hr IVPB Q8H [facility] PRN Reason: Protocol Stop: 04/27/18 15:31 Last Admin: 04/24/18 15:38 Dose: 100 mls/hr Vancomycin/Sodium Chloride (Vancomycin 1 Gm/Ns 200 Ml) 1 gm in 200 mls @ 133 mls/hr IVPB Q12H [facility] PRN Reason: Protocol Stop: 04/27/18 18:01 Last Admin: 04/24/18 05:02 Dose: 133 mls/hr Cefepime HCl (Maxipime Iv 2 Gm Premix) 2 gm in 100 mls @ 200 mls/hr IVPB Q8H [facility] PRN Reason: Protocol Stop: 04/28/18 00:01 Last Admin: 04/24/18 16:49 Dose: 200 mls/hr Ketorolac Tromethamine (Toradol) 15 mg IVP Q6 PRN PRN Reason: Pain, severe (8-10) Last Admin: 04/24/18 15:42 Dose: 15 mg Megestrol Acetate (Megace) 400 mg PO DAILY [facility] Last Admin: 04/24/18 09:29 Dose: 400 mg Metoclopramide HCl (Reglan) 10 mg IVP ACHS PRN PRN Reason: Nausea/Vomiting Last Admin: 04/22/18 19:52 Dose: 10 mg Multivitamins (Hexavitamin) 1 tab PO DAILY [facility] Last Admin: 04/24/18 09:28 Dose: 1 tab Ondansetron HCl (Zofran Tab) 4 mg PO Q6 PRN PRN Reason: Nausea/Vomiting Oxycodone HCl (Oxycontin Extended Release Tab) 10 mg PO Q12 [facility] Stop: 04/26/18 10:01 Last Admin: 04/24/18 09:29 Dose: Not Given Potassium Phos/Sodium Phos (Neutra-Phos) 1 pkt PO TIDCC [facility] Last Admin: 04/24/18 16:49 Dose: 1 pkt Thiamine HCl (Vitamin B1 Tab) 100 mg PO DAILY [facility] Last Admin: 04/24/18 09:28 Dose: 100 mg - Labs Labs: 04/24/18 07:47 04/24/18 07:47 PT 13.3 SECONDS (9.7-12.2) H 04/17/18 06:10 INR 1.2 04/17/18 06:10 APTT 32 SECONDS (21-34) 04/17/18 06:10 - Constitutional Appears: Non-toxic, Chronically Ill - Head Exam Head Exam: NORMOCEPHALIC - Eye Exam Eye Exam: PERRL - ENT Exam ENT Exam: Mucous Membranes Dry - Neck Exam Neck Exam: absent: Lymphadenopathy - Respiratory Exam Respiratory Exam: Decreased Breath Sounds Assessment and Plan (1) Fever Status: Acute (2) Neutropenic fever Status: Acute (3) B-cell lymphoma Status: Acute - Assessment and Plan (Free Text) Assessment: cont rx
[2018-04-25 04:23] LABS: INR 1.4
[2018-04-25 04:24] LABS: BASO % 0.6 % (0.0-2.0); EOS % 2.3 % (0.0-4.0); HEMOGLOBIN 8.9 g/dL (11.0-16.0); LYMPH # 0.3 K/uL (1.0-4.3); LYMPH % 13.3 % (20.0-40.0); MEAN CELL VOLUME 85.2 fL (81.0-99.0); MEAN CORPUSCULAR HEMOGLOBIN 28.3 pg (27.0-31.0); MEAN CORPUSCULAR HGB CONC 33.2 g/dL (33.0-37.0); MONO # 0.3 K/uL (0.0-0.8); MONO % 15.7 % (0.0-10.0); NEUT # 1.4 K/uL (1.8-7.0); NEUT % 68.1 % (50.0-75.0); NRBC % 0.4 % (0.0-2.0); RBC 3.15 Mil/uL (3.80-5.20); RED CELL DISTRIBUTION WIDTH 20.3 % (11.5-14.5); WHITE BLOOD COUNT 2.1 K/uL (4.8-10.8)
[2018-04-25 04:39] LABS: ALB/GLOB RATIO 0.9 (1.0-2.1); ALBUMIN 2.7 g/dL (3.5-5.0); ALT/SGPT 18 U/L (9-52); AST/SGOT 35 U/L (14-36); BLOOD UREA NITROGEN 8 mg/dL (7-17); CALCIUM 8.9 mg/dl (8.6-10.4); GFR NON-AFRICAN AMERICAN > 60
[2018-04-25] MEDS: Vancomycin 1 gm/NS 200 ml 1 GM/200 ML BAG IVPB SCH ×2 (05:15→17:08)
[2018-04-25] MEDS: metroNIDAZOLE IV 500 mg/100 ml 500 MG/100 ML BAG IVPB SCH ×3 (06:50→23:08)
--- NOTE | 2018-04-25 07:48 | CP.PCM.PN ---
<Marli Martínez - Last Filed: 04/25/18 17:53> Subjective - Date & Time of Evaluation Date of Evaluation: 04/25/18 Time of Evaluation: 08:45 - Subjective Subjective: Pt seen and examined at bedside with daughter in room. Pt reports she has been kept NPO for a procedure today but is hungry and eager to eat. Pt complains of continued abdominal pain, managed sufficiently with pain medication. Pt reports continued weakness hypersensitivity to physical sensations. Pt denies chest pain, SOB, nausea, vomiting. Objective - Vital Signs/Intake and Output Vital Signs (last 24 hours): Temp Pulse Resp BP Pulse Ox 98.5 F 93 H 20 92/57 L 98 04/25/18 04:08 04/25/18 04:08 04/25/18 00:00 04/25/18 04:08 04/25/18 00:00 Intake and Output: 04/25/18 04/25/18 06:59 18:59 Intake Total 1900 Balance 1900 - Medications Medications: Current Medications Acetaminophen (Tylenol 325mg Tab) 650 mg PO Q6 PRN PRN Reason: Fever >100.4 F Last Admin: 04/22/18 18:23 Dose: 650 mg Famotidine (Pepcid) 20 mg PO BID [facility] Last Admin: 04/24/18 18:33 Dose: 20 mg Folic Acid (Folic Acid) 1 mg PO DAILY [facility] Last Admin: 04/24/18 09:28 Dose: 1 mg Sodium Chloride (Sodium Chloride 0.9%) 1,000 mls @ 100 mls/hr IV .Q10H [facility] Last Admin: 04/24/18 22:35 Dose: 100 mls/hr Metronidazole (Flagyl) 500 mg in 100 mls @ 100 mls/hr IVPB Q8H [facility] PRN Reason: Protocol Stop: 04/27/18 15:31 Last Admin: 04/25/18 06:50 Dose: 100 mls/hr Vancomycin/Sodium Chloride (Vancomycin 1 Gm/Ns 200 Ml) 1 gm in 200 mls @ 133 mls/hr IVPB Q12H [facility] PRN Reason: Protocol Stop: 04/27/18 18:01 Last Admin: 04/25/18 05:15 Dose: 133 mls/hr Cefepime HCl (Maxipime Iv 2 Gm Premix) 2 gm in 100 mls @ 200 mls/hr IVPB Q8H [facility] PRN Reason: Protocol Stop: 04/28/18 00:01 Last Admin: 04/24/18 23:51 Dose: 200 mls/hr Ketorolac Tromethamine (Toradol) 15 mg IVP Q6 PRN PRN Reason: Pain, severe (8-10) Last Admin: 04/25/18 03:46 Dose: 15 mg Megestrol Acetate (Megace) 400 mg PO DAILY [facility] Last Admin: 04/24/18 09:29 Dose: 400 mg Metoclopramide HCl (Reglan) 10 mg IVP ACHS PRN PRN Reason: Nausea/Vomiting Last Admin: 04/22/18 19:52 Dose: 10 mg Multivitamins (Hexavitamin) 1 tab PO DAILY [facility] Last Admin: 04/24/18 09:28 Dose: 1 tab Ondansetron HCl (Zofran Tab) 4 mg PO Q6 PRN PRN Reason: Nausea/Vomiting Oxycodone HCl (Oxycontin Extended Release Tab) 10 mg PO Q12 [facility] Stop: 04/26/18 10:01 Last Admin: 04/24/18 22:35 Dose: Not Given Potassium Phos/Sodium Phos (Neutra-Phos) 1 pkt PO TIDCC [facility] Last Admin: 04/24/18 16:49 Dose: 1 pkt Thiamine HCl (Vitamin B1 Tab) 100 mg PO DAILY [facility] Last Admin: 04/24/18 09:28 Dose: 100 mg - Labs Labs: 04/25/18 04:13 04/25/18 04:13 PT 15.0 SECONDS (9.7-12.2) H 04/25/18 04:13 INR 1.4 04/25/18 04:13 APTT 31 SECONDS (21-34) 04/25/18 04:13 - Constitutional Appears: Non-toxic, No Acute Distress - Head Exam Head Exam: ATRAUMATIC, NORMAL INSPECTION, NORMOCEPHALIC - Eye Exam Eye Exam: EOMI, Normal appearance - ENT Exam ENT Exam: Mucous Membranes Moist, Normal Exam - Neck Exam Neck Exam: Normal Inspection - Respiratory Exam Respiratory Exam: Clear to Ausculation Bilateral, NORMAL BREATHING PATTERN. absent: Wheezes - Cardiovascular Exam Cardiovascular Exam: REGULAR RHYTHM, +S1, +S2. absent: Tachycardia, Murmur - GI/Abdominal Exam GI & Abdominal Exam: Soft, Tenderness, Mass (mass palpated umbilical region, tender to palpation), Normal Bowel Sounds. absent: Distended - Extremities Exam Extremities Exam: Normal Capillary Refill, Normal Inspection. absent: Calf Tenderness, Pedal Edema - Neurological Exam Neurological Exam: Alert, Awake, Oriented x3 - Psychiatric Exam Psychiatric exam: Normal Affect, Normal Mood - Skin Skin Exam: Dry, Intact, Normal Color, Warm Assessment and Plan - Assessment and Plan (Free Text) Assessment: 52 yo F w/ PMHx of stage 4 Diffuse large B-cell lymphoma(tx w/ chemo and rad), anemia, pancytopenia admitted w/ neutropenic fevers Neutropenic fevers -neutropenia improving-->2.1 -tylenol 650mg PO q6 prn fevers -cefepime 2gm IVPB q8 -flagyl 500mg IVPB q8 -vanco 1gm IVPB q12 -CT abd/pelvis 04/22 shows new 8/5/8cm fluid filled cyst/abscess-possible source of fevers -ID consult Dr. Mejia Abdominal Mass -CT abd/pelvis 04/22 shows new 8/5/8cm fluid filled cyst/abscess -IR drainage tomorrow w/ Dr. Ramos pending am platelets >75 -Sx consult Dr. Trinidad -toradol 15mg IVP q6 prn Diffuse large b-cell lymphoma -Hem/onc Dr. Velez -zofran 4mg PO q6 prn nausea Thrombocytopenia -platelets 37 -to be transfused 2U tonight -am labs Ppx -AC contraindicated due to thrombocytopenia -pepcid 20mg PO BID Dispo: <Ileana Rodríguez - Last Filed: 05/01/18 09:09> Objective - Vital Signs/Intake and Output Vital Signs (last 24 hours): Temp Pulse Resp BP Pulse Ox 99.4 F 98 H 20 91/57 L 100 04/25/18 15:00 04/25/18 15:00 04/25/18 15:00 04/25/18 15:00 04/25/18 15:00 - Medications Medications: Current Medications Acetaminophen (Tylenol 325mg Tab) 650 mg PO Q6 PRN PRN Reason: Fever >100.4 F Last Admin: 04/22/18 18:23 Dose: 650 mg Famotidine (Pepcid) 20 mg PO BID [facility] Last Admin: 04/25/18 17:07 Dose: 20 mg Folic Acid (Folic Acid) 1 mg PO DAILY [facility] Last Admin: 04/25/18 11:00 Dose: Not Given Sodium Chloride (Sodium Chloride 0.9%) 1,000 mls @ 100 mls/hr IV .Q10H [facility] Last Admin: 04/25/18 17:09 Dose: 100 mls/hr Metronidazole (Flagyl) 500 mg in 100 mls @ 100 mls/hr IVPB Q8H [facility] PRN Reason: Protocol Stop: 04/27/18 15:31 Last Admin: 04/25/18 14:30 Dose: 100 mls/hr Vancomycin/Sodium Chloride (Vancomycin 1 Gm/Ns 200 Ml) 1 gm in 200 mls @ 133 mls/hr IVPB Q12H [facility] PRN Reason: Protocol Stop: 04/27/18 18:01 Last Admin: 04/25/18 17:08 Dose: 133 mls/hr Cefepime HCl (Maxipime Iv 2 Gm Premix) 2 gm in 100 mls @ 200 mls/hr IVPB Q8H [facility] PRN Reason: Protocol Stop: 04/28/18 00:01 Last Admin: 04/25/18 15:44 Dose: 200 mls/hr Ketorolac Tromethamine (Toradol) 15 mg IVP Q6 PRN PRN Reason: Pain, severe (8-10) Last Admin: 04/25/18 03:46 Dose: 15 mg Megestrol Acetate (Megace) 400 mg PO DAILY [facility] Last Admin: 04/25/18 11:00 Dose: Not Given Metoclopramide HCl (Reglan) 10 mg IVP ACHS PRN PRN Reason: Nausea/Vomiting Last Admin: 04/22/18 19:52 Dose: 10 mg Multivitamins (Hexavitamin) 1 tab PO DAILY [facility] Last Admin: 04/25/18 11:00 Dose: Not Given Ondansetron HCl (Zofran Tab) 4 mg PO Q6 PRN PRN Reason: Nausea/Vomiting Oxycodone HCl (Oxycontin Extended Release Tab) 10 mg PO Q12 [facility] Stop: 04/26/18 10:01 Last Admin: 04/25/18 11:00 Dose: Not Given Potassium Phos/Sodium Phos (Neutra-Phos) 1 pkt PO TIDCC [facility] Last Admin: 04/25/18 17:07 Dose: 1 pkt Thiamine HCl (Vitamin B1 Tab) 100 mg PO DAILY [facility] Last Admin: 04/25/18 11:00 Dose: Not Given - Labs Labs: 04/25/18 04:13 04/25/18 04:13 PT 15.0 SECONDS (9.7-12.2) H 04/25/18 04:13 INR 1.4 04/25/18 04:13 APTT 31 SECONDS (21-34) 04/25/18 04:13 Attending/Attestation - Attestation I have personally seen and examined this patient.: Yes I have fully participated in the care of the patient.: Yes I have reviewed all pertinent clinical information, including history, physical exam and plan: Yes Notes (Text): Seen and examined. Kumar is complaining of lower abdominal pain.CT report discussed with her daughter D/W Dr Ramos,DR Velez. We will give platelets tonight and repeat platelets in the morning for possible drain of her pelvic Cystic mass d/w patient and daughter I agree with the resident's documentation
[2018-04-25] MEDS: Potassium & Sodium Phosphate PO SCH ×3 (08:00→17:07)
[2018-04-25] MEDS: Cefepime IV 2 gm in Dextrose 2 GM/100 ML BAG IVPB SCH ×3 (08:57→23:48)
--- NOTE | 2018-04-25 10:09 | CP.PCM.PN ---
<NapoleonSimba trinh Jw - Last Filed: 04/25/18 10:07> Subjective - Date & Time of Evaluation Date of Evaluation: 04/25/18 Time of Evaluation: 10:07 - Subjective Subjective: Gen Surg: Dr Trinidad Pt S&E. RAMON. Resting comfortably. Has intermittent suprapubic pain still but has mostly resolved. Pt is for IR drainage today of fluid collection. Otherwise has been tolerting diet, afebrile, no N/V, having BMs Objective - Vital Signs/Intake and Output Vital Signs (last 24 hours): Temp Pulse Resp BP Pulse Ox 98.4 F 89 20 93/59 L 99 04/25/18 07:07 04/25/18 08:15 04/25/18 07:07 04/25/18 07:07 04/25/18 07:07 Intake and Output: 04/25/18 04/25/18 06:59 18:59 Intake Total 1900 Balance 1900 - Medications Medications: Current Medications Acetaminophen (Tylenol 325mg Tab) 650 mg PO Q6 PRN PRN Reason: Fever >100.4 F Last Admin: 04/22/18 18:23 Dose: 650 mg Famotidine (Pepcid) 20 mg PO BID [facility] Last Admin: 04/24/18 18:33 Dose: 20 mg Folic Acid (Folic Acid) 1 mg PO DAILY [facility] Last Admin: 04/24/18 09:28 Dose: 1 mg Sodium Chloride (Sodium Chloride 0.9%) 1,000 mls @ 100 mls/hr IV .Q10H [facility] Last Admin: 04/24/18 22:35 Dose: 100 mls/hr Metronidazole (Flagyl) 500 mg in 100 mls @ 100 mls/hr IVPB Q8H [facility] PRN Reason: Protocol Stop: 04/27/18 15:31 Last Admin: 04/25/18 06:50 Dose: 100 mls/hr Vancomycin/Sodium Chloride (Vancomycin 1 Gm/Ns 200 Ml) 1 gm in 200 mls @ 133 mls/hr IVPB Q12H [facility] PRN Reason: Protocol Stop: 04/27/18 18:01 Last Admin: 04/25/18 05:15 Dose: 133 mls/hr Cefepime HCl (Maxipime Iv 2 Gm Premix) 2 gm in 100 mls @ 200 mls/hr IVPB Q8H [facility] PRN Reason: Protocol Stop: 04/28/18 00:01 Last Admin: 04/25/18 08:57 Dose: 200 mls/hr Ketorolac Tromethamine (Toradol) 15 mg IVP Q6 PRN PRN Reason: Pain, severe (8-10) Last Admin: 04/25/18 03:46 Dose: 15 mg Megestrol Acetate (Megace) 400 mg PO DAILY [facility] Last Admin: 04/24/18 09:29 Dose: 400 mg Metoclopramide HCl (Reglan) 10 mg IVP ACHS PRN PRN Reason: Nausea/Vomiting Last Admin: 04/22/18 19:52 Dose: 10 mg Multivitamins (Hexavitamin) 1 tab PO DAILY [facility] Last Admin: 04/24/18 09:28 Dose: 1 tab Ondansetron HCl (Zofran Tab) 4 mg PO Q6 PRN PRN Reason: Nausea/Vomiting Oxycodone HCl (Oxycontin Extended Release Tab) 10 mg PO Q12 [facility] Stop: 04/26/18 10:01 Last Admin: 04/24/18 22:35 Dose: Not Given Potassium Phos/Sodium Phos (Neutra-Phos) 1 pkt PO TIDCC [facility] Last Admin: 04/25/18 08:00 Dose: Not Given Thiamine HCl (Vitamin B1 Tab) 100 mg PO DAILY [facility] Last Admin: 04/24/18 09:28 Dose: 100 mg - Labs Labs: 04/25/18 04:13 04/25/18 04:13 PT 15.0 SECONDS (9.7-12.2) H 04/25/18 04:13 INR 1.4 04/25/18 04:13 APTT 31 SECONDS (21-34) 04/25/18 04:13 - Constitutional Appears: Non-toxic - ENT Exam ENT Exam: Mucous Membranes Moist - Respiratory Exam Respiratory Exam: absent: Respiratory Distress - Cardiovascular Exam Cardiovascular Exam: absent: Tachycardia - GI/Abdominal Exam GI & Abdominal Exam: Soft, Tenderness (suprapubic). absent: Distended, Guarding, Rigid Assessment and Plan - Assessment and Plan (Free Text) Assessment: 52F with pelvic abscess vs mesenteric cyst Plan: for evaluation by IR today for possible drainage will cont to follow d/w Dr Amos Bender, PGY4 <Ileana Rodríguez - Last Filed: 04/25/18 19:35> Objective - Vital Signs/Intake and Output Vital Signs (last 24 hours): Temp Pulse Resp BP Pulse Ox 99.4 F 98 H 20 91/57 L 100 04/25/18 15:00 04/25/18 15:00 04/25/18 15:00 04/25/18 15:00 04/25/18 15:00 - Medications Medications: Current Medications Acetaminophen (Tylenol 325mg Tab) 650 mg PO Q6 PRN PRN Reason: Fever >100.4 F Last Admin: 04/22/18 18:23 Dose: 650 mg Famotidine (Pepcid) 20 mg PO BID [facility] Last Admin: 04/25/18 17:07 Dose: 20 mg Folic Acid (Folic Acid) 1 mg PO DAILY [facility] Last Admin: 04/25/18 11:00 Dose: Not Given Sodium Chloride (Sodium Chloride 0.9%) 1,000 mls @ 100 mls/hr IV .Q10H [facility] Last Admin: 04/25/18 17:09 Dose: 100 mls/hr Metronidazole (Flagyl) 500 mg in 100 mls @ 100 mls/hr IVPB Q8H [facility] PRN Reason: Protocol Stop: 04/27/18 15:31 Last Admin: 04/25/18 14:30 Dose: 100 mls/hr Vancomycin/Sodium Chloride (Vancomycin 1 Gm/Ns 200 Ml) 1 gm in 200 mls @ 133 mls/hr IVPB Q12H [facility] PRN Reason: Protocol Stop: 04/27/18 18:01 Last Admin: 04/25/18 17:08 Dose: 133 mls/hr Cefepime HCl (Maxipime Iv 2 Gm Premix) 2 gm in 100 mls @ 200 mls/hr IVPB Q8H [facility] PRN Reason: Protocol Stop: 04/28/18 00:01 Last Admin: 04/25/18 15:44 Dose: 200 mls/hr Ketorolac Tromethamine (Toradol) 15 mg IVP Q6 PRN PRN Reason: Pain, severe (8-10) Last Admin: 04/25/18 03:46 Dose: 15 mg Megestrol Acetate (Megace) 400 mg PO DAILY [facility] Last Admin: 04/25/18 11:00 Dose: Not Given Metoclopramide HCl (Reglan) 10 mg IVP ACHS PRN PRN Reason: Nausea/Vomiting Last Admin: 04/22/18 19:52 Dose: 10 mg Multivitamins (Hexavitamin) 1 tab PO DAILY [facility] Last Admin: 04/25/18 11:00 Dose: Not Given Ondansetron HCl (Zofran Tab) 4 mg PO Q6 PRN PRN Reason: Nausea/Vomiting Oxycodone HCl (Oxycontin Extended Release Tab) 10 mg PO Q12 [facility] Stop: 04/26/18 10:01 Last Admin: 04/25/18 11:00 Dose: Not Given Potassium Phos/Sodium Phos (Neutra-Phos) 1 pkt PO TIDCC [facility] Last Admin: 04/25/18 17:07 Dose: 1 pkt Thiamine HCl (Vitamin B1 Tab) 100 mg PO DAILY [facility] Last Admin: 04/25/18 11:00 Dose: Not Given - Labs Labs: 04/25/18 04:13 04/25/18 04:13 PT 15.0 SECONDS (9.7-12.2) H 04/25/18 04:13 INR 1.4 04/25/18 04:13 APTT 31 SECONDS (21-34) 04/25/18 04:13 Attending/Attestation - Attestation I have personally seen and examined this patient.: Yes I have fully participated in the care of the patient.: Yes I have reviewed all pertinent clinical information, including history, physical exam and plan: Yes <Nils Trinidad - Last Filed: 05/01/18 19:39> Objective - Vital Signs/Intake and Output Vital Signs (last 24 hours): Temp Pulse Resp BP Pulse Ox 99.5 F 99 H 20 92/53 L 98 04/27/18 15:00 04/27/18 15:00 04/27/18 15:00 04/27/18 15:00 04/27/18 15:00 - Labs Labs: 04/27/18 07:23 04/27/18 07:23 PT 15.0 SECONDS (9.7-12.2) H 04/25/18 04:13 INR 1.4 04/25/18 04:13 APTT 31 SECONDS (21-34) 04/25/18 04:13 Attending/Attestation - Attestation Notes (Text): Pt was seen and examine at bedside Agree with above note and assessment IR drainage tomorrow C.w IV Antibiotics ID consult f/u Plan d.w pt in detail Risk and benefit explained in detail
[2018-04-25] MEDS: oxyCODONE 10 mg ER Tab (oxyCONTIN) PO SCH ×2 (11:00→22:12)
[2018-04-25] MEDS: Megestrol Acetate 40 mg/ml Cup PO SCH (11:00)
[2018-04-25] MEDS: Multiple Vitamins Tab PO SCH (11:00)
[2018-04-25] MEDS: Sodium Chloride 0.9% 1,000 ML IV SCH (17:09)
[2018-04-26] MEDS: Sodium Chloride 0.9% 1,000 ML IV SCH ×2 (05:52→14:08)
[2018-04-26] MEDS: Vancomycin 1 gm/NS 200 ml 1 GM/200 ML BAG IVPB SCH ×2 (06:09→18:40)
[2018-04-26] MEDS: metroNIDAZOLE IV 500 mg/100 ml 500 MG/100 ML BAG IVPB SCH ×3 (06:31→23:30)
[2018-04-26 07:49] LABS: EOS % 2.2 % (0.0-4.0); HEMOGLOBIN 7.5 g/dL (11.0-16.0); LYMPH # 0.3 K/uL (1.0-4.3); LYMPH % 17.2 % (20.0-40.0); MEAN CELL VOLUME 86.7 fL (81.0-99.0); MEAN CORPUSCULAR HEMOGLOBIN 28.5 pg (27.0-31.0); MEAN CORPUSCULAR HGB CONC 32.8 g/dL (33.0-37.0); MONO # 0.4 K/uL (0.0-0.8); MONO % 24.6 % (0.0-10.0); NEUT # 0.9 K/uL (1.8-7.0); NRBC % 0.7 % (0.0-2.0); PLATELET COUNT 41 K/uL (130-400); RBC 2.64 Mil/uL (3.80-5.20); RED CELL DISTRIBUTION WIDTH 21.3 % (11.5-14.5)
[2018-04-26 07:54] LABS: ALBUMIN 2.7 g/dL (3.5-5.0); ALT/SGPT 30 U/L (9-52); AST/SGOT 37 U/L (14-36); BLOOD UREA NITROGEN 9 mg/dL (7-17); CALCIUM 8.7 mg/dl (8.6-10.4); GFR NON-AFRICAN AMERICAN > 60
[2018-04-26 07:57] LABS: WHITE BLOOD COUNT 1.7 K/uL (4.8-10.8)
--- NOTE | 2018-04-26 09:59 | CP.PCM.PN ---
<Simba Bender Jw - Last Filed: 04/26/18 09:59> Subjective - Date & Time of Evaluation Date of Evaluation: 04/26/18 Time of Evaluation: 06:55 - Subjective Subjective: Gen Surg: Dr Trinidad Pt S&E. RAMON. Has been tolerating diet without difficulty. Having BMs. Plan for IR drainage today. Objective - Vital Signs/Intake and Output Vital Signs (last 24 hours): Temp Pulse Resp BP Pulse Ox 99.4 F 102 H 20 101/64 98 04/26/18 07:00 04/26/18 07:00 04/26/18 07:00 04/26/18 07:00 04/26/18 07:00 Intake and Output: 04/26/18 04/26/18 06:59 18:59 Intake Total 2499 Balance 2499 - Medications Medications: Current Medications Acetaminophen (Tylenol 325mg Tab) 650 mg PO Q6 PRN PRN Reason: Fever >100.4 F Last Admin: 04/22/18 18:23 Dose: 650 mg Famotidine (Pepcid) 20 mg PO BID [facility] Last Admin: 04/25/18 17:07 Dose: 20 mg Folic Acid (Folic Acid) 1 mg PO DAILY [facility] Last Admin: 04/25/18 11:00 Dose: Not Given Sodium Chloride (Sodium Chloride 0.9%) 1,000 mls @ 100 mls/hr IV .Q10H [facility] Last Admin: 04/26/18 05:52 Dose: Not Given Metronidazole (Flagyl) 500 mg in 100 mls @ 100 mls/hr IVPB Q8H [facility]; Protocol Stop: 04/27/18 15:31 Last Admin: 04/26/18 06:31 Dose: 100 mls/hr Vancomycin/Sodium Chloride (Vancomycin 1 Gm/Ns 200 Ml) 1 gm in 200 mls @ 133 mls/hr IVPB Q12H [facility]; Protocol Stop: 04/27/18 18:01 Last Admin: 04/26/18 06:09 Dose: 133 mls/hr Cefepime HCl (Maxipime Iv 2 Gm Premix) 2 gm in 100 mls @ 200 mls/hr IVPB Q8H [facility]; Protocol Stop: 04/28/18 00:01 Last Admin: 04/25/18 23:48 Dose: 200 mls/hr Ketorolac Tromethamine (Toradol) 15 mg IVP Q6 PRN PRN Reason: Pain, severe (8-10) Last Admin: 04/25/18 22:06 Dose: 15 mg Megestrol Acetate (Megace) 400 mg PO DAILY [facility] Last Admin: 04/25/18 11:00 Dose: Not Given Metoclopramide HCl (Reglan) 10 mg IVP ACHS PRN PRN Reason: Nausea/Vomiting Last Admin: 04/22/18 19:52 Dose: 10 mg Multivitamins (Hexavitamin) 1 tab PO DAILY [facility] Last Admin: 04/25/18 11:00 Dose: Not Given Ondansetron HCl (Zofran Tab) 4 mg PO Q6 PRN PRN Reason: Nausea/Vomiting Oxycodone HCl (Oxycontin Extended Release Tab) 10 mg PO Q12 [facility] Stop: 04/26/18 10:01 Last Admin: 04/25/18 22:12 Dose: Not Given Potassium Phos/Sodium Phos (Neutra-Phos) 1 pkt PO TIDCC [facility] Last Admin: 04/25/18 17:07 Dose: 1 pkt Thiamine HCl (Vitamin B1 Tab) 100 mg PO DAILY [facility] Last Admin: 04/25/18 11:00 Dose: Not Given - Labs Labs: 04/26/18 07:11 04/26/18 07:11 PT 15.0 SECONDS (9.7-12.2) H 04/25/18 04:13 INR 1.4 04/25/18 04:13 APTT 31 SECONDS (21-34) 04/25/18 04:13 - Constitutional Appears: Non-toxic - Respiratory Exam Respiratory Exam: absent: Accessory Muscle Use, Respiratory Distress - Cardiovascular Exam Cardiovascular Exam: REGULAR RHYTHM - GI/Abdominal Exam GI & Abdominal Exam: Soft, Mass (suprapubic). 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 with stage IV lymphoma now with pelvic abscess Plan: IR drainage today no plans for surgical intervention please reconsult PRN d/w Dr Amos Bender, PGY4 <Nils Trinidad - Last Filed: 05/01/18 19:41> Objective - Vital Signs/Intake and Output Vital Signs (last 24 hours): Temp Pulse Resp BP Pulse Ox 99.5 F 99 H 20 92/53 L 98 04/27/18 15:00 04/27/18 15:00 04/27/18 15:00 04/27/18 15:00 04/27/18 15:00 - Labs Labs: 04/27/18 07:23 04/27/18 07:23 PT 15.0 SECONDS (9.7-12.2) H 04/25/18 04:13 INR 1.4 04/25/18 04:13 APTT 31 SECONDS (21-34) 04/25/18 04:13 Attending/Attestation - Attestation I have fully participated in the care of the patient.: Yes I have reviewed all pertinent clinical information, including history, physical exam and plan: Yes Notes (Text): Awaiting IR drainage No surgical intervention required at present C/w IV antibiotics c/w current mx Plan d.w pt in detail
[2018-04-26 10:05] LABS: BANDS 4 % (0-2); LYMPHOCYTE 18 % (20-40); MONOCYTE 22 % (0-10); NEUTROPHIL 56 % (50-75); TOTAL CELLS COUNTED 50
[2018-04-26 10:06] LABS: ANISOCYTOSIS SLIGHT; HYPOCHROMIC SLIGHT; MICROCYTOSIS SLIGHT; OVALOCYTES SLIGHT; PLATELET ESTIMATE DECREASED (NORMAL); POIKILOCYTOSIS SLIGHT; TARGET CELLS SLIGHT; TEARDROP CELLS SLIGHT
[2018-04-26] MEDS: Cefepime IV 2 gm in Dextrose 2 GM/100 ML BAG IVPB SCH (10:06)
[2018-04-26] MEDS: Potassium & Sodium Phosphate PO SCH ×3 (10:06→17:39)
[2018-04-26] MEDS: Megestrol Acetate 40 mg/ml Cup PO SCH (10:07)
[2018-04-26] MEDS: Multiple Vitamins Tab PO SCH (10:07)
[2018-04-26] MEDS: oxyCODONE 10 mg ER Tab (oxyCONTIN) PO SCH (10:08)
--- NOTE | 2018-04-26 11:22 | CP.PCM.PN ---
<Marli Martínez - Last Filed: 04/26/18 13:08> Subjective - Date & Time of Evaluation Date of Evaluation: 04/26/18 Time of Evaluation: 08:20 - Subjective Subjective: Pt examined at bedside, no acute events overnight. Pt reports continued abdominal pain, relieved w/ pain meds. Pt denies chest pain, SOB, n/v/d. Pt reports increased urinary frequency Objective - Vital Signs/Intake and Output Vital Signs (last 24 hours): Temp Pulse Resp BP Pulse Ox 99.4 F 102 H 20 101/64 98 04/26/18 07:00 04/26/18 07:00 04/26/18 07:00 04/26/18 07:00 04/26/18 07:00 Intake and Output: 04/26/18 04/26/18 06:59 18:59 Intake Total 2499 Balance 2499 - Medications Medications: Current Medications Acetaminophen (Tylenol 325mg Tab) 650 mg PO Q6 PRN PRN Reason: Fever >100.4 F Last Admin: 04/22/18 18:23 Dose: 650 mg Famotidine (Pepcid) 20 mg PO BID [facility] Last Admin: 04/26/18 10:07 Dose: 20 mg Folic Acid (Folic Acid) 1 mg PO DAILY [facility] Last Admin: 04/26/18 10:07 Dose: 1 mg Sodium Chloride (Sodium Chloride 0.9%) 1,000 mls @ 100 mls/hr IV .Q10H [facility] Last Admin: 04/26/18 05:52 Dose: Not Given Metronidazole (Flagyl) 500 mg in 100 mls @ 100 mls/hr IVPB Q8H [facility]; Protocol Stop: 04/27/18 15:31 Last Admin: 04/26/18 06:31 Dose: 100 mls/hr Vancomycin/Sodium Chloride (Vancomycin 1 Gm/Ns 200 Ml) 1 gm in 200 mls @ 133 mls/hr IVPB Q12H [facility]; Protocol Stop: 04/27/18 18:01 Last Admin: 04/26/18 06:09 Dose: 133 mls/hr Cefepime HCl (Maxipime Iv 2 Gm Premix) 2 gm in 100 mls @ 200 mls/hr IVPB Q8H [facility]; Protocol Stop: 04/28/18 00:01 Last Admin: 04/26/18 10:06 Dose: 200 mls/hr Ketorolac Tromethamine (Toradol) 15 mg IVP Q6 PRN PRN Reason: Pain, severe (8-10) Last Admin: 04/25/18 22:06 Dose: 15 mg Megestrol Acetate (Megace) 400 mg PO DAILY [facility] Last Admin: 04/26/18 10:07 Dose: 400 mg Metoclopramide HCl (Reglan) 10 mg IVP ACHS PRN PRN Reason: Nausea/Vomiting Last Admin: 04/22/18 19:52 Dose: 10 mg Multivitamins (Hexavitamin) 1 tab PO DAILY [facility] Last Admin: 04/26/18 10:07 Dose: 1 tab Ondansetron HCl (Zofran Tab) 4 mg PO Q6 PRN PRN Reason: Nausea/Vomiting Potassium Phos/Sodium Phos (Neutra-Phos) 1 pkt PO TIDCC [facility] Last Admin: 04/26/18 10:06 Dose: 1 pkt Thiamine HCl (Vitamin B1 Tab) 100 mg PO DAILY [facility] Last Admin: 04/26/18 10:07 Dose: 100 mg - Labs Labs: 04/26/18 07:11 04/26/18 07:11 PT 15.0 SECONDS (9.7-12.2) H 04/25/18 04:13 INR 1.4 04/25/18 04:13 APTT 31 SECONDS (21-34) 04/25/18 04:13 - Constitutional Appears: Non-toxic, No Acute Distress - Head Exam Head Exam: ATRAUMATIC, NORMAL INSPECTION, NORMOCEPHALIC - Eye Exam Eye Exam: EOMI, Normal appearance - ENT Exam ENT Exam: Mucous Membranes Moist, Normal Exam - Neck Exam Neck Exam: Normal Inspection - Respiratory Exam Respiratory Exam: Clear to Ausculation Bilateral, NORMAL BREATHING PATTERN. absent: Rhonchi, Wheezes - Cardiovascular Exam Cardiovascular Exam: REGULAR RHYTHM, +S1, +S2. 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 Mejia Abdominal Mass -CT abd/pelvis 04/22 shows new 8/5/8cm fluid filled cyst/abscess -IR drainage tomorrow w/ Dr. Ramos pending am platelets >75 -Sx consult Dr. Trinidad -toradol 15mg IVP q6 prn pain Diffuse large b-cell lymphoma -Hem/onc Dr. Velez -zofran 4mg PO q6 prn nausea Thrombocytopenia -platelets 41 s/p 1 unit 04/25 -2 additional units tonight -am labs Anemia -Hgb down 8.9-->7.5 -am labs Ppx -AC contraindicated due to thrombocytopenia -pepcid 20mg PO BID <Ileana Rodríguez - Last Filed: 04/26/18 19:24> Objective - Vital Signs/Intake and Output Vital Signs (last 24 hours): Temp Pulse Resp BP Pulse Ox 99.0 F 105 H 20 96/58 L 99 04/26/18 16:32 04/26/18 16:32 04/26/18 16:32 04/26/18 16:32 04/26/18 16:00 Intake and Output: 04/26/18 04/27/18 18:59 06:59 Intake Total 1014 Balance 1014 - Medications Medications: Current Medications Acetaminophen (Tylenol 325mg Tab) 650 mg PO Q6 PRN PRN Reason: Fever >100.4 F Last Admin: 04/22/18 18:23 Dose: 650 mg Famotidine (Pepcid) 20 mg PO BID [facility] Last Admin: 04/26/18 18:39 Dose: 20 mg Folic Acid (Folic Acid) 1 mg PO DAILY [facility] Last Admin: 04/26/18 10:07 Dose: 1 mg Sodium Chloride (Sodium Chloride 0.9%) 1,000 mls @ 100 mls/hr IV .Q10H [facility] Last Admin: 04/26/18 14:08 Dose: Not Given Metronidazole (Flagyl) 500 mg in 100 mls @ 100 mls/hr IVPB Q8H [facility]; Protocol Stop: 04/27/18 15:31 Last Admin: 04/26/18 15:39 Dose: 100 mls/hr Vancomycin/Sodium Chloride (Vancomycin 1 Gm/Ns 200 Ml) 1 gm in 200 mls @ 133 mls/hr IVPB Q12H [facility]; Protocol Stop: 04/27/18 18:01 Last Admin: 04/26/18 18:40 Dose: 133 mls/hr Cefepime HCl 2 gm/ Sodium (Chloride) 100 mls @ 200 mls/hr IVPB Q8H [facility]; Protocol Ketorolac Tromethamine (Toradol) 15 mg IVP Q6 PRN PRN Reason: Pain, severe (8-10) Last Admin: 04/25/18 22:06 Dose: 15 mg Megestrol Acetate (Megace) 400 mg PO DAILY [facility] Last Admin: 04/26/18 10:07 Dose: 400 mg Metoclopramide HCl (Reglan) 10 mg IVP ACHS PRN PRN Reason: Nausea/Vomiting Last Admin: 04/22/18 19:52 Dose: 10 mg Multivitamins (Hexavitamin) 1 tab PO DAILY [facility] Last Admin: 04/26/18 10:07 Dose: 1 tab Ondansetron HCl (Zofran Tab) 4 mg PO Q6 PRN PRN Reason: Nausea/Vomiting Potassium Phos/Sodium Phos (Neutra-Phos) 1 pkt PO TIDCC [facility] Last Admin: 04/26/18 17:39 Dose: 1 pkt Thiamine HCl (Vitamin B1 Tab) 100 mg PO DAILY [facility] Last Admin: 04/26/18 10:07 Dose: 100 mg - Labs Labs: 04/26/18 07:11 04/26/18 07:11 PT 15.0 SECONDS (9.7-12.2) H 04/25/18 04:13 INR 1.4 04/25/18 04:13 APTT 31 SECONDS (21-34) 04/25/18 04:13 Attending/Attestation - Attestation I have personally seen and examined this patient.: Yes I have fully participated in the care of the patient.: Yes I have reviewed all pertinent clinical information, including history, physical exam and plan: Yes Notes (Text): Seen and examined by me. Patient has lower abdominal pain.Her platelets are low for IR procedure.D/W DR Ramos about drain it tomorrow on examination she has lower abdominal tenderness We will order plaelets and PRBC IR drain of pelvic abscess Assessment and the plan discussed with the resident
[2018-04-26] MEDS ORDERED: Cefepime 2 GM in Sodium Chloride 0.9% 100 ML IVPB SCH (16:15)
[2018-04-27] MEDS: Cefepime 2 GM in Sodium Chloride 0.9% 100 ML IVPB SCH ×2 (00:09→08:45)
[2018-04-27] MEDS: Vancomycin 1 gm/NS 200 ml 1 GM/200 ML BAG IVPB SCH (06:27)
[2018-04-27 07:32] LABS: BASO % 0.6 % (0.0-2.0); EOS % 1.9 % (0.0-4.0); HEMOGLOBIN 8.8 g/dL (11.0-16.0); LYMPH # 0.4 K/uL (1.0-4.3); LYMPH % 18.5 % (20.0-40.0); MEAN CELL VOLUME 87.5 fL (81.0-99.0); MEAN CORPUSCULAR HGB CONC 33.2 g/dL (33.0-37.0); MEAN PLATELET VOLUME 9.8 fL (7.2-11.7); MONO # 0.4 K/uL (0.0-0.8); MONO % 21.6 % (0.0-10.0); NEUT # 1.2 K/uL (1.8-7.0); NEUT % 57.4 % (50.0-75.0); NRBC % 0.2 % (0.0-2.0); PLATELET COUNT 52 K/uL (130-400); RBC 3.05 Mil/uL (3.80-5.20); RED CELL DISTRIBUTION WIDTH 20.5 % (11.5-14.5)
[2018-04-27] MEDS: metroNIDAZOLE IV 500 mg/100 ml 500 MG/100 ML BAG IVPB SCH ×2 (07:45→15:06)
[2018-04-27 07:49] LABS: ALBUMIN 2.9 g/dL (3.5-5.0); ALT/SGPT 26 U/L (9-52); AST/SGOT 39 U/L (14-36); BLOOD UREA NITROGEN 8 mg/dL (7-17); CALCIUM 8.9 mg/dl (8.6-10.4); GFR NON-AFRICAN AMERICAN > 60
[2018-04-27 07:58] VITALS: RESP 20
[2018-04-27 08:54] LABS: BANDS 1 % (0-2); LYMPHOCYTE 19 % (20-40); MONOCYTE 16 % (0-10); NEUTROPHIL 64 % (50-75); TOTAL CELLS COUNTED 100
[2018-04-27 08:55] LABS: ANISOCYTOSIS SLIGHT; HYPOCHROMIC SLIGHT; PLATELET ESTIMATE DECREASED (NORMAL); POLYCHROMIC SLIGHT
[2018-04-27] MEDS: Potassium & Sodium Phosphate PO SCH ×3 (09:08→17:51)
[2018-04-27] MEDS: Multiple Vitamins Tab PO SCH ×2 (10:03→15:03)
[2018-04-27] MEDS: Megestrol Acetate 40 mg/ml Cup PO SCH ×2 (10:03→15:05)
[2018-04-27] MEDS: Sodium Chloride 0.9% 1,000 ML IV SCH (10:20)
[2018-04-27] MEDS ORDERED: Lidocaine Hydrochloride 5 ML INJ ONE (11:03)
[2018-04-27] MEDS ORDERED: Midazolam 2 MG/2 ML VIAL ONE (11:30)
--- NOTE | 2018-04-27 11:46 | PCM.SURG1 ---
Surgeon's Initial Post Op Note - Surgeon's Notes Surgeon: Ryan Ramos MD Retail Sales Associate Bilingual: NONE Type of Anesthesia: IV Sedation Pre-Operative Diagnosis: Abdominal cystic mass Operative Findings: US showed a heterogenous midline mass with branches of SMA coursing through it. Post-Operative Diagnosis: Abdominal cystic mass Operation Performed: US guided aspiration. A 5 fr drainage catheter was advanced into the mass. NO fluid could be aspirated. Biopsy was felt to carry increased risk of bleed vessels coursing through the mass. Specimen/Specimens Removed: 1 cc of slight bloody aspirate Estimated Blood Loss: EBL {In ML}: 0 Blood Products Given: N/A Drains Used: No Drains Post-Op Condition: Fair Date of Surgery/Procedure: 04/27/18 Time of Surgery/Procedure: 11:45
[2018-04-27] MEDS ORDERED: Iodixanol 320 MG/ML 100 ML BOTTLE IV ONE (12:06)
[2018-04-27] MEDS ORDERED: Iohexol 350mg/ml 100 ML ONE (12:54)
--- NOTE | 2018-04-27 13:04 | CT ---
Date of service: 04/27/2018 PROCEDURE: CT Pelvis with contrast HISTORY: Pelvic drainage with drop in blood pressure COMPARISON: None available. TECHNIQUE: Contiguous axial images of the pelvis with contrast. Coronal and sagittal reformats generated. Contrast dose: 100 cubic centimeters Visipaque 350 Radiation dose: Total exam DLP = 386.65 mGy-cm. This CT exam was performed using one or more of the following dose reduction techniques: Automated exposure control, adjustment of the mA and/or kV according to patient size, and/or use of iterative reconstruction technique. FINDINGS: Again identified is a large hypodense midline mass. Branches of the superior mesenteric artery course through the mass. There is no evidence of extravasation of contrast. There is no evidence of bleed BLADDER: Unremarkable. No mass. REPRODUCTIVE ORGANS: Unremarkable. VISUALIZED BOWEL: Unremarkable. PERITONEUM: Unremarkable, as visualized. No free fluid. No free air. LYMPH NODES: Unremarkable. No enlarged lymph nodes. VASCULATURE: Unremarkable. BONES: No fracture or focal lesion. OTHER FINDINGS: Midline hypodense mass measures 7.2 x 6 centimeters. This is unchanged from previous CT scan of 04/21/2018. IMPRESSION: There is no evidence of bleed following aspiration of midline pelvic mass.
--- NOTE | 2018-04-27 13:34 | US ---
PROCEDURE: Date of procedure: 04/27/2018 Procedure: 1. Midline cystic mass aspiration with ultrasound guidance Medications: The patient received IV sedation administered by anesthesiologist, 5 cubic centimeters 1 percent HISTORY: Pelvic mass TECHNIQUE: Following informed consent procedure time-out, limited ultrasound performed showed a complex heterogeneous hypoechoic mass that is midline and in the lower abdomen. There are branches of the superior mesenteric artery coursing through the mass. After the patient abdomen was prepped and draped in the usual sterile fashion, the skin was anesthetized with 1 % lidocaine. A 5 Turkmen Gamador catheter was advanced under ultrasound guidance into the collection. There was difficulty aspirating the mass. A total of 1 cubic centimeter of slight bloody drainage was aspirated. The aspirate was sent for culture and sensitivity. Given the complexity of the mass and this internal vascularity, a biopsy was then performed. A dressing was applied. IMPRESSION: Ultrasound-complex heterogeneous hypoechoic midline mass in the lower abdomen. Branches of the superior mesenteric artery coursing through the mass. The mass is believed not to be an abscess and may represent underlying malignancy. Clinical correlation with PET scan is recommended.
[2018-04-27 14:53] VITALS: O2SAT 98
[2018-04-27 16:04] VITALS: BP 92/53; PULSE 99; TEMP 99.5
--- NOTE | 2018-04-27 16:38 | CP.PCM.PN ---
Subjective - Date & Time of Evaluation Date of Evaluation: 04/27/18 Time of Evaluation: 08:00 - Subjective Subjective: events noted cystic mass aspirated no bx done off antibiotics as all cultures neg thus far - received 7 days rx Objective - Vital Signs/Intake and Output Vital Signs (last 24 hours): Temp Pulse Resp BP Pulse Ox 99.5 F 99 H 20 92/53 L 98 04/27/18 15:00 04/27/18 15:00 04/27/18 15:00 04/27/18 15:00 04/27/18 15:00 Intake and Output: 04/27/18 04/27/18 06:59 18:59 Intake Total 1339 Balance 1339 - Medications Medications: Current Medications Acetaminophen (Tylenol 325mg Tab) 650 mg PO Q6 PRN PRN Reason: Fever >100.4 F Last Admin: 04/26/18 20:35 Dose: 650 mg Famotidine (Pepcid) 20 mg PO BID [facility] Last Admin: 04/27/18 10:03 Dose: Not Given Folic Acid (Folic Acid) 1 mg PO DAILY [facility] Last Admin: 04/27/18 15:03 Dose: 1 mg Sodium Chloride (Sodium Chloride 0.9%) 1,000 mls @ 100 mls/hr IV .Q10H [facility] Last Admin: 04/27/18 10:20 Dose: 100 mls/hr Ketorolac Tromethamine (Toradol) 15 mg IVP Q6 PRN PRN Reason: Pain, severe (8-10) Last Admin: 04/27/18 00:16 Dose: 15 mg Megestrol Acetate (Megace) 400 mg PO DAILY [facility] Last Admin: 04/27/18 15:05 Dose: 400 mg Metoclopramide HCl (Reglan) 10 mg IVP ACHS PRN PRN Reason: Nausea/Vomiting Last Admin: 04/22/18 19:52 Dose: 10 mg Multivitamins (Hexavitamin) 1 tab PO DAILY [facility] Last Admin: 04/27/18 15:03 Dose: 1 tab Ondansetron HCl (Zofran Tab) 4 mg PO Q6 PRN PRN Reason: Nausea/Vomiting Potassium Phos/Sodium Phos (Neutra-Phos) 1 pkt PO TIDCC [facility] Last Admin: 04/27/18 12:00 Dose: Not Given Thiamine HCl (Vitamin B1 Tab) 100 mg PO DAILY [facility] Last Admin: 04/27/18 15:04 Dose: 100 mg - Labs Labs: 04/27/18 07:23 04/27/18 07:23 PT 15.0 SECONDS (9.7-12.2) H 04/25/18 04:13 INR 1.4 04/25/18 04:13 APTT 31 SECONDS (21-34) 04/25/18 04:13 - Constitutional Appears: Non-toxic, Chronically Ill - Eye Exam Eye Exam: Normal appearance Pupil Exam: NORMAL ACCOMODATION - ENT Exam ENT Exam: Mucous Membranes Dry - Neck Exam Neck Exam: absent: Lymphadenopathy - Respiratory Exam Respiratory Exam: Decreased Breath Sounds, Clear to Ausculation Bilateral - Cardiovascular Exam Cardiovascular Exam: REGULAR RHYTHM - GI/Abdominal Exam GI & Abdominal Exam: Distended Assessment and Plan (1) Fever Status: Acute (2) Neutropenic fever Status: Acute (3) B-cell lymphoma Status: Acute
--- NOTE | 2018-04-28 00:33 | CP.PCM.DIS ---
Provider - Provider Date of Admission: 04/17/18 07:48 Attending physician: Devin Green DO Primary care physician: Dr. Cifuentes Consults: Dr. Velez, [place] Onc Dr. Mejia, ID Time Spent in preparation of Discharge (in minutes): 35 Diagnosis - Discharge Diagnosis (1) Abdominal mass Status: Acute (2) Lymphoma Status: Acute (3) Thrombocytopenia Status: Acute (4) Neutropenic fever Status: Acute Hospital Course - Lab Results Lab Results: Micro Results 04/27/18 11:43 Abdominal Fluid Gram Stain - Final 04/17/18 06:18 Blood Blood Culture - Final NO GROWTH AFTER 5 DAYS 04/17/18 06:18 Blood Gram Stain - Final TEST NOT PERFORMED 04/17/18 06:00 Blood Blood Culture - Final NO GROWTH AFTER 5 DAYS 04/17/18 06:00 Blood Gram Stain - Final TEST NOT PERFORMED 04/19/18 19:56 Stool Stool Culture - Final NO SALMONELLA, SHIGELLA OR CAMPYLOBACTER ISOLATED. 04/19/18 19:54 Urine Urine Culture - Final No Growth (<1,000 CFU/ML) 04/19/18 19:54 Stool Ova and Parasite Concentrate Exam - Final 04/17/18 08:02 Urine Urine Culture - Final 10-50,000 CFU/ML. MULTIPLE SPECIES. PROBABLE CONTAMINATION. Most Recent Lab Values WBC 2.0 K/uL (4.8-10.8) L* 04/27/18 07:23 RBC 3.05 Mil/uL (3.80-5.20) L 04/27/18 07:23 Hgb 8.8 g/dL (11.0-16.0) L 04/27/18 07:23 Hct 26.7 % (34.0-47.0) L 04/27/18 07:23 MCV 87.5 fL (81.0-99.0) 04/27/18 07:23 MCH 29.0 pg (27.0-31.0) 04/27/18 07:23 MCHC 33.2 g/dL (33.0-37.0) 04/27/18 07:23 RDW 20.5 % (11.5-14.5) H 04/27/18 07:23 Plt Count 52 K/uL (130-400) L 04/27/18 07:23 MPV 9.8 fL (7.2-11.7) 04/27/18 07:23 Neut % (Auto) 57.4 % (50.0-75.0) 04/27/18 07:23 Lymph % (Auto) 18.5 % (20.0-40.0) L 04/27/18 07:23 Sharkey % (Auto) 21.6 % (0.0-10.0) H 04/27/18 07:23 Eos % (Auto) 1.9 % (0.0-4.0) 04/27/18 07:23 Baso % (Auto) 0.6 % (0.0-2.0) 04/27/18 07:23 Neut # (Auto) 1.2 K/uL (1.8-7.0) L 04/27/18 07:23 Lymph # (Auto) 0.4 K/uL (1.0-4.3) L 04/27/18 07:23 Sharkey # (Auto) 0.4 K/uL (0.0-0.8) 04/27/18 07:23 Eos # (Auto) 0.0 K/uL (0.0-0.7) 04/27/18 07:23 Baso # (Auto) 0.0 K/uL (0.0-0.2) 04/27/18 07:23 Total Counted Cancelled 04/21/18 07:33 Neutrophils % (Manual) 64 % (50-75) 04/27/18 07:23 Band Neutrophils % 1 % (0-2) 04/27/18 07:23 Lymphocytes % (Manual) 19 % (20-40) L 04/27/18 07:23 Reactive Lymphs % Cancelled 04/21/18 07:33 Monocytes % (Manual) 16 % (0-10) H 04/27/18 07:23 Eosinophils % (Manual) 3 % (0-4) 04/22/18 05:08 Basophils % (Manual) 1 % (0-2) 04/18/18 07:20 Metamyelocytes % Cancelled 04/21/18 07:33 Myelocytes % Cancelled 04/21/18 07:33 Promyelocytes % Cancelled 04/21/18 07:33 Blast Cells % 1 % (0-0) H 04/22/18 05:08 Plasma Cell % (Manual) Cancelled 04/21/18 07:33 Nucleated RBC % 1 % (0-0) H 04/18/18 07:20 Hypersegmented Polys Cancelled 04/21/18 07:33 Smudge Cells Cancelled 04/21/18 07:33 Toxic Granulation Present 04/24/18 07:47 Dohle Bodies Cancelled 04/21/18 07:33 Mitra Rods Cancelled 04/21/18 07:33 Platelet Estimate Decreased (NORMAL) L 04/27/18 07:23 Plt Clumps, EDTA Cancelled 04/21/18 07:33 Large Platelets Present 04/23/18 07:40 Giant Platelets Cancelled 04/21/18 07:33 RBC Morphology Cancelled 04/21/18 07:33 Polychromasia Slight 04/27/18 07:23 Hypochromasia (manual) Slight 04/27/18 07:23 Poikilocytosis (manual Slight 04/26/18 07:11 Basophilic Stippling Cancelled 04/21/18 07:33 Anisocytosis (manual) Slight 04/27/18 07:23 Microcytosis (manual) Slight 04/26/18 07:11 Macrocytosis (manual) Slight 04/26/18 07:11 Spherocytes Cancelled 04/21/18 07:33 Sickle Cells Cancelled 04/21/18 07:33 Target Cells Slight 04/26/18 07:11 Tear Drop Cells Slight 04/26/18 07:11 Ovalocytes Slight 04/26/18 07:11 Stomatocytes Cancelled 04/21/18 07:33 Helmet Cells Cancelled 04/21/18 07:33 Hernandez-Wesson Bodies Cancelled 04/21/18 07:33 Abby Cells Cancelled 04/21/18 07:33 Acanthocytes (Spur) Cancelled 04/21/18 07:33 Rouleaux Cancelled 04/21/18 07:33 Schistocytes Slight 04/23/18 07:40 Haptoglobin < 20.0 mg/dL (30.0-200.0) L 04/23/18 14:22 PT 15.0 SECONDS (9.7-12.2) H 04/25/18 04:13 INR 1.4 04/25/18 04:13 APTT 31 SECONDS (21-34) 04/25/18 04:13 pO2 23 mm/Hg (30-55) L 04/17/18 06:19 VBG pH 7.51 (7.32-7.43) H 04/17/18 06:19 VBG pCO2 37 mmHg (40-60) L 04/17/18 06:19 VBG HCO3 28.4 mmol/L 04/17/18 06:19 VBG Total CO2 30.6 mmol/L (22-28) H 04/17/18 06:19 VBG O2 Sat (Calc) 65.7 % (40-65) H 04/17/18 06:19 VBG Base Excess 6.2 mmol/L (0.0-2.0) H 04/17/18 06:19 VBG Potassium 3.4 mmol/L (3.6-5.2) L 04/17/18 06:19 Sodium 134.0 mmol/l (132-148) 04/17/18 06:19 Chloride 103.0 mmol/L (98-107) 04/17/18 06:19 Glucose 140 mg/dl (65-105) H 04/17/18 06:19 Lactate 0.9 mmol/L (0.7-2.1) 04/17/18 06:19 Sodium 139 mmol/L (132-148) 04/27/18 07:23 Potassium 3.8 mmol/L (3.6-5.2) 04/27/18 07:23 Chloride 109 mmol/L (98-107) H 04/27/18 07:23 Carbon Dioxide 21 mmol/L (22-30) L 04/27/18 07:23 Anion Gap 13 (10-20) 04/27/18 07:23 BUN 8 mg/dL (7-17) 04/27/18 07:23 Creatinine 0.3 mg/dL (0.7-1.2) L 04/27/18 07:23 Est GFR ( Amer) > 60 04/27/18 07:23 Est GFR (Non-Af Amer) > 60 04/27/18 07:23 Random Glucose 99 mg/dL (65-105) 04/27/18 07:23 Calcium 8.9 mg/dl (8.6-10.4) 04/27/18 07:23 Phosphorus 2.7 mg/dL (2.5-4.5) 04/27/18 07:23 Magnesium 2.0 mg/dL (1.6-2.3) 04/27/18 07:23 Total Bilirubin 1.3 mg/dL (0.2-1.3) 04/27/18 07:23 AST 39 U/L (14-36) H 04/27/18 07:23 ALT 26 U/L (9-52) 04/27/18 07:23 Alkaline Phosphatase 118 U/L (38-126) 04/27/18 07:23 Lactate Dehydrogenase 955 U/L (313-618) H 04/23/18 14:22 Total Protein 5.8 g/dL (6.3-8.3) L 04/27/18 07:23 Albumin 2.9 g/dL (3.5-5.0) L 04/27/18 07:23 Globulin 2.9 gm/dL (2.2-3.9) 04/27/18 07:23 Albumin/Globulin Ratio 1.0 (1.0-2.1) 04/27/18 07:23 Amylase < 30 U/L (30-110) L 04/18/18 14:51 Lipase < 10 U/L (23-300) L 04/18/18 14:51 Procalcitonin 0.17 NG/ML (0.19-0.49) L 04/17/18 06:26 Beta HCG, Quant < 2.39 mIU/ML 04/27/18 07:23 Venous Blood Potassium 3.4 mmol/L (3.6-5.2) L 04/17/18 06:19 Urine Color Yellow (YELLOW) 04/23/18 11:02 Urine Clarity Clear (Clear) 04/23/18 11:02 Urine pH 7.0 (5.0-8.0) 04/23/18 11:02 Ur Specific [place] 1.011 (1.003-1.030) 04/23/18 11:02 Urine Protein Negative mg/dL (NEGATIVE) 04/23/18 11:02 Urine Glucose (UA) Normal mg/dL (Normal) 04/23/18 11:02 Urine Ketones Negative mg/dL (NEGATIVE) 04/23/18 11:02 Urine Blood Negative (NEGATIVE) 04/23/18 11:02 Urine Nitrate Negative (NEGATIVE) 04/23/18 11:02 Urine Bilirubin Negative (NEGATIVE) 04/23/18 11:02 Urine Urobilinogen Normal mg/dL (0.2-1.0) 04/23/18 11:02 Ur Leukocyte Esterase Neg Amari/uL (Negative) 04/23/18 11:02 Urine WBC (Auto) 1 /hpf (0-5) 04/23/18 11:02 Urine RBC (Auto) < 1 /hpf (0-3) 04/23/18 11:02 Ur Squamous Epith Cells < 1 /hpf (0-5) 04/23/18 11:02 Ur Transition Epith Cell < 1 /hpf (0-3) 04/23/18 11:02 Urine Bacteria Rare (<OCC) 04/23/18 11:02 Urine HCG, Qual Negative (NEGATIVE) 04/23/18 11:02 Stool Occult Blood Negative (NEGATIVE) 04/23/18 15:57 Vancomycin Trough 8.9 ug/mL (5.0-10.0) 04/25/18 04:13 C. difficile Ag & Toxin Negative (NEGATIVE) 04/19/18 19:54 Blood Type O POSITIVE 04/26/18 11:15 Antibody Screen Negative 04/26/18 11:15 Tx React Basic Work-up Compatible (COMPATIBLE) 04/23/18 19:25 Clerical Work Check No discrepancy 04/23/18 19:25 Pre-Trans Blood Type O POSITIVE 04/23/18 19:25 Pre-Trans Vis Hemolysis No hemolysis 04/23/18 19:25 Pre-Tx Ab Screen (Gel) Negative 04/23/18 19:25 Post-Trans Blood Type O POSITIVE 04/23/18 19:25 Post-Tx Visible Hemolys No hemolysis 04/23/18 19:25 Post-Tx Ab Screen (Gel) Negative 04/23/18 19:25 Post-Trans WESLEY Poly Negative (NEGATIVE) 04/23/18 19:25 Pathologist Comment BBK 04/23/18 19:25 - Hospital Course Hospital Course: On admission: HPI: This 52 year old female with PMHx of stage IV diffuse large B-cell lymphoma diagnosed in 2009 - presents c/o fevers, lethargy, and diarrhea since radiation therapy on 04/11/18. She had radiation therapy to the abdomen and b/l axilla. She reports a home Tmax of 103F not responsive to Tylenol 2tabs Q2-4H. She last saw Dr. Velez her HemeOnc this past Wednesday. She c/o associated nausea, with vomiting once daily. She believes because of the vomiting, she developed sore throat. She also c/o loose stools for the past 12 days, but denies melena or hematoschezia. She denies cough or sputum production. Patient does report a new R cervical lymph node which is non-tender to touch. Her last chemo was roughly 1.5months ago with Dr. Velez, and was recently transitioned to radiation therapy with final dose given 04/11/18 (see above). She was seen in our ED with similar complaints on 02/28, and was ultimately diagnosed with a transfusion reaction. She denies dizziness, changes in vision, chest pain, shortness or breath, urinary complaints, or LE edema. No other complaints at this time. Hospital Course: Patient was admitted for neutropenic fevers and to rule out sepsis. Dr. Mejia, ID and Dr. Velez, [facility] Onc were consulted. Patient was started on Cephepime 2gm IVPB q8H, Flagyl 500mg IVPB Q8H, and Vanco 750mg Q12H IVPB empirically. A CXR showed no active disease. Blood, urine, and stool cultures were negative. A CT abd/pelvis 04/22/18 demonstrated 8/5/8cm fluid filled cyst/abscess (see full report), which was thought to possibly be source of infection. IR, Dr. Ramos was consulted and made attempt to drain the cyst, however no fluid could be aspirated. Biopsy of the mass was not possible due to its vascularity increasing risk of bleeding. Patient received plasmaphoresis in order to undergo this procedure, as she was thrombocytopenic. During hospitalization, patient was also transfuced PRBC for anemia. Patient discharged to home after 7 day course of abx and no source of infection found. Discharge instructions: Patient is stable for discharge as per Dr. Rodríguez, Dr. Mejia, and Dr. Veelz. Patient is to follow up with Dr. Velez and her primary care physician within one week of discharge. If you do not have a primary care physician, you may follow up with the [facility] in [facility]. Call [phone] to make an appointment. Patient is prescribed the following new medications: Morphine ER 15mg BID Morphine IR 15mg Q4H PRN pain You may continue to take your home medication of Zofran. Patient is to return to emergency room if any new or worsening symptoms occur. Discharge Exam - Head Exam Head Exam: ATRAUMATIC, NORMAL INSPECTION, NORMOCEPHALIC - Eye Exam Eye Exam: EOMI - ENT Exam ENT Exam: Mucous Membranes Moist - Respiratory Exam Respiratory Exam: Clear to PA & Lateral. absent: Rales, Rhonchi, Wheezes - Cardiovascular Exam Cardiovascular Exam: REGULAR RHYTHM, +S1, +S2 - GI/Abdominal Exam GI & Abdominal Exam: Normal Bowel Sounds, Soft, Tenderness - Extremities Exam Extremities exam: pedal pulses present - Neurological Exam Neurological exam: Alert, Oriented x3 - Psychiatric Exam Psychiatric exam: Normal Affect, Normal Mood - Skin Skin Exam: Dry, Normal Color, Warm Discharge Plan - Discharge Medications Prescriptions: Morphine [Morphine Immediate Release Tab] 15 mg PO Q4H PRN #56 tab PRN Reason: Pain, Moderate (4-7) Morphine [Morphine Extended Release Tab] 15 mg PO BID #28 tabsr - Follow Up Plan Condition: GUARDED Disposition: HOME/ ROUTINE Instructions: Morphine (Systemic), Fever, Adult (DC), Neutropenia (DC) Additional Instructions: Patient is stable for discharge as per Dr. Rodríguez, Dr. Mejia, and Dr. Velez. Patient is to follow up with Dr. Velez and her primary care physician within one week of discharge. If you do not have a primary care physician, you may follow up with the [facility] in [facility]. Call [phone] to make an appointment. Patient is not prescribed any new medications. You may continue to take your home medication of Zofran. Patient is to return to emergency room if any new or worsening symptoms occur. El paciente est estable para el juan j segn el Dr. Rodríguez, el Dr. Mejia y el Dr. Velez. El paciente debe hacer un seguimiento con el Dr. Velez y [facility] dentro de nazanin semana del juan j. Si no tiene un mdico de cabezera, puede hacer un seguimiento con el centro de chris de [facility] en [facility]. Llame al [phone] para hacer nazanin malvin. Al paciente no se le recetan medicamentos nuevos. Puede continuar tomando [facility] de Zofran. El paciente debe regresar a la rosalba de emergencias si se presentan sntomas nuevos o que empeoran. Referrals: Odell Velez MD [Staff Provider] - Josh Mejia MD [Staff Provider] - Nils Trinidad MD [Staff Provider] -
--- NOTE | 2018-04-29 22:24 | CP.PCM.PN ---
Subjective - Date & Time of Evaluation Date of Evaluation: 04/23/18 Time of Evaluation: 12:00 - Subjective Subjective: Feeling better. Objective - Vital Signs/Intake and Output Vital Signs (last 24 hours): Temp Pulse Resp BP Pulse Ox 99.5 F 99 H 20 92/53 L 98 04/27/18 15:00 04/27/18 15:00 04/27/18 15:00 04/27/18 15:00 04/27/18 15:00 - Labs Labs: 04/27/18 07:23 04/27/18 07:23 PT 15.0 SECONDS (9.7-12.2) H 04/25/18 04:13 INR 1.4 04/25/18 04:13 APTT 31 SECONDS (21-34) 04/25/18 04:13 - Head Exam Head Exam: ATRAUMATIC - Eye Exam Eye Exam: Normal appearance - ENT Exam ENT Exam: Mucous Membranes Dry - Respiratory Exam Respiratory Exam: NORMAL BREATHING PATTERN - Cardiovascular Exam Cardiovascular Exam: +S1, +S2 - GI/Abdominal Exam GI & Abdominal Exam: Normal Bowel Sounds Assessment and Plan (1) Pancytopenia Assessment & Plan: secondary to radiation s/p Granix s/p PRBC for anemia transfuse plt if < 20,000 Status: Acute (2) Diffuse large B cell lymphoma Assessment & Plan: stage IV and recurrent s/p several lines of chemotherapy and recent palliative radiation supportive care pt thinking about if she wants further therapy Status: Chronic
== END 2018-04-27 19:16 | disposition home or self-care (01) | DRG 802 ==
LOC: C.ER 05:35 → C.9E 07:48 → C.5S 08:50
PROVIDERS: ADMIT Hospitalist; ATTEND Hospitalist
PROC: 30233R1 Transfusion of Nonautologous Platelets into Peripheral Vein, Percutaneous Approach (ICD-10-PCS; 2018-04-25)
PROC: 30233N1 Transfusion of Nonautologous Red Blood Cells into Peripheral Vein, Percutaneous Approach (ICD-10-PCS; 2018-04-26)
PROC: 6A550Z2 Pheresis of Platelets, Single (ICD-10-PCS; 2018-04-26)
PROC: 0W9J3ZX Drainage of Pelvic Cavity, Percutaneous Approach, Diagnostic (ICD-10-PCS; principal; 2018-04-27)
PROC: BW40ZZZ Ultrasonography of Abdomen (ICD-10-PCS; 2018-04-27)
DX: D70.8 Other neutropenia (principal); K65.1 Peritoneal abscess; C83.38 Diffuse large B-cell lymphoma, lymph nodes of multiple sites; D61.818 Other pancytopenia; N73.9 Female pelvic inflammatory disease, unspecified; R50.81 Fever presenting with conditions classified elsewhere; N94.89 Other specified conditions associated with female genital organs and menstrual cycle; T50.8X5A Adverse effect of diagnostic agents, initial encounter; T66.XXXA Radiation sickness, unspecified, initial encounter; Z92.3 Personal history of irradiation; Z92.21 Personal history of antineoplastic chemotherapy